=== PATIENT | male | born 1970 | race Caucasian/White ===

== ENCOUNTER 2016-11-03 13:10 | Inpatient (IN) | payer OTHER ==
[2016-11-03] VITALS (13 sets, daily range): BP systolic 124–176; BP diastolic 64–104; PULSE 75–144; RESP 15–20; TEMP 98.1–98.6; O2SAT 95–100
[~2016-11-03] VITALS: Ht 167.6 cm; Wt 96.9 kg
[~2016-11-03 13:10] MED LIST: APIX5TAB PO; ASPI325T PO; DEXT1TAB18 PO; DIGO0.25 PO; DILT90TA PO; FURO1TAB62 PO; FURO20TA PO; LISI2.5T3 PO; METO100T PO; POTA10TA8 PO; VENTAER INH
[2016-11-03] MEDS ORDERED: DILTIAZEM HCL 25 MG/5 ML VIAL ONE (13:31)
--- NOTE | 2016-11-03 13:38 | PD ---
HPI Chief Complaint: Bleeding Time Seen by Provider: 13:32 Travel History International Travel<30 days: No Contact w/Intl Traveler<30days: No Traveled to known affect area: No History of Present Illness HPI This patient complains of dizziness and lightheadedness. He has history of atrial fibrillation and presents with rapid A. fib. Heart rate of 180's. He takes eliquis and reports that lately he has been coughing but now there is some blood mixed in with this phlegm.. Denies fever. He has had some on and off chest discomfort in the center sternum but no pain currently. Denies history of ND. Has seen a automotive salesperson a few times through [facility] he says but can't remember name. Duration one day. Severity is moderate. No alleviating factors. 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) Respiratory: Yes (CHRONIC BRONCHITIS) Immunizations Current: Yes Tetanus Vaccination: < 5 Years Influenza Vaccination: Yes Past Surgical History Abdominal Surgery: Yes ([facility] 2000) Cholecystectomy: Yes (2000) Coronary Artery Bypass Graft: No Other Surgery: Yes Social History Alcohol Use: No Tobacco Use: Yes (< 1/2 PPD) Substance Use: No Allergies-Medications (Allergen,Severity, Reaction): Coded Allergies: Sulfa (Verified Allergy, Severe, HIVES, 11/03/16) Reported Meds & Prescriptions Reported Meds & Active Scripts Active Ventolin Hfa 18 GM Inh (Albuterol Sulfate) 90 Mcg/Act Aer 2 Puff INH Q4-6H PRN Reported Potassium Chloride CR (Potassium Chloride) 10 Meq Tab 10 Meq PO DAILY Metoprolol Tartrate 100 Mg Tab 100 Mg PO BID Lisinopril 2.5 Mg Tab 2.5 Mg PO DAILY Furosemide 20 Mg Tab 20 Mg PO DAILY Diltiazem (Diltiazem HCl) 90 Mg Tab 1.5 Tab PO TID Digoxin 0.25 Mg Tab 0.25 Mg PO DAILY Aspirin 325 Mg Tab 325 Mg PO DAILY Eliquis (Apixaban) 5 Mg Tab 5 Mg PO BID Review of Systems General / Constitutional: No: Fever Eyes: No: Visual changes HENT: Positive: Lightheadedness, No: Headaches Cardiovascular: Positive: Chest Pain or Discomfort, Palpitations, Irregular Rhythm, Tachycardia Respiratory: Positive: Cough, Hemoptysis, No: Shortness of Breath Gastrointestinal: No: Abdominal Pain Genitourinary: No: Dysuria Musculoskeletal: No: Pain Skin: No Rash Neurologic: No: Weakness Psychiatric: No: Depression Endocrine: No: Polydipsia Hematologic/Lymphatic: No: Easy Bruising Physical Exam Narrative GENERAL: Well-nourished, well-developed patient in no apparent distress. SKIN: Warm and dry. HEAD: Atraumatic. Normocephalic. EYES: Pupils equal and round. No scleral icterus. No injection or drainage. ENT: No nasal bleeding or discharge. Mucous membranes pink and moist. NECK: Trachea midline. No JVD. CARDIOVASCULAR: Irregularly irregular rhythm. No murmur appreciated. Rate of 180's RESPIRATORY: No accessory muscle use. Clear to auscultation. Breath sounds equal bilaterally. GASTROINTESTINAL: Abdomen soft, non-tender, nondistended. Hepatic and splenic margins not palpable. MUSCULOSKELETAL: No obvious deformities. No clubbing. No cyanosis. No edema. NEUROLOGICAL: Awake and alert. No obvious cranial nerve deficits. Motor grossly within normal limits. Normal speech. PSYCHIATRIC: Appropriate mood and affect; insight and judgment normal. Data Data Last Documented VS Vital Signs Date Time Temp Pulse Resp B/P Pulse Ox O2 Delivery O2 Flow Rate FiO2 11/03/16 15:15 109 18 153/86 100 Room Air 11/03/16 13:22 98.5 Orders Diltiazem Inj (Cardizem Inj) (11/03/16 13:31) Diltiazem Inj (Cardizem Inj) (11/03/16 13:45) Iv Access Insert/Monitor (11/03/16 13:32) Complete Blood Count With Diff (11/03/16 13:32) Basic Metabolic Panel (Bmp) (11/03/16 13:32) Chest, Single Ap (11/03/16 ) ^ Yoga Teacher / Telemetry (11/03/16 13:32) Ckmb (Isoenzyme) Profile (11/03/16 13:35) Troponin I (11/03/16 13:35) Diltiazem Inj (Cardizem Inj) (11/03/16 14:15) Apixaban (Eliquis) (11/03/16 21:00) Digoxin (Lanoxin) (11/04/16 09:00) Diltiazem (Cardizem) (11/03/16 18:00) Furosemide (Lasix) (11/04/16 09:00) Lisinopril (Prinivil) (11/04/16 09:00) Metoprolol Tartrate (Lopressor) (11/03/16 21:00) Potassium Chloride (Kcl) (11/04/16 09:00) Admit Order (Ed Use Only) (11/03/16 15:24) Labs Laboratory Tests Test 11/03/16 13:35 White Blood Count 15.3 TH/MM3 Red Blood Count 5.48 MIL/MM3 Hemoglobin 15.8 GM/DL Hematocrit 46.7 % Mean Corpuscular Volume 85.2 FL Mean Corpuscular Hemoglobin 28.9 PG Mean Corpuscular Hemoglobin 33.9 % Concent Red Cell Distribution Width 15.1 % Platelet Count 304 TH/MM3 Mean Platelet Volume 9.4 FL Neutrophils (%) (Auto) 80.1 % Lymphocytes (%) (Auto) 8.8 % Monocytes (%) (Auto) 10.0 % Eosinophils (%) (Auto) 0.2 % Basophils (%) (Auto) 0.9 % Neutrophils # (Auto) 12.3 TH/MM3 Lymphocytes # (Auto) 1.4 TH/MM3 Monocytes # (Auto) 1.5 TH/MM3 Eosinophils # (Auto) 0.0 TH/MM3 Basophils # (Auto) 0.1 TH/MM3 CBC Comment DIFF FINAL Differential Comment Sodium Level 140 MEQ/L Potassium Level 4.1 MEQ/L Chloride Level 104 MEQ/L Carbon Dioxide Level 25.5 MEQ/L Anion Gap 11 MEQ/L Blood Urea Nitrogen 16 MG/DL Creatinine 1.20 MG/DL Estimat Glomerular Filtration 65 ML/MIN Rate Random Glucose 110 MG/DL Calcium Level 8.6 MG/DL Total Creatine Kinase 84 U/L Troponin I LESS THAN 0.02 NG/ML MDM Medical Decision Making Medical Screen Exam Complete: Yes Emergency Medical Condition: Yes Medical Record Reviewed: Yes Differential Diagnosis A. fib with RVR, SVT, ventricular fibrillation Narrative Course I have reviewed the patient's electronic medical record. Patient's last stress test was 2013. He has cardiomyopathy of 25-30% EF from an echo done in 2014 IV placed and 25 mg IV Cardizem given CBC is normal Metabolic profile is normal CK is normal Troponin is normal I reviewed his EKG which shows A. fib with a very rapid rate Extended cardiac monitoring reveals A. fib with RVR I reviewed his chest x-ray which is normal Patient is critically ill with A. fib with RVR with an excessive rate requiring multiple doses of IV Cardizem to control His rate was improved after the first dose but still elevated I gave him a second dose of 20 mg IV Cardizem Rate has now come down into the 90s and he has improved Medical workup so far negative and will maintain blood thinner due to decreased stroke risk given the normal hemoglobin and minor bleeding and normal chest x- ray but that will require an ongoing monitoring and discussion I reviewed with the hospitalist will admit Critical Care Narrative Aggregate critical care time was 36 minutes. Time to perform other separately billable procedures was not included in the critical care time. My time did not include minutes spent treating any other patients simultaneously or on activities that did not directly contribute to the patient's treatment. The services I provided to this patient were to treat and/or prevent clinically significant deterioration that could result in: Cardiogenic shock, cardiopulmonary arrest, ventricular fibrillation I provided critical care services requiring my management, as noted below: Chart data review, documentation time, medication orders and management, vital sign assessments/reviewing monitor data, ordering and reviewing lab tests, ordering and interpreting/reviewing x-rays and diagnostic studies, care of the patient and discussion of the patient with the admitting physicians. Diagnosis Primary Impression: Chest pain Qualified Code: R07.2 - Precordial pain Additional Impressions: Atrial fibrillation with rapid ventricular response Hemoptysis, unspecified Admitting Information Admitting Physician Requests: it Chance Baldwin MD Nov 03, 2016 13:38
[2016-11-03] MEDS ORDERED: DILTIAZEM HCL 25 MG/5 ML VIAL IV ONE ×3 (13:45→20:45)
--- NOTE | 2016-11-03 13:48 | RADRPT ---
EXAM DATE/TIME: 11/03/2016 13:42 [facility] COMPARISON: CHEST SINGLE AP, October 07, 2016, 4:33. INDICATIONS : Short of breath MEDICAL HISTORY : Congestive heart failure. A-fib SURGICAL HISTORY : None. ENCOUNTER: Initial ACUITY: 1 day PAIN SCORE: 0/10 LOCATION: Bilateral chest FINDINGS: A single view of the chest demonstrates the lungs to be symmetrically aerated without evidence of mas s, infiltrate or effusion. The cardiomediastinal contours are unremarkable. Osseous structures are intact. CONCLUSION: Normal examination. Justin Quach MD on November 03, 2016 at 13:46 Board Certified Radiologist. This report was verified electronically.
[2016-11-03 14:01] LABS: AUTOMATED NEUTROPHIL # 12.3 TH/MM3 (1.8-7.7); BASOPHIL # 0.1 TH/MM3 (0-0.2); BASOPHIL % 0.9 % (0.0-2.0); EOSINOPHIL % 0.2 % (0.0-4.0); HEMATOCRIT 46.7 % (39.0-51.0); HEMO FLAGS DIFF FINAL; LYMPH % 8.8 % (9.0-44.0); LYMPHOCYTE # 1.4 TH/MM3 (1.0-4.8); MEAN CELL VOLUME 85.2 FL (80.0-100.0); MEAN CORPUSCULAR HEMOGLOBIN 28.9 PG (27.0-34.0); MEAN CORPUSCULAR HGB CONC 33.9 % (32.0-36.0); NEUT % 80.1 % (16.0-70.0); PLATELET COUNT 304 TH/MM3 (150-450); RED BLOOD COUNT 5.48 MIL/MM3 (4.50-5.90); RED CELL DISTRIBUTION WIDTH 15.1 % (11.6-17.2); WHITE BLOOD COUNT 15.3 TH/MM3 (4.0-11.0)
[2016-11-03 14:47] LABS: ANION GAP 11 MEQ/L (5-15); BICARBONATE 25.5 MEQ/L (21.0-32.0); BLOOD UREA NITROGEN 16 MG/DL (7-18); CHLORIDE 104 MEQ/L (98-107); GLOMERULAR FILTRATION RATE 65 ML/MIN (>89); POTASSIUM 4.1 MEQ/L (3.5-5.1); SODIUM (NA) 140 MEQ/L (136-145)
[2016-11-03 14:48] LABS: CREATINE KINASE 84 U/L (39-308)
[2016-11-03] MEDS ORDERED: SODIUM CHLORIDE 0.9% FLUSH 5 ML FLUSH FLUSH PRN (15:30)
[2016-11-03] MEDS ORDERED: DILTIAZEM INJ 125 MG in SODIUM CHLORIDE 0.9% INJ 100 ML IV SCH (16:30)
--- NOTE | 2016-11-03 16:57 | HHI.HP ---
cc: Susanne Romero MD [facility] Primary [facility] Physician Susanne Romero MD Admission Diagnosis chest pain, Afib with RVR,reported hemoptysis Diagnoses: Chief Complaint: hemoptysis, palpitations, chest pain Travel History International Travel<30 Days: No Contact w/Intl Traveler <30 Da: No Traveled to Known Affected Are: No History of Present Illness 46-year-old male with history of atrial fibrillation on Eliquis, cardiomyopathy , HTN, bipolar manic depressive, tobacco use, presents with a one-day history of hemoptysis, palpitations, chest pains. Patient reports he has been in his normal state of health until last night he started coughing up mucus mixed with streaks of bright red blood, then this morning started coughing up dark red clots. He denies any recent fever/chills, rhinitis, congestion, or sore throat. Denies abdominal pain, nausea, or vomiting. He takes Eliquis and aspirin 325 mg daily. He also reports intermittent chest discomfort described as "tightness", lasts for 10 minutes at a time and would subside on its own; associated with shortness of breath. He also became acutely lightheaded today, denies syncope. He reports 6 pillow orthopnea, no lower extremity edema. He reports compliance with his medications. Upon arrival to the ER, he was noted to be in atrial fibrillation with RVR, heart rate 180s. He was given IV Cardizem 25 mg, heart rate was still elevated, then given a second dose of IV Cardizem 20 mg. Heart rate improving however still in the 120s. He denies any current chest pain but does continue to feel short of breath. His certified credit counselor is Dr. Watson. Review of Systems Constitutional: DENIES: Fever, Chills, Dizziness Endocrine: DENIES: Polydipsia, Polyuria, Polyphagia Eyes: DENIES: Blurred vision, Vision loss, Double Vision Ears, nose, mouth, throat: DENIES: Throat pain, Running Nose, Odynophagia Respiratory: COMPLAINS OF: Cough, Hemoptysis, Sputum production, Shortness of breath Cardiovascular: COMPLAINS OF: Chest pain, Palpitations, Dyspnea on Exertion, Orthopnea, DENIES: Lower Extremity Edema Gastrointestinal: DENIES: Abdominal pain, Constipation, Diarrhea, Nausea, Vomiting Genitourinary: DENIES: Urinary incontinence, Urgency, Dysuria Musculoskeletal: DENIES: Back pain, Neck pain Integumentary: DENIES: Pruritus, Rash Hematologic/lymphatic: DENIES: Bruising, Lymphadenopathy Immunologic/allergic: DENIES: Eczema, Urticaria Neurologic: DENIES: Abnormal gait, Headache, Localized weakness, Paresthesias Psychiatric: DENIES: Anxiety, Depression Past Family Social History Past Medical History atrial fibrillation cardiomyopathy HTN bipolar manic depressive Past Surgical History Cholecystectomy in 2000 Reported Medications Ventolin Hfa 18 GM Inh (Albuterol Sulfate) 90 Mcg/Act Aer 2 Puff INH Q4-6H PRN Potassium Chloride CR (Potassium Chloride) 10 Meq Tab 10 Meq PO DAILY Metoprolol Tartrate 100 Mg Tab 100 Mg PO BID Lisinopril 2.5 Mg Tab 2.5 Mg PO DAILY Furosemide 20 Mg Tab 20 Mg PO DAILY Diltiazem (Diltiazem HCl) 90 Mg Tab 1.5 Tab PO TID Digoxin 0.25 Mg Tab 0.25 Mg PO DAILY Aspirin 325 Mg Tab 325 Mg PO DAILY Eliquis (Apixaban) 5 Mg Tab 5 Mg PO BID Allergies: Coded Allergies: Sulfa (Verified Allergy, Severe, HIVES, 11/03/16) Active Ordered Medications Current Medications Medications (Trade) Dose Ordered Sig/Jackson Route Start Time Stop Time Status Last Admin (Eliquis) 5 mg BID PO 11/03/16 21:00 (Lanoxin) 0.25 mg DAILY PO 11/04/16 09:00 (Cardizem) 135 mg TID PO 11/03/16 18:00 (Lasix) 20 mg DAILY PO 11/04/16 09:00 (Prinivil) 2.5 mg DAILY PO 11/04/16 09:00 (Lopressor) 100 mg BID PO 11/03/16 21:00 (KCl) 10 meq DAILY PO 11/04/16 09:00 (NS Flush) 2 ml UNSCH PRN FLUSH 11/03/16 15:30 (NS Flush) 2 ml BID FLUSH 11/03/16 21:00 (Aspirin Chew) 81 mg DAILY PO 11/04/16 09:00 Family History Mother with diabetes, Father in cholecystectomy surgery, hx of hemophilia Social History Smokes tobacco 1/3 PPD, previously smoked 1 PPD now cutting back; smoked since age 13 Very occasional alcohol use, last use 2 weeks ago, previously no alcohol for 2 years 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 SKIN: Warm and dry. No rash. HEAD: Normocephalic. Atraumatic. EYES: Pupils equal and round. No scleral icterus. No injection or drainage. ENT: No nasal bleeding or discharge. Mucous membranes pink and moist. NECK: Supple. Trachea midline. CARDIOVASCULAR: Irregularly irregular rate and rhythm. S1, S2 noted. No murmur appreciated. RESPIRATORY: No accessory muscle use. Breath sounds diminished at bilateral bases, otherwise clear to auscultation. Breath sounds equal bilaterally. GASTROINTESTINAL: Abdomen soft, non-tender, nondistended. Normoactive bowel sounds x4. MUSCULOSKELETAL: No obvious deformities. Extremities without clubbing, cyanosis , or edema. NEUROLOGICAL: Awake and alert. No obvious cranial nerve deficits. Motor grossly within normal limits. 5/5 muscle strength in bilateral upper and lower extremities. Normal speech. PSYCHIATRIC: Appropriate mood and affect; insight and judgment normal. Laboratory Laboratory Tests Test 11/03/16 13:35 White Blood Count 15.3 Red Blood Count 5.48 Hemoglobin 15.8 Hematocrit 46.7 Mean Corpuscular Volume 85.2 Mean Corpuscular Hemoglobin 28.9 Mean Corpuscular Hemoglobin 33.9 Concent Red Cell Distribution Width 15.1 Platelet Count 304 Mean Platelet Volume 9.4 Neutrophils (%) (Auto) 80.1 Lymphocytes (%) (Auto) 8.8 Monocytes (%) (Auto) 10.0 Eosinophils (%) (Auto) 0.2 Basophils (%) (Auto) 0.9 Neutrophils # (Auto) 12.3 Lymphocytes # (Auto) 1.4 Monocytes # (Auto) 1.5 Eosinophils # (Auto) 0.0 Basophils # (Auto) 0.1 CBC Comment DIFF FINAL Differential Comment Sodium Level 140 Potassium Level 4.1 Chloride Level 104 Carbon Dioxide Level 25.5 Anion Gap 11 Blood Urea Nitrogen 16 Creatinine 1.20 Estimat Glomerular Filtration 65 Rate Random Glucose 110 Calcium Level 8.6 Total Creatine Kinase 84 Troponin I LESS THAN 0.02 Result Diagram: 11/03/16 1335 11/03/16 1335 Assessment and Plan Problem List: (1) Atrial fibrillation with rapid ventricular response ICD Code: I48.91 Status: Acute (2) Chest pain ICD Code: R07.9 Status: Acute (3) CHF (congestive heart failure) ICD Code: I50.9 Status: Acute (4) Hypertension ICD Code: I10 Status: Acute (5) Tobacco abuse ICD Code: Z72.0 Status: Acute (6) Hemoptysis, unspecified ICD Code: R04.2 Status: Acute Assessment and Plan 46-year-old male with history of atrial fibrillation on Eliquis, cardiomyopathy , HTN, bipolar manic depressive, tobacco use, presents with a one-day history of hemoptysis, palpitations, chest pains. Atrial Fibrillation with RVR: pt with known hx of afib, presents with HR in 180s , s/p IV Cardizem 25mg and 20mg push in the ED. HR still in 120s-140s. Start on IV Cardizem drip. Continue patient's Digoxin, Metoprolol, Eliquis, decreased aspirin from 325mg to 81mg given reported hemoptysis. Check digoxin level. Consult patient's certified credit counselor Dr. Watson. Chest Pain: He is tender to palpation. However will check serial cardiac enzymes and EKG x3. Continue aspirin, BB. IV Morphine prn pain. Hemoptysis: mild. Hgb stable at 15.8. Continue anticoagulation with Eliquis given afib RVR as above; however decreased aspirin to 81mg daily. Monitor. Repeat CBC tomorrow. Cardiomyopathy with Systolic CHF: Echo 03/18/14 showed EF 50-55% however Echo showed EF 25-30%. Continue patient's lasix 20mg daily, lisinopril, metoprolol, aspirin, Eliquis. Cardiology consulted as above. Hypertension: chronic, continue patient's lisinopril, metoprolol. Monitor BP, adjust antihypertensives as needed. Tobacco Use: counseled on cessation. Avoid nicotine patch. DVT Prophylaxis: On Eliquis. Written by Meagan Jose, acting as scribe for Dr. Sandoval on 11/03/16 at 16: 56. The documentation accurately reflects the work performed [id number] by me on 11/03/16 at 1656. Discussed Condition With Patient, ER Physician Certification 2 Midnight Certification Type: Admission for Inpatient Services Order for Inpatient Services The services are ordered in accordance with Medicare regulations or non- Medicare payer requirements, as applicable. In the case of services not specified as inpatient-only, they are appropriately provided as inpatient services in accordance with the 2-midnight benchmark. Estimated LOS (days): 3 days is the estimated time the patient will need to remain in the hospital, assuming treatment plan goals are met and no additional complications. Post-Hospital Plan: Home Problem Qualifiers (1) Chest pain: Qualified Code: R07.2 - Precordial pain Meagan Jose PA-C Nov 03, 2016 16:57 Darlyn Sandoval MD Nov 03, 2016 18:22
[2016-11-03] MEDS ORDERED: DILTIAZEM HCL 90 MG TAB PO SCH (18:00)
[2016-11-03] MEDS ORDERED: MORPHINE SULFATE 4 MG/ML INJ IV PUSH ONE (18:00)
[2016-11-03] MEDS ORDERED: cloNIDine HCL 0.1 MG TAB PO PRN (18:15)
[2016-11-03 19:08] LABS: AMPHETAMINE, URINE NEG (NEG); BARBITURATES, URINE NEG (NEG); COCAINE, URINE NEG (NEG)
[2016-11-03] MEDS: ACETAMINOPHEN/HYDROcodone 325 MG/5 MG TAB PO PRN (20:42)
[2016-11-03] MEDS ORDERED: DIGOXIN 0.5 MG/2 ML VIAL IV PUSH ONE (20:45)
[2016-11-03 21:02] LABS: MAGNESIUM 1.8 MG/DL (1.5-2.5)
[2016-11-03] MEDS: METOPROLOL TARTRATE 100 MG TAB PO SCH (21:42)
[2016-11-03] MEDS: APIXABAN 5 MG TABLET PO SCH (21:43)
[2016-11-03] MEDS: SODIUM CHLORIDE 0.9% FLUSH 5 ML FLUSH FLUSH SCH (21:43)
[2016-11-04] VITALS (23 sets, daily range): BP systolic 110–146; BP diastolic 81–105; PULSE 69–108; RESP 16–20; TEMP 97.8–98.6; O2SAT 93–100
[2016-11-04] MEDS: ACETAMINOPHEN/HYDROcodone 325 MG/5 MG TAB PO PRN ×5 (00:55→21:36)
[2016-11-04] MEDS: DIGOXIN 0.5 MG/2 ML VIAL IV PUSH SCH ×2 (04:06→08:27)
[2016-11-04 04:13] LABS: MEAN CELL VOLUME 85.5 FL (80.0-100.0); MEAN CORPUSCULAR HEMOGLOBIN 29.3 PG (27.0-34.0); MEAN CORPUSCULAR HGB CONC 34.2 % (32.0-36.0); PLATELET COUNT 285 TH/MM3 (150-450); RED BLOOD COUNT 5.03 MIL/MM3 (4.50-5.90); RED CELL DISTRIBUTION WIDTH 14.8 % (11.6-17.2); REVIEW FLAG FINAL
[2016-11-04 04:39] LABS: CREATINE KINASE 42 U/L (39-308)
[2016-11-04 04:44] LABS: BICARBONATE 25.7 MEQ/L (21.0-32.0); POTASSIUM 4.3 MEQ/L (3.5-5.1)
[2016-11-04] MEDS: ASPIRIN 81 MG CHEW TAB PO SCH (08:26)
[2016-11-04] MEDS: POTASSIUM CHLORIDE 10 MEQ CONTROLLED RELEASE TAB PO SCH (08:26)
[2016-11-04] MEDS: FUROSEMIDE 20 MG TAB PO SCH (08:26)
[2016-11-04] MEDS: DIGOXIN 0.25 MG TAB PO SCH (08:26)
[2016-11-04] MEDS: METOPROLOL TARTRATE 100 MG TAB PO SCH ×2 (08:26→21:36)
[2016-11-04] MEDS: APIXABAN 5 MG TABLET PO SCH ×2 (08:26→21:36)
[2016-11-04] MEDS: LISINOPRIL 5 MG TAB PO SCH (08:27)
[2016-11-04] MEDS: SODIUM CHLORIDE 0.9% FLUSH 5 ML FLUSH FLUSH SCH ×2 (08:27→21:37)
--- NOTE | 2016-11-04 11:49 | HHI.PR ---
Subjective Remarks Patient seen in follow-up for A. fib with RVR, musculoskeletal chest pain, hemoptysis and multiple comorbid conditions listed on the assessment and plan. He reports that he is breathing better. He was weaned off the Cardizem drip. Loaded with digoxin. Heart rate is currently controlled. Objective Vitals Vital Signs Date Time Temp Pulse Resp B/P Pulse Ox O2 Delivery O2 Flow Rate FiO2 11/04/16 11:23 16 11/04/16 11:00 74 11/04/16 10:00 69 11/04/16 09:00 74 11/04/16 08:00 97.8 83 16 136/98 98 11/04/16 08:00 74 11/04/16 07:19 Room Air 11/04/16 07:00 73 11/04/16 06:00 71 11/04/16 05:00 69 11/04/16 04:00 75 11/04/16 04:00 98.4 79 18 110/81 96 11/04/16 03:00 74 11/04/16 02:00 74 11/04/16 01:00 77 11/04/16 00:00 75 11/03/16 23:47 Room Air 11/03/16 23:46 98.3 75 20 139/76 97 11/03/16 23:00 86 11/03/16 22:00 99 11/03/16 21:00 98.6 100 20 124/90 97 11/03/16 21:00 100 11/03/16 20:40 139 20 139/64 99 Room Air 11/03/16 19:15 144 18 154/104 97 Room Air 11/03/16 18:42 123 20 137/98 97 Room Air 11/03/16 17:46 115 18 168/95 100 Room Air 11/03/16 16:00 108 18 132/95 96 Room Air 11/03/16 15:15 109 18 153/86 100 Room Air 11/03/16 14:15 133 18 148/92 96 Room Air 11/03/16 13:27 168 22 95 Room Air 11/03/16 13:22 98.5 87 20 96 11/03/16 13:18 98.1 118 15 176/88 95 I/O 11/03/16 11/03/16 11/03/16 11/04/16 11/04/16 11/04/16 07:00 15:00 23:00 07:00 15:00 23:00 Intake Total 472 ml 580 ml Output Total 210 ml Balance 262 ml 580 ml Intake Oral 472 ml 480 ml IV Total 100 ml Output Urine Total 210 ml # Voids 2 2 # Bowel Movements 0 Result Diagram: 11/04/16 0342 11/04/16 0520 Imaging Last Impressions Chest X-Ray 11/03/16 0000 Signed Impressions: Service Date/Time: Thursday, November 03, 2016 13:42 - CONCLUSION: Normal examination. Justin Quach MD Objective Remarks GENERAL: This is a well-nourished, well-developed patient, in no apparent distress. CARDIOVASCULAR: Irregularly irregular rate and rhythm. S1, S2 noted. No murmur appreciated. RESPIRATORY: Good respiratory efforts. Breath sounds equal and clear to auscultation bilaterally. GASTROINTESTINAL: Abdomen soft, non-tender, non-distended. Normal active bowel sounds MUSCULOSKELETAL: Extremities without cyanosis, or edema. NEURO: Alert & Oriented x4 to person, place, time, situation. Moves all ext x4 PSYCH: Appropriate mood and affect. A/P Problem List: (1) Atrial fibrillation with rapid ventricular response ICD Code: I48.91 Status: Acute (2) Chest pain ICD Code: R07.9 Status: Acute (3) CHF (congestive heart failure) ICD Code: I50.9 Status: Acute (4) Hypertension ICD Code: I10 Status: Acute (5) Tobacco abuse ICD Code: Z72.0 Status: Acute (6) Hemoptysis, unspecified ICD Code: R04.2 Status: Acute Assessment and Plan 46-year-old male with history of atrial fibrillation on Eliquis, cardiomyopathy , HTN, bipolar manic depressive, tobacco use, presents with a one-day history of hemoptysis, palpitations, chest pains. Atrial Fibrillation with RVR: pt with known hx of afib, presents with HR in 180s , s/p IV Cardizem 25mg and 20mg push in the ED. -Appreciate cardiology following. Patient loaded with digoxin. Heart rate now controlled. Digoxin level was low. - Continue Digoxin, Metoprolol, Eliquis, decreased aspirin from 325mg to 81mg given reported hemoptysis. Chest Pain: He is tender to palpation. Serial cardiac enzymes unremarkable. Pain control. Hemoptysis: mild. Hgb stable at 15.8. Continue anticoagulation with Eliquis given afib RVR as above; however decreased aspirin to 81mg daily. Monitor. Cardiomyopathy with Systolic CHF: Echo 03/18/14 showed EF 50-55% however Echo showed EF 25-30%. Continue patient's lasix 20mg daily, lisinopril, metoprolol, aspirin, Eliquis. Cardiology consulted as above. Hypertension: chronic, continue patient's lisinopril, metoprolol. Monitor BP, adjust antihypertensives as needed. Tobacco Use: counseled on cessation. Avoid nicotine patch. DVT Prophylaxis: On Eliquis. Problem Qualifiers (1) Chest pain: Qualified Code: R07.2 - Precordial pain Darlyn Sandoval MD Nov 04, 2016 11:49
--- NOTE | 2016-11-04 19:39 | EKG ---
Date Performed: 11/03/2016 Time Performed: 13:28:10 PTAGE: 46 years EKG: ATRIAL FIBRILLATION WITH RAPID VENTRICULAR RESPONSE NONSPECIFIC T-WAVE ABNORMALITY ABNORMAL RHYTHM ECG PREVIOUS TRACING : 10/07/2016 04.16 DOCTOR: Bj Parry Interpretating Date/Time 11/04/2016 19:34:58
--- NOTE | 2016-11-04 20:05 | MB ---
cc: GOPAL VASQUEZ DATE OF CONSULTATION 11/04/2016 DATE OF 1970 REASON FOR CONSULTATION Atrial fibrillation with RVR. HISTORY OF PRESENT ILLNESS 46-year-old male with a past medical history significant for atrial fibrillation on chronic oral anticoagulation, cardiomyopathy, hypertension, bipolar disorder, tobacco abuse that presented to the emergency department complaining of cough, hemoptysis and palpitations. He reports that he was in his usual state of health until yesterday when he started coughing. The coughing was described as mucus with a streak of blood. He denied recent fevers , chills, nasal congestion or sore throat, nausea, vomiting, abdominal pain. He presented to the emergency department and was found to be in atrial fibrillation with RVR. He reports compliance with medications. In the emergency department he was started on Cardizem drip and was admitted to the hospital for further management and evaluation. Currently he remains stable in no acute distress. His rate is controlled, however, he is still in atrial fibrillation. He denies palpitations, chest pain, abdominal pain, nausea, vomiting, diarrhea, fever. REVIEW OF SYSTEMS Negative except for what is mentioned in the history of present illness. PAST MEDICAL HISTORY 1. Atrial fibrillation on chronic anticoagulation. 2. Cardiomyopathy. 3. Hypertension. 4. Bipolar disorder. 5. Tobacco abuse. PAST SURGICAL HISTORY Cholecystectomy. Cardiac home medications: 1. Metoprolol 100 mg p.o. b.i.d. 2. Lisinopril 2.5 mg p.o. daily. 3. Lasix 20 mg p.o. daily. 4. Diltiazem 90 mg p.o. t.i.d. 5. Digoxin 0.25 milligrams p.o. daily. 6. Aspirin 325 milligrams p.o. daily. 7. Eliquis 5 milligrams p.o. twice a day. ALLERGIES SULFA. FAMILY HISTORY Mother with diabetes. Father had a history of hemophilia. SOCIAL HISTORY He is a chronic smoker. Denies illicit drug use. Social alcohol. PHYSICAL EXAMINATION VITAL SIGNS: Temperature 97, pulse 74, respiratory 16, blood pressure 136/98, O2 sat 98% on room air. GENERAL: He is awake, alert, oriented x3, in no acute distress. NECK: No JVD, no carotid bruit. HEART: Irregular rate and rhythm. No murmurs, rubs or gallops. LUNGS: Clear to auscultation bilaterally. No rales, rhonchi, no rubs. ABDOMEN: Soft and nontender. Nondistended. Positive bowel sounds. EXTREMITIES: No cyanosis or edema. Pulses throughout. LABORATORY DATA CBC shows a white count trending down from 15-13. Hemoglobin of 14, hematocrit of 43, platelet count 285. Chemistries sodium 138 trending down today to 122. Potassium of 4.3, BUN 24 and creatinine of 1.29. Troponins less than 0.02 x3. Toxicology screen negative. IMAGING Chest x-ray normal and non cardiopulmonary process. EKG atrial fibrillation with rapid ventricular response. Telemetry on the floor shows atrial fibrillation with adequate ventricular rate. ASSESSMENT/PLAN A 46-year-old male with a history of atrial fibrillation and cardiomyopathy that presents to the hospital with coughing, tinge blood sputum found to be in atrial fibrillation with rapid ventricular response. He remains afebrile, no signs of infection, hemodynamically stable. Chest pain free, denies shortness of breath. Rate now controlled off the Diltiazem drip. At this point I will start him on his home dose of digoxin, Diltiazem and metoprolol, as well as on his home dose oral anticoagulation Eliquis. There are no signs of active bleeding and hemoglobin remains stable. According to the patient there was not a lot of blood in the mucus, it was just tinged with blood. As far as the cardiomyopathy there is no hospital records available. Troponin's are negative. For now I would continue rate control for afib as well as OAC and get 2Decho t assess LV systolic function. When he is ready for discharged he should follow up with Dr. Watson. Thank you for the opportunity to take part in the care of this patient. Further therapy to be determine MD DIANA Juárez/DAVIDE /1:07 PM /7:02 PM SETH
[2016-11-05] VITALS (22 sets, daily range): BP systolic 94–128; BP diastolic 72–99; PULSE 63–108; RESP 20–24; TEMP 98.1–98.7; O2SAT 96–98
[2016-11-05] MEDS: ACETAMINOPHEN/HYDROcodone 325 MG/5 MG TAB PO PRN ×3 (05:02→20:11)
[2016-11-05] MEDS: ONDANSETRON HCL 4 MG/2 ML VIAL IV PUSH PRN ×2 (06:11→20:18)
[2016-11-05 06:30] LABS: HEMATOCRIT 43.6 % (39.0-51.0); MEAN CELL VOLUME 85.8 FL (80.0-100.0); MEAN CORPUSCULAR HEMOGLOBIN 28.9 PG (27.0-34.0); MEAN CORPUSCULAR HGB CONC 33.7 % (32.0-36.0); PLATELET COUNT 240 TH/MM3 (150-450); RED BLOOD COUNT 5.08 MIL/MM3 (4.50-5.90); RED CELL DISTRIBUTION WIDTH 15.2 % (11.6-17.2); REVIEW FLAG FINAL; WHITE BLOOD COUNT 10.3 TH/MM3 (4.0-11.0)
[2016-11-05 07:12] LABS: BICARBONATE 31.7 MEQ/L (21.0-32.0); POTASSIUM 4.2 MEQ/L (3.5-5.1)
[2016-11-05] MEDS: METOPROLOL TARTRATE 100 MG TAB PO SCH (09:19)
[2016-11-05] MEDS: FUROSEMIDE 20 MG TAB PO SCH (09:20)
[2016-11-05] MEDS: LISINOPRIL 5 MG TAB PO SCH (09:20)
[2016-11-05] MEDS: POTASSIUM CHLORIDE 10 MEQ CONTROLLED RELEASE TAB PO SCH (09:20)
[2016-11-05] MEDS: ASPIRIN 81 MG CHEW TAB PO SCH (09:20)
[2016-11-05] MEDS: APIXABAN 5 MG TABLET PO SCH ×2 (09:20→20:10)
[2016-11-05] MEDS: DIGOXIN 0.25 MG TAB PO SCH (09:20)
[2016-11-05] MEDS: SODIUM CHLORIDE 0.9% FLUSH 5 ML FLUSH FLUSH SCH ×2 (09:21→20:19)
--- NOTE | 2016-11-05 11:57 | PD.CARD.PN ---
Subjective Subjective Remarks Complaints with SOB with exertion still of Afib goes to RVR with activity no overnight events Objective Medications Current Medications Medications (Trade) Dose Ordered Sig/Jackson Route Start Time Stop Time Status Last Admin (Eliquis) 5 mg BID PO 11/03/16 21:00 11/05/16 09:20 (Lanoxin) 0.25 mg DAILY PO 11/04/16 09:00 11/05/16 09:20 (Lasix) 20 mg DAILY PO 11/04/16 09:00 11/05/16 09:20 (Prinivil) 2.5 mg DAILY PO 11/04/16 09:00 11/05/16 09:20 (Lopressor) 100 mg BID PO 11/03/16 21:00 11/05/16 09:19 (KCl) 10 meq DAILY PO 11/04/16 09:00 11/05/16 09:20 (NS Flush) 2 ml UNSCH PRN FLUSH 11/03/16 15:30 (NS Flush) 2 ml BID FLUSH 11/03/16 21:00 11/05/16 09:21 Aspirin 81 mg 81 mg DAILY PO 11/04/16 09:00 11/05/16 09:20 (Cardizem Inj/NS Inj) 125 ml @ 0 mls/hr TITRATE IV 11/03/16 16:30 11/03/16 18:10 (Catapres) 0.1 mg Q6H PRN PO 11/03/16 18:15 ([place] 5-325 Mg) 1 tab Q4H PRN PO 11/03/16 18:15 11/05/16 05:02 (Zofran Inj) 4 mg Q6HR PRN IV PUSH 11/05/16 06:00 11/05/16 06:11 Vital Signs / I&O Vital Signs Date Time Temp Pulse Resp B/P Pulse Ox O2 Delivery O2 Flow Rate FiO2 11/05/16 08:29 98.4 99 22 123/88 96 11/05/16 06:00 105 11/05/16 05:00 82 11/05/16 04:00 98.1 84 22 121/72 98 11/05/16 04:00 88 11/05/16 03:00 83 11/05/16 02:00 78 11/05/16 01:00 85 11/05/16 00:00 75 11/05/16 00:00 98.2 84 24 94/74 98 11/05/16 00:00 94 11/04/16 23:00 75 11/04/16 22:00 102 11/04/16 21:00 88 11/04/16 20:00 86 11/04/16 20:00 84 11/04/16 20:00 98.1 80 20 131/105 98 11/04/16 19:00 98 Room Air 11/04/16 18:00 87 11/04/16 17:32 20 11/04/16 17:00 86 11/04/16 16:00 98.2 95 16 130/86 100 11/04/16 16:00 90 11/04/16 15:00 80 11/04/16 14:00 84 11/04/16 13:00 80 11/04/16 12:00 98.2 76 18 136/84 97 11/04/16 12:00 78 I/O 11/04/16 11/04/16 11/04/16 11/05/16 11/05/16 11/05/16 07:00 15:00 23:00 07:00 15:00 23:00 Intake Total 580 ml 900 ml 480 ml Output Total 400 ml 425 ml Balance 580 ml 500 ml 55 ml Intake Oral 480 ml 850 ml 480 ml IV Total 100 ml 50 ml 0 ml Output Urine Total 400 ml 425 ml # Voids 2 2 2 # Bowel Movements 0 0 0 Physical Exam GENERAL: Well-nourished, well-developed patient. SKIN: Warm and dry. HEAD: Normocephalic. EYES: No scleral icterus. No injection or drainage. NECK: Supple, trachea midline. No JVD or lymphadenopathy. CARDIOVASCULAR: Irr Irr without murmurs, gallops, or rubs. RESPIRATORY: Breath sounds equal bilaterally. No accessory muscle use. GASTROINTESTINAL: Abdomen soft, non-tender, nondistended. EXTREMITIES: No cyanosis, or edema. NEUROLOGICAL: Awake, alert, and oriented x 3. Non-focal. Laboratory Laboratory Tests Test 11/05/16 05:36 White Blood Count 10.3 TH/MM3 Red Blood Count 5.08 MIL/MM3 Hemoglobin 14.7 GM/DL Hematocrit 43.6 % Mean Corpuscular Volume 85.8 FL Mean Corpuscular Hemoglobin 28.9 PG Mean Corpuscular Hemoglobin 33.7 % Concent Red Cell Distribution Width 15.2 % Platelet Count 240 TH/MM3 Mean Platelet Volume 9.3 FL Sodium Level 139 MEQ/L Potassium Level 4.2 MEQ/L Chloride Level 101 MEQ/L Carbon Dioxide Level 31.7 MEQ/L Anion Gap 6 MEQ/L Blood Urea Nitrogen 20 MG/DL Creatinine 1.02 MG/DL Estimat Glomerular Filtration 78 ML/MIN Rate Random Glucose 82 MG/DL Calcium Level 8.3 MG/DL Imaging Last Impressions Chest X-Ray 11/03/16 0000 Signed Impressions: Service Date/Time: Thursday, November 03, 2016 13:42 - CONCLUSION: Normal examination. Justin Quach MD Assessment and Plan Problem List: (1) A-fib Assessment and Plan: Still goes to R on ambulation with complaints of SOB Stop Lopressor Start Diltiazem 30mg PO QID Cont OAC 2DEcho (2) Noncompliance with medications (3) Essential hypertension (4) Hypertension (5) Tobacco abuse Problem Qualifiers (1) A-fib: Qualified Code: I48.2 - Chronic atrial fibrillation Bj Parry MD Nov 05, 2016 11:57
[2016-11-05] MEDS: DILTIAZEM HCL 30 MG TAB PO SCH ×3 (12:12→20:18)
--- NOTE | 2016-11-05 13:25 | HHI.PR ---
Subjective Remarks Patient reports that he is not feeling too well today. Still has some shortness of breath with activities and goes into A. fib with RVR. Objective Vitals Vital Signs Date Time Temp Pulse Resp B/P Pulse Ox O2 Delivery O2 Flow Rate FiO2 11/05/16 13:05 80 11/05/16 12:00 98.2 107 20 128/99 98 11/05/16 11:00 108 11/05/16 10:00 100 11/05/16 09:00 105 11/05/16 08:29 98.4 99 22 123/88 96 11/05/16 06:00 105 11/05/16 05:00 82 11/05/16 04:00 98.1 84 22 121/72 98 11/05/16 04:00 88 11/05/16 03:00 83 11/05/16 02:00 78 11/05/16 01:00 85 11/05/16 00:00 75 11/05/16 00:00 98.2 84 24 94/74 98 11/05/16 00:00 94 11/04/16 23:00 75 11/04/16 22:00 102 11/04/16 21:00 88 11/04/16 20:00 86 11/04/16 20:00 84 11/04/16 20:00 98.1 80 20 131/105 98 11/04/16 19:00 98 Room Air 11/04/16 18:00 87 11/04/16 17:32 20 11/04/16 17:00 86 11/04/16 16:00 98.2 95 16 130/86 100 11/04/16 16:00 90 11/04/16 15:00 80 11/04/16 14:00 84 I/O 11/04/16 11/04/16 11/04/16 11/05/16 11/05/16 11/05/16 07:00 15:00 23:00 07:00 15:00 23:00 Intake Total 580 ml 900 ml 480 ml Output Total 400 ml 425 ml 200 ml Balance 580 ml 500 ml 55 ml -200 ml Intake Oral 480 ml 850 ml 480 ml IV Total 100 ml 50 ml 0 ml Output Urine Total 400 ml 425 ml 200 ml # Voids 2 2 2 # Bowel Movements 0 0 0 1 Result Diagram: 11/05/1636 11/05/16535 Objective Remarks GENERAL: This is a well-nourished, well-developed patient, in no apparent distress. CARDIOVASCULAR: Irregularly irregular rate and rhythm. S1, S2 noted. No murmur appreciated. RESPIRATORY: Good respiratory efforts. Breath sounds equal and clear to auscultation bilaterally. GASTROINTESTINAL: Abdomen soft, non-tender, non-distended. Normal active bowel sounds MUSCULOSKELETAL: Extremities without cyanosis, or edema. NEURO: Alert & Oriented x4 to person, place, time, situation. Moves all ext x4 PSYCH: Appropriate mood and affect. A/P Problem List: (1) Atrial fibrillation with rapid ventricular response ICD Code: I48.91 Status: Acute (2) Chest pain ICD Code: R07.9 Status: Acute (3) CHF (congestive heart failure) ICD Code: I50.9 Status: Acute (4) Hypertension ICD Code: I10 Status: Acute (5) Tobacco abuse ICD Code: Z72.0 Status: Acute (6) Hemoptysis, unspecified ICD Code: R04.2 Status: Acute Assessment and Plan 46-year-old male with history of atrial fibrillation on Eliquis, cardiomyopathy , HTN, bipolar manic depressive, tobacco use, presents with a one-day history of hemoptysis, palpitations, chest pains. Atrial Fibrillation with RVR: pt with known hx of afib, presents with HR in 180s , s/p IV Cardizem 25mg and 20mg push in the ED. -Appreciate cardiology following. Patient initially loaded with digoxin. Digoxin level was low. - Continue Digoxin, Eliquis, decreased aspirin from 325mg to 81mg given reported hemoptysis. - Rate still uncontrolled with activities. Metoprolol Dced, patient started on Cardizem 30 mg every 6 hours. Chest Pain: He is tender to palpation. Serial cardiac enzymes unremarkable. Pain control. Hemoptysis: mild. Hgb stable at 15.8. Continue anticoagulation with Eliquis given afib RVR as above; however decreased aspirin to 81mg daily. Monitor. Cardiomyopathy with Systolic CHF: Echo 04/04/15 showed EF 25-30%. Continue patient's lasix 20mg daily, lisinopril, metoprolol, aspirin, Eliquis. - Repeat 2-D echo Hypertension: chronic, continue patient's lisinopril, metoprolol. Monitor BP, adjust antihypertensives as needed. Tobacco Use: counseled on cessation. Avoid nicotine patch. DVT Prophylaxis: On Eliquis. Problem Qualifiers (1) Chest pain: Qualified Code: R07.2 - Precordial pain Darlyn Sandoval MD Nov 05, 2016 13:25
--- NOTE | 2016-11-05 19:05 | EC ---
Study Study Date:11/05/2016 STUDY CONCLUSIONS SUMMARY - Left ventricle: The cavity size was mildly dilated. Wall thickness was normal. Systolic function was severely reduced. The estimated ejection fraction was in the range of 25% to 30%. Diffuse hypokinesis. - Mitral valve: Moderate regurgitation. - Tricuspid valve: Mild regurgitation. - Pulmonary arteries: PA peak pressure: 53mm Hg (S). If LV function is below 40, please consider prescribing an ACEI or ARB or document rationale for non-use. PROCEDURE DATA STUDY STATUS: Elective. Procedure: Transthoracic echocardiography. Image quality was good. Scanning was performed from the parasternal, apical, and subcostal acoustic windows. Study completion: The patient tolerated the procedure well. Transthoracic echocardiography. M-mode, complete 2D, complete spectral Doppler, and color Doppler. Patient status: Inpatient. CARDIAC ANATOMY LEFT VENTRICLE: The cavity size was mildly dilated. Wall thickness was normal. Systolic function was severely reduced. The estimated ejection fraction was in the range of 25% to 30%. Diffuse hypokinesis. AORTIC VALVE: Trileaflet; normal thickness leaflets. Doppler: Transvalvular velocity was within the normal range. There was no stenosis. No regurgitation. AORTA: Aortic root: The aortic root was normal in size. MITRAL VALVE: Structurally normal valve. Doppler: Transvalvular velocity was within the normal range. There was no evidence for stenosis. Moderate regurgitation. Peak gradient: 4mm Hg (D). LEFT ATRIUM: The atrium was normal in size. RIGHT VENTRICLE: The cavity size was normal. Wall thickness was normal. PULMONIC VALVE: Doppler: Transvalvular velocity was within the normal range. There was no evidence for stenosis. No regurgitation. TRICUSPID VALVE: Structurally normal valve. Doppler: Transvalvular velocity was within the normal range. Mild regurgitation. PULMONARY ARTERY: The main pulmonary artery was normal-sized. Systolic pressure was within the normal range. RIGHT ATRIUM: The atrium was normal in size. PERICARDIUM: There was no pericardial effusion. SYSTEMIC VEINS: Inferior vena cava: The vessel was normal in size. BASIC MEASUREMENTS ADULT Normal Left ventricle LV internal dimension, ED, chordal level, *60.4 mm 43-52 PLAX LV internal dimension, ES, chordal level, *54.8 mm 23-38 PLAX Fractional shortening, chordal level, PLAX *9 % >29 LV posterior wall thickness, ED 10.7 mm IVS/LVPW ratio, ED 1.06 <1.3 Ventricular septum Septal thickness, ED 11.3 mm Aortic valve Leaflet separation 22 mm 15-26 Left atrium Anterior-posterior dimension 48 mm Right ventricle RV internal dimension, ED, PLAX 26 mm 19-38 BASIC MEASUREMENTS ADULT Normal Aortic valve Leaflet separation 22 mm 15-26 Aorta Root diameter, ED 34 mm 20-37 DOPPLER MEASUREMENTS ADULT Normal Main pulmonary artery Pressure, S *53 mm Hg =30 Mitral valve Peak E-wave velocity 101 cm/s Peak gradient, D 4 mm Hg Tricuspid valve Regurgitant peak velocity 327 cm/s Peak RV-RA gradient, S 43 mm Hg Maximal regurgitant velocity 327 cm/s Systemic veins Estimated CVP 10 mm Hg Right ventricle RV pressure, S *53 mm Hg <30 LEGEND: Mean values are shown as u=mean value. Asterisk (*) phelan values outside specified normal range. Prepared and signed by Bj Parry [id number]
[2016-11-06] VITALS (23 sets, daily range): BP systolic 100–121; BP diastolic 71–98; PULSE 79–115; RESP 20; TEMP 98.2–98.7; O2SAT 95–98
[2016-11-06] MEDS: ACETAMINOPHEN/HYDROcodone 325 MG/5 MG TAB PO PRN ×4 (00:02→21:31)
[2016-11-06] MEDS: POTASSIUM CHLORIDE 10 MEQ CONTROLLED RELEASE TAB PO SCH (08:40)
[2016-11-06] MEDS: FUROSEMIDE 20 MG TAB PO SCH (08:40)
[2016-11-06] MEDS: APIXABAN 5 MG TABLET PO SCH (08:41)
[2016-11-06] MEDS: LISINOPRIL 5 MG TAB PO SCH (08:41)
[2016-11-06] MEDS: DIGOXIN 0.25 MG TAB PO SCH (08:41)
[2016-11-06] MEDS: SODIUM CHLORIDE 0.9% FLUSH 5 ML FLUSH FLUSH SCH ×2 (08:41→21:32)
[2016-11-06] MEDS: DILTIAZEM HCL 30 MG TAB PO SCH ×4 (08:41→21:31)
[2016-11-06] MEDS ORDERED: AMIODARONE HCL 150 MG/3 ML VIAL ONE (08:51)
[2016-11-06] MEDS ORDERED: AMIODARONE 150 MG/D5W 97 ML BOLUS 10 MINUTES IV ONE ×2 (09:30)
[2016-11-06] MEDS ORDERED: HEPARIN-NS/PF INJ 500 ML ONE ×2 (10:22→10:28)
[2016-11-06] MEDS ORDERED: MIDAZOLAM HCL 2 MG/2 ML VIAL ONE (10:23)
[2016-11-06] MEDS ORDERED: VERAPAMIL HCL 5 MG/2 ML VIAL ONE (10:23)
[2016-11-06] MEDS ORDERED: HEPARIN SODIUM - IV 10,000 UNITS/10 ML VIAL ONE (10:23)
[2016-11-06] MEDS ORDERED: NITROGLYCERIN INJ 5 ML ONE (10:23)
--- NOTE | 2016-11-06 10:30 | HHI.PR ---
Subjective Remarks Rate still uncontrolled. He was given an Amiodorone bolus this morning. Plan for heart cath today per Cardiology. He reports that he still gets SOB with minimal exertion. Objective Vitals Vital Signs Date Time Temp Pulse Resp B/P Pulse Ox O2 Delivery O2 Flow Rate FiO2 11/06/16 06:00 87 11/06/16 05:00 83 11/06/16 04:00 83 11/06/16 04:00 98.6 95 20 111/86 98 11/06/16 03:00 87 11/06/16 02:00 85 11/06/16 01:00 87 11/06/16 00:00 98.7 92 20 121/98 98 11/06/16 00:00 85 11/05/16 23:00 87 11/05/16 22:00 87 11/05/16 21:00 63 11/05/16 20:00 98.6 85 20 114/73 98 11/05/16 20:00 83 11/05/16 19:00 80 11/05/16 19:00 98 Room Air 11/05/16 17:56 99 Room Air 11/05/16 17:00 85 11/05/16 16:00 98.7 72 24 121/74 98 11/05/16 15:00 81 11/05/16 14:00 83 11/05/16 13:30 20 11/05/16 13:05 80 11/05/16 12:00 98.2 107 20 128/99 98 11/05/16 11:00 108 I/O 11/05/16 11/05/16 11/05/16 11/06/16 11/06/16 11/06/16 07:00 15:00 23:00 07:00 15:00 23:00 Intake Total 480 ml 480 ml Output Total 425 ml 200 ml 850 ml Balance 55 ml -200 ml -370 ml Intake Oral 480 ml 480 ml IV Total 0 ml Output Urine Total 425 ml 200 ml 850 ml # Voids 2 3 # Bowel Movements 0 1 Result Diagram: 11/05/1636 11/05/16535 Objective Remarks GENERAL: This is a well-nourished, well-developed patient, in no apparent distress. CARDIOVASCULAR:Rate of 105. Irregular rhythm. S1, S2 noted. No murmur appreciated. RESPIRATORY: Good respiratory efforts. Breath sounds equal and clear to auscultation bilaterally. GASTROINTESTINAL: Abdomen soft, non-tender, non-distended. Normal active bowel sounds MUSCULOSKELETAL: Extremities without cyanosis, or edema. NEURO: Alert & Oriented x4 to person, place, time, situation. Moves all ext x4 PSYCH: Appropriate mood and affect. A/P Problem List: (1) Atrial fibrillation with rapid ventricular response ICD Code: I48.91 Status: Acute (2) Chest pain ICD Code: R07.9 Status: Acute (3) CHF (congestive heart failure) ICD Code: I50.9 Status: Acute (4) Hypertension ICD Code: I10 Status: Acute (5) Tobacco abuse ICD Code: Z72.0 Status: Acute (6) Hemoptysis, unspecified ICD Code: R04.2 Status: Acute Assessment and Plan 46-year-old male with history of atrial fibrillation on Eliquis, cardiomyopathy , HTN, bipolar manic depressive, tobacco use, presents with a one-day history of hemoptysis, palpitations, chest pains. Atrial Fibrillation with RVR: pt with known hx of afib, presents with HR in 180s , s/p IV Cardizem 25mg and 20mg push in the ED. - Appreciate cardiology following. Patient initially loaded with digoxin. Digoxin level was low. - Rate is still uncontrolled. Status post amiodarone bolus. Plan for heart catheterization per cardiology today. - Continue Digoxin, Cardizem, Eliquis, decreased aspirin from 325mg to 81mg given reported hemoptysis. Chest Pain: He is tender to palpation. Serial cardiac enzymes unremarkable. Pain control. Hemoptysis: Blood-tinged sputum. Hgb stable at 15. Continue anticoagulation with Eliquis given afib RVR as above; however decreased aspirin to 81mg daily. Monitor. Cardiomyopathy with Systolic CHF: Echo 04/04/15 showed EF 25-30%. Continue patient's lasix 20mg daily, lisinopril, metoprolol, aspirin, Eliquis. - Repeat 2-D echo shows LVEF of 25-30%. Hypertension: chronic, continue patient's lisinopril, metoprolol. Monitor BP, adjust antihypertensives as needed. Tobacco Use: counseled on cessation. Avoid nicotine patch. DVT Prophylaxis: On Eliquis. Problem Qualifiers (1) Chest pain: Qualified Code: R07.2 - Precordial pain Rimpel,Ricardy MD Nov 06, 2016 10:29
[2016-11-06] MEDS ORDERED: MISC INFORMATION XX ONE (11:15)
[2016-11-06] MEDS ORDERED: SODIUM CHLORIDE 0.9% FLUSH 5 ML FLUSH IVF PRN (11:15)
--- NOTE | 2016-11-06 12:17 | PD.CARD.PN ---
Subjective Subjective Remarks no complaint afib in the low 100's with activity echo reviewed low EF Objective Medications Current Medications Medications (Trade) Dose Ordered Sig/Jackson Route Start Time Stop Time Status Last Admin (Lanoxin) 0.25 mg DAILY PO 11/04/16 09:00 11/06/16 08:41 (Lasix) 20 mg DAILY PO 11/04/16 09:00 11/06/16 08:40 (Prinivil) 2.5 mg DAILY PO 11/04/16 09:00 11/06/16 08:41 (KCl) 10 meq DAILY PO 11/04/16 09:00 11/06/16 08:40 (NS Flush) 2 ml UNSCH PRN FLUSH 11/03/16 15:30 IV Flush 2 ml 2 ml BID FLUSH 11/03/16 21:00 11/06/16 08:41 (Cardizem Inj/NS Inj) 125 ml @ 0 mls/hr TITRATE IV 11/03/16 16:30 11/03/16 18:10 (Catapres) 0.1 mg Q6H PRN PO 11/03/16 18:15 ([place] 5-325 Mg) 1 tab Q4H PRN PO 11/03/16 18:15 11/06/16 04:15 (Zofran Inj) 4 mg Q6HR PRN IV PUSH 11/05/16 06:00 11/05/16 20:18 (Cardizem) 60 mg QID PO 11/06/16 13:00 (NS Flush) 2 ml BID IVF 11/06/16 21:00 (NS Flush) 2 ml UNSCH PRN IVF 11/06/16 11:15 Vital Signs / I&O Vital Signs Date Time Temp Pulse Resp B/P Pulse Ox O2 Delivery O2 Flow Rate FiO2 11/06/16 08:00 98.6 85 20 114/89 96 11/06/16 07:00 96 Room Air 11/06/16 06:00 87 11/06/16 05:00 83 11/06/16 04:00 83 11/06/16 04:00 98.6 95 20 111/86 98 11/06/16 03:00 87 11/06/16 02:00 85 11/06/16 01:00 87 11/06/16 00:00 98.7 92 20 121/98 98 11/06/16 00:00 85 11/05/16 23:00 87 11/05/16 22:00 87 11/05/16 21:00 63 11/05/16 20:00 98.6 85 20 114/73 98 11/05/16 20:00 83 11/05/16 19:00 80 11/05/16 19:00 98 Room Air 11/05/16 17:56 99 Room Air 11/05/16 17:00 85 11/05/16 16:00 98.7 72 24 121/74 98 11/05/16 15:00 81 11/05/16 14:00 83 11/05/16 13:30 20 11/05/16 13:05 80 I/O 11/05/16 11/05/16 11/05/16 11/06/16 11/06/16 11/06/16 07:00 15:00 23:00 07:00 15:00 23:00 Intake Total 480 ml 480 ml Output Total 425 ml 200 ml 850 ml Balance 55 ml -200 ml -370 ml Intake Oral 480 ml 480 ml IV Total 0 ml Output Urine Total 425 ml 200 ml 850 ml # Voids 2 3 # Bowel Movements 0 1 Physical Exam GENERAL: Well-nourished, well-developed patient. SKIN: Warm and dry. HEAD: Normocephalic. EYES: No scleral icterus. No injection or drainage. NECK: Supple, trachea midline. No JVD or lymphadenopathy. CARDIOVASCULAR: Irr Irr without murmurs, gallops, or rubs. RESPIRATORY: Breath sounds equal bilaterally. No accessory muscle use. GASTROINTESTINAL: Abdomen soft, non-tender, nondistended. EXTREMITIES: No cyanosis, or edema. NEUROLOGICAL: Awake, alert, and oriented x 3. Non-focal. Assessment and Plan Problem List: (1) CHF (congestive heart failure) Assessment and Plan: Give Amio Bolus Increase Cardizem 60mg PO QID Cont OAC Schedule [facility] today (2) A-fib (3) Noncompliance with medications (4) Essential hypertension (5) Hypertension (6) Tobacco abuse Problem Qualifiers (1) CHF (congestive heart failure): (2) A-fib: Qualified Code: I48.2 - Chronic atrial fibrillation Bj Parry MD Nov 06, 2016 12:17
--- NOTE | 2016-11-06 12:45 | MA ---
cc: GOPAL VASQUEZ DATE 11/06/2016 DATE OF 1970 PROCEDURE PERFORMED Transradial left heart catheterization, selective right and left coronary angiography. INDICATION Systolic heart failure, NYHA III. DESCRIPTION OF PROCEDURE Consent signed. The patient was brought into the cardiac seed analysis laboratory assistant in a fasting state. The right wrist was prepped and draped in a sterile fashion. Using 1% lidocaine for local anesthesia and a micropuncture kit, a 6-Thai sheath was inserted into the right radial artery. Antispasmodic cocktail given, then selective right and left coronary angiography was performed with a JR-4 and JL- 3.5 diagnostic catheters. Angiography was taken in multiple views. The left ventricle was crossed with a JR-4. Pressures were recorded and then pullback. The patient tolerated the procedure well without complications. Estimated blood loss less than 30 cc. Total contrast used 30 cc. The right wrist access site was closed with a TR band. RESULTS LEFT VENTRICLE The left ventricular pressure was 95/12 with an LVEDP of 13. The aortic pressure was 87/63 with a mean of 75. ANGIOGRAPHIC RESULTS 1. The right coronary artery is a dominant vessel. It has minimal luminal irregularities, otherwise patent with RUSTY-III flow. The PDA is also patent with nonobstructive coronary artery disease. There are two RV branches that are also patent. 2. The left main is long and patent with nonobstructive coronary artery disease. 3. The LAD is a transapical vessel, has minimal luminal irregularities, otherwise patent with nonobstructive CAD. He has a first diagonal vessel that comes off before the first septal. The distal diagonal is patent with nonobstructive CAD. 4. The left circumflex artery has nonobstructive coronary artery disease and has RUSTY-III flow. OM1 also is patent with RUSTY-III flow and nonobstructive coronary artery disease. CONCLUSION 1. Non-ischemic cardiomyopathy 2. LV systolic dysfunction 3. Atrial fibrillation. RECOMMENDATIONS Continue aggressive medical management for prior impression of coronary artery disease and LV systolic dysfunction which should include BRAEDEN inhibitors, as well as beta-blockers. Continue rate control as well as put anticoagulation. The patient should be followed by primary route contractor when discharged from the hospital. MD DIANA Juárez/DANNA /11:10 AM /12:27 PM SETH
[2016-11-06] MEDS ORDERED: IOHEXOL 350 MG/ML 50 ML BTL (for Cath Lab) OTHER ONE (16:13)
[2016-11-06] MEDS: SODIUM CHLORIDE 0.9% FLUSH 5 ML FLUSH IVF SCH (21:00)
[2016-11-07] VITALS (21 sets, daily range): BP systolic 123–149; BP diastolic 69–94; PULSE 66–130; RESP 14–20; TEMP 97.8–98.5; O2SAT 95–98
[2016-11-07] MEDS: ACETAMINOPHEN/HYDROcodone 325 MG/5 MG TAB PO PRN ×4 (02:45→20:23)
[2016-11-07] MEDS: SODIUM CHLORIDE 0.9% FLUSH 5 ML FLUSH IVF SCH ×2 (09:00→21:00)
[2016-11-07] MEDS: SODIUM CHLORIDE 0.9% FLUSH 5 ML FLUSH FLUSH SCH ×2 (09:00→20:24)
[2016-11-07] MEDS: LISINOPRIL 5 MG TAB PO SCH (09:13)
[2016-11-07] MEDS: DIGOXIN 0.25 MG TAB PO SCH (09:14)
[2016-11-07] MEDS: POTASSIUM CHLORIDE 10 MEQ CONTROLLED RELEASE TAB PO SCH (09:14)
[2016-11-07] MEDS: FUROSEMIDE 20 MG TAB PO SCH (09:14)
[2016-11-07] MEDS: DILTIAZEM HCL 30 MG TAB PO SCH ×4 (09:14→20:23)
--- NOTE | 2016-11-07 09:39 | PD.CARD.PN ---
Subjective Subjective Remarks no complaints Objective Vital Signs / I&O Vital Signs Date Time Temp Pulse Resp B/P Pulse Ox O2 Delivery O2 Flow Rate FiO2 11/07/16 08:00 98.1 100 18 135/86 96 11/07/16 06:00 90 11/07/16 05:00 83 11/07/16 04:00 81 11/07/16 03:05 98.4 82 20 125/87 97 11/07/16 03:05 96 Room Air 11/07/16 03:00 85 11/07/16 02:00 81 11/07/16 01:00 80 11/07/16 00:00 98.2 84 20 123/69 95 11/07/16 00:00 96 Room Air 11/07/16 00:00 82 11/06/16 23:00 84 11/06/16 22:00 80 11/06/16 21:00 87 11/06/16 20:00 92 11/06/16 19:45 98.2 80 20 111/90 95 11/06/16 19:45 96 Room Air 11/06/16 19:00 87 11/06/16 16:00 98.4 93 20 112/71 98 11/06/16 15:00 87 11/06/16 14:46 18 11/06/16 14:00 79 11/06/16 13:00 90 11/06/16 12:00 79 11/06/16 12:00 98.6 79 20 100/71 98 11/06/16 11:25 87 11/06/16 10:00 105 I/O 11/06/16 11/06/16 11/06/16 11/07/16 11/07/16 11/07/16 07:00 15:00 23:00 07:00 15:00 23:00 Intake Total 480 ml Output Total 850 ml 1350 ml Balance -370 ml -1350 ml Intake Oral 480 ml Output Urine Total 850 ml 1350 ml Physical Exam GENERAL: Well-nourished, well-developed patient. SKIN: Warm and dry. HEAD: Normocephalic. EYES: No scleral icterus. No injection or drainage. NECK: Supple, trachea midline. No JVD or lymphadenopathy. CARDIOVASCULAR: Irr Irr without murmurs, gallops, or rubs. RESPIRATORY: Breath sounds equal bilaterally. No accessory muscle use. GASTROINTESTINAL: Abdomen soft, non-tender, nondistended. EXTREMITIES: No cyanosis, or edema. NEUROLOGICAL: Awake, alert, and oriented x 3. Non-focal. Assessment and Plan Problem List: (1) A-fib Assessment and Plan: cont rate control IV diuresis OAC (2) CHF (congestive heart failure) (3) Noncompliance with medications (4) Essential hypertension (5) Hypertension (6) Tobacco abuse Problem Qualifiers (1) A-fib: Qualified Code: I48.2 - Chronic atrial fibrillation (2) CHF (congestive heart failure): Bj Parry MD Nov 07, 2016 09:39
--- NOTE | 2016-11-07 16:59 | HHI.PR ---
Subjective Remarks telemetry in a fib- rate controlled feeling better up and ambulating - slow pace Objective Vitals Vital Signs Date Time Temp Pulse Resp B/P Pulse Ox O2 Delivery O2 Flow Rate FiO2 11/07/16 16:00 97.8 80 18 125/75 95 11/07/16 15:00 68 11/07/16 14:00 66 11/07/16 13:00 80 11/07/16 12:00 86 11/07/16 12:00 97.9 83 14 149/94 96 11/07/16 11:00 105 11/07/16 11:00 87 11/07/16 11:00 87 11/07/16 10:00 91 11/07/16 10:00 80 11/07/16 09:00 110 11/07/16 09:00 110 11/07/16 08:00 130 11/07/16 08:00 98.1 100 18 135/86 96 11/07/16 08:00 Room Air 11/07/16 07:00 90 11/07/16 06:00 90 11/07/16 05:00 83 11/07/16 04:00 81 11/07/16 03:05 98.4 82 20 125/87 97 11/07/16 03:05 96 Room Air 11/07/16 03:00 85 11/07/16 02:00 81 11/07/16 01:00 80 11/07/16 00:00 98.2 84 20 123/69 95 11/07/16 00:00 96 Room Air 11/07/16 00:00 82 11/06/16 23:00 84 11/06/16 22:00 80 11/06/16 21:00 87 11/06/16 20:00 92 11/06/16 19:45 98.2 80 20 111/90 95 11/06/16 19:45 96 Room Air 11/06/16 19:00 87 I/O 11/06/16 11/06/16 11/06/16 11/07/16 11/07/16 11/07/16 07:00 15:00 23:00 07:00 15:00 23:00 Intake Total 480 ml Output Total 850 ml 2250 ml Balance -370 ml -2250 ml Intake Oral 480 ml Output Urine Total 850 ml 2250 ml # Bowel Movements 1 Result Diagram: 11/05/16 0536 11/05/16 0536 Imaging Last Impressions Chest X-Ray 11/03/16 0000 Signed Impressions: Service Date/Time: Thursday, November 03, 2016 13:42 - CONCLUSION: Normal examination. Justin Quach MD Objective Remarks awake and alert, oriented x 3 anicteric lungs no rales or wheezes irregularly irregular rhythm abdomen soft, nontender extremities no edema neuro exam- unremarkable Procedures 11/06- cardiac catheterization A/P Problem List: (1) Atrial fibrillation with rapid ventricular response ICD Code: I48.91 Status: Acute (2) Chest pain ICD Code: R07.9 Status: Acute (3) CHF (congestive heart failure) ICD Code: I50.9 Status: Acute (4) Hypertension ICD Code: I10 Status: Acute (5) Tobacco abuse ICD Code: Z72.0 Status: Acute (6) Hemoptysis, unspecified ICD Code: R04.2 Status: Acute Assessment and Plan 46-year-old male with history of atrial fibrillation on Eliquis, cardiomyopathy , HTN, bipolar manic depressive, tobacco use, presents with a one-day history of hemoptysis, palpitations, chest pains. Atrial Fibrillation with RVR- now rate controlled Non ischemic cardiomyopathy S/P cardiac catheterization 11/06 Hypertension - controlled - Repeat 2-D echo shows LVEF of 25-30%. - Continue Digoxin, Cardizem, Eliquis,Lopressor, , Lasix. switched to po amiodarone today Chest Pain: He is tender to palpation. Serial cardiac enzymes unremarkable. Pain control. Hemoptysis: Blood-tinged sputum. Hgb stable at 15. Continue anticoagulation with Eliquis given afib RVR Tobacco Use: counseled on cessation. Avoid nicotine patch. DVT Prophylaxis: On Eliquis. Problem Qualifiers (1) Chest pain: Qualified Code: R07.2 - Precordial pain (2) CHF (congestive heart failure): Joel Burrell MD Nov 07, 2016 16:59
[2016-11-07] MEDS: APIXABAN 5 MG TABLET PO SCH (20:23)
[2016-11-07] MEDS: AMIODARONE 200 MG TAB PO SCH (20:23)
[2016-11-08] VITALS (8 sets, daily range): BP systolic 125–169; BP diastolic 76–91; PULSE 67–95; RESP 18–20; TEMP 98–98.6; O2SAT 96–99
[2016-11-08] MEDS: DILTIAZEM HCL 30 MG TAB PO SCH ×2 (08:08→13:18)
[2016-11-08] MEDS: AMIODARONE 200 MG TAB PO SCH (08:08)
[2016-11-08] MEDS: APIXABAN 5 MG TABLET PO SCH (08:08)
[2016-11-08] MEDS: FUROSEMIDE 20 MG TAB PO SCH (08:09)
[2016-11-08] MEDS: LISINOPRIL 5 MG TAB PO SCH (08:09)
[2016-11-08] MEDS: DIGOXIN 0.25 MG TAB PO SCH (08:09)
[2016-11-08] MEDS: SODIUM CHLORIDE 0.9% FLUSH 5 ML FLUSH FLUSH SCH (09:00)
[2016-11-08] MEDS: ACETAMINOPHEN/HYDROcodone 325 MG/5 MG TAB PO PRN ×2 (09:25→13:53)
[2016-11-08] MEDS: POTASSIUM CHLORIDE 10 MEQ CONTROLLED RELEASE TAB PO SCH (13:19)
[2016-11-08] MEDS: SODIUM CHLORIDE 0.9% FLUSH 5 ML FLUSH IVF SCH (13:54)
--- NOTE | 2016-11-08 15:14 | HHI.PR ---
Subjective Remarks no complains up and ambulating around no shortness of breath telemetry- a fib- rate controlled Objective Vitals Vital Signs Date Time Temp Pulse Resp B/P Pulse Ox O2 Delivery O2 Flow Rate FiO2 11/08/16 14:00 67 11/08/16 13:00 85 11/08/16 12:00 98.5 95 20 125/76 11/08/16 12:00 67 11/08/16 08:00 98.6 95 20 158/88 11/08/16 04:00 98.0 78 18 169/91 99 11/08/16 00:05 98.0 80 18 141/91 96 11/08/16 00:00 80 11/07/16 20:00 98.5 67 18 126/75 98 11/07/16 20:00 67 11/07/16 18:00 90 11/07/16 17:30 91 11/07/16 16:00 70 11/07/16 16:00 97.8 80 18 125/75 95 I/O 11/07/16 11/07/16 11/07/16 11/08/16 11/08/16 11/08/16 07:00 15:00 23:00 07:00 15:00 23:00 Intake Total 720 ml 0 ml Output Total 2750 ml Balance -2030 ml 0 ml Intake Oral 720 ml IV Total 0 ml Output Urine Total 2750 ml # Bowel Movements 1 Result Diagram: 11/05/16 0536 11/05/16 0536 Imaging Last Impressions Chest X-Ray 11/03/16 0000 Signed Impressions: Service Date/Time: Thursday, November 03, 2016 13:42 - CONCLUSION: Normal examination. Justin Quach MD Objective Remarks awake and alert, oriented x 3 anicteric lungs no rales or wheezes irregularly irregular rhythm abdomen soft, nontender extremities no edema neuro exam- unremarkable Procedures 11/06- cardiac catheterization A/P Problem List: (1) Atrial fibrillation with rapid ventricular response ICD Code: I48.91 Status: Acute (2) Chest pain ICD Code: R07.9 Status: Acute (3) CHF (congestive heart failure) ICD Code: I50.9 Status: Acute (4) Hypertension ICD Code: I10 Status: Acute (5) Tobacco abuse ICD Code: Z72.0 Status: Acute (6) Hemoptysis, unspecified ICD Code: R04.2 Status: Acute Assessment and Plan 46-year-old male with history of atrial fibrillation on Eliquis, cardiomyopathy , HTN, bipolar manic depressive, tobacco use, presents with a one-day history of hemoptysis, palpitations, chest pains. Atrial Fibrillation with RVR- now rate controlled Non ischemic cardiomyopathy S/P cardiac catheterization 11/06 Hypertension - controlled - Repeat 2-D echo shows LVEF of 25-30%. - Continue Digoxin, Cardizem, Eliquis,Lopressor, , Lasix. po amiodarone Chest Pain: He is tender to palpation. Serial cardiac enzymes unremarkable. Pain control. Hemoptysis: Blood-tinged sputum. no further episodes Hgb stable at 15. Continue anticoagulation with Eliquis given afib RVR Tobacco Use: counseled on cessation. Avoid nicotine patch. DVT Prophylaxis: On Eliquis. Problem Qualifiers (1) Chest pain: Qualified Code: R07.2 - Precordial pain (2) CHF (congestive heart failure): Joel Burrell MD Nov 08, 2016 15:14
--- NOTE | 2016-11-08 15:15 | HHI.DS ---
Discharge Summary Admission Date Nov 03, 2016 at 15:26 Discharge Date: Nov 08, 2016 Admitting Diagnosis chest pain, Afib with RVR,reported hemoptysis (1) Atrial fibrillation with rapid ventricular response ICD Code: I48.91 Diagnosis: Principal (2) Chest pain ICD Code: R07.9 Diagnosis: Principal (3) CHF (congestive heart failure) ICD Code: I50.9 Diagnosis: Principal (4) Hypertension ICD Code: I10 Diagnosis: Secondary (5) Tobacco abuse ICD Code: Z72.0 Diagnosis: Secondary (6) Hemoptysis, unspecified ICD Code: R04.2 Diagnosis: Secondary Procedures 11/06- cardiac catheterization Brief History - From Admission 46-year-old male with history of atrial fibrillation on Eliquis, cardiomyopathy , HTN, bipolar manic depressive, tobacco use, presents with a one-day history of hemoptysis, palpitations, chest pains. Patient reports he has been in his normal state of health until last night he started coughing up mucus mixed with streaks of bright red blood, then this morning started coughing up dark red clots. He denies any recent fever/chills, rhinitis, congestion, or sore throat. Denies abdominal pain, nausea, or vomiting. He takes Eliquis and aspirin 325 mg daily. He also reports intermittent chest discomfort described as "tightness", lasts for 10 minutes at a time and would subside on its own; associated with shortness of breath. He also became acutely lightheaded today, denies syncope. He reports 6 pillow orthopnea, no lower extremity edema. He reports compliance with his medications. Upon arrival to the ER, he was noted to be in atrial fibrillation with RVR, heart rate 180s. He was given IV Cardizem 25 mg, heart rate was still elevated, then given a second dose of IV Cardizem 20 mg. Heart rate improving however still in the 120s. He denies any current chest pain but does continue to feel short of breath. His data recovery planner is Dr. Watson. CBC/BMP: 11/05/16 0536 11/05/16 0536 Imaging Last Impressions Chest X-Ray 11/03/16 0000 Signed Impressions: Service Date/Time: Thursday, November 03, 2016 13:42 - CONCLUSION: Normal examination. Justin Quach MD PE at Discharge awake and alert, oriented x 3 anicteric lungs no rales or wheezes irregularly irregular rhythm abdomen soft, nontender extremities no edema neuro exam- unremarkable Pt update on day of discharge BP controlled, rate controlled no edema Hospital Course 46-year-old male with history of atrial fibrillation on Eliquis, cardiomyopathy , HTN, bipolar manic depressive, tobacco use, presents with a one-day history of hemoptysis, palpitations, chest pains. Atrial Fibrillation with RVR- now rate controlled Non ischemic cardiomyopathy S/P cardiac catheterization 11/06 Hypertension - controlled - Repeat 2-D echo shows LVEF of 25-30%. - Continue Digoxin, Cardizem, Eliquis,Lopressor, , Lasix. po amiodarone Chest Pain: He is tender to palpation. Serial cardiac enzymes unremarkable. Pain control. Hemoptysis: Blood-tinged sputum. no further episodes Hgb stable at 15. Continue anticoagulation with Eliquis given afib RVR Tobacco Use: counseled on cessation. Avoid nicotine patch. DVT Prophylaxis: On Eliquis. Pt Condition on Discharge: Stable Discharge Disposition: Discharge Home Discharge Time: <= 30 minutes Discharge Instructions DIET: Follow Instructions for: Heart Healthy Diet Speech Therapy-Diet Recommends: Regular Activities you can perform: Weight Bearing as Shemar Activities to Avoid: Contact Sports, Strenuous Activity Follow up Referrals: Cardiology - 2 Weeks with [facility] PCP Follow-up - 11/12/16 with [facility] New Medications: Amiodarone (Amiodarone) 200 Mg Tab 200 MG PO Q12HR afib #60 TAB Apixaban (Eliquis) 5 Mg Tab 5 MG PO BID OAC #60 TAB Diltiazem (Cardizem) 30 Mg Tab 60 MG PO QID afib #120 TAB Lisinopril (Lisinopril) 5 Mg Tab 5 MG PO DAILY CMP Days 30 TAB Continued Medications: Albuterol 18 GM Inh (Ventolin Hfa 18 GM Inh) 90 Mcg/Act Aer 2 PUFF INH Q4-6H PRN SHORTNESS OF BREATH #1 INHALER Apixaban (Eliquis) 5 Mg Tab 5 MG PO BID Blood Clot Prevention #60 Ref 0 TAB Digoxin (Digoxin) 0.25 Mg Tab 0.25 MG PO DAILY Regulate Heart Beat #30 Ref 0 TAB Furosemide (Furosemide) 20 Mg Tab 20 MG PO DAILY #30 Ref 0 TAB Potassium Chloride ER (Potassium Chloride CR) 10 Meq Tab 10 MEQ PO DAILY TAB Discontinued Medications: Aspirin (Aspirin) 325 Mg Tab 325 MG PO DAILY #30 Ref 0 TAB Diltiazem (Diltiazem) 90 Mg Tab 1.5 TAB PO TID Angina #120 Ref 0 TAB Lisinopril (Lisinopril) 2.5 Mg Tab 2.5 MG PO DAILY #30 Ref 0 TAB Metoprolol Tartrate (Metoprolol Tartrate) 100 Mg Tab 100 MG PO BID #60 Ref 0 TAB Joel Burrell MD Nov 08, 2016 15:15
[2016-11-08] MEDS ORDERED: APIX5TAB PO (15:20)
[2016-11-08] MEDS ORDERED: AMIO200T PO (15:20)
[2016-11-08] MEDS ORDERED: DILT31TA PO (15:20)
[2016-11-08] MEDS ORDERED: LISI-519 PO (15:20)
[2016-11-09] MEDS ORDERED: LISINOPRIL 5 MG TAB PO SCH (09:00)
[2016-12-23] MEDS ORDERED: AMIO200T PO (11:21)
[2016-12-24] MEDS ORDERED: ASPI325T PO (10:55)
[2016-12-24] MEDS ORDERED: LISI-519 PO (11:10)
[2016-12-24] MEDS ORDERED: APIX5TAB PO (11:11)
[2016-12-24] MEDS ORDERED: POTA10TA8 PO (11:11)
[2017-01-08] MEDS ORDERED: DILT90TA PO (10:43)
[2017-01-08] MEDS ORDERED: DIGO0.25 PO (10:43)
[2017-01-08] MEDS ORDERED: FURO20TA PO (10:43)
[2017-03-04] MEDS ORDERED: DILT90TA PO (08:26)
== END 2016-11-08 18:00 | disposition home or self-care (01) | DRG 287 ==
LOC: NEPC 13:10 → NEDA 15:26 → HCIS 21:34
PROVIDERS: ADMIT Internal Medicine; ATTEND Internal Medicine
PROC: B2111ZZ Fluoroscopy of Multiple Coronary Arteries using Low Osmolar Contrast (ICD-10-PCS; 2016-11-06)
PROC: B2151ZZ Fluoroscopy of Left Heart using Low Osmolar Contrast (ICD-10-PCS; 2016-11-06)
PROC: 4A023N7 Measurement of Cardiac Sampling and Pressure, Left Heart, Percutaneous Approach (ICD-10-PCS; principal; 2016-11-06 10:00)
DX: I48.2 Chronic atrial fibrillation (principal); I42.9 Cardiomyopathy, unspecified; I50.20 Unspecified systolic (congestive) heart failure; R04.2 Hemoptysis; R07.9 Chest pain, unspecified; I10 Essential (primary) hypertension; F31.9 Bipolar disorder, unspecified; F41.9 Anxiety disorder, unspecified; J42 Unspecified chronic bronchitis; F17.210 Nicotine dependence, cigarettes, uncomplicated; Z79.82 Long term (current) use of aspirin; Z79.01 Long term (current) use of anticoagulants; Z91.14 Patient's other noncompliance with medication regimen; I25.10 Atherosclerotic heart disease of native coronary artery without angina pectoris
CPT/HCPCS: 71010; 76937; 80048; 80162; 80307; 82550; 83735; 84295; 84443; 84484; 85025; 85027; 93005; 93306; 93454; 96374; 96376; C1769; C1893; J0282; J1160; J1644; J2250; J2270; J2405; J3010; Q9967

== ENCOUNTER → 2017-01-07 | Outpatient (CLI) | payer OTHER ==
[~2017-01-07] MED LIST changes: +AMIO200T PO; +ASPI81TA11 PO; -DEXT1TAB18 PO; +DILT31TA PO; -FURO1TAB62 PO; +LISI-519 PO; -LISI2.5T3 PO; -METO100T PO; +POTA-163 PO; -VENTAER INH
[2017-01-07 08:57] LABS: ALKALINE PHOSPHATASE 80 U/L (45-117); ALT (GPT) 37 U/L (12-78); ANION GAP 7 MEQ/L (5-15); AST (GOT) 41 U/L (15-37); BLOOD UREA NITROGEN 19 MG/DL (7-18); CHLORIDE 102 MEQ/L (98-107); GLOMERULAR FILTRATION RATE 67 ML/MIN (>89); GLUCOSE,FASTING 86 MG/DL (74-99); HDL CHOLESTEROL 41.9 MG/DL (40.0-60.0); LDL CHOLESTEROL 110 MG/DL (0-99); SODIUM (NA) 137 MEQ/L (136-145); TOTAL BILIRUBIN ADULT 0.7 MG/DL (0.2-1.0)
[2017-01-07 08:58] LABS: POTASSIUM 4.9 MEQ/L (3.5-5.1)
== END ==
LOC: CLAB 07:56
PROVIDERS: ATTEND Nurse Practitioner Family
DX: I11.0 Hypertensive heart disease with heart failure (principal); I50.9 Heart failure, unspecified
CPT/HCPCS: 36415; 80053; 80061

== ENCOUNTER 2017-04-08 18:57 | Observation (INO) | payer OTHER ==
[~2017-04-08] VITALS: Ht 167.6 cm; Wt 95.0 kg
[2017-04-08] VITALS (7 sets, daily range): BP systolic 107–152; BP diastolic 63–90; PULSE 87–93; RESP 18–20; TEMP 97.4–98.4; O2SAT 97–100
[~2017-04-08 18:57] MED LIST changes: -ASPI81TA11 PO; -DILT31TA PO; -POTA-163 PO
[2017-04-08] MEDS ORDERED: POTA-163 PO (19:18)
[2017-04-08] MEDS ORDERED: NITROGLYCERIN 2% OINT 1 GM PACKET TOP ONE (19:30)
[2017-04-08] MEDS ORDERED: NITROGLYCERIN 0.4 MG SL 25 TABS/BTL SL ONE (19:30)
[2017-04-08] MEDS ORDERED: DILTIAZEM DRIP INJ PREMIX 125 ML IV SCH (19:30)
[2017-04-08] MEDS ORDERED: SODIUM CHLORIDE 0.9% FLUSH 10 ML FLUSH IVF PRN ×2 (19:30)
--- NOTE | 2017-04-08 19:36 | PD ---
HPI Chief Complaint: Chest Pain Time Seen by Provider: 19:16 Travel History International Travel<30 days: No Contact w/Intl Traveler<30days: No Traveled to known affect area: No History of Present Illness HPI The patient is a 46 year old male who presents to the [facility] emergency department with a history of chest pain that he reports began at 4 PM while he was at work earlier today. The patient reports that he has had chest pain in the past. He did have a cardiac catheterization done in October and at that time had no stents placed. He denies ever having any sense place, however he does have a history of cardiomyopathy with congestive heart failure and atrial fibrillation anticoagulated on Eliquis. He has taken all of his usual medications today with the exception of digoxin. He reports that he ran out of his digoxin 3 days ago. The patient reports that he took an approximately two- hour nap at work and awoke with the same pain, therefore he called ambulance services. The patient reports that the pain is in the left side of his chest and radiates through to his back. He reports having associated shortness of breath. He reports having diaphoresis, nausea, vomiting 2, diarrhea times one today. Having any blood in his emesis or blood in his stool. He denies having any increased lower extremity edema or weight gain. He reports that he has been taking his Lasix 20 mg twice a day as prescribed. His blood sugar prior to arrival was 89. The patient reports that he did take 2 adult aspirin earlier today. The patient was given nitroglycerin sublingual every 5 minutes 3 by ambulance services in his chest pain went down to 5 out of 10 in severity. The patient was noted to be in A. fib with RVR and was given 20 mg of Cardizem as a bolus 1 prior to arrival. On arrival, the patient's heart rate is noted to be in the 90s. On review of systems, the patient denies any recent fevers, cough, congestion, neck pain, abdominal pain, urinary symptoms, or neurologic symptoms. [facility] Past Medical History Narrative Medical The patient's past medical history is significant for atrial fibrillation, cardiomyopathy, hypertension, bipolar disorder, history of alcohol abuse with abstinence for the last year, history of cocaine use with abstinence for the last 4-1/2 years. 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 Abdominal Surgery: Yes (MARYBETH 2000) Cholecystectomy: Yes (2000) Coronary Artery Bypass Graft: No Other Surgery: Yes Social History Alcohol Use: No Tobacco Use: Yes (1 PPD) Substance Use: No (HX OF COCAINE) Allergies-Medications (Allergen,Severity, Reaction): Coded Allergies: Sulfa (Verified Allergy, Severe, HIVES, 04/08/17) Reported Meds & Prescriptions Reported Meds & Active Scripts Active Diltiazem (Diltiazem HCl) 90 Mg Tab 135 Mg PO TID Take 1 & 1/2 tablet by mouth 3 times a day Furosemide 20 Mg Tab 20 Mg PO BID Digoxin 0.25 Mg Tab 0.25 Mg PO DAILY Lisinopril 5 Mg Tab 5 Mg PO DAILY Amiodarone (Amiodarone HCl) 200 Mg Tab 200 Mg PO Q12HR Reported Potassium Chloride ER (Potassium Chloride) 20 Meq Tab 20 Meq PO BID Aspirin 325 Mg Tab 325 Mg PO DAILY Eliquis (Apixaban) 5 Mg Tab 5 Mg PO BID Review of Systems Except as stated in HPI: all other systems reviewed are Neg General / Constitutional: No: Fever Eyes: No: Visual changes HENT: No: Headaches Cardiovascular: Positive: Chest Pain or Discomfort, Tachycardia, Diaphoresis, Dyspnea on exertion Respiratory: Positive: Shortness of Breath Gastrointestinal: Positive: Nausea, Vomiting, Diarrhea, Changes in Bowel Habits , No: Abdominal Pain, Hematemesis, Hematochezia, Indigestion, Loss of Appetite Genitourinary: No: Dysuria Musculoskeletal: No: Pain Skin: No Rash Neurologic: No: Weakness Psychiatric: No: Depression Endocrine: No: Polydipsia Hematologic/Lymphatic: No: Easy Bruising Physical Exam Narrative General: The patient is a well-developed well-nourished male in no acute distress. Head and Neck exam: Head is normocephalic atraumatic. Eyes: EOMI, pupils are equal round and reactive to light. Nose: Midline septum with pink mucous membranes Mouth: Dentition unremarkable. Moist mucus membranes. Posterior oropharynx is not erythematous. No tonsillar hypertrophy. Uvula midline. Airway patent. Neck: No palpable lymphadenopathy. No nuchal rigidity. No thyromegaly. Cardiovascular: Irregularly irregular with rate control in the 90s without murmurs, gallops, or rubs. Lungs: Clear to auscultation bilaterally. No wheezes, rhonchi, or rales. Abdomen: Soft, without tenderness to palpation in all 4 quadrants of the abdomen. No guarding, rebound, or rigidity. Normal bowel sounds are audible. No tenderness on palpation of McBurney's point. Negative Pepe's sign. Extremities: No clubbing or cyanosis. The patient does have trace pedal edema. 2+ pulses in all 4 extremities. No calf tenderness on palpation. Back: No costovertebral angle tenderness to palpation. Neurologic Exam: Grossly nonfocal. Skin Exam: No rash noted. Intact skin that is warm and dry. Data Data Last Documented VS Vital Signs Date Time Temp Pulse Resp B/P Pulse Ox O2 Delivery O2 Flow Rate FiO2 04/08/17 21:04 90 20 125/78 98 Nasal Cannula 2 04/08/17 19:14 98.4 Orders Electrocardiogram (04/08/17:27) B-Type Natriuretic Peptide (04/08/17 19:27) Ckmb (Isoenzyme) Profile (04/08/17 19:27) Complete Blood Count With Diff (04/08/17:) Comprehensive Metabolic Panel (04/08/17:) Magnesium (Mg) (04/08/17 19:) Prothrombin Time / Inr (Pt) (04/08/17:) Act Partial Throm Time (Ptt) (04/08/17:) Troponin I (04/08/17:) Chest, Single Ap (04/08/17:27) Ecg Monitoring (04/08/17:27) Bilateral Bp Monitoring (04/08/17:) Iv Access Insert/Monitor (04/08/17:) Oximetry (04/08/17:) Oxygen Administration (6/20/17 19:27) Nitroglycerin 2% Oint (Nitroglycerin 2% (04/08/17 19:30) Sodium Chloride 0.9% Flush (Ns Flush) (04/08/17 19:30) Nitroglycerin Sl (Nitrostat Sl) (04/08/17 19:30) Blood Pressure (04/08/17 19:27) Sodium Chloride 0.9% Flush (Ns Flush) (04/08/17 19:30) Digoxin (04/08/17 19:36) Diltiazem Drip Inj Premix (Cardizem Drip (04/08/17 21:15) Ondansetron Inj (Zofran Inj) (04/08/17 21:30) Digoxin (Lanoxin) (04/08/17 21:30) Admit Order (Ed Use Only) (04/08/17 21:29) Labs Laboratory Tests Test 04/08/17 19:36 White Blood Count 11.9 TH/MM3 Red Blood Count 5.28 MIL/MM3 Hemoglobin 16.3 GM/DL Hematocrit 46.3 % Mean Corpuscular Volume 87.8 FL Mean Corpuscular Hemoglobin 30.8 PG Mean Corpuscular Hemoglobin 35.1 % Concent Red Cell Distribution Width 15.1 % Platelet Count 197 TH/MM3 Mean Platelet Volume 8.5 FL Neutrophils (%) (Auto) 74.3 % Lymphocytes (%) (Auto) 12.6 % Monocytes (%) (Auto) 11.2 % Eosinophils (%) (Auto) 1.1 % Basophils (%) (Auto) 0.8 % Neutrophils # (Auto) 8.9 TH/MM3 Lymphocytes # (Auto) 1.5 TH/MM3 Monocytes # (Auto) 1.3 TH/MM3 Eosinophils # (Auto) 0.1 TH/MM3 Basophils # (Auto) 0.1 TH/MM3 CBC Comment DIFF FINAL Differential Comment Prothrombin Time 11.5 SEC Prothromb Time International 1.0 RATIO Ratio Activated Partial 27.5 SEC Thromboplast Time Sodium Level 142 MEQ/L Potassium Level 3.6 MEQ/L Chloride Level 108 MEQ/L Carbon Dioxide Level 23.3 MEQ/L Anion Gap 11 MEQ/L Blood Urea Nitrogen 14 MG/DL Creatinine 1.30 MG/DL Estimat Glomerular Filtration 59 ML/MIN Rate Random Glucose 123 MG/DL Calcium Level 7.8 MG/DL Magnesium Level 1.8 MG/DL Total Bilirubin 0.6 MG/DL Aspartate Amino Transf 13 U/L (AST/SGOT) Alanine Aminotransferase 22 U/L (ALT/SGPT) Alkaline Phosphatase 63 U/L Total Creatine Kinase 68 U/L Troponin I LESS THAN 0.02 NG/ML B-Type Natriuretic Peptide 43 PG/ML Total Protein 6.6 GM/DL Albumin 3.5 GM/DL Digoxin Level 0.2 NG/ML MDM Medical Decision Making Medical Screen Exam Complete: Yes Emergency Medical Condition: Yes Medical Record Reviewed: Yes Interpretation(s) Last Impressions Chest X-Ray 04/08/171926 Signed Impressions: Service Date/Time: Saturday, April 08, 2017 19:44 - CONCLUSION: No acute disease. Sajan Todd MD Differential Diagnosis Acute coronary syndrome, versus chest pain related to A. fib with RVR, versus anxiety disorder, versus congestive heart failure exacerbation, versus pneumonia Narrative Course During the course of the patients emergency department visit, the patients history, examination, and differential diagnosis were reviewed with the patient. The patient had IV access obtained and blood work sent for analysis. The patient was placed on a campus monitor with oximetry and blood pressure monitoring. An EKG was done on arrival. The patient's EKG shows atrial fibrillation with a heart rate of 93, borderline left axis deviation, nonspecific T-wave abnormalities, no acute ST segment elevation or depression, QRS duration is 91 ms, QTC 417 ms. From reviewing the electronic medical record , the patient had a cardiac catheterization done in October 2016 which revealed an ejection fraction to 30%. The patient was noted to have mild coronary artery disease. The patient was diagnosed with a nonischemic cardiomyopathy at that time. The patient was initially provided nitroglycerin 1, nitroglycerin 1 inch the chest wall, Cardizem will be started by drip if the patient's heart rate goes above 100 again. The patients laboratory studies were reviewed and remarkable for a white count 11.9, hemoglobin 16.3, platelets 197 with 74.3 neutrophils, monocytes 11.2. CMP is remarkable for a chloride of 108, glucose 123, calcium 7.8, AST 13, CPK 68, troponin I less than 0.02, BNP is 43, PT 11.5, PTT 27.5. Digoxin level 0.2. The patient was given digoxin 0.25 mg by mouth 1. Radiology studies were reviewed and remarkable for a chest x-ray that showed no acute abnormality. The patients results were discussed with the patient, including the plan of care. I explained that further testing and/ or monitoring is indicated based on the patients history, examination, and/ or laboratory findings. Therefore, I recommended admission for additional evaluation. The patient expressed understanding and was agreeable with this plan. The patient was admitted to the hospital in stable condition and sent to a bed under the care of the [facility] service. Given the patient's atrial fibrillation with RVR chest pain, the patient will be admitted to the hospital for continued evaluation and treatment, rule out serial cardiac enzyme protocol, close monitoring on telemetry for recurrence of RVR. The patient will also be loaded back on his digoxin. The patients results were discussed with the patient, including the plan of care. I explained that further testing and/ or monitoring is indicated based on the patients history, examination, and/ or laboratory findings. Therefore, I recommended admission for additional evaluation. The patient expressed understanding and was agreeable with this plan. The patient was admitted to the hospital in [-] condition and sent to a bed under the care of [-]. Physician Communication Physician Communication Shows case was discussed with Dr. Oconnor who did agree to admit the patient for further evaluation and treatment at this time. Diagnosis Primary Impression: Chest pain, rule out acute myocardial infarction Additional Impression: Atrial fibrillation with RVR Admitting Information Admitting Physician Requests: Admit Lynsey Augustin MD Apr 08, 2017 19:36
[2017-04-08 19:53] LABS: AUTOMATED NEUTROPHIL # 8.9 TH/MM3 (1.8-7.7); BASOPHIL # 0.1 TH/MM3 (0-0.2); BASOPHIL % 0.8 % (0.0-2.0); EOSINOPHIL # 0.1 TH/MM3 (0-0.4); EOSINOPHIL % 1.1 % (0.0-4.0); HEMATOCRIT 46.3 % (39.0-51.0); HEMO FLAGS DIFF FINAL; LYMPH % 12.6 % (9.0-44.0); LYMPHOCYTE # 1.5 TH/MM3 (1.0-4.8); MEAN CELL VOLUME 87.8 FL (80.0-100.0); MEAN CORPUSCULAR HEMOGLOBIN 30.8 PG (27.0-34.0); MEAN CORPUSCULAR HGB CONC 35.1 % (32.0-36.0); MONO % 11.2 % (0.0-8.0); NEUT % 74.3 % (16.0-70.0); PLATELET COUNT 197 TH/MM3 (150-450); RED BLOOD COUNT 5.28 MIL/MM3 (4.50-5.90); RED CELL DISTRIBUTION WIDTH 15.1 % (11.6-17.2); WHITE BLOOD COUNT 11.9 TH/MM3 (4.0-11.0)
[2017-04-08 20:03] LABS: APTT (PATIENT) 27.5 SEC (24.3-30.1); PROTHROMBIN TIME - PATIENT 11.5 SEC (9.8-11.6)
[2017-04-08 20:08] LABS: ANION GAP 11 MEQ/L (5-15); AST (GOT) 13 U/L (15-37); BICARBONATE 23.3 MEQ/L (21.0-32.0); BLOOD UREA NITROGEN 14 MG/DL (7-18); CHLORIDE 108 MEQ/L (98-107); GLOMERULAR FILTRATION RATE 59 ML/MIN (>89); MAGNESIUM 1.8 MG/DL (1.5-2.5); POTASSIUM 3.6 MEQ/L (3.5-5.1); SODIUM (NA) 142 MEQ/L (136-145)
[2017-04-08 20:09] LABS: ALT (GPT) 22 U/L (12-78)
--- NOTE | 2017-04-08 20:09 | RADRPT ---
EXAM DATE/TIME: 04/08/2017 19:44 [facility] COMPARISON: CHEST SINGLE AP, November 03, 2016, 13:42. INDICATIONS : Left sided chest pains with shortness of breath. MEDICAL HISTORY : Congestive heart failure. Atrial Fibrillation SURGICAL HISTORY : Heart Cath ENCOUNTER: Initial ACUITY: 1 day PAIN SCORE: 8/10 LOCATION: Bilateral chest FINDINGS: A single view of the chest demonstrates the lungs to be symmetrically aerated without evidence of mas s, infiltrate or effusion. The cardiomediastinal contours are unremarkable. Osseous structures are intact. CONCLUSION: No acute disease. Sajan Todd MD on April 08, 2017 at 20:07 Board Certified Radiologist. This report was verified electronically.
[2017-04-08 20:23] LABS: ALKALINE PHOSPHATASE 63 U/L (45-117); DIGOXIN 0.2 NG/ML (0.8-2.0); TOTAL BILIRUBIN ADULT 0.6 MG/DL (0.2-1.0)
[2017-04-08 20:29] LABS: CREATINE KINASE 68 U/L (39-308)
[2017-04-08] MEDS ORDERED: DILTIAZEM DRIP 125 MG in NS 125 ML PREMIX DELTONA ONLY IV SCH (21:15)
[2017-04-08] MEDS ORDERED: DIGOXIN 0.25 MG TAB PO ONE (21:30)
[2017-04-08] MEDS ORDERED: ONDANSETRON HCL 4 MG/2 ML VIAL IV ONE (21:30)
[2017-04-08] MEDS ORDERED: SODIUM CHLORIDE 0.9% FLUSH 10 ML FLUSH IV FLUSH PRN (22:00)
[2017-04-08] MEDS ORDERED: NALOXONE HCL 0.4 MG/ML AMP IV PRN (22:00)
[2017-04-09] VITALS (8 sets, daily range): BP systolic 125–144; BP diastolic 77–95; PULSE 66–86; RESP 18; TEMP 98.4–98.5; O2SAT 96
[2017-04-09] MEDS ORDERED: ONDANSETRON HCL 4 MG/2 ML VIAL IV PUSH PRN (01:15)
[2017-04-09] MEDS ORDERED: MORPHINE SULFATE 4 MG/ML INJ IV PUSH PRN (01:15)
--- NOTE | 2017-04-09 02:46 | HHI.HP ---
HPI Service [facility] Primary Care Physician Susanne Romero MD Admission Diagnosis cp r/o mi, afib with RVR, medication non-compliance Diagnoses: Travel History International Travel<30 Days: No Contact w/Intl Traveler <30 Da: No Traveled to Known Affected Are: No History of Present Illness History from patient, ER physician communication and review of medical records. Patient reported that he was working at [employer] and he felt his A. fib was coming on. He states that he usuallywhen this was coming on and he was feeling the palpitations. This was then followed by chest pain which he described as stabbing pain with associated nausea, vomiting, and sweating. He stated this chest pain also radiates to the back. He reports that this chest pain was only there when he was having the palpitations. He states he was also taken a nap and was not relieved by rest. Patient has history of atrial fibrillation and is on anticoagulation. 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 He follows up with Dr. T[facility] here. His digoxin level was subtherapeutic. On the ambulance ride, patient was found to be with A. fib with RVR. He was given Cardizem 20 mg IV push which converted and the rate was controlled after this. He so far never required IV Cardizem drip. He was also given digoxin loading dose in ER. Apart from the above, patient denies any recent fevers/nausea/vomiting/diarrhea/ urinary burning or pain on urination. Denies any hematemesis/hematochezia/melena/hematuria. Review of Systems Except as stated in HPI: all other systems reviewed are Neg Past Family Social History Past Medical History htn chf afib on eliquis Bipolar disorder Past Surgical History gallbladder 2000 Allergies: Coded Allergies: Sulfa (Verified Allergy, Severe, HIVES, 04/08/17) Family History dad- htn mom - dm Social History a pack a day for about 30yrs or so occasional drinker clean for 5 yrs of cocaine Physical Exam Vital Signs Vital Signs Date Time Temp Pulse Resp B/P Pulse Ox O2 Delivery O2 Flow Rate FiO2 04/09/17 02:00 82 04/09/17 01:00 86 04/09/17 00:00 82 04/08/17 23:00 93 04/08/17 22:41 97.4 91 18 127/81 98 04/08/17 21:04 90 20 125/78 98 Nasal Cannula 2 04/08/17 20:58 88 18 107/78 100 Nasal Cannula 2 04/08/17 19:49 90 18 136/63 99 Nasal Cannula 2 116/72 04/08/17 19:30 20 98 Nasal Cannula 2 04/08/17 19:30 98 Nasal Cannula 2 04/08/17 19:19 20 97 Room Air 04/08/17 19:14 98.4 87 20 152/90 97 Physical Exam GENERAL: This is a well-nourished, well-developed patient, in no apparent distress. SKIN: Diaphoretic. States that the room was too hot for him. No documented fever. HEAD: Atraumatic. Normocephalic. No temporal or scalp tenderness. EYES: No scleral icterus. No injection or drainage. ENT: Nose without bleeding, purulent drainage or septal hematoma. Airway patent. NECK: Trachea midline. No JVD CARDIOVASCULAR: Regular rate and rhythm without murmurs, gallops, or rubs. RESPIRATORY: Clear to auscultation. Breath sounds equal bilaterally. No wheezes , rales, or rhonchi. GASTROINTESTINAL: Abdomen soft, non-tender, nondistended. No guarding. MUSCULOSKELETAL: Extremities without clubbing, cyanosis, or edema.. No calf tenderness NEUROLOGICAL: Awake and alert. Motor and sensory grossly within normal limits. Normal speech. Laboratory Laboratory Tests Test 04/08/17 19:36 White Blood Count 11.9 Red Blood Count 5.28 Hemoglobin 16.3 Hematocrit 46.3 Mean Corpuscular Volume 87.8 Mean Corpuscular Hemoglobin 30.8 Mean Corpuscular Hemoglobin 35.1 Concent Red Cell Distribution Width 15.1 Platelet Count 197 Mean Platelet Volume 8.5 Neutrophils (%) (Auto) 74.3 Lymphocytes (%) (Auto) 12.6 Monocytes (%) (Auto) 11.2 Eosinophils (%) (Auto) 1.1 Basophils (%) (Auto) 0.8 Neutrophils # (Auto) 8.9 Lymphocytes # (Auto) 1.5 Monocytes # (Auto) 1.3 Eosinophils # (Auto) 0.1 Basophils # (Auto) 0.1 CBC Comment DIFF FINAL Differential Comment Prothrombin Time 11.5 Prothromb Time International 1.0 Ratio Activated Partial 27.5 Thromboplast Time Sodium Level 142 Potassium Level 3.6 Chloride Level 108 Carbon Dioxide Level 23.3 Anion Gap 11 Blood Urea Nitrogen 14 Creatinine 1.30 Estimat Glomerular Filtration 59 Rate Random Glucose 123 Calcium Level 7.8 Magnesium Level 1.8 Total Bilirubin 0.6 Aspartate Amino Transf 13 (AST/SGOT) Alanine Aminotransferase 22 (ALT/SGPT) Alkaline Phosphatase 63 Total Creatine Kinase 68 Troponin I LESS THAN 0.02 B-Type Natriuretic Peptide 43 Total Protein 6.6 Albumin 3.5 Digoxin Level 0.2 Result Diagram: 04/08/17193504/08/171935 Imaging Last 48 hours Impressions Chest X-Ray 04/08/171926 Signed Impressions: Service Date/Time: Saturday, April 08, 2017 19:44 - CONCLUSION: No acute disease. Sajan Todd MD Assessment and Plan Assessment and Plan Impression: afib with rvr- resolved by the time ems subtherapeutic digoxin - ran out of meds mild leukocytosis with left shift chest pain- r/o ACS- likely rate related Plan : serial cardiac enzymes and ekg cardizem drip if needed so far not needed digoxin to resume and check levels in am resume home meds likely can be discharged once 3rd set of enzymes and ekgs are wnl Discussed Condition With patient, ER MD, nursing staff Charlotte Oconnor MD Apr 09, 2017 02:46
[2017-04-09 03:01] LABS: CREATINE KINASE 60 U/L (39-308)
[2017-04-09 05:59] LABS: AUTOMATED NEUTROPHIL # 8.9 TH/MM3 (1.8-7.7); BASOPHIL # 0.1 TH/MM3 (0-0.2); BASOPHIL % 0.6 % (0.0-2.0); EOSINOPHIL # 0.1 TH/MM3 (0-0.4); EOSINOPHIL % 1.1 % (0.0-4.0); HEMATOCRIT 44.7 % (39.0-51.0); HEMO FLAGS DIFF FINAL; LYMPH % 14.1 % (9.0-44.0); LYMPHOCYTE # 1.7 TH/MM3 (1.0-4.8); MEAN CELL VOLUME 87.3 FL (80.0-100.0); MEAN CORPUSCULAR HEMOGLOBIN 30.5 PG (27.0-34.0); MEAN CORPUSCULAR HGB CONC 34.9 % (32.0-36.0); MONO % 8.6 % (0.0-8.0); NEUT % 75.6 % (16.0-70.0); PLATELET COUNT 201 TH/MM3 (150-450); RED BLOOD COUNT 5.12 MIL/MM3 (4.50-5.90); RED CELL DISTRIBUTION WIDTH 15.3 % (11.6-17.2); WHITE BLOOD COUNT 11.8 TH/MM3 (4.0-11.0)
[2017-04-09 06:28] LABS: BICARBONATE 25.3 MEQ/L (21.0-32.0); POTASSIUM 3.7 MEQ/L (3.5-5.1)
[2017-04-09 06:30] LABS: CREATINE KINASE 56 U/L (39-308)
--- NOTE | 2017-04-09 06:45 | EKG ---
Date Performed: 04/08/2017 Time Performed: 19:21:52 PTAGE: 46 years EKG: ATRIAL FIBRILLATION BORDERLINE LEFT AXIS DEVIATION NONSPECIFIC T-WAVE ABNORMALITY ABNORMAL RHYTHM ECG PREVIOUS TRACING : 11/03/2016 13.28 Compared to previous tracing, heart rate has decreased. DOCTOR: Sadiq Haley Interpretating Date/Time 04/09/2017 06:45:44
[2017-04-09] MEDS ORDERED: PILL SPLITTER OTHER PRN (08:00)
--- NOTE | 2017-04-09 08:04 | HHI.PR ---
Subjective Remarks Follow-up A. fib. Telemetry shows controlled ventricular response. Patient has no complaints denies chest pain and palpitations. Has been out of bed ambulating. Counseled regarding compliance Objective Vitals Vital Signs Date Time Temp Pulse Resp B/P Pulse Ox O2 Delivery O2 Flow Rate FiO2 04/09/17 06:00 76 04/09/17 05:00 76 04/09/17 04:00 79 04/09/17 03:00 98.4 66 18 125/77 96 04/09/17 03:00 77 04/09/17 02:00 82 04/09/17 01:00 86 04/09/17 00:00 82 04/08/17 23:00 93 04/08/17 22:41 97.4 91 18 127/81 98 04/08/17 21:04 90 20 125/78 98 Nasal Cannula 2 04/08/17 20:58 88 18 107/78 100 Nasal Cannula 2 04/08/17 19:49 90 18 136/63 99 Nasal Cannula 2 116/72 04/08/17 19:30 20 98 Nasal Cannula 2 04/08/17 19:30 98 Nasal Cannula 2 04/08/17 19:19 20 97 Room Air 04/08/17 19:14 98.4 87 20 152/90 97 I/O 04/08/17 04/08/17 04/08/17 04/09/17 04/09/17 04/09/17 07:00 15:00 23:00 07:00 15:00 23:00 Intake Total 240 ml Output Total 0 ml Balance 240 ml Intake Oral 240 ml Output Urine Total 0 ml # Bowel Movements 0 Result Diagram: 04/09/17 0509 04/09/17 0509 Imaging Last Impressions Chest X-Ray 04/08/171926 Signed Impressions: Service Date/Time: Saturday, April 08, 2017 19:44 - CONCLUSION: No acute disease. Sajan Todd MD Objective Remarks GENERAL: This is a well-nourished, well-developed patient, in no apparent distress. SKIN: Warm and dry HEAD: Atraumatic. Normocephalic. No temporal or scalp tenderness. EYES: No scleral icterus. No injection or drainage. ENT: Nose without bleeding, purulent drainage or septal hematoma. Airway patent. NECK: Trachea midline. No JVD CARDIOVASCULAR: Irregularly irregular without murmurs, gallops, or rubs. RESPIRATORY: Clear to auscultation. Breath sounds equal bilaterally. No wheezes , rales, or rhonchi. GASTROINTESTINAL: Abdomen soft, non-tender, nondistended. No guarding. MUSCULOSKELETAL: Extremities without clubbing, cyanosis, or edema.. No calf tenderness NEUROLOGICAL: Awake and alert. Motor and sensory grossly within normal limits. Normal speech. Procedures Non- A/P Problem List: (1) A-fib ICD Code: I48.91 Status: Acute Assessment and Plan afib with rvr secondary to noncompliance-now with CVR continue CCB and digoxin with Eliquis subtherapeutic digoxin - ran out of meds. Counseled mild leukocytosis likely reactive. chest pain-due to RVR. He ruled out for SD. Cardiac catheterization in October 2016 showed nonobstructive CAD. Continue aspirin but decreased to 81 Cardio myopathy with depressed ejection fraction. Not in failure. Continue BRAEDEN inhibitor and Lasix. Consider beta abby can be started outpatient. CHF education, I/O and monitor weight Stable for discharge Discharge Planning Discharge patient to home Condition on discharge: Improved Regular Diet as tolerated Ad [place] activity no driving Rx written: He requested refill of all his medications. Aspirin decreased to 81 mg daily Follow-up with primary care physician in 3 days Munir Rangel MD Apr 09, 2017 08:04
[2017-04-09] MEDS ORDERED: POTASSIUM CHLORIDE 20 MEQ CONTROLLED RELEASE TAB PO ONE (08:15)
[2017-04-09] MEDS: DILTIAZEM HCL 90 MG TAB PO SCH ×2 (08:38→12:41)
[2017-04-09] MEDS ORDERED: ASPIRIN 325 MG TAB PO SCH (09:00)
[2017-04-09] MEDS ORDERED: DIGOXIN 0.25 MG TAB PO SCH (09:00)
[2017-04-09] MEDS ORDERED: LISINOPRIL 5 MG TAB PO SCH (09:00)
[2017-04-09] MEDS ORDERED: POTASSIUM CHLORIDE 20 MEQ CONTROLLED RELEASE TAB PO SCH (09:00)
[2017-04-09] MEDS ORDERED: SODIUM CHLORIDE 0.9% FLUSH 10 ML FLUSH IV FLUSH SCH (09:00)
[2017-04-09] MEDS ORDERED: FUROSEMIDE 20 MG TAB PO SCH (09:00)
[2017-04-09] MEDS ORDERED: AMIODARONE 200 MG TAB PO SCH (09:00)
[2017-04-09] MEDS ORDERED: APIXABAN 5 MG TABLET PO SCH (09:00)
--- NOTE | 2017-04-09 10:01 | EKG ---
Date Performed: 04/09/2017 Time Performed: 01:40:30 PTAGE: 46 years EKG: Atrial fibrillation Leftward axis Diffuse T wave changes are nonspecific Abnormal ECG PREVIOUS TRACING : 04/08/2017 19.21 No significant change from previous tracing noted. DOCTOR: Sadiq Haley Interpretating Date/Time 04/09/2017 10:00:26
[2017-04-09] MEDS ORDERED: FURO20TA PO (12:37)
[2017-04-09] MEDS ORDERED: POTA-163 PO (12:37)
[2017-04-09] MEDS ORDERED: APIX5TAB PO (12:37)
[2017-04-09] MEDS ORDERED: AMIO200T PO (12:37)
[2017-04-09] MEDS ORDERED: DILT90TA PO (12:37)
[2017-04-09] MEDS ORDERED: DIGO0.25 PO (12:37)
[2017-04-09] MEDS ORDERED: LISI-519 PO (12:37)
--- NOTE | 2017-04-09 12:38 | HHI.DCPOC ---
Discharge Care Plan Diagnosis: (1) Atrial fibrillation with rapid ventricular response (2) Non-compliance Your Health Problems Are: Difficulty with ADL Exercise Tolerance Goals to Promote Your Health * To prevent worsening of your condition and complications * To maintain your health at the optimal level Directions to Meet Your Goals Take your medications as prescribed Follow your dietary instruction Follow activity as directed Keep your appointments as scheduled Take your immunizations and boosters as scheduled If your symptoms worsen call your PCP, if no PCP go to Urgent Care Center or Emergency Room Smoking is Dangerous to Your Health. Avoid second hand smoke Call the 24-hour hour crisis hotline for domestic abuse at Munir Rangel MD Apr 09, 2017 12:38
[2017-04-09] MEDS ORDERED: ASPI81TA11 PO (12:40)
== END 2017-04-09 13:36 | disposition home or self-care (01) ==
LOC: NEPE 18:57 → INTOOBSV 21:30 → NEDA 21:30 → HCIS 22:33
PROVIDERS: ADMIT Internal Medicine; ATTEND Internal Medicine
DX: I48.91 Unspecified atrial fibrillation (principal); R07.9 Chest pain, unspecified; D72.829 Elevated white blood cell count, unspecified; I11.0 Hypertensive heart disease with heart failure; I50.9 Heart failure, unspecified; F31.9 Bipolar disorder, unspecified; I42.9 Cardiomyopathy, unspecified; F41.9 Anxiety disorder, unspecified; F17.200 Nicotine dependence, unspecified, uncomplicated; Z91.19 Patient's noncompliance with other medical treatment and regimen; Z79.82 Long term (current) use of aspirin; Z79.01 Long term (current) use of anticoagulants; Z88.2 Allergy status to sulfonamides
CPT/HCPCS: 71010; 80048; 80053; 80162; 82550; 83735; 83880; 84484; 85025; 85610; 85730; 93005; 96374; 99285; G0378; J2270; J2405

== ENCOUNTER 2017-05-14 12:16 | Observation (INO) | payer OTHER ==
[~2017-05-14] VITALS: Ht 167.6 cm; Wt 92.2 kg
[2017-05-14] VITALS (11 sets, daily range): BP systolic 114–147; BP diastolic 77–107; PULSE 101–126; RESP 18–24; TEMP 97.8–98.1; O2SAT 97–99
[~2017-05-14 12:16] MED LIST changes: +ASPI81TA11 PO; +POTA-163 PO; -POTA10TA8 PO
--- NOTE | 2017-05-14 13:12 | PD ---
HPI Chief Complaint: SOB Time Seen by Provider: 13:00 Travel History International Travel<30 days: No Contact w/Intl Traveler<30days: No Traveled to known affect area: No History of Present Illness HPI EMS FOUND PT IN AFIB WITH RVR AND GAVE CARDIZEM, HOWEVER PT STILL PERSISTED WITH HIS CHEST DISCOMFORT WHICH WAS PRESSURE/NONRADIATING/5 OUT OF 10/RESOLVED WITH NITRO...HOWEVER NITRO DROPPED BLOOD PRESSURE DOWN TO HIGH 80'S, EMS GAVE IVF NS AND SHOWED NORMALIZATION OF BP.....PT STATES HE IS NOT TAKING ANY MEDICATIONS OTHER THAN ASA BECAUSE HE "CAN'T AFFORD" THEM YET PT IS ABLE TO AFFORD "COCAINE" WHICH HE ADMITS TO USING. 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) Respiratory: Yes (CHRONIC BRONCHITIS) Immunizations Current: Yes Past Surgical History Abdominal Surgery: Yes ([facility] 2000) Cholecystectomy: Yes (2000) Coronary Artery Bypass Graft: No Other Surgery: Yes Social History Alcohol Use: No Tobacco Use: Yes (1 PPD) Substance Use: Yes (HX OF COCAINE last time 5 years ago) Allergies-Medications (Allergen,Severity, Reaction): Coded Allergies: Sulfa (Verified Allergy, Severe, HIVES, 05/14/17) Reported Meds & Prescriptions Reported Meds & Active Scripts Active Aspirin EC (Aspirin) 81 Mg Tabdr 81 Mg PO DAILY Potassium Chloride ER (Potassium Chloride) 20 Meq Tab 20 Meq PO BID Diltiazem (Diltiazem HCl) 90 Mg Tab 135 Mg PO TID Take 1 & 1/2 tablet by mouth 3 times a day Furosemide 20 Mg Tab 20 Mg PO BID Digoxin 0.25 Mg Tab 0.25 Mg PO DAILY Lisinopril 5 Mg Tab 5 Mg PO DAILY Amiodarone (Amiodarone HCl) 200 Mg Tab 200 Mg PO Q12HR Eliquis (Apixaban) 5 Mg Tab 5 Mg PO BID Reported Aspirin 325 Mg Tab 325 Mg PO DAILY Review of Systems Except as stated in HPI: all other systems reviewed are Neg Cardiovascular: Positive: Chest Pain or Discomfort, Palpitations, Irregular Rhythm Physical Exam Narrative GENERAL: SKIN: Warm and dry. HEAD: Atraumatic. Normocephalic. EYES: Pupils equal and round. No scleral icterus. No injection or drainage. ENT: No nasal bleeding or discharge. Mucous membranes pink and moist. NECK: Trachea midline. No JVD. CARDIOVASCULAR: IRREGULARLY IRREGULAR rhythm WITH FAST HEART RATE RESPIRATORY: No accessory muscle use. Clear to auscultation. Breath sounds equal bilaterally. GASTROINTESTINAL: Abdomen soft, non-tender, nondistended. Hepatic and splenic margins not palpable. MUSCULOSKELETAL: Extremities without clubbing, cyanosis, or edema. No obvious deformities. NEUROLOGICAL: Awake and alert. No obvious cranial nerve deficits. Motor grossly within normal limits. Five out of 5 muscle strength in the arms and legs. Normal speech. PSYCHIATRIC: Appropriate mood and affect; insight and judgment normal. Data Data Last Documented VS Vital Signs Date Time Temp Pulse Resp B/P Pulse Ox O2 Delivery O2 Flow Rate FiO2 05/14/17 14:46 97.8 102 22 114/81 99 Nasal Cannula 3 Orders Complete Blood Count With Diff (05/14/17 13:01) Comprehensive Metabolic Panel (05/14/17 13:01) B-Type Natriuretic Peptide (05/14/17 13:01) Act Partial Throm Time (Ptt) (05/14/17 13:01) Prothrombin Time / Inr (Pt) (05/14/17 13:01) Ckmb (Isoenzyme) Profile (05/14/17 13:01) Troponin I (05/14/17 13:01) Iv Access Insert/Monitor (05/14/17 13:01) Electrocardiogram (05/14/17 13:01) Ecg Monitoring (05/14/17 13:01) Oximetry (05/14/17 13:01) Chest, Single Ap (05/14/17 13:01) Aspirin Chew (Aspirin Chew) (05/14/17 13:15) Nitroglycerin 2% Oint (Nitroglycerin 2% (05/14/17 13:15) Diltiazem Inj (Cardizem Inj) (05/14/17 13:30) Furosemide Inj (Lasix Inj) (05/14/17 14:45) Admit Order (Ed Use Only) (05/14/17 15:20) Labs Laboratory Tests Test 05/14/17 13:15 White Blood Count 12.6 TH/MM3 Red Blood Count 4.82 MIL/MM3 Hemoglobin 14.8 GM/DL Hematocrit 44.1 % Mean Corpuscular Volume 91.5 FL Mean Corpuscular Hemoglobin 30.7 PG Mean Corpuscular Hemoglobin 33.5 % Concent Red Cell Distribution Width 14.3 % Platelet Count 263 TH/MM3 Mean Platelet Volume 8.7 FL Neutrophils (%) (Auto) 80.8 % Lymphocytes (%) (Auto) 10.4 % Monocytes (%) (Auto) 7.1 % Eosinophils (%) (Auto) 0.7 % Basophils (%) (Auto) 1.0 % Neutrophils # (Auto) 10.1 TH/MM3 Lymphocytes # (Auto) 1.3 TH/MM3 Monocytes # (Auto) 0.9 TH/MM3 Eosinophils # (Auto) 0.1 TH/MM3 Basophils # (Auto) 0.1 TH/MM3 CBC Comment DIFF FINAL Differential Comment Prothrombin Time 12.4 SEC Prothromb Time International 1.1 RATIO Ratio Activated Partial 29.8 SEC Thromboplast Time Sodium Level 139 MEQ/L Potassium Level 4.0 MEQ/L Chloride Level 108 MEQ/L Carbon Dioxide Level 20.7 MEQ/L Anion Gap 10 MEQ/L Blood Urea Nitrogen 13 MG/DL Creatinine 1.14 MG/DL Estimat Glomerular Filtration 69 ML/MIN Rate Random Glucose 92 MG/DL Calcium Level 7.9 MG/DL Total Bilirubin 0.9 MG/DL Aspartate Amino Transf 18 U/L (AST/SGOT) Alanine Aminotransferase 22 U/L (ALT/SGPT) Alkaline Phosphatase 66 U/L Total Creatine Kinase 61 U/L Troponin I LESS THAN 0.02 NG/ML B-Type Natriuretic Peptide 297 PG/ML Total Protein 6.9 GM/DL Albumin 3.2 GM/DL [facility] Medical Decision Making Medical Screen Exam Complete: Yes Emergency Medical Condition: Yes Medical Record Reviewed: Yes Interpretation(s) AFIB WITH LOW RVR 110, NO STEMI PATTERN, NONSPEC STT Differential Diagnosis SYMPTOMATIC AFIB WITH RVR V OK V PNA V CHF Narrative Course PATIENT IS ON ELIQUIS FOR AFIB, ONCE VENTRICULAR RATE CONTROLLED, IF NO ADDITIONAL CP, NORMAL BP, WILL ADMIT FOR OBSERVATION (CXR C/W PULM EDEMA) Diagnosis Primary Impression: Atrial fibrillation with RVR Additional Impression: PULMONARY EDEMA Admitting Information Admitting Physician Requests: Observation Bo Brown MD May 14, 2017 13:12 Bo Brown MD May 14, 2017 13:12
[2017-05-14] MEDS ORDERED: NITROGLYCERIN 2% OINT 1 GM PACKET TOP ONE (13:15)
[2017-05-14] MEDS ORDERED: ASPIRIN 81 MG CHEW TAB PO ONE (13:15)
[2017-05-14] MEDS ORDERED: DILTIAZEM HCL 25 MG/5 ML VIAL IV ONE (13:30)
[2017-05-14 13:36] LABS: AUTOMATED NEUTROPHIL # 10.1 TH/MM3 (1.8-7.7); BASOPHIL # 0.1 TH/MM3 (0-0.2); EOSINOPHIL # 0.1 TH/MM3 (0-0.4); EOSINOPHIL % 0.7 % (0.0-4.0); HEMATOCRIT 44.1 % (39.0-51.0); HEMO FLAGS DIFF FINAL; LYMPH % 10.4 % (9.0-44.0); LYMPHOCYTE # 1.3 TH/MM3 (1.0-4.8); MEAN CELL VOLUME 91.5 FL (80.0-100.0); MEAN CORPUSCULAR HEMOGLOBIN 30.7 PG (27.0-34.0); MEAN CORPUSCULAR HGB CONC 33.5 % (32.0-36.0); MONO % 7.1 % (0.0-8.0); NEUT % 80.8 % (16.0-70.0); PLATELET COUNT 263 TH/MM3 (150-450); RED BLOOD COUNT 4.82 MIL/MM3 (4.50-5.90); RED CELL DISTRIBUTION WIDTH 14.3 % (11.6-17.2); WHITE BLOOD COUNT 12.6 TH/MM3 (4.0-11.0)
--- NOTE | 2017-05-14 13:48 | RADRPT ---
EXAM DATE/TIME: 05/14/2017 13:13 [place] COMPARISON: CHEST SINGLE AP, April 08, 2017, 19:44. INDICATIONS : Short of breath. MEDICAL HISTORY : Hypertension. Congestive heart failure. Atrial fibrillation. SURGICAL HISTORY : None. ENCOUNTER: Initial ACUITY: 1 day PAIN SCORE: 0/10 LOCATION: Bilateral chest FINDINGS: Cardiac silhouette is borderline enlarged. Mild interstitial prominence without significant focal ple ural lobe parenchymal opacities. Remainder of exam is unchanged. CONCLUSION: 1. Mild cardiomegaly with mild positive fluid balance. Sandor Singleton MD on May 14, 2017 at 13:45 Board Certified Radiologist. This report was verified electronically.
[2017-05-14 13:50] LABS: APTT (PATIENT) 29.8 SEC (24.3-30.1); INTERNATIONAL NORMALIZED RATIO 1.1 RATIO; PROTHROMBIN TIME - PATIENT 12.4 SEC (9.8-11.6)
[2017-05-14 14:07] LABS: ALT (GPT) 22 U/L (12-78); ANION GAP 10 MEQ/L (5-15); AST (GOT) 18 U/L (15-37); BICARBONATE 20.7 MEQ/L (21.0-32.0); BLOOD UREA NITROGEN 13 MG/DL (7-18); CHLORIDE 108 MEQ/L (98-107); GLOMERULAR FILTRATION RATE 69 ML/MIN (>89); SODIUM (NA) 139 MEQ/L (136-145)
[2017-05-14 14:09] LABS: ALKALINE PHOSPHATASE 66 U/L (45-117); CREATINE KINASE 61 U/L (39-308); TOTAL BILIRUBIN ADULT 0.9 MG/DL (0.2-1.0)
[2017-05-14] MEDS ORDERED: FUROSEMIDE 20 MG/2 ML VIAL IV PUSH ONE (14:45)
[2017-05-14] MEDS ORDERED: SODIUM CHLORIDE 0.9% FLUSH 10 ML FLUSH IV FLUSH PRN (17:45)
[2017-05-14] MEDS ORDERED: DILTIAZEM HCL 90 MG TAB PO SCH ×3 (18:00→21:00)
[2017-05-14] MEDS: DIGOXIN 0.25 MG TAB PO SCH (18:21)
[2017-05-14] MEDS ORDERED: DILTIAZEM HCL 25 MG/5 ML VIAL IVP ONE (19:15)
[2017-05-14] MEDS ORDERED: DILTIAZEM INJ 125 MG in SODIUM CHLORIDE 0.9% INJ 100 ML IV SCH (19:15)
[2017-05-14] MEDS ORDERED: DILTIAZEM HCL 25 MG/5 ML VIAL IVP PRN (19:30)
--- NOTE | 2017-05-14 19:36 | HHI.HP ---
HPI Service [facility] Hospitalists Primary Care Physician Susanne Romero MD Admission Diagnosis CHF EXACERBATION, AFIB WITH RVR Diagnoses: Chief Complaint: Chest pain, shortness of breath Travel History International Travel<30 Days: No Contact w/Intl Traveler <30 Da: No Traveled to Known Affected Are: No History of Present Illness This is a 46-year-old male with past medical history significant for digestive heart failure, age fibrillation, hypertension who presents to [facility] complaining of shortness of breath and cough which started today at 11 AM associated with some nausea. The patient states his chest pain is stabbing rated at 5-5 and half over 10, chest pain radiated to the back, was intermittent. As per ED physician documentation EMS found the patient to be in A. fib with RVR and gave Cardizem to the patient, however the patient still persisted with chest discomfort. The patient was given nitroglycerin however his blood pressure dropped into the 80s systolic after which the patient was given normal saline with rastafari of the patient's blood pressure to normal values. The patient states that he ran from his medications 5 days ago but as per ED documentation he stated that he can't afford them. He also states that 5 days ago he relapsed into using cocaine. Review of Systems As per history of present illness, other systems reviewed by me and negative Past Family Social History Past Medical History Congestive heart failure Atrial fibrillation Hypertension Bipolar disorder Past Surgical History Cholecystectomy in 2000 Cardiac catheterization on October 2016 with clean coronaries Reported Medications Reported Meds & Active Scripts Active Aspirin EC (Aspirin) 81 Mg Tabdr 81 Mg PO DAILY Potassium Chloride ER (Potassium Chloride) 20 Meq Tab 20 Meq PO BID Diltiazem (Diltiazem HCl) 90 Mg Tab 135 Mg PO TID Take 1 & 1/2 tablet by mouth 3 times a day Furosemide 20 Mg Tab 20 Mg PO BID Digoxin 0.25 Mg Tab 0.25 Mg PO DAILY Lisinopril 5 Mg Tab 5 Mg PO DAILY Amiodarone (Amiodarone HCl) 200 Mg Tab 200 Mg PO Q12HR Eliquis (Apixaban) 5 Mg Tab 5 Mg PO BID Reported Aspirin 325 Mg Tab 325 Mg PO DAILY Allergies: Coded Allergies: Sulfa (Verified Allergy, Severe, HIVES, 05/14/17) Active Ordered Medications Current Medications Medications (Trade) Dose Ordered Sig/Jackson Route Start Time Stop Time Status Last Admin (NS Flush) 2 ml UNSCH PRN IV FLUSH 05/14/17 17:45 (NS Flush) 2 ml BID IV FLUSH 05/14/17 21:00 (Cordarone) 200 mg Q12HR PO 05/14/17 21:00 05/14/17 19:41 (Eliquis) 5 mg BID PO 05/14/17 21:00 05/14/17 19:41 (Ecotrin Ec) 81 mg DAILY PO 05/15/17 09:00 (Lanoxin) 0.25 mg DAILY PO 05/14/17 17:45 05/14/17 18:21 (Prinivil) 5 mg DAILY PO 05/15/17 09:00 Potassium Chloride 20 meq 20 meq BID PO 05/14/17 21:00 05/14/17 19:41 (Cardizem Inj/NS Inj) 125 ml @ 0 mls/hr TITRATE IV 05/14/17 19:15 05/14/17 20:06 (Morphine Inj) 2 mg Q4H PRN IV PUSH 05/14/17 19:30 05/14/17 20:05 Family History Grandfather had done angioplasty. Patient's mother has diabetes mellitus. Patient's father had hemophilia and hypertension Social History The patient smokes however per day. Denies alcohol use. Relapsed 1 week ago into cocaine. Physical Exam Vital Signs Vital Signs Date Time Temp Pulse Resp B/P Pulse Ox O2 Delivery O2 Flow Rate FiO2 05/14/17 19:19 126 24 147/86 Nasal Cannula 2 05/14/17 18:24 97.9 106 18 121/83 99 Nasal Cannula 3 05/14/17 16:04 102 20 121/77 99 Nasal Cannula 3 05/14/17 14:46 97.8 102 22 114/81 99 Nasal Cannula 3 05/14/17 13:03 22 97 Nasal Cannula 3 05/14/17 13:03 103 22 98 Nasal Cannula 4 05/14/17 13:03 98.1 103 22 143/89 97 Physical Exam GENERAL: This is a well-nourished, well-developed patient, in no apparent distress. SKIN: No rashes, ecchymoses or lesions. Cool and dry. HEAD: Atraumatic. Normocephalic. No temporal or scalp tenderness. EYES: Pupils equal round and reactive. Extraocular motions intact. No scleral icterus. No injection or drainage. ENT: Nose without bleeding, purulent drainage or septal hematoma. Throat without erythema, tonsillar hypertrophy or exudate. Uvula midline. Airway patent. NECK: Trachea midline. No JVD or lymphadenopathy. Supple, nontender, no meningeal signs. CARDIOVASCULAR: Tachycardic, irregularly irregular rate and rhythm without murmurs rubs or gallops. RESPIRATORY: Clear to auscultation. Breath sounds equal bilaterally. No wheezes , rales, or rhonchi. GASTROINTESTINAL: Abdomen soft, non-tender, nondistended. No hepato-splenomegaly , or palpable masses. No guarding. MUSCULOSKELETAL: Extremities without clubbing, cyanosis, or edema. No joint tenderness, effusion, or edema noted. No calf tenderness. Negative Homans sign bilaterally. NEUROLOGICAL: Awake and alert. Cranial nerves II through XII intact. Motor and sensory grossly within normal limits. Five out of 5 muscle strength in all muscle groups. Normal speech. Laboratory Laboratory Tests Test 05/14/17 13:15 White Blood Count 12.6 Red Blood Count 4.82 Hemoglobin 14.8 Hematocrit 44.1 Mean Corpuscular Volume 91.5 Mean Corpuscular Hemoglobin 30.7 Mean Corpuscular Hemoglobin 33.5 Concent Red Cell Distribution Width 14.3 Platelet Count 263 Mean Platelet Volume 8.7 Neutrophils (%) (Auto) 80.8 Lymphocytes (%) (Auto) 10.4 Monocytes (%) (Auto) 7.1 Eosinophils (%) (Auto) 0.7 Basophils (%) (Auto) 1.0 Neutrophils # (Auto) 10.1 Lymphocytes # (Auto) 1.3 Monocytes # (Auto) 0.9 Eosinophils # (Auto) 0.1 Basophils # (Auto) 0.1 CBC Comment DIFF FINAL Differential Comment Prothrombin Time 12.4 Prothromb Time International 1.1 Ratio Activated Partial 29.8 Thromboplast Time Sodium Level 139 Potassium Level 4.0 Chloride Level 108 Carbon Dioxide Level 20.7 Anion Gap 10 Blood Urea Nitrogen 13 Creatinine 1.14 Estimat Glomerular Filtration 69 Rate Random Glucose 92 Calcium Level 7.9 Total Bilirubin 0.9 Aspartate Amino Transf 18 (AST/SGOT) Alanine Aminotransferase 22 (ALT/SGPT) Alkaline Phosphatase 66 Total Creatine Kinase 61 Troponin I LESS THAN 0.02 B-Type Natriuretic Peptide 297 Total Protein 6.9 Albumin 3.2 Result Diagram: 05/14/17 1315 05/14/17 1315 Imaging Last Impressions Chest X-Ray 05/14/17 1301 Signed Impressions: Service Date/Time: Sunday, May 14, 2017 13:13 - CONCLUSION: 1. Mild cardiomegaly with mild positive fluid balance. Sandor Singleton MD Assessment and Plan Problem List: (1) Atrial fibrillation with RVR ICD Code: I48.91 Status: Acute Plan: Due to medication noncompliance The patient was given IV Cardizem in the emergency department, however since her rate still going into the 140s. Symptoms likely secondary to A. fib with RVR I will admit the patient to the medical floor with telemetry and start the patient on an IV Cardizem drip Monitor cardiac enzymes I will resume oral Cardizem, digoxin and amiodarone Consult cardiology. (2) Acute on chronic systolic (congestive) heart failure ICD Code: I50.23 Status: Acute Plan: Echocardiogram on 11/05/16 showed an ejection fraction of 25-30%. The patient was given 2 mg IV once of IV Lasix. (3) Essential hypertension ICD Code: I10 Status: Acute Plan: Continue antihypertensive medications which include lisinopril and Cardizem. (4) Tobacco abuse ICD Code: Z72.0 Status: Acute Plan: Advised smoking cessation. Will Rx a nicotine patch. (5) Cardiomyopathy ICD Code: I42.9 Status: Acute Plan: Tinea by mouth Lasix. EF as above. Follow-up cardiology recommendations. Assessment and Plan DVT prophylaxis: On apixaban. Code Status Full code Discussed Condition With ED physician, patient, RN. Physician Certification 2 Midnight Certification Type: Admission for Inpatient Services Order for Inpatient Services The services are ordered in accordance with Medicare regulations or non- Medicare payer requirements, as applicable. In the case of services not specified as inpatient-only, they are appropriately provided as inpatient services in accordance with the 2-midnight benchmark. Estimated LOS (days): 2 days is the estimated time the patient will need to remain in the hospital, assuming treatment plan goals are met and no additional complications. Post-Hospital Plan: Home Problem Qualifiers (1) Cardiomyopathy: Qualified Code: I42.0 - Dilated cardiomyopathy Cody Pérez MD May 14, 2017 19:36
[2017-05-14] MEDS: AMIODARONE 200 MG TAB PO SCH (19:41)
[2017-05-14] MEDS: POTASSIUM CHLORIDE 20 MEQ CONTROLLED RELEASE TAB PO SCH (19:41)
[2017-05-14] MEDS: APIXABAN 5 MG TABLET PO SCH (19:41)
[2017-05-14 20:03] LABS: CREATINE KINASE 72 U/L (39-308)
[2017-05-14] MEDS: MORPHINE SULFATE 4 MG/ML INJ IV PUSH PRN (20:05)
[2017-05-14] MEDS: SODIUM CHLORIDE 0.9% FLUSH 10 ML FLUSH IV FLUSH SCH (21:00)
[2017-05-15] VITALS (16 sets, daily range): BP systolic 101–139; BP diastolic 54–82; PULSE 62–106; RESP 16–22; TEMP 97.3–98; O2SAT 93–100
[2017-05-15] MEDS: MORPHINE SULFATE 4 MG/ML INJ IV PUSH PRN ×5 (01:00→22:17)
[2017-05-15 02:51] LABS: CREATINE KINASE 59 U/L (39-308)
[2017-05-15] MEDS: LISINOPRIL 5 MG TAB PO SCH (08:40)
[2017-05-15] MEDS: POTASSIUM CHLORIDE 20 MEQ CONTROLLED RELEASE TAB PO SCH ×2 (08:40→20:30)
[2017-05-15] MEDS: SODIUM CHLORIDE 0.9% FLUSH 10 ML FLUSH IV FLUSH SCH ×2 (08:40→20:31)
[2017-05-15] MEDS: DIGOXIN 0.25 MG TAB PO SCH (08:40)
[2017-05-15] MEDS: FUROSEMIDE 20 MG TAB PO SCH ×2 (08:40→20:30)
[2017-05-15] MEDS: APIXABAN 5 MG TABLET PO SCH ×2 (08:40→20:31)
[2017-05-15] MEDS: AMIODARONE 200 MG TAB PO SCH ×2 (08:40→20:30)
[2017-05-15] MEDS ORDERED: ASPIRIN 325 MG TAB PO SCH (09:00)
[2017-05-15] MEDS ORDERED: ASPIRIN EC 81 MG TABEC PO SCH (09:00)
--- NOTE | 2017-05-15 12:53 | EKG ---
Date Performed: 05/14/2017 Time Performed: 19:17:10 PTAGE: 46 years EKG: ATRIAL FIBRILLATION WITH RAPID VENTRICULAR RESPONSE MARKED LEFT AXIS DEVIATION NONSPECIFIC T-WAVE ABNORMALITY ABNORMAL ECG NO PREVIOUS TRACING DOCTOR: Bj Parry Interpretating Date/Time 05/15/2017 12:48:43
--- NOTE | 2017-05-15 13:01 | EKG ---
Date Performed: 05/14/2017 Time Performed: 13:05:18 PTAGE: 46 years EKG: ATRIAL FIBRILLATION WITH RAPID VENTRICULAR RESPONSE MARKED LEFT AXIS DEVIATION NONSPECIFIC T-WAVE ABNORMALITY ABNORMAL ECG INTERPRETATION BASED ON A DEFAULT AGE OF 40 YEARS PREVIOUS TRACING : 04/09/2017 01.40 DOCTOR: Bj Parry Interpretating Date/Time 05/15/2017 12:54:39
--- NOTE | 2017-05-15 17:03 | MB ---
cc: REBEKAH TAY MD DATE OF CONSULTATION 05/15/17 HISTORY OF PRESENT ILLNESS Mr. Pendleton is a 46-year-old white male with a history of congestive heart failure, atrial fibrillation, cocaine use and noncompliance with medical care. He presented with shortness of breath, cough, nausea and starting chest discomfort radiating to the back. He used cocaine about five days ago. He was found to be in atrial fibrillation with rapid ventricular response. The rate was controlled with IV diltiazem. He recently ran out of his medications and he states he was waiting for his paycheck to refill them. PAST MEDICAL HISTORY 1. Congestive heart failure 2. Atrial fibrillation, 3. Hypertension, 4. Bipolar disorder, 5. History of cholecystectomy 6. History of cardiac catheterization in October 2016 with clean coronary arteries. MEDICATIONS 1. Aspirin. 2. Potassium 3. Diltiazem 4. Furosemide. 5. Digoxin. 6. Lisinopril. 7. Amiodarone 8. Eliquis. The patient discontinued his medications recently. ALLERGIES SULFA. SOCIAL HISTORY The patient is a smoker. He uses cocaine. He does not drink alcohol. FAMILY HISTORY Positive for heart disease. REVIEW OF SYSTEMS Otherwise negative. PHYSICAL EXAMINATION VITAL SIGNS: Blood pressure 114/55, pulse 100 and irregular. HEENT: Negative. 2+ carotid upstrokes, no bruits. LUNGS: Clear. HEART: Irregular irregular with no murmurs, rubs or gallops. ABDOMEN: Soft. No bruits. EXTREMITIES: Without edema. 2+ distal pulses NEUROLOGIC: Grossly nonfocal. CARDIOLOGY STUDIES EKG was reviewed and showed atrial fibrillation with increased ventricular response, left axis, delayed R-wave progression in pericardial leads and nonspecific T-wave changes. LABORATORY DATA Hemoglobin 14.8, potassium 4.0, creatinine 1.14, CK and troponin negative x3. AST and ALT normal. BNP 297. DIAGNOSES 1. Atrial fibrillation with rapid ventricular response. 2. Acute exacerbation of chronic systolic congestive heart failure 3. Nonischemic cardiomyopathy with severe left ventricular systolic dysfunction. 4. Hypertension 5. Smoking. 6. Habitual cocaine use. 7. Noncompliance with medical care DISPOSITION Mr. Pendleton can be switched from IV to p.o. Diltiazem for rate control. Also recommend to restart his Lisinopril. He has had side effects with beta-blockers in the past. He is a poor candidate for full anticoagulation due to his significant medication noncompliance and cocaine use. I would continue full dose aspirin 325 mg a day. If he chooses to stay on Eliquis I will use Eliquis only without aspirin. He can follow up with his PCP after discharge. MD LIZ Vaughn/ /2:07 PM /4:47 PM
[2017-05-15] MEDS: DILTIAZEM HCL 90 MG TAB PO SCH (17:53)
--- NOTE | 2017-05-15 18:22 | HHI.PR ---
Subjective Remarks still feels like his chest is tight denies cough denies fevers or chills denies cp/sob Objective Vitals Vital Signs Date Time Temp Pulse Resp B/P Pulse Ox O2 Delivery O2 Flow Rate FiO2 05/15/17 12:00 97.7 100 18 114/55 93 05/15/17 11:01 94 22 124/81 97 Nasal Cannula 2 05/15/17 07:41 97.3 92 22 121/82 99 05/15/17 06:39 103 20 111/76 100 Nasal Cannula 2 05/15/17 06:00 98 18 114/82 100 Nasal Cannula 2 05/15/17 05:00 98 18 120/75 100 Nasal Cannula 2 05/15/17 04:00 104 20 101/77 99 Nasal Cannula 2 05/15/17 03:00 88 20 107/67 99 Nasal Cannula 2 05/15/17 02:00 98 20 126/81 99 Nasal Cannula 2 05/15/17 01:30 106 20 115/81 99 Nasal Cannula 2 05/15/17 01:00 104 20 139/82 99 Nasal Cannula 2 05/15/17 00:30 104 20 128/77 99 Nasal Cannula 2 05/15/17 00:00 102 20 115/69 99 Nasal Cannula 2 05/14/17 23:30 104 20 139/95 99 Nasal Cannula 2 05/14/17 23:00 108 20 147/89 99 Nasal Cannula 2 05/14/17 22:30 114 20 137/91 99 Nasal Cannula 2 05/14/17 22:03 111 20 135/92 99 Nasal Cannula 2 05/14/17 21:57 20 05/14/17 21:10 110 20 135/92 98 05/14/17 20:16 101 20 141/107 98 05/14/17 19:19 126 24 147/86 Nasal Cannula 2 05/14/17 18:24 97.9 106 18 121/83 99 Nasal Cannula 3 I/O 05/14/17 05/14/17 05/14/17 05/15/17 05/15/17 05/15/17 06:59 14:59 22:59 06:59 14:59 22:59 Intake Total 236 ml 480 ml Output Total 1700 ml 500 ml 450 ml Balance -1464 ml -500 ml 30 ml Intake Oral 236 ml 480 ml Output Urine Total 1700 ml 500 ml 450 ml # Voids 2 1 # Bowel Movements 0 Result Diagram: 05/14/17 1315 05/14/17 1315 Imaging Last Impressions Chest X-Ray 05/14/17 1301 Signed Impressions: Service Date/Time: Sunday, May 14, 2017 13:13 - CONCLUSION: 1. Mild cardiomegaly with mild positive fluid balance. Sandor Singleton MD Objective Remarks GENERAL: This is a well-nourished, well-developed patient, in no apparent distress. SKIN: No rashes, ecchymoses or lesions. Cool and dry. HEAD: Atraumatic. Normocephalic. No temporal or scalp tenderness. EYES: Pupils equal round and reactive. Extraocular motions intact. No scleral icterus. No injection or drainage. ENT: Nose without bleeding, purulent drainage or septal hematoma. Throat without erythema, tonsillar hypertrophy or exudate. Uvula midline. Airway patent. NECK: Trachea midline. No JVD or lymphadenopathy. Supple, nontender, no meningeal signs. CARDIOVASCULAR: Tachycardic, irregularly irregular rate and rhythm without murmurs rubs or gallops. RESPIRATORY: Clear to auscultation. Breath sounds equal bilaterally. No wheezes , rales, or rhonchi. GASTROINTESTINAL: Abdomen soft, non-tender, nondistended. No hepato-splenomegaly , or palpable masses. No guarding. MUSCULOSKELETAL: Extremities without clubbing, cyanosis, or edema. No joint tenderness, effusion, or edema noted. No calf tenderness. Negative Homans sign bilaterally. NEUROLOGICAL: Awake and alert. Cranial nerves II through XII intact. Motor and sensory grossly within normal limits. Five out of 5 muscle strength in all muscle groups. Normal speech. Medications and IVs Current Medications Medications (Trade) Dose Ordered Sig/Jackson Route Start Time Stop Time Status Last Admin (NS Flush) 2 ml UNSCH PRN IV FLUSH 05/14/17 17:45 (NS Flush) 2 ml BID IV FLUSH 05/14/17 21:00 05/15/17 20:31 (Cordarone) 200 mg Q12HR PO 05/14/17 21:00 05/15/17 20:30 (Eliquis) 5 mg BID PO 05/14/17 21:00 05/15/17 20:31 (Ecotrin Ec) 81 mg DAILY PO 05/15/17 09:00 05/15/17 08:40 (Lanoxin) 0.25 mg DAILY PO 05/14/17 17:45 05/15/17 08:40 (Prinivil) 5 mg DAILY PO 05/15/17 09:00 05/15/17 08:40 (KCl) 20 meq BID PO 05/14/17 21:00 05/15/17 20:30 (Morphine Inj) 2 mg Q4H PRN IV PUSH 05/14/17 19:30 05/15/17 17:54 (Lasix) 20 mg BID PO 05/15/17 09:00 05/15/17 20:30 (Cardizem) 90 mg Q6HR PO 05/15/17 18:00 05/15/17 17:53 Urinary Catheter: No Vascular Central Line Catheter: No A/P Problem List: (1) Atrial fibrillation with RVR ICD Code: I48.91 Status: Acute Plan: Due to medication noncompliance The patient was given IV Cardizem in the emergency department, however since her rate still going into the 140s. Symptoms likely secondary to A. fib with RVR The patient was admitted to the medical floor with telemetry and started on IV Cardizem drip. Cardiac enzymes negative 3 Oral Cardizem, digoxin and amiodarone resumed Cardiology consulted, appreciate recommendations. Once heart rate controlled the patient is cleared from the cardiology standpoint to be discharged. (2) Acute on chronic systolic (congestive) heart failure ICD Code: I50.23 Status: Acute Plan: Echocardiogram on 11/05/16 showed an ejection fraction of 25-30%. The patient was given 2 mg IV once of IV Lasix. Continue Lasix 20 mg by mouth twice a day (3) Essential hypertension ICD Code: I10 Status: Acute Plan: Continue antihypertensive medications which include lisinopril and Cardizem. BP stable (4) Tobacco abuse ICD Code: Z72.0 Status: Acute Plan: Advised smoking cessation. Will Rx nicotine patch (5) Cardiomyopathy ICD Code: I42.9 Status: Acute Plan: Continue by mouth Lasix. EF as above. Appreciate cardiology recommendations. Assessment and Plan DVT prophylaxis: On apixaban. Discharge Planning Discharge in a.m. if heart rate stable on oral Cardizem. May discharge on full dose aspirin or apixaban but not both as per cardiology recommendations. Problem Qualifiers (1) Cardiomyopathy: Qualified Code: I42.0 - Dilated cardiomyopathy Cody Pérez MD May 15, 2017 18:21
[2017-05-15 19:32] LABS: MEAN CELL VOLUME 91.4 FL (80.0-100.0); MEAN CORPUSCULAR HEMOGLOBIN 31.1 PG (27.0-34.0); PLATELET COUNT 279 TH/MM3 (150-450); RED BLOOD COUNT 4.71 MIL/MM3 (4.50-5.90); RED CELL DISTRIBUTION WIDTH 14.6 % (11.6-17.2); REVIEW FLAG FINAL; WHITE BLOOD COUNT 18.4 TH/MM3 (4.0-11.0)
[2017-05-15 21:27] LABS: BICARBONATE 22.7 MEQ/L (21.0-32.0); POTASSIUM 4.9 MEQ/L (3.5-5.1)
[2017-05-16] VITALS (7 sets, daily range): BP systolic 95–132; BP diastolic 65–78; PULSE 57–91; RESP 20–22; TEMP 97.2–98.2; O2SAT 92–98
[2017-05-16] MEDS: DILTIAZEM HCL 90 MG TAB PO SCH ×3 (00:56→12:49)
[2017-05-16] MEDS: MORPHINE SULFATE 4 MG/ML INJ IV PUSH PRN ×2 (05:41→10:11)
[2017-05-16] MEDS: AMIODARONE 200 MG TAB PO SCH (09:37)
[2017-05-16] MEDS: LISINOPRIL 5 MG TAB PO SCH (09:37)
[2017-05-16] MEDS: DIGOXIN 0.25 MG TAB PO SCH (09:37)
[2017-05-16] MEDS: POTASSIUM CHLORIDE 20 MEQ CONTROLLED RELEASE TAB PO SCH (09:37)
[2017-05-16] MEDS: FUROSEMIDE 20 MG TAB PO SCH (09:38)
[2017-05-16] MEDS: APIXABAN 5 MG TABLET PO SCH (09:38)
[2017-05-16] MEDS: SODIUM CHLORIDE 0.9% FLUSH 10 ML FLUSH IV FLUSH SCH (09:38)
[2017-05-16] MEDS ORDERED: DILT90TA PO (10:45)
[2017-05-16] MEDS ORDERED: FURO20TA PO (10:45)
[2017-05-16] MEDS ORDERED: DIGO0.25 PO (10:45)
[2017-05-16] MEDS ORDERED: AMIO200T PO (10:45)
[2017-05-16] MEDS ORDERED: LISI-519 PO (10:45)
--- NOTE | 2017-05-16 10:49 | HHI.DCPOC ---
Discharge Care Plan Diagnosis: (1) Atrial fibrillation with rapid ventricular response (2) Noncompliance Goals to Promote Your Health * To prevent worsening of your condition and complications * To maintain your health at the optimal level Directions to Meet Your Goals Take your medications as prescribed Follow your dietary instruction Follow activity as directed Keep your appointments as scheduled Take your immunizations and boosters as scheduled If your symptoms worsen call your PCP, if no PCP go to Urgent Care Center or Emergency Room Smoking is Dangerous to Your Health. Avoid second hand smoke Call the 24-hour hour crisis hotline for domestic abuse at Mary Kaufman MD May 16, 2017 10:49
--- NOTE | 2017-05-16 10:51 | HHI.DS ---
Discharge Summary Admission Date May 14, 2017 at 15:23 Discharge Date: May 16, 2017 Admitting Diagnosis CHF EXACERBATION, AFIB WITH RVR (1) Atrial fibrillation with RVR ICD Code: I48.91 Diagnosis: Principal (2) Acute on chronic systolic (congestive) heart failure ICD Code: I50.23 Diagnosis: Principal (3) Essential hypertension ICD Code: I10 Diagnosis: Secondary (4) Tobacco abuse ICD Code: Z72.0 Diagnosis: Secondary (5) Cardiomyopathy ICD Code: I42.9 Diagnosis: Secondary (6) Noncompliance with medications ICD Code: Z91.14 Diagnosis: Principal Procedures See hospital course Brief History - From Admission This is a 46-year-old male with past medical history significant for digestive heart failure, age fibrillation, hypertension who presents to [facility] complaining of shortness of breath and cough which started today at 11 AM associated with some nausea. The patient states his chest pain is stabbing rated at 5-5 and half over 10, chest pain radiated to the back, was intermittent. As per ED physician documentation EMS found the patient to be in A. fib with RVR and gave Cardizem to the patient, however the patient still persisted with chest discomfort. The patient was given nitroglycerin however his blood pressure dropped into the 80s systolic after which the patient was given normal saline with yazidism of the patient's blood pressure to normal values. The patient states that he ran from his medications 5 days ago but as per ED documentation he stated that he can't afford them. He also states that 5 days ago he relapsed into using cocaine. CBC/BMP: 05/15/17184005/15/171840 Significant Findings Laboratory Tests Test 05/14/17 05/14/17 05/15/17 05/15/17 13:15 19:10 02:04 18:41 White Blood Count 12.6 TH/MM3 18.4 TH/MM3 (4.0-11.0) (4.0-11.0) Neutrophils (%) (Auto) 80.8 % (16.0-70.0) Neutrophils # (Auto) 10.1 TH/MM3 (1.8-7.7) Prothrombin Time 12.4 SEC (9.8-11.6) Chloride Level 108 MEQ/L (98-107) Carbon Dioxide Level 20.7 MEQ/L (21.0-32.0) Estimat Glomerular Filtration 69 ML/MIN (>89) 64 ML/MIN (>89) Rate Calcium Level 7.9 MG/DL (8.5-10.1) Troponin I LESS THAN 0.02 LESS THAN 0.02 LESS THAN 0.02 NG/ML NG/ML NG/ML (0.02-0.05) (0.02-0.05) (0.02-0.05) B-Type Natriuretic Peptide 297 PG/ML (0-100) Albumin 3.2 GM/DL (3.4-5.0) Digoxin Level 0.6 NG/ML (0.8-2.0) Sodium Level 135 MEQ/L (136-145) Blood Urea Nitrogen 26 MG/DL (7-18) Imaging Last Impressions Chest X-Ray 05/14/17 1301 Signed Impressions: Service Date/Time: Friday, May 14, 2017 13:13 - CONCLUSION: 1. Mild cardiomegaly with mild positive fluid balance. Sandor Singleton MD PE at Discharge GENERAL: This is a well-nourished, well-developed patient, in no apparent distress. CARDIOVASCULAR: irregularly irregular rate and rhythm without murmurs rubs or gallops. RESPIRATORY: Clear to auscultation. Breath sounds equal bilaterally. No wheezes , rales, or rhonchi. GASTROINTESTINAL: Abdomen soft, non-tender, nondistended. No hepato-splenomegaly , or palpable masses. No guarding. MUSCULOSKELETAL: Extremities without clubbing, cyanosis, or edema. No joint tenderness, effusion, or edema noted. No calf tenderness. Negative Homans sign bilaterally. NEUROLOGICAL: Awake and alert. Normal speech. Motor sensation grossly intact. Pt update on day of discharge Follow-up for CHF exacerbation and age fibrillation with RVR. Patient rate has been controlled. He denies chest pain, status of breathing, palpitation, lightheadedness dizziness. Patient asked to have medications until Friday when he gets his paycheck. He stated that he has this issue all the time and that there is a 5 day gap of not having medication. He stated us why he and up in the hospital. He ran out of his medication. I also spoke to patient in regards to Eliquis. Patient stated that he wants to take Eliquis despite knowing the risks. Hospital Course Atrial fibrillation with RVR -Patient was in mentation for placement RVR due to noncompliance with medication. He is put on IV Cardizem drip in which he was transitioned to oral Cardizem. Hand Screen Printer was consulted. -Hand Screen Printer recommended full dose of aspirin due to cocaine use. Hand Screen Printer also stated that patient takes Eliquis to not take aspirin. -His home medication was resumed. -I dealt with patient extensively on the use of Eliquis versus aspirin. I did not recommend Eliquis due to patient's cocaine use which increases his risk of bleeding. -I recommended full dose of aspirin. I told patient if he does decide to continue with Eliquis to discontinue aspirin and to not take both at the same time. I told patient if he is not taking Eliquis since there is a gap in which he does not take his medication due to cost that in the meantime he can take full dose of aspirin. he just cannot take both at the same time. Patient stated that he understood. Acute on chronic systolic (congestive) heart failure -due to atrial fibrillation. He was asymptomatic. -Echocardiogram on 11/05/16 showed an ejection fraction of 25-30%. -The patient was given 2 mg IV once of IV Lasix. -Continue Lasix 20 mg by mouth twice a day Essential hypertension -Home medication resumed. He was also restart lisinopril. Patient told that lisinopril is free of [employer]. Tobacco abuse -Advised smoking cessation. Cardiomyopathy -Continue by mouth Lasix. EF as above. Pt Condition on Discharge: Stable Discharge Disposition: Discharge Home Discharge Time: <= 30 minutes Discharge Instructions DIET: Follow Instructions for: Heart Healthy Diet Activities you can perform: Regular-No Restrictions Follow up Referrals: PCP Follow-up - 1 Week New Medications: Diltiazem (Diltiazem) 90 Mg Tab 90 MG PO Q6HR atrial fibrillation Days 30 Ref 0 TAB Continued Medications: Amiodarone (Amiodarone) 200 Mg Tab 200 MG PO Q12HR afib #60 Ref 0 TAB (This prescription has been renewed) Aspirin (Aspirin) 325 Mg Tab 325 MG PO DAILY #30 Ref 0 TAB Digoxin (Digoxin) 0.25 Mg Tab 0.25 MG PO DAILY Regulate Heart Beat #30 Ref 0 TAB (This prescription has been renewed) Furosemide (Furosemide) 20 Mg Tab 20 MG PO BID Prevent Heart Failure #30 Ref 0 TAB (This prescription has been renewed) Lisinopril (Lisinopril) 5 Mg Tab 5 MG PO DAILY CMP #30 Ref 0 TAB (This prescription has been renewed) Potassium Chloride ER (Potassium Chloride ER) 20 Meq Tab 20 MEQ PO BID Electrolyte Replacement #60 Ref 0 TAB Discontinued Medications: Apixaban (Eliquis) 5 Mg Tab 5 MG PO BID Blood Clot Prevention #[address] (Aspirin EC) 81 Mg Tabdr 81 MG PO DAILY Prevent Blood Clot #30 Ref 0 TAB Diltiazem (Diltiazem) 90 Mg Tab 135 MG PO TID Take 1 & 1/2 tablet by mouth 3 times a day Angina #135 Ref 0 TAB Mary Kaufman MD May 16, 2017 10:51
== END 2017-05-16 15:03 | disposition home or self-care (01) ==
LOC: NEPC 13:29 → NEDH 15:23 → NEDA 15:23 → UNDOADMOB 15:23 → NEDH 20:16 → N04A 05-15 10:50
PROVIDERS: ADMIT Family Medicine; ATTEND Family Medicine
DX: I48.91 Unspecified atrial fibrillation (principal); I50.23 Acute on chronic systolic (congestive) heart failure; I42.9 Cardiomyopathy, unspecified; I11.0 Hypertensive heart disease with heart failure; F31.9 Bipolar disorder, unspecified; F41.9 Anxiety disorder, unspecified; F17.200 Nicotine dependence, unspecified, uncomplicated; F14.90 Cocaine use, unspecified, uncomplicated; Z91.14 Patient's other noncompliance with medication regimen; Z79.82 Long term (current) use of aspirin
CPT/HCPCS: 71010; 80048; 80053; 80162; 82550; 83880; 84443; 84484; 85025; 85027; 85610; 85730; 93005; 96374; 96375; 99285; G0378; J1940; J2270

== ENCOUNTER 2017-07-08 09:55 | Inpatient (IN) | payer OTHER ==
[~2017-07-08] VITALS: Ht 167.6 cm; Wt 97.0 kg
[2017-07-08] VITALS (18 sets, daily range): BP systolic 112–156; BP diastolic 63–107; PULSE 88–139; RESP 17–24; TEMP 97.3–98.8; O2SAT 95–100
[~2017-07-08 09:55] MED LIST changes: -APIX5TAB PO; -ASPI81TA11 PO
--- NOTE | 2017-07-08 10:10 | PD ---
HPI Chief Complaint: Cold / Flu Symptoms Time Seen by Provider: 10:10 Travel History International Travel<30 days: No Contact w/Intl Traveler<30days: No Traveled to known affect area: No History of Present Illness HPI Patient is a 47-year-old male presents emergency department for evaluation of rapid heartbeat. He states his been having cough and congestion but the real reason he came in was for palpitations. States he has a history of atrial fibrillation had been on anticoagulation the past but is now only on aspirin. On arrival the patient's heart rate is between 130 in the 150 bpm. Patient does endorse that sharp midsternal chest pain which is not radiating. He denies any fever, abdominal pain nausea vomiting. He states his been taking all of his medications as prescribed. 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) Respiratory: Yes (CHRONIC BRONCHITIS) Immunizations Current: Yes Past Surgical History Abdominal Surgery: Yes (MARYBETH 2000) Cardiac Surgery: Yes (heart cath 10/2016) Cholecystectomy: Yes (2000) Coronary Artery Bypass Graft: No Other Surgery: Yes Social History Alcohol Use: No (PT DENIES) Tobacco Use: Yes (1 PPD) Substance Use: Yes (cocaine a day ago, occasional marijuana) Allergies-Medications (Allergen,Severity, Reaction): Coded Allergies: Sulfa (Sulfonamide Antibiotics) (Unverified Allergy, Severe, HIVES, ) Reported Meds & Prescriptions Reported Meds & Active Scripts Active Diltiazem (Diltiazem HCl) 90 Mg Tab 90 Mg PO Q6HR 30 Days Furosemide 20 Mg Tab 20 Mg PO BID Digoxin 0.25 Mg Tab 0.25 Mg PO DAILY Lisinopril 5 Mg Tab 5 Mg PO DAILY Amiodarone (Amiodarone HCl) 200 Mg Tab 200 Mg PO Q12HR Potassium Chloride ER (Potassium Chloride) 20 Meq Tab 20 Meq PO BID Reported Aspirin 325 Mg Tab 325 Mg PO DAILY Review of Systems Except as stated in HPI: all other systems reviewed are Neg Physical Exam Narrative GENERAL: Well-developed well-nourished, no obvious distress. SKIN: Focused skin assessment warm/dry. HEAD: Atraumatic. Normocephalic. EYES: Pupils equal and round. No scleral icterus. No injection or drainage. ENT: No nasal bleeding or discharge. Mucous membranes pink and moist. TMs clear bilaterally, minimal erythema in the posterior oropharynx. No cough exhibited in the emergency department. NECK: Trachea midline. No JVD. CARDIOVASCULAR: Irregularly irregular and tachycardic.. No murmur appreciated. 2+ bilateral equal pulses in all 4 extremities. RESPIRATORY: No accessory muscle use. Clear to auscultation. Breath sounds equal bilaterally. GASTROINTESTINAL: Abdomen soft, non-tender, nondistended. Hepatic and splenic margins not palpable. MUSCULOSKELETAL: No obvious deformities. No clubbing. No cyanosis. No edema. NEUROLOGICAL: Awake and alert. No obvious cranial nerve deficits. Motor grossly within normal limits. Normal speech. PSYCHIATRIC: Appropriate mood and affect; insight and judgment normal. Data Data Last Documented VS Vital Signs Date Time Temp Pulse Resp B/P (MAP) Pulse Ox O2 Delivery O2 Flow Rate FiO2 07/08/17 13:15 100 18 123/77 (92) 97 07/08/17 11:23 Nasal Cannula 2.00 07/08/17 10:00 97.6 Orders Orders Electrocardiogram (07/08/17 10:07) Ckmb (Isoenzyme) Profile (07/08/17 10:07) Complete Blood Count With Diff (07/08/17 10:07) Comprehensive Metabolic Panel (07/08/17 10:07) Magnesium (Mg) (07/08/17 10:07) Prothrombin Time / Inr (Pt) (07/08/17 10:07) Act Partial Throm Time (Ptt) (07/08/17 10:07) Troponin I (07/08/17 10:07) Chest, Single Ap (07/08/17 10:07) Ecg Monitoring (07/08/17 10:07) Iv Access Insert/Monitor (07/08/17 10:07) Oximetry (07/08/17 10:07) Oxygen Administration (07/08/17 10:07) Aspirin Chew (Aspirin Chew) (07/08/17 10:15) Sodium Chloride 0.9% Flush (Ns Flush) (07/08/17 10:15) Diltiazem Inj (Cardizem Inj) (07/08/17 10:15) CKMB (07/08/17 10:12) CKMB% (07/08/17 10:12) Vital Signs (Adult) Q15MX4,Q4H (07/08/17 11:25) Director Of Religious Activities / Telemetry WALESKA.Q8H (07/08/17 11:25) Cardiac Rhythm WALESKA.Q8H (07/08/17 11:25) Notify Dr: Other (07/08/17 11:25) Diltiazem Inj (Cardizem Inj) (07/08/17 11:30) Diltiazem Inj (Cardizem Inj) (07/08/17 11:45) Admit Order (Ed Use Only) (07/08/17 ) Labs Laboratory Tests Test 07/08/17 10:12 White Blood Count 11.2 TH/MM3 Red Blood Count 5.11 MIL/MM3 Hemoglobin 15.7 GM/DL Hematocrit 46.0 % Mean Corpuscular Volume 90.0 FL Mean Corpuscular Hemoglobin 30.6 PG Mean Corpuscular Hemoglobin Concent 34.1 % Red Cell Distribution Width 14.8 % Platelet Count 287 TH/MM3 Mean Platelet Volume 9.0 FL Neutrophils (%) (Auto) 74.7 % Lymphocytes (%) (Auto) 12.9 % Monocytes (%) (Auto) 9.9 % Eosinophils (%) (Auto) 1.9 % Basophils (%) (Auto) 0.6 % Neutrophils # (Auto) 8.4 TH/MM3 Lymphocytes # (Auto) 1.4 TH/MM3 Monocytes # (Auto) 1.1 TH/MM3 Eosinophils # (Auto) 0.2 TH/MM3 Basophils # (Auto) 0.1 TH/MM3 CBC Comment DIFF FINAL Differential Comment Prothrombin Time 12.7 SEC Prothromb Time International Ratio 1.1 RATIO Activated Partial Thromboplast Time 30.1 SEC Blood Urea Nitrogen 16 MG/DL Creatinine 1.38 MG/DL Random Glucose 86 MG/DL Total Protein 7.2 GM/DL Albumin 3.3 GM/DL Calcium Level 8.1 MG/DL Magnesium Level 2.3 MG/DL Alkaline Phosphatase 87 U/L Aspartate Amino Transf (AST/SGOT) 20 U/L Alanine Aminotransferase (ALT/SGPT) 27 U/L Total Bilirubin 1.0 MG/DL Sodium Level 140 MEQ/L Potassium Level 4.0 MEQ/L Chloride Level 107 MEQ/L Carbon Dioxide Level 25.2 MEQ/L Anion Gap 8 MEQ/L Estimat Glomerular Filtration Rate 55 ML/MIN Total Creatine Kinase 127 U/L Creatine Kinase MB 1.4 NG/ML Troponin I LESS THAN 0.02 NG/ML Triglycerides Level 99 MG/DL Cholesterol Level 138 MG/DL LDL Cholesterol 91 MG/DL HDL Cholesterol 27.2 MG/DL Cholesterol/HDL Ratio 5.07 RATIO Lipase 335 U/L Free Thyroxine 1.53 NG/DL Thyroid Stimulating Hormone 3rd Gen 2.370 uIU/ML Digoxin Level 0.1 NG/ML [facility] Medical Decision Making Medical Screen Exam Complete: Yes Emergency Medical Condition: Yes Interpretation(s) EKG shows atrial fibrillation with RVR at a rate of 138. Normal QTC normal QRS duration. Normal axis normal R-wave progression. No concerning ST segment changes. This an abnormal EKG. Heart monitoring showing patient's atrial fibrillation RVR rates of 140 250. Differential Diagnosis Atrial fibrillation RVR, URI, pneumonia unlikely, electro-light abnormality. Narrative Course Patient roomed emergency department, has a history of multiple presentations for atrial fibrillation RVR. History is that they continue to change his medications so he does not have a steady regimen. Cardizem bolus was given on arrival 0.25 mg/kg, rate control was down into the 90s but patient still having runs in the 120s. Started on a Cardizem drip. Discussed with the residents for admission to the [facility] under Dr. Watkins and they're agreeable. Patient chest pain-free, chest x-ray does show a small infiltrate but it is resolving. Diagnosis Primary Impression: Atrial fibrillation with rapid ventricular response Admitting Information Admitting Physician Requests: Observation Condition: Stable Charlie Holley MD Jul 08, 2017 10:10
[2017-07-08] MEDS ORDERED: ASPIRIN 81 MG CHEW TAB PO ONE (10:15)
[2017-07-08] MEDS ORDERED: SODIUM CHLORIDE 0.9% FLUSH 10 ML FLUSH IVF PRN (10:15)
[2017-07-08] MEDS ORDERED: DILTIAZEM HCL 25 MG/5 ML VIAL IV PUSH ONE (10:15)
[2017-07-08 10:23] LABS: AUTOMATED NEUTROPHIL # 8.4 TH/MM3 (1.8-7.7); BASOPHIL # 0.1 TH/MM3 (0-0.2); BASOPHIL % 0.6 % (0.0-2.0); EOSINOPHIL # 0.2 TH/MM3 (0-0.4); EOSINOPHIL % 1.9 % (0.0-4.0); HEMO FLAGS DIFF FINAL; LYMPH % 12.9 % (9.0-44.0); LYMPHOCYTE # 1.4 TH/MM3 (1.0-4.8); MEAN CORPUSCULAR HEMOGLOBIN 30.6 PG (27.0-34.0); MEAN CORPUSCULAR HGB CONC 34.1 % (32.0-36.0); MONO % 9.9 % (0.0-8.0); NEUT % 74.7 % (16.0-70.0); PLATELET COUNT 287 TH/MM3 (150-450); RED BLOOD COUNT 5.11 MIL/MM3 (4.50-5.90); RED CELL DISTRIBUTION WIDTH 14.8 % (11.6-17.2); WHITE BLOOD COUNT 11.2 TH/MM3 (4.0-11.0)
[2017-07-08 10:45] LABS: ANION GAP 8 MEQ/L (5-15); AST (GOT) 20 U/L (15-37); BICARBONATE 25.2 MEQ/L (21.0-32.0); BLOOD UREA NITROGEN 16 MG/DL (7-18); CHLORIDE 107 MEQ/L (98-107); GLOMERULAR FILTRATION RATE 55 ML/MIN (>89); MAGNESIUM 2.3 MG/DL (1.5-2.5); SODIUM (NA) 140 MEQ/L (136-145)
[2017-07-08 10:48] LABS: INTERNATIONAL NORMALIZED RATIO 1.1 RATIO; PROTHROMBIN TIME - PATIENT 12.7 SEC (9.8-11.6)
[2017-07-08 10:50] LABS: ALKALINE PHOSPHATASE 87 U/L (45-117); ALT (GPT) 27 U/L (12-78); CREATINE KINASE 127 U/L (39-308)
--- NOTE | 2017-07-08 10:50 | RADRPT ---
EXAM DATE/TIME: 07/08/2017 10:37 [place] COMPARISON: CHEST SINGLE AP, May 14, 2017, 13:13. INDICATIONS : Left side chest pains with pressure. MEDICAL HISTORY : None. SURGICAL HISTORY : None. ENCOUNTER: Initial ACUITY: 1 day PAIN SCORE: 7/10 LOCATION: Left chest FINDINGS: A single view of the chest demonstrates the lungs to be symmetrically aerated without evidence of mas s, infiltrate or effusion. Cardiomegaly and slight interstitial prominence. The cardiomediastinal co ntours are unremarkable. Osseous structures are intact. CONCLUSION: Slight interstitial prominence, minimally improved. Charan Coley MD on July 08, 2017 at 10:48 Board Certified Radiologist. This report was verified electronically.
[2017-07-08 10:55] LABS: APTT (PATIENT) 30.1 SEC (24.3-30.1)
[2017-07-08 11:02] LABS: CKMB 1.4 NG/ML (0.5-3.6)
[2017-07-08] MEDS ORDERED: DILTIAZEM HCL 25 MG/5 ML VIAL IV PUSH PRN (11:45)
[2017-07-08] MEDS: DILTIAZEM INJ 125 MG in SODIUM CHLORIDE 0.9% INJ 100 ML IV PRN (12:25)
[2017-07-08] MEDS ORDERED: SODIUM CHLORIDE 0.9% FLUSH 10 ML FLUSH IV FLUSH PRN (14:00)
[2017-07-08] MEDS: SODIUM CHLORIDE 0.9% FLUSH 10 ML FLUSH IV FLUSH SCH ×2 (14:00→21:16)
--- NOTE | 2017-07-08 14:02 | EKG ---
Date Performed: 07/08/2017 Time Performed: 10:14:50 PTAGE: 47 years EKG: ATRIAL FIBRILLATION WITH RAPID VENTRICULAR RESPONSE NONSPECIFIC T-WAVE ABNORMALITY ABNORMAL RHYTHM ECG Compared to prior tracing no significant change PREVIOUS TRACING : 05/14/2017 19.17 DOCTOR: Alvaro Barnhart Interpretating Date/Time 07/08/2017 14:00:14
--- NOTE | 2017-07-08 14:05 | HHI.FPPN ---
Objective Vitals Vital Signs Date Time Temp Pulse Resp B/P (MAP) Pulse Ox O2 Delivery O2 Flow Rate FiO2 07/08/17 13:55 99 Nasal Cannula 2.00 07/08/17 13:15 100 18 123/77 (92) 97 07/08/17 13:00 108 17 132/68 (89) 97 07/08/17 12:45 102 18 156/63 (94) 99 07/08/17 12:30 110 18 128/89 (102) 98 07/08/17 12:25 111 115/75 07/08/17 11:23 102 19 156/90 (112) 100 Nasal Cannula 2.00 07/08/17 10:16 139 19 141/92 (108) 99 Nasal Cannula 2.00 07/08/17 10:16 136 19 99 Nasal Cannula 2.00 07/08/17 10:16 134 19 141/92 (108) 99 Nasal Cannula 2.00 07/08/17 10:16 99 Nasal Cannula 2.00 07/08/17 10:05 147 98 Room Air 07/08/17 10:00 97.6 132 24 150/91 (110) 95 Result Diagram: 07/08/17 1012 07/08/17 1012 Chantelle Bryan MD R2 Jul 08, 2017 14:05
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
[2017-07-08] MEDS ORDERED: RESP: ALBUTEROL 2.5 MG/3 ML NEB (PRN) INH (15:30)
[2017-07-08] MEDS ORDERED: ONDANSETRON ODT 4 MG TAB PO PRN (16:30)
[2017-07-08 16:49] LABS: BLOOD, URINE NEG (NEG); COMMENT (UR) CULT NOT INDICATED; CULTURE IF INDICATED CULT NOT INDICATED; GLUCOSE,URINE NEG (NEG); KETONE, URINE NEG (NEG); NITRITE,URINE NEG (NEG); PH, URINE 5.5 (5.0-8.5); URINE COLOR YELLOW (YELLW/STRAW)
[2017-07-08] MEDS ORDERED: FUROSEMIDE 20 MG/2 ML VIAL IV PUSH ONE (17:00)
[2017-07-08 17:07] LABS: DIGOXIN 0.1 NG/ML (0.8-2.0); FREE T4 1.53 NG/DL (0.76-1.46); HDL CHOLESTEROL 27.2 MG/DL (40.0-60.0)
[2017-07-08] MEDS ORDERED: DILTIAZEM HCL 90 MG TAB PO SCH (18:00)
--- NOTE | 2017-07-08 18:49 | RADRPT ---
EXAM DATE/TIME: 07/08/2017 17:09 [facility] COMPARISON: No previous studies available for comparison. INDICATIONS : Abdominal pain. MEDICAL HISTORY : Hypertension. Atrial fibrillation. Congestive heart failure. Kidney stones. Urinary tract infecti on. Schizophrenia. Bipolar disorder. Depression. SURGICAL HISTORY : Cholecystectomy. Cardiac catheterization. ENCOUNTER: Initial ACUITY: 2 days PAIN SCORE: 4/10 LOCATION: Abdomen. MEASUREMENTS: LIVER: 18.4 cm length COMMON DUCT: 6 mm RIGHT KIDNEY: 10.4 x 6.6 x 5.5 cm LEFT KIDNEY: 12.7 x 5.9 x 6.3 cm SPLEEN: 14.0 cm length AORTA: 2.1cm maximal FINDINGS: The liver is mildly enlarged and demonstrates heterogeneous echotexture suggesting diffuse hepatic di sease. No focal hepatic mass is noted. No biliary ductal dilatation is noted. There is hepatopetal flow within the portal vein. The patient is status post cholecystectomy. The common bile duct lashae ures 6 mm and is normal in caliber. The spleen is mildly enlarged. The head and body of the pancrea s are unremarkable. The tail of the pancreas is obscured by overlying bowel gas. The kidneys are un remarkable without focal mass or hydronephrosis. CONCLUSION: 1. Hepatosplenomegaly. 2. Heterogeneous echotexture of the liver suggesting possible diffuse hepatic disease. Charlie Rousseau MD on July 08, 2017 at 18:29 Board Certified Radiologist. This report was verified electronically.
[2017-07-08] MEDS ORDERED: hydrALAZINE HCL 10 MG TAB PO PRN (19:15)
[2017-07-08] MEDS: RESP: ALBUTEROL 2.5 MG/IPRATROPIUM 0.5 MG NEB (SCH) INH (20:01)
[2017-07-08] MEDS: REMOVE OLD PATCH T-DERMAL SCH (21:00)
[2017-07-08] MEDS: NICOTINE 7 MG/24 HR PATCH T-DERMAL SCH (21:14)
[2017-07-08] MEDS: POTASSIUM CHLORIDE 20 MEQ CONTROLLED RELEASE TAB PO SCH (21:15)
[2017-07-08] MEDS: HEPARIN SODIUM - SQ 10,000 UNITS/ML VIAL SQ SCH (21:15)
[2017-07-08] MEDS: ACETAMINOPHEN 325 MG TAB PO PRN (21:15)
[2017-07-08] MEDS: AMIODARONE 200 MG TAB PO SCH (21:16)
[2017-07-08] MEDS: FUROSEMIDE 20 MG TAB PO SCH (21:16)
[2017-07-09] VITALS (24 sets, daily range): BP systolic 136–146; BP diastolic 74–103; PULSE 54–119; RESP 16–18; TEMP 97.7–98.3; O2SAT 96–98
[2017-07-09] MEDS: RESP: ALBUTEROL 2.5 MG/IPRATROPIUM 0.5 MG NEB (SCH) INH ×6 (00:35→20:09)
[2017-07-09] MEDS: ACETAMINOPHEN 325 MG TAB PO PRN ×2 (04:15→21:15)
[2017-07-09] MEDS: HEPARIN SODIUM - SQ 10,000 UNITS/ML VIAL SQ SCH ×3 (06:10→21:02)
[2017-07-09 06:40] LABS: HEMATOCRIT 42.6 % (39.0-51.0); MEAN CELL VOLUME 90.1 FL (80.0-100.0); MEAN CORPUSCULAR HEMOGLOBIN 30.6 PG (27.0-34.0); MEAN CORPUSCULAR HGB CONC 33.9 % (32.0-36.0); PLATELET COUNT 250 TH/MM3 (150-450); RED BLOOD COUNT 4.73 MIL/MM3 (4.50-5.90); RED CELL DISTRIBUTION WIDTH 14.8 % (11.6-17.2); REVIEW FLAG FINAL; WHITE BLOOD COUNT 8.7 TH/MM3 (4.0-11.0)
[2017-07-09 07:09] LABS: BICARBONATE 27.3 MEQ/L (21.0-32.0); POTASSIUM 3.6 MEQ/L (3.5-5.1)
[2017-07-09] MEDS: AMIODARONE 200 MG TAB PO SCH ×2 (08:42→21:02)
[2017-07-09] MEDS: POTASSIUM CHLORIDE 20 MEQ CONTROLLED RELEASE TAB PO SCH ×2 (08:42→21:02)
[2017-07-09] MEDS: predniSONE 20 MG TAB PO SCH (08:43)
[2017-07-09] MEDS: DIGOXIN 0.25 MG TAB PO SCH (08:43)
[2017-07-09] MEDS: ASPIRIN 325 MG TAB PO SCH (08:44)
[2017-07-09] MEDS: FUROSEMIDE 20 MG TAB PO SCH (08:44)
[2017-07-09] MEDS: SODIUM CHLORIDE 0.9% FLUSH 10 ML FLUSH IV FLUSH SCH (08:45)
[2017-07-09] MEDS: NICOTINE 7 MG/24 HR PATCH T-DERMAL SCH (08:45)
[2017-07-09] MEDS: PANTOPRAZOLE SOD 40 MG DELAYED RELEASE TAB PO SCH (08:48)
[2017-07-09] MEDS: DILTIAZEM INJ 125 MG in SODIUM CHLORIDE 0.9% INJ 100 ML IV PRN ×2 (10:18→19:17)
--- NOTE | 2017-07-09 10:56 | RADRPT ---
EXAM DATE/TIME: 07/09/2017 10:42 [facility] COMPARISON: CHEST PA & LAT, August 31, 2016, 8:00. INDICATIONS : Short of breath. MEDICAL HISTORY : Congestive heart failure. atrial fibrillation SURGICAL HISTORY : None. ENCOUNTER: Initial ACUITY: 1 day PAIN SCORE: 0/10 LOCATION: Bilateral chest FINDINGS: There is cardiomegaly with mild interstitial edema present. There is consolidation, pleural effusion or pneumothorax. The portion of the bony skeleton visualized is unremarkable. CONCLUSION: Cardiomegaly, mild congestive failure. Kulwant Ferreira MD FACR on July 09, 2017 at 10:54 Board Certified Radiologist. This report was verified electronically.
[2017-07-09] MEDS: FUROSEMIDE 40 MG/4 ML VIAL IV PUSH SCH (12:00)
[2017-07-09] MEDS: DILTIAZEM HCL 90 MG TAB PO SCH ×2 (13:00→17:41)
[2017-07-09] MEDS: MORPHINE SULFATE 4 MG/ML INJ IV PUSH PRN ×2 (13:08→21:16)
--- NOTE | 2017-07-09 13:31 | HHI.FPPN ---
Subjective Remarks Pt is doing 50% better this morning on his breathing. He still has stabbing chest pain in the left side of his chest and would like some medication for it - morphine has worked for him in the past. No more nausea and vomiting. He has not yet had a bowel movement. (Eko,Chantelle U R2) Objective Vitals Vital Signs Date Time Temp Pulse Resp B/P (MAP) Pulse Ox O2 Delivery O2 Flow Rate FiO2 07/09/17 11:10 66 07/09/17 11:10 97.7 66 16 146/79 (101) 96 07/09/17 11:01 96 Room Air 07/09/17 10:18 118 146/79 07/09/17 10:18 118 146/79 07/09/17 10:12 106 07/09/17 09:00 116 07/09/17 08:15 97 Room Air 07/09/17 08:05 118 07/09/17 07:45 97.7 68 18 137/103 (114) 97 07/09/17 07:39 98 07/09/17 07:01 119 07/09/17 06:00 99 07/09/17 05:20 18 07/09/17 05:00 97 07/09/17 04:00 93 07/09/17 03:00 92 07/09/17 03:00 98.1 100 16 140/84 (102) 97 07/09/17 03:00 97 Room Air 07/09/17 02:04 98 07/09/17 01:00 98 07/09/17 00:00 104 07/08/17 23:00 98.8 88 18 112/70 (84) 95 07/08/17 23:00 108 07/08/17 23:00 95 Nasal Cannula 2.00 07/08/17 22:00 100 07/08/17 21:00 98 07/08/17 20:01 98 Nasal Cannula 2.00 07/08/17 20:00 106 07/08/17 19:00 96 Nasal Cannula 2.00 07/08/17 19:00 98.0 105 20 147/76 (99) 96 07/08/17 19:00 106 07/08/17 16:25 108 07/08/17 16:00 107 07/08/17 16:00 97.3 107 18 130/107 (115) 97 07/08/17 15:19 100 17 129/69 (89) 97 Nasal Cannula 2.00 07/08/17 14:41 128 125/94 07/08/17 14:40 128 18 124/95 (105) 98 Nasal Cannula 07/08/17 13:55 99 Nasal Cannula 2.00 I/O 07/08/17 07/08/17 07/08/17 07/09/17 07/09/17 07/09/17 07:00 15:00 23:00 07:00 15:00 23:00 Intake Total 0 ml 886 ml Output Total 250 ml 500 ml Balance -250 ml 386 ml Intake Oral 0 ml 720 ml IV Total 166 ml Output Urine Total 250 ml 500 ml (EkoChantelle MD R2) Result Diagram: 07/09/17 0445 07/09/17 0445 Imaging Last Impressions Chest X-Ray 07/09/17 0600 Signed Impressions: Service Date/Time: Sunday, July 09, 2017 10:42 - CONCLUSION: Cardiomegaly, mild congestive failure. Kulwant Ferreira MD FACR Abdomen Ultrasound 07/08/17 0000 Signed Impressions: Service Date/Time: Saturday, July 08, 2017 17:09 - CONCLUSION: 1. Hepatosplenomegaly. 2. Heterogeneous echotexture of the liver suggesting possible diffuse hepatic disease. Charlie Rousseau MD Objective Remarks GENERAL: This is a well-nourished, well-developed patient, lying in bed, no acute distress but somewhat uncomfortable SKIN: Warm and dry. HEAD: Normocephalic. EYES: No scleral icterus. No injection or drainage. NECK: Trachea midline. No JVD or lymphadenopathy. Supple, nontender, no meningeal signs. CARDIOVASCULAR: Tachycardic rate and irregular rhythm without murmurs, gallops, or rubs. RESPIRATORY: Mild crackles in bilateral lung bases. Coarse breath sounds bilaterally GASTROINTESTINAL: Abdomen soft, nondistended but obese. Mildly tender to palpation. No palpable masses. No guarding. MUSCULOSKELETAL: Extremities without clubbing, cyanosis, trace edema. No joint tenderness, effusion, or edema noted. No calf tenderness. NEUROLOGICAL: Awake and alert. Cranial nerves II through XII intact. Motor and sensory grossly within normal limits. Normal speech. (EkoChantelle MD R2) A/P Assessment and Plan 47-year-old male with known history of CHF and atrial fibrillation presented in an acute episode of atrial fibrillation with rapid ventricular response, now having symptoms of acute CHF exacerbation. Seen and examined with Dr. Watkins and Dr. Vasquez Discharge Planning Hopefully discharge in 1-2 days after resolution of A. fib with RVR and CHF exacerbation (Eko,Chantelle Jane MD R2) Attending Attestation Patient seen, examined, and discussed with resident team. I agree with assessment and management as documented and discussed with me. Pt is on room air during my exam. He reports he is feeling better. He continues to require cardizem drip, and dose increased. Start oral cardizem. Await cardiology consultation. Await echo. Additional diagnosis: Abnormal thyroid studies: Free T4 mildly elevated. TSH WNL. Check as an outpatient after discharge. (Lexie Watkins MD) Problem List: (1) Atrial fibrillation with RVR ICD Codes: I48.91 - Unspecified atrial fibrillation Status: Acute Plan: -EKG on admission showed atrial fibrillation with RVR, heart rate 138, no ST changes suggestive of acute ACS. EKG x2 similar but slower heart rates of 11 and 100 respectively -Currently on diltiazem drip -Restart home diltiazem 90 mg PO but every 6 hours - will stop diltiazem drip once rate stabilizes -Continue digoxin 0.25 mg by mouth daily -Continue amiodarone 200 mg by mouth every 12 hours -Cardiology consult pending - patient is on both rate and rhythm control medications and not currently on anticoagulation * His [id number] score is 2 which puts him at a 2.2% risk of stroke and he should be on lifelong oral anticoagulant * However, his HASBLED score is 1 based on drug and alcohol use (patient admits to recent use of cocaine and marijuana) with 3.4% risk of bleeds per 100 patient year * Consequently, his Eliquis was stopped due to risk of bleeding and concerns about compliance. He had been on this medication for 4 years -TSH wnl but free T4 elevated slightly at 1.53. Will recommend recheck as outpatient in 6 weeks. (2) Acute exacerbation of CHF (congestive heart failure) ICD Codes: I50.9 - Heart failure, unspecified Plan: -CXR on 07/09 shows cardiomegaly with mild interstitial edema that is characteristic of mild congestive failure -BNP 346 on admission, now 205 -UDS positive for cocaine and marijuana -Troponin <0.02 x2 -Lasix 40 mg IV daily -Continue aspirin 325 mg by mouth daily -Fluid restriction to 2000ml daily -Strict I's and O's Hx -CHF diagnosed in October 2016, EF 25-30% with diffuse hypokinesis and left ventricular dilation, moderate mitral regurgitation and mild tricuspid regurgitation (3) SIRS (systemic inflammatory response syndrome) ICD Codes: R65.10 - Systemic inflammatory response syndrome (SIRS) of non- infectious origin without acute organ dysfunction Status: Resolved Plan: -Patient met SIRS criteria with elevated tachycardia, tachypnea, and WBC of 11.2, lactic acid WNL at 1.4 -Although these elevated values may all be related to A. fib with RVR with patient reports a history of cough with increased sputum production -Blood cultures negative x1 day -Sputum cultures negative -Influenza negative -Legionella and pneumococcal antigen negative -Continue Duoneb and albuterol nebulizer treatments -Continue Prednisone 40 mg daily (4) RESHMA (acute kidney injury) ICD Codes: N17.9 - Acute kidney failure, unspecified Status: Resolved Plan: -Resolved -Creatinine elevated on admission to 1.38. Baseline 1.21 in April 2017, currently 1.19 -Oral fluids only due to CHF -Repeat in the a.m. (5) Nausea vomiting and diarrhea ICD Codes: R11.2 - Nausea with vomiting, unspecified; R19.7 - Diarrhea, unspecified Status: Acute Plan: -Patient reported red-colored vomitus and black loose stools -Bedside hemoccult was negative -Not currently having diarrhea -C-difficile pending -Zofran IV PRN nausea/vomiting (6) Abdominal pain ICD Codes: R10.9 - Unspecified abdominal pain Plan: -TTP diffusely but worse in the LLQ and RUQ -Abdominal ultrasound showed hepatosplenomegaly with heterogeneous texture suggesting possible diffuse hepatic disease -Hepatitis profile pending -Morphine 2mg Q3h prn for pain >5 (7) Hypertension ICD Codes: I10 - Essential (primary) hypertension Plan: -Restart home lisinopril 5 mg by mouth daily due to RESHMA - will restart when resolved -Hydralazine PRN SBP greater than 170, or DBP 100 (8) Tobacco abuse ICD Codes: Z72.0 - Tobacco abuse Status: Acute Plan: -Nicotine patch 7mg daily (9) FEN/DVT PPX/GI PPX/Nursing Orders Plan: Fluids: Oral fluids only Electrolytes: Will monitor and replace as needed Nutrition: Heart-healthy diet DVT Prophylaxis: Bilateral SCDs, Heparin subcutaneous Q8h GI Prophylaxis: Protonix 40mg PO daily Constipation prophylaxis: None required PRN Medications Tylenol 325 mg by mouth every 4 hours when necessary pain 1-10 or temperature greater than 100.4F Zofran 4 mg IV push every 6 hours when necessary nausea vomiting Hydralazine 10 mg by mouth every 6 hours when necessary SBP greater than 170 or DBP greater than 100 -Vitals Q4h -Monitor I's and O's -monitor worker with telemetry with continuous vital signs -Activity OOB with assistance -PT to assist with ambulation -Case management consult to assist with discharge disposition and medications - patient is self pay Disposition: Hopefully discharge in 1-2 days after resolution of A. fib with RVR and CHF exacerbation (Chantelle Bryan MD R2) Problem Qualifiers (1) Acute exacerbation of CHF (congestive heart failure): Qualified Codes: I50.23 - Acute on chronic systolic (congestive) heart failure (2) Abdominal pain: Qualified Codes: R10.84 - Generalized abdominal pain (3) Hypertension: Qualified Codes: I10 - Essential (primary) hypertension Chantelle Bryan MD R2 Jul 09, 2017 13:31 Lexie Watkins MD Jul 09, 2017 20:53
--- NOTE | 2017-07-09 13:32 | HHI.FPPN ---
Objective Vitals Vital Signs Date Time Temp Pulse Resp B/P (MAP) Pulse Ox O2 Delivery O2 Flow Rate FiO2 07/09/17 11:10 66 07/09/17 11:10 97.7 66 16 146/79 (101) 96 07/09/17 11:01 96 Room Air 07/09/17 10:18 118 146/79 07/09/17 10:18 118 146/79 07/09/17 10:12 106 07/09/17 09:00 116 07/09/17 08:15 97 Room Air 07/09/17 08:05 118 07/09/17 07:45 97.7 68 18 137/103 (114) 97 07/09/17 07:39 98 07/09/17 07:01 119 07/09/17 06:00 99 07/09/17 05:20 18 07/09/17 05:00 97 07/09/17 04:00 93 07/09/17 03:00 92 07/09/17 03:00 98.1 100 16 140/84 (102) 97 07/09/17 03:00 97 Room Air 07/09/17 02:04 98 07/09/17 01:00 98 07/09/17 00:00 104 07/08/17 23:00 98.8 88 18 112/70 (84) 95 07/08/17 23:00 108 07/08/17 23:00 95 Nasal Cannula 2.00 07/08/17 22:00 100 07/08/17 21:00 98 07/08/17 20:01 98 Nasal Cannula 2.00 07/08/17 20:00 106 07/08/17 19:00 96 Nasal Cannula 2.00 07/08/17 19:00 98.0 105 20 147/76 (99) 96 07/08/17 19:00 106 07/08/17 16:25 108 07/08/17 16:00 107 07/08/17 16:00 97.3 107 18 130/107 (115) 97 07/08/17 15:19 100 17 129/69 (89) 97 Nasal Cannula 2.00 07/08/17 14:41 128 125/94 07/08/17 14:40 128 18 124/95 (105) 98 Nasal Cannula 07/08/17 13:55 99 Nasal Cannula 2.00 I/O 07/08/17 07/08/17 07/08/17 07/09/17 07/09/17 07/09/17 07:00 15:00 23:00 07:00 15:00 23:00 Intake Total 0 ml 886 ml Output Total 250 ml 500 ml Balance -250 ml 386 ml Intake Oral 0 ml 720 ml IV Total 166 ml Output Urine Total 250 ml 500 ml Result Diagram: 07/09/17 0445 07/09/17 0445 A/P Assessment and Plan 47-year-old male with known history of CHF and atrial fibrillation presents in an acute episode of atrial fibrillation with rapid ventricular response in the setting of a 4 day history of shortness of breath, cough, vomiting, diarrhea and general malaise. Patient also reports recent cocaine use. Differential diagnosis includes A. fib with RVR, CHF exacerbation, PE, ACS, pneumonia, COPD exacerbation (patient is a long-term smoker but has never been diagnosed), influenza, acute bronchitis. Notably, the chest x-ray shows cardiomegaly with slight interstitial prominence with no pleural effusions. Problem List: (1) Atrial fibrillation with RVR ICD Codes: I48.91 - Unspecified atrial fibrillation Status: Acute Plan: -EKG on admission shows atrial fibrillation with RVR, heart rate 138, no ST changes suggestive of acute ACS. Will repeat EKG 2 -Currently on diltiazem drip -Holding home diltiazem 90 mg PO 4 times a day - will consider restarting if patient's heart rate persists in the 120s to 130s on the drip -Continue digoxin 0.25 mg by mouth daily, digoxin level low at 0.1 -Continue amiodarone 200 mg by mouth every 12 hours -Cardiology consult pending - patient is on both rate and rhythm control medications and not currently on anticoagulation * His [id number] score is 2 which puts him at a 2.2% risk of stroke and he should be on lifelong oral anticoagulant * However, his HASBLED score is 1 based on drug and alcohol use (patient admits to recent use of cocaine and marijuana) with 3.4% risk of bleeds per 100 patient year * Consequently, his Eliquis was stopped due to risk of bleeding and concerns about compliance. He had been on this medication for 4 years * Had detailed conversation with patient about stopping cocaine use -Will check TSH and free T4 -Magnesium WNL at 2.3 (2) SIRS (systemic inflammatory response syndrome) ICD Codes: R65.10 - Systemic inflammatory response syndrome (SIRS) of non- infectious origin without acute organ dysfunction Status: Acute Plan: -Patient met SIRS criteria with elevated tachycardia, tachypnea, and WBC of 11.2, lactic acid WNL at 1.4 -Although these elevated values may all be related to A. fib with RVR with patient reports a history of cough with increased sputum production -Will order blood cultures, sputum Gram stain and culture, urinalysis with reflex culture -Influenza pending -Legionella and pneumococcal antigen pending -Will hold off on antibiotic treatment for now but due to cough with sputum production, will start DuoNeb and albuterol nebulizer treatments as well as prednisone 40 mg by mouth daily -Per patient's request, will check hepatitis panel (3) RESHMA (acute kidney injury) ICD Codes: N17.9 - Acute kidney failure, unspecified Status: Acute Plan: -Creatinine elevated at 1.38. Baseline 1.21 in April 2017 -Oral fluids only due to CHF -Repeat in the a.m. (4) CHF (congestive heart failure) ICD Codes: I50.9 - Heart failure, unspecified Plan: -CHF diagnosed in October 2016, EF 25-30% with diffuse hypokinesis and left ventricular dilation, moderate mitral regurgitation and mild tricuspid regurgitation -Possible component of CHF exacerbation in this admission -BNP pending -Urine drug screen pending -Troponin less than 0.02, will repeat 2 -Strict I's and O's -Continue aspirin 325 mg by mouth daily -Continue Lasix 20 mg by mouth twice a day with potassium 20 mEq PO daily (5) Nausea vomiting and diarrhea ICD Codes: R11.2 - Nausea with vomiting, unspecified; R19.7 - Diarrhea, unspecified Status: Acute Plan: -Patient reports red-colored vomitus and black loose stools -Bedside hemoccult was negative -Patient is not currently having diarrhea -Will check for C-difficile -Zofran IV PRN nausea/vomiting (6) Abdominal pain ICD Codes: R10.9 - Unspecified abdominal pain Plan: -TTP diffusely but worse in the LLQ and RUQ -Abdominal ultrasound ordered -Hepatitis profile pending (7) Hypertension ICD Codes: I10 - Essential (primary) hypertension Plan: -Holding home lisinopril 5 mg by mouth daily due to RESHMA - will restart when resolved -Hydralazine PRN SBP greater than 170, or DBP 100 (8) Tobacco abuse ICD Codes: Z72.0 - Tobacco abuse Status: Acute Plan: -Nicotine patch 7mg daily (9) FEN/DVT PPX/GI PPX/Nursing Orders Plan: Fluids: Oral fluids only Electrolytes: Will monitor and replace as needed Nutrition: Heart-healthy diet DVT Prophylaxis: Bilateral SCDs, Heparin subcutaneous Q8h GI Prophylaxis: Protonix 40mg PO daily Constipation prophylaxis: None required PRN Medications Tylenol 325 mg by mouth every 4 hours when necessary pain 1-10 or temperature greater than 100.4F Zofran 4 mg IV push every 6 hours when necessary nausea vomiting Hydralazine 10 mg by mouth every 6 hours when necessary SBP greater than 170 or DBP greater than 100 -Vitals Q4h -Monitor I's and O's -property assessment monitor with telemetry with continuous vital signs -Activity bed rest -PT to assist with ambulation -Case management consult to assist with discharge disposition and medications Disposition: Hopefully discharge in 1-2 days after resolution of A. fib with RVR Problem Qualifiers (1) Abdominal pain: Qualified Codes: R10.84 - Generalized abdominal pain Eko,Chantelle Jane MD R2 Jul 09, 2017 13:32
[2017-07-09 17:35] LABS: C. DIFF EPI 027 PRESUMPTIVE NEGATIVE (NEGATIVE)
--- NOTE | 2017-07-09 20:48 | EKG ---
Date Performed: 07/08/2017 Time Performed: 22:28:20 PTAGE: 47 years EKG: Atrial fibrillation with rapid ventricular response Leftward axis Poor R wave progression - probable normal variant Abnormal ECG PREVIOUS TRACING : 07/08/2017 16.50 Compared to prior tracing no significant change DOCTOR: Christoph Shultz Interpretating Date/Time 07/09/2017 20:44:49
--- NOTE | 2017-07-09 20:57 | EKG ---
Date Performed: 07/08/2017 Time Performed: 16:50:24 PTAGE: 47 years EKG: Atrial fibrillation with rapid ventricular response Possible left anterior fascicular block Abnormal ECG PREVIOUS TRACING : 07/08/2017 10.14 Compared to prior tracing no significant change DOCTOR: Christoph Shultz Interpretating Date/Time 07/09/2017 20:49:53
[2017-07-09] MEDS: REMOVE OLD PATCH T-DERMAL SCH (21:00)
[2017-07-10] VITALS (23 sets, daily range): BP systolic 110–150; BP diastolic 68–90; PULSE 61–92; RESP 16–20; TEMP 97.5–98.3; O2SAT 93–98
[2017-07-10] MEDS: RESP: ALBUTEROL 2.5 MG/IPRATROPIUM 0.5 MG NEB (SCH) INH ×6 (01:42→20:17)
[2017-07-10] MEDS: DILTIAZEM HCL 90 MG TAB PO SCH ×4 (01:48→17:18)
[2017-07-10] MEDS: MORPHINE SULFATE 4 MG/ML INJ IV PUSH PRN ×3 (04:27→22:48)
[2017-07-10] MEDS: DILTIAZEM INJ 125 MG in SODIUM CHLORIDE 0.9% INJ 100 ML IV PRN ×3 (06:00→22:47)
[2017-07-10 06:03] LABS: HEMATOCRIT 42.7 % (39.0-51.0); MEAN CELL VOLUME 90.1 FL (80.0-100.0); MEAN CORPUSCULAR HEMOGLOBIN 30.2 PG (27.0-34.0); MEAN CORPUSCULAR HGB CONC 33.5 % (32.0-36.0); PLATELET COUNT 251 TH/MM3 (150-450); RED BLOOD COUNT 4.74 MIL/MM3 (4.50-5.90); RED CELL DISTRIBUTION WIDTH 15.3 % (11.6-17.2); REVIEW FLAG FINAL; WHITE BLOOD COUNT 11.5 TH/MM3 (4.0-11.0)
[2017-07-10] MEDS: HEPARIN SODIUM - SQ 10,000 UNITS/ML VIAL SQ SCH ×3 (06:04→22:48)
[2017-07-10 06:34] LABS: BICARBONATE 26.3 MEQ/L (21.0-32.0); POTASSIUM 3.7 MEQ/L (3.5-5.1)
[2017-07-10] MEDS: AMIODARONE 200 MG TAB PO SCH (08:57)
[2017-07-10] MEDS: PANTOPRAZOLE SOD 40 MG DELAYED RELEASE TAB PO SCH (08:58)
[2017-07-10] MEDS: LISINOPRIL 5 MG TAB PO SCH (08:58)
[2017-07-10] MEDS: POTASSIUM CHLORIDE 20 MEQ CONTROLLED RELEASE TAB PO SCH ×2 (08:58→22:48)
[2017-07-10] MEDS: predniSONE 20 MG TAB PO SCH (08:58)
[2017-07-10] MEDS: ASPIRIN 325 MG TAB PO SCH (08:58)
[2017-07-10] MEDS: DIGOXIN 0.25 MG TAB PO SCH (08:58)
[2017-07-10] MEDS: SODIUM CHLORIDE 0.9% FLUSH 10 ML FLUSH IV FLUSH SCH ×2 (08:59→22:49)
[2017-07-10] MEDS: NICOTINE 7 MG/24 HR PATCH T-DERMAL SCH (08:59)
[2017-07-10] MEDS: FUROSEMIDE 40 MG/4 ML VIAL IV PUSH SCH (09:00)
--- NOTE | 2017-07-10 09:11 | MB ---
cc: MATTHEW GREEN M.D. DATE OF CONSULTATION: 07/10/2017 REASON FOR CONSULTATION Atrial fibrillation. HISTORY OF PRESENT ILLNESS The patient is a 47-year-old white male with a history of bipolar disorder, chronic atrial fibrillation, severe nonischemic cardiomyopathy with ejection fraction of 25-30%, cocaine abuse, minimal coronary disease demonstrated by cardiac catheterization earlier this year, who presented to the hospital with increasing shortness of breath, nonproductive cough, congestion. He was found to be in mild congestive heart failure. He has also had periodically elevated heart rates. The patient denies palpitations, syncope, near-syncope, chest pain. His dyspnea has mildly improved since admission. At times he does feel mildly lightheaded for a few minutes, particularly upon standing. In the last several weeks he also notes intermittent dependent pedal edema. The patient continues to abuse cocaine, the last time 3 days ago. PAST MEDICAL HISTORY 1. Bipolar disorder. 2. Chronic atrial fibrillation dating back to 03/17/2014. 3. Severe nonischemic cardiomyopathy with ejection fraction of 25-30% by echo 11/05/2016. He has had one or two congestive heart failure exacerbations this year. 4. Minimal coronary artery disease demonstrated by cardiac catheterization 11/06/2016. 5. Moderate mitral regurgitation demonstrated by echo 11/05/2016. PAST SURGICAL HISTORY Cholecystectomy. MEDICATIONS Current cardiac medications: 1. Lisinopril 5 mg p.o. daily. 2. Diltiazem 90 mg p.o. q.6 hours. 3. Cardizem drip. 4. Furosemide 40 mg IV daily. 5. Aspirin 325 mg p.o. daily. 6. Digoxin 0.25 mg p.o. daily. 7. Amiodarone 200 mg p.o. q.12 hours. 8. Potassium chloride 20 meq p.o. b.i.d. ALLERGIES SULFA. FAMILY HISTORY There is no significant family history of early myocardial infarction. SOCIAL HISTORY The patient is a current smoker. He continues to abuse crack cocaine. He drinks occasional alcohol. REVIEW OF SYSTEMS Review of systems as in the history of present illness, otherwise negative or noncontributory. He also denies headache, visual changes, abdominal pain, diarrhea, melena, bright red blood per rectum, fevers. PHYSICAL EXAMINATION VITAL SIGNS: Blood pressure is 130/81 with a pulse of 78, respirations 20. GENERAL: He is a well-developed, well-nourished white male, in no acute distress. HEENT: Jugular venous pressure is normal. Carotid pulses are 2+ bilaterally and without bruits. CHEST: Examination of the chest reveals diffuse rhonchi. CARDIAC: He has an irregularly, irregular rhythm without definite S3 or murmur. ABDOMEN: On abdominal examination he has a soft, nontender abdomen. Bowel sounds are present. There is no definite hepatosplenomegaly. EXTREMITIES: Examination of the extremities reveals no clubbing or cyanosis. There is trivial pretibial edema bilaterally. LABORATORY DATA Laboratory data includes WBC 11.5, hemoglobin 14.3, platelets 251, potassium 3.7, BUN 13, creatinine 1.12, troponin less than 0.02, INR 1.1. IMAGING STUDIES Chest x-ray from yesterday shows cardiomegaly, mild congestive heart failure. EKG From 07/08/2017 at 10:28 p.m. shows atrial fibrillation with rapid ventricular response, poor R-wave progression, nonspecific T-wave abnormalities. IMPRESSION Mild congestive heart failure, intermittent elevated heart rates in this 47-year-old white male with a history of chronic atrial fibrillation, severe nonischemic cardiomyopathy with ejection fraction of 25-30%, history of cocaine abuse. This morning his heart rates are normal. He does have periodic elevations in his heart rates. He is on fairly maximal AV allan suppressing medication regimen with digoxin and Cardizem. He is not a good candidate for beta abby therapy with his continued cocaine abuse. Apparently, he was also started not too long ago on amiodarone for better heart rate control. With respect to his thromboembolic risk, it is quite high with his severe cardiomyopathy and history of hypertension. He has been felt to be a poor candidate for anticoagulation therapy, again because of his cocaine abuse, risk for falls, history of noncompliance. He is also not a good candidate for A-V allan ablation and permanent pacemaker implantation, although this could be considered in the future. RECOMMENDATIONS 1. Unfortunately, there is not much else to offer from a cardiac standpoint. Would try to wean the intravenous Cardizem. 2. If he can demonstrate abstinence from cocaine abuse, resuming his metoprolol could be considered. 3. In the future, should he demonstrate better compliance, he could be considered for A-V node ablation and permanent pacemaker implantation for better heart rate control. 4. Continue diuresis for mild congestive heart failure; continue his BRAEDEN inhibitor. 5. Recommend reducing the Amiodarone to 200 mg daily. 6. Will follow up as needed. MD KYLE Cobb/TLTyra /8:20 AM /8:43 AM SETH
--- NOTE | 2017-07-10 09:28 | HHI.FPPN ---
Subjective Remarks Mr. Pendleton was seen on rounds this AM by medicine team. Patient had no acute events overnight and vitals were stable. Patient states his breathing improved yesterday but is a little more SOB today. He has been using the incentive spirometer and Acapella - has been able to produce sputum on it. When asked about the likelihood of not using cocaine after discharge he states it was 06/29 that he could avoid using it, but he states his dealer lives next door so this could be a problem. His abdominal pain is improved today. (Abel Vasquez MD R1) Objective Vitals Vital Signs Date Time Temp Pulse Resp B/P (MAP) Pulse Ox O2 Delivery O2 Flow Rate FiO2 07/10/17 07:29 97 07/10/17 07:01 78 07/10/17 06:00 109 130/81 07/10/17 00:00 97.5 71 20 150/68 (95) 98 07/09/17 20:09 96 07/09/17 20:00 98.3 83 18 141/74 (96) 96 07/09/17 20:00 96 Room Air 07/09/17 19:17 85 142/83 07/09/17 18:01 108 07/09/17 17:00 110 07/09/17 16:00 108 07/09/17 15:15 97.8 54 18 136/95 (109) 97 07/09/17 15:15 97 Room Air 07/09/17 15:01 97 07/09/17 14:00 110 07/09/17 13:00 114 07/09/17 12:00 116 07/09/17 11:10 66 07/09/17 11:10 97.7 66 16 146/79 (101) 96 07/09/17 11:01 96 Room Air 07/09/17 10:18 118 146/79 07/09/17 10:18 118 146/79 07/09/17 10:12 106 I/O 07/09/17 07/09/17 07/09/17 07/10/17 07/10/17 07/10/17 07:00 15:00 23:00 07:00 15:00 23:00 Intake Total 886 ml 1246 ml Output Total 500 ml 1250 ml Balance 386 ml -4 ml Intake Oral 720 ml 1146 ml IV Total 166 ml 100 ml Output Urine Total 500 ml 1250 ml # Voids 8 # Bowel Movements 1 (Abel Vasquez MD R1) Result Diagram: 07/10/1752407/10/17524 Objective Remarks GENERAL: This is a well-nourished, well-developed patient, lying in bed, no acute distress. Seen walking around the halls earlier comfortably SKIN: Warm and dry. HEAD: Normocephalic. EYES: No scleral icterus. No injection or drainage. NECK: Trachea midline. No JVD or lymphadenopathy. Supple, nontender, no meningeal signs. CARDIOVASCULAR: Tachycardic rate and irregular rhythm without murmurs, gallops, or rubs. RESPIRATORY: Mild crackles in RLL base. Coarse breath sounds bilaterally but improved from yesterday GASTROINTESTINAL: Abdomen soft, nondistended but obese. Not TTP MUSCULOSKELETAL: Extremities without clubbing, cyanosis, trace edema. No joint tenderness, effusion, or edema noted. No calf tenderness. NEUROLOGICAL: Awake and alert. Cranial nerves II through XII intact. Motor and sensory grossly within normal limits. Normal speech. (Abel Vasquez MD R1) A/P Assessment and Plan 47-year-old male with known history of CHF and atrial fibrillation presented in an acute episode of atrial fibrillation with rapid ventricular response, CHF symptoms improving. Continues to require Diltiazem drip. Will be safe for dc once off the drip. Seen and examined with Dr. Watkins Discharge Planning Hopefully discharge in 1-2 days after resolution of A. fib with RVR and CHF exacerbation. Needs to be off Diltiazem drip before dc (Abel Vasquez MD R1) Attending Attestation Patient seen, examined, and discussed with Dr. Vasquez. I agree with assessment and management as documented and discussed with me. Pt remains on cardizem drip for rate control. He is a poor candidate for metoprolol due to cocaine abuse. Poor candidate for anticoagulation due to cocaine abuse. Discharge home once rate controlled OFF cardizem drip. Appreciate cardiology. (Lexie Watkins MD) Problem List: (1) Atrial fibrillation with RVR ICD Codes: I48.91 - Unspecified atrial fibrillation Status: Acute Plan: -EKG on admission showed atrial fibrillation with RVR, heart rate 138, no ST changes suggestive of acute ACS. EKG x2 similar but slower heart rates of 11 and 100 respectively -Currently on diltiazem drip -On home diltiazem 90 mg PO every 6 hours - will stop diltiazem drip once rate stabilizes -Continue digoxin 0.25 mg by mouth daily -Continue amiodarone 200 mg by mouth daily -Cardiology consult pending - patient is on both rate and rhythm control medications and not currently on anticoagulation * His [id number] score is 2 which puts him at a 2.2% risk of stroke and he should be on lifelong oral anticoagulant * However, his HASBLED score is 1 based on drug and alcohol use (patient admits to recent use of cocaine and marijuana) with 3.4% risk of bleeds per 100 patient year * Consequently, his Eliquis was stopped due to risk of bleeding and concerns about compliance. He had been on this medication for 4 years -TSH wnl but free T4 elevated slightly at 1.53. Will recommend recheck as outpatient in 6 weeks. -Max dose of po diltiazem, concerned about rate control with metoprolol due to cocaine use -Cardiology recommended changing his amiodarone to 200mg po daily - appreciate consult - if he demonstrates compliance/cocaine abstinence, may be candidate for A-V node ablation, permanent pacemaker. Could resume metoprolol as well. (2) Acute exacerbation of CHF (congestive heart failure) ICD Codes: I50.9 - Heart failure, unspecified Plan: -CXR on 07/09 shows cardiomegaly with mild interstitial edema that is characteristic of mild congestive failure -BNP 346 on admission, now 205 -UDS positive for cocaine and marijuana -Troponin <0.02 x2 -Lasix 40 mg IV daily -Gave one time dose of Lasix 20 mg IV, PO Potassium chloride 20mEQ on 07/10 -Continue aspirin 325 mg by mouth daily -Fluid restriction to 2000ml daily -Strict I's and O's Hx -CHF diagnosed in October 2016, EF 25-30% with diffuse hypokinesis and left ventricular dilation, moderate mitral regurgitation and mild tricuspid regurgitation (3) SIRS (systemic inflammatory response syndrome) ICD Codes: R65.10 - Systemic inflammatory response syndrome (SIRS) of non- infectious origin without acute organ dysfunction Status: Resolved Plan: -Patient met SIRS criteria with elevated tachycardia, tachypnea, and WBC of 11.2, lactic acid WNL at 1.4 on admission -Although these elevated values may all be related to A. fib with RVR with patient reports a history of cough with increased sputum production -Blood cultures negative x2 day -Sputum cultures negative -Influenza negative -Legionella and pneumococcal antigen negative -Continue Duoneb and albuterol nebulizer treatments -Continue Prednisone 40 mg daily (4) RESHMA (acute kidney injury) ICD Codes: N17.9 - Acute kidney failure, unspecified Status: Resolved Plan: -Resolved -Creatinine elevated on admission to 1.38. Baseline 1.21 in April 2017, currently 1.12 -Oral fluids only due to CHF -Repeat in the a.m. (5) Nausea vomiting and diarrhea ICD Codes: R11.2 - Nausea with vomiting, unspecified; R19.7 - Diarrhea, unspecified Status: Acute Plan: -Patient reported red-colored vomitus and black loose stools -Bedside hemoccult was negative -Not currently having diarrhea, n/v -C-difficile negative -Zofran IV PRN nausea/vomiting -resolved (6) Abdominal pain ICD Codes: R10.9 - Unspecified abdominal pain Plan: -TTP diffusely but worse in the LLQ and RUQ -Abdominal pain decreased today -Abdominal ultrasound showed hepatosplenomegaly with heterogeneous texture suggesting possible diffuse hepatic disease -Hepatitis profile negative -Morphine 2mg Q3h prn for pain >5 (7) Hypertension ICD Codes: I10 - Essential (primary) hypertension Plan: -Restarted home lisinopril 5 mg by mouth daily -Hydralazine PRN SBP greater than 170, or DBP 100 (8) Tobacco abuse ICD Codes: Z72.0 - Tobacco abuse Status: Acute Plan: -Nicotine patch 7mg daily (9) FEN/DVT PPX/GI PPX/Nursing Orders Plan: Fluids: Oral fluids only Electrolytes: Will monitor and replace as needed Nutrition: Heart-healthy diet DVT Prophylaxis: Bilateral SCDs, Heparin subcutaneous Q8h GI Prophylaxis: Protonix 40mg PO daily Constipation prophylaxis: None required PRN Medications Tylenol 325 mg by mouth every 4 hours when necessary pain 1-10 or temperature greater than 100.4F Zofran 4 mg IV push every 6 hours when necessary nausea vomiting Hydralazine 10 mg by mouth every 6 hours when necessary SBP greater than 170 or DBP greater than 100 -Vitals Q4h -Monitor I's and O's -monitoring analyst with telemetry with continuous vital signs -Activity OOB with assistance -PT to assist with ambulation -Case management consult to assist with discharge disposition and medications - patient is self pay Disposition: Hopefully discharge in 1-2 days after resolution of A. fib with RVR and CHF exacerbation, will be safe to dc once off diltiazem drip (Abel Vasquez MD R1) Problem Qualifiers (1) Acute exacerbation of CHF (congestive heart failure): Qualified Codes: I50.23 - Acute on chronic systolic (congestive) heart failure (2) Abdominal pain: Qualified Codes: R10.84 - Generalized abdominal pain (3) Hypertension: Qualified Codes: I10 - Essential (primary) hypertension Abel Vasquez MD R1 Jul 10, 2017 09:28 Lexie Watkins MD Jul 10, 2017 20:42
[2017-07-10] MEDS ORDERED: POTASSIUM CHLORIDE 20 MEQ CONTROLLED RELEASE TAB PO ONE (10:00)
[2017-07-10] MEDS ORDERED: FUROSEMIDE 20 MG/2 ML VIAL IV PUSH ONE (10:00)
[2017-07-10] MEDS: REMOVE OLD PATCH T-DERMAL SCH (21:00)
[2017-07-11] VITALS (20 sets, daily range): BP systolic 102–142; BP diastolic 62–85; PULSE 50–96; RESP 16–19; TEMP 97.5–97.8; O2SAT 93–98
[2017-07-11] MEDS: RESP: ALBUTEROL 2.5 MG/IPRATROPIUM 0.5 MG NEB (SCH) INH ×6 (00:02→19:16)
[2017-07-11] MEDS: DILTIAZEM HCL 90 MG TAB PO SCH ×3 (00:18→12:04)
[2017-07-11] MEDS: MORPHINE SULFATE 4 MG/ML INJ IV PUSH PRN ×3 (04:36→15:06)
[2017-07-11] MEDS: HEPARIN SODIUM - SQ 10,000 UNITS/ML VIAL SQ SCH ×2 (06:18→15:06)
[2017-07-11 06:26] LABS: HEMATOCRIT 41.3 % (39.0-51.0); MEAN CELL VOLUME 90.1 FL (80.0-100.0); MEAN CORPUSCULAR HEMOGLOBIN 30.2 PG (27.0-34.0); MEAN CORPUSCULAR HGB CONC 33.5 % (32.0-36.0); PLATELET COUNT 253 TH/MM3 (150-450); RED BLOOD COUNT 4.58 MIL/MM3 (4.50-5.90); RED CELL DISTRIBUTION WIDTH 15.4 % (11.6-17.2); REVIEW FLAG FINAL; WHITE BLOOD COUNT 10.8 TH/MM3 (4.0-11.0)
[2017-07-11 06:48] LABS: BICARBONATE 26.4 MEQ/L (21.0-32.0)
[2017-07-11] MEDS: FUROSEMIDE 40 MG/4 ML VIAL IV PUSH SCH (08:51)
[2017-07-11] MEDS: NICOTINE 7 MG/24 HR PATCH T-DERMAL SCH (08:51)
[2017-07-11] MEDS: PANTOPRAZOLE SOD 40 MG DELAYED RELEASE TAB PO SCH (08:51)
[2017-07-11] MEDS: SODIUM CHLORIDE 0.9% FLUSH 10 ML FLUSH IV FLUSH SCH (08:51)
[2017-07-11] MEDS: LISINOPRIL 5 MG TAB PO SCH (08:52)
[2017-07-11] MEDS: POTASSIUM CHLORIDE 20 MEQ CONTROLLED RELEASE TAB PO SCH (08:52)
[2017-07-11] MEDS: ASPIRIN 325 MG TAB PO SCH (08:52)
[2017-07-11] MEDS: predniSONE 20 MG TAB PO SCH (08:53)
[2017-07-11] MEDS: DIGOXIN 0.25 MG TAB PO SCH (08:53)
[2017-07-11] MEDS ORDERED: AMIODARONE 200 MG TAB PO SCH (09:00)
--- NOTE | 2017-07-11 09:55 | HHI.FPPN ---
Subjective Remarks Mr. Pendleton was seen this AM on rounds. No acute events overnight, vitals were stable. Patient states he is feeling better today. He still complains of a cough , but his SOB, abdominal pain have improved. Denies CP, [place]. (Abel Vasquez MD R1) Objective Vitals Vital Signs Date Time Temp Pulse Resp B/P (MAP) Pulse Ox O2 Delivery O2 Flow Rate FiO2 07/11/17 07:40 98 07/11/17 06:00 80 07/11/17 05:00 76 07/11/17 04:48 16 07/11/17 04:00 80 07/11/17 03:00 80 07/11/17 03:00 97.6 80 16 137/85 (102) 97 07/11/17 02:00 88 07/11/17 01:00 82 07/11/17 00:00 80 07/10/17 23:00 84 07/10/17 23:00 97.8 69 16 138/73 (94) 97 07/10/17 22:47 76 122/70 07/10/17 22:00 78 07/10/17 21:00 76 07/10/17 20:16 98 21 07/10/17 20:00 70 07/10/17 19:00 98.0 88 18 110/82 (91) 98 07/10/17 19:00 98 Room Air 07/10/17 19:00 78 07/10/17 18:00 80 07/10/17 17:00 84 07/10/17 16:01 86 07/10/17 15:45 98.0 61 18 117/77 (90) 96 07/10/17 15:45 96 Room Air 07/10/17 15:00 78 07/10/17 14:45 88 126/90 07/10/17 14:00 82 07/10/17 13:01 92 07/10/17 12:00 88 07/10/17 11:45 97.9 70 20 126/90 (102) 95 07/10/17 11:45 95 Room Air 07/10/17 11:00 88 07/10/17 10:00 82 I/O 07/10/17 07/10/17 07/10/17 07/11/17 07/11/17 07/11/17 07:00 15:00 23:00 07:00 15:00 23:00 Intake Total 100 ml 840 ml 720 ml Output Total 1025 ml 1225 ml Balance 100 ml -185 ml -505 ml Intake Oral 840 ml 720 ml IV Total 100 ml Output Urine Total 1025 ml 1225 ml # Voids 5 # Bowel Movements 0 (Abel Vasquez MD R1) Result Diagram: 07/11/1753707/11/17537 Objective Remarks GENERAL: This is a well-nourished, well-developed patient, lying in bed, no acute distress. Speaking in full sentences SKIN: Warm and dry. HEAD: Normocephalic. EYES: No scleral icterus. No injection or drainage. NECK: Trachea midline. No JVD or lymphadenopathy. Supple, nontender, no meningeal signs. CARDIOVASCULAR: Tachycardic rate and irregular rhythm without murmurs, gallops, or rubs. RESPIRATORY: CTAB with occasional wheezing. No crackles appreciated today GASTROINTESTINAL: Abdomen soft, nondistended but obese. Not TTP MUSCULOSKELETAL: Extremities without clubbing, cyanosis, trace edema. No joint tenderness, effusion, or edema noted. No calf tenderness. NEUROLOGICAL: Awake and alert. Cranial nerves II through XII intact. Motor and sensory grossly within normal limits. Normal speech. (Abel Vasquez MD R1) A/P Assessment and Plan 47-year-old male with known history of CHF and atrial fibrillation presented in an acute episode of atrial fibrillation with rapid ventricular response, CHF symptoms improving. Diltiazem drip being weaned. Will be safe for dc once off the drip. Seen and examined with Dr. Watkins Discharge Planning Likely discharge later today after weaned off diltiazem drip. (Abel Vasuqez MD R1) Attending Attestation Patient seen and examined, discussed with resident team. I agree with assessment and management as documented and discussed with me. Pt weaned off Cardizem drip today. Discharge home. Encouraged cessation/avoidance of cocaine. (Lexie Watkins MD) Problem List: (1) Atrial fibrillation with RVR ICD Codes: I48.91 - Unspecified atrial fibrillation Status: Acute Plan: -EKG on admission showed atrial fibrillation with RVR, heart rate 138, no ST changes suggestive of acute ACS. EKG x2 similar but slower heart rates of 11 and 100 respectively -Currently on diltiazem drip (now on 5ml/hr - 07/11 AM) -On home diltiazem 90 mg PO every 6 hours - weaning off diltiazem drip -Continue digoxin 0.25 mg by mouth daily -Continue amiodarone 200 mg by mouth daily -Cardiology consult pending - patient is on both rate and rhythm control medications and not currently on anticoagulation * His [id number] score is 2 which puts him at a 2.2% risk of stroke and he should be on lifelong oral anticoagulant * However, his HASBLED score is 1 based on drug and alcohol use (patient admits to recent use of cocaine and marijuana) with 3.4% risk of bleeds per 100 patient year * Consequently, his Eliquis was stopped due to risk of bleeding and concerns about compliance. He had been on this medication for 4 years -TSH wnl but free T4 elevated slightly at 1.53. Will recommend recheck as outpatient in 6 weeks. -Max dose of po diltiazem, concerned about rate control with metoprolol due to cocaine use -Cardiology recommended changing his amiodarone to 200mg po daily - appreciate consult - if he demonstrates compliance/cocaine abstinence, may be candidate for A-V node ablation, permanent pacemaker. Could resume metoprolol as well. (2) Acute exacerbation of CHF (congestive heart failure) ICD Codes: I50.9 - Heart failure, unspecified Plan: -CXR on 07/09 shows cardiomegaly with mild interstitial edema that is characteristic of mild congestive failure -BNP 346 on admission, now 137 - improving -UDS positive for cocaine and marijuana -Troponin <0.02 x2 -Lasix 40 mg IV daily -Continue aspirin 325 mg by mouth daily -Fluid restriction to 2000ml daily -Strict I's and O's Hx -CHF diagnosed in October 2016, EF 25-30% with diffuse hypokinesis and left ventricular dilation, moderate mitral regurgitation and mild tricuspid regurgitation (3) SIRS (systemic inflammatory response syndrome) ICD Codes: R65.10 - Systemic inflammatory response syndrome (SIRS) of non- infectious origin without acute organ dysfunction Status: Resolved Plan: -Patient met SIRS criteria with elevated tachycardia, tachypnea, and WBC of 11.2, lactic acid WNL at 1.4 on admission -Although these elevated values may all be related to A. fib with RVR with patient reports a history of cough with increased sputum production -Blood cultures negative x2 day -Sputum cultures negative -Influenza negative -Legionella and pneumococcal antigen negative -Continue Duoneb and albuterol nebulizer treatments -Continue Prednisone 40 mg daily -Leukocytosis resolved (WBC 10.8) on 07/11 -No longer meets SIRS criteria (4) RESHMA (acute kidney injury) ICD Codes: N17.9 - Acute kidney failure, unspecified Status: Resolved Plan: -Resolved -Creatinine elevated on admission to 1.38. Baseline 1.21 in April 2017, currently 1.10 -Oral fluids only due to CHF (5) Nausea vomiting and diarrhea ICD Codes: R11.2 - Nausea with vomiting, unspecified; R19.7 - Diarrhea, unspecified Status: Acute Plan: -Patient reported red-colored vomitus and black loose stools -Bedside hemoccult was negative -Not currently having diarrhea, n/v -C-difficile negative -Zofran IV PRN nausea/vomiting -resolved (6) Abdominal pain ICD Codes: R10.9 - Unspecified abdominal pain Plan: -TTP diffusely but worse in the LLQ and RUQ on admission -Resolved 07/11 -Abdominal ultrasound showed hepatosplenomegaly with heterogeneous texture suggesting possible diffuse hepatic disease -Hepatitis profile negative -Morphine 2mg Q3h prn for pain >5 (7) Hypertension ICD Codes: I10 - Essential (primary) hypertension Plan: -Restarted home lisinopril 5 mg by mouth daily -BP well controlled currently -Hydralazine PRN SBP greater than 170, or DBP 100 (8) Tobacco abuse ICD Codes: Z72.0 - Tobacco abuse Status: Acute Plan: -Nicotine patch 7mg daily (9) FEN/DVT PPX/GI PPX/Nursing Orders Plan: Fluids: Oral fluids only Electrolytes: Will monitor and replace as needed Nutrition: Heart-healthy diet DVT Prophylaxis: Bilateral SCDs, Heparin subcutaneous Q8h GI Prophylaxis: Protonix 40mg PO daily Constipation prophylaxis: None required PRN Medications Tylenol 325 mg by mouth every 4 hours when necessary pain 1-10 or temperature greater than 100.4F Zofran 4 mg IV push every 6 hours when necessary nausea vomiting Hydralazine 10 mg by mouth every 6 hours when necessary SBP greater than 170 or DBP greater than 100 -Vitals Q4h -Monitor I's and O's -patient monitor with telemetry with continuous vital signs -Activity OOB with assistance -PT to assist with ambulation -Case management consult to assist with discharge disposition and medications - patient is self pay Disposition: Hopefully discharge in 1-2 days after resolution of A. fib with RVR and CHF exacerbation, will be safe to dc once off diltiazem drip (Abel Vasquez MD R1) Problem Qualifiers (1) Acute exacerbation of CHF (congestive heart failure): Qualified Codes: I50.23 - Acute on chronic systolic (congestive) heart failure (2) Abdominal pain: Qualified Codes: R10.84 - Generalized abdominal pain (3) Hypertension: Qualified Codes: I10 - Essential (primary) hypertension Abel Vasquez MD R1 Jul 11, 2017 09:55 Lexie Watkins MD Jul 11, 2017 20:02
[2017-07-11] MEDS ORDERED: BENZONATATE 100 MG CAP PO PRN (10:00)
[2017-07-11] MEDS ORDERED: ALBUTEROL SULFATE 90 MCG/ACT HFA 8 GM INHALER INH PRN (14:00)
[2017-07-11] MEDS ORDERED: AMIO200T PO (15:07)
[2017-07-11] MEDS ORDERED: PRED20 PO (15:07)
--- NOTE | 2017-07-11 15:08 | HHI.DCPOC ---
Discharge Care Plan Diagnosis: (1) CHF exacerbation (2) Atrial fibrillation with RVR Goals to Promote Your Health * To prevent worsening of your condition and complications * To maintain your health at the optimal level Directions to Meet Your Goals Take your medications as prescribed Follow your dietary instruction Follow activity as directed Keep your appointments as scheduled Take your immunizations and boosters as scheduled If your symptoms worsen call your PCP, if no PCP go to Urgent Care Center or Emergency Room Smoking is Dangerous to Your Health. Avoid second hand smoke Call the 24-hour hour crisis hotline for domestic abuse at Abel Vasquez MD R1 Jul 11, 2017 15:08
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
[2017-07-12 09:50] LABS: BATH SALTS (MDPV) UR NEG (NEG); ECSTASY (MDMA) UR NEG (NEG); GABAPENTIN UR NEG (NEG); HEROIN (6-ACETYLMORPHINE) UR NEG (NEG); K2 SPICE UR NEG (NEG); OBMETHADONE UR NEG (NEG); PHENCYCLIDINE URINE NEG (NEG)
[2017-07-12 09:51] LABS: HYDROMORPHONE U NEG (NEG)
== END 2017-07-11 19:15 | disposition home or self-care (01) | DRG 308 ==
LOC: NEPD 09:55 → NEDA 13:25 → OBSVTOIN 13:50 → HCIS 15:43
PROVIDERS: ADMIT Family Medicine; ATTEND Family Medicine
DX: I48.2 Chronic atrial fibrillation (principal); I50.23 Acute on chronic systolic (congestive) heart failure; N17.9 Acute kidney failure, unspecified; R65.10 Systemic inflammatory response syndrome (SIRS) of non-infectious origin without acute organ dysfunction; I42.8 Other cardiomyopathies; I11.0 Hypertensive heart disease with heart failure; I08.1 Rheumatic disorders of both mitral and tricuspid valves; F17.210 Nicotine dependence, cigarettes, uncomplicated; F41.9 Anxiety disorder, unspecified; F31.9 Bipolar disorder, unspecified; Z66 Do not resuscitate; F14.10 Cocaine abuse, uncomplicated; R11.2 Nausea with vomiting, unspecified; R19.7 Diarrhea, unspecified; Z79.82 Long term (current) use of aspirin
CPT/HCPCS: 71010; 71020; 76700; 80048; 80053; 80061; 80074; 80162; 80307; 81001; 82272; 82550; 82552; 83605; 83690; 83735; 83880; 84439; 84443; 84484; 85025; 85027; 85610; 85730; 87040; 87070; 87205; 87449; 87493; 87804; 93005; 94150; 94640; 94664; 94667; 94668; 96365; 96375; G0481; J1644; J1940; J2270; J7512

== ENCOUNTER 2017-07-28 18:03 | Inpatient (IN) | payer OTHER ==
[2017-07-28] VITALS (10 sets, daily range): BP systolic 121–135; BP diastolic 78–97; PULSE 106–147; RESP 14–37; TEMP 97.7–99; O2SAT 96–98
[~2017-07-28] VITALS: Ht 167.6 cm; Wt 95.8 kg
[~2017-07-28 18:03] MED LIST changes: +PRED20 PO
[2017-07-28] MEDS ORDERED: DILTIAZEM HCL 25 MG/5 ML VIAL IV PUSH ONE (18:30)
[2017-07-28] MEDS ORDERED: SODIUM CHLORIDE 0.9% FLUSH 5 ML FLUSH IV FLUSH PRN (18:30)
--- NOTE | 2017-07-28 18:30 | PD ---
HPI Chief Complaint: Cardiac Complaint Time Seen by Provider: 18:18 Travel History International Travel<30 days: No Contact w/Intl Traveler<30days: No Traveled to known affect area: No History of Present Illness HPI 47-year-old male with history of atrial fibrillation, rate controlled with diltiazem, on aspirin, CHF (EF 25-30% 11/05/2016), hypertension, previous history of cocaine abuse, presents for evaluation of rapid heart rate, chest pressure, dyspnea. He reports that the dyspnea and rapid heart rate started in the morning at 2 AM. He went to work today at [employer] and was experiencing these symptoms are at the day. He also developed left-sided chest pressure which is worse with exertion around noon today. No alleviating factors. He tried to finish out his shift prior to coming here. He denies any dietary indiscretions, medication noncompliance, fevers or chills. He does endorse a slight cough with yellow sputum production started today. Denies abdominal pain. He has no other complaints at this time. 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) Reproductive: No Respiratory: Yes Immunizations Current: Yes Past Surgical History Abdominal Surgery: Yes (GALL BLADDER) Cardiac Surgery: Yes Cholecystectomy: Yes (2000) Coronary Artery Bypass Graft: No Ear Surgery: No Endocrine Surgery: No Eye Surgery: No Genitourinary Surgery: Yes Gynecologic Surgery: No Oral Surgery: No Thoracic Surgery: No Other Surgery: Yes Social History Alcohol Use: No (PT DENIES) Tobacco Use: Yes (1 PPD) Substance Use: Yes Allergies-Medications (Allergen,Severity, Reaction): Coded Allergies: Sulfa (Sulfonamide Antibiotics) (Unverified Allergy, Severe, HIVES, ) Reported Meds & Prescriptions Reported Meds & Active Scripts Active Amiodarone (Amiodarone HCl) 200 Mg Tab 200 Mg PO DAILY Diltiazem (Diltiazem HCl) 90 Mg Tab 90 Mg PO Q6HR 30 Days Furosemide 20 Mg Tab 20 Mg PO BID Digoxin 0.25 Mg Tab 0.25 Mg PO DAILY Lisinopril 5 Mg Tab 5 Mg PO DAILY Potassium Chloride ER (Potassium Chloride) 20 Meq Tab 20 Meq PO BID Reported Aspirin 325 Mg Tab 325 Mg PO DAILY Review of Systems Except as stated in HPI: all other systems reviewed are Neg Physical Exam Narrative GENERAL: Well-developed well-nourished male who appears mildly dyspneic on initial examination SKIN: Warm and dry. HEAD: Atraumatic. Normocephalic. EYES: Pupils equal and round. No scleral icterus. No injection or drainage. ENT: No nasal bleeding or discharge. Mucous membranes pink and moist. NECK: Trachea midline. No JVD. CARDIOVASCULAR: Regular rate and rhythm. No murmur appreciated. RESPIRATORY: No accessory muscle use. Clear to auscultation. Breath sounds equal bilaterally. GASTROINTESTINAL: Abdomen soft, non-tender, nondistended. Hepatic and splenic margins not palpable. MUSCULOSKELETAL: No obvious deformities. No clubbing. No cyanosis. No edema. NEUROLOGICAL: Awake and alert. No obvious cranial nerve deficits. Motor grossly within normal limits. Normal speech. PSYCHIATRIC: Appropriate mood and affect; insight and judgment normal. Data Data Last Documented VS Vital Signs Date Time Temp Pulse Resp B/P (MAP) Pulse Ox O2 Delivery O2 Flow Rate FiO2 07/28/17 19:10 113 14 96 Nasal Cannula 2.00 07/28/17 19:09 135/83 (100) 07/28/17 18:07 97.7 Orders Orders Ecg Monitoring (07/28/17 18:20) Blood Pressure (07/28/17 18:20) Iv Access Insert/Monitor (07/28/17 18:20) Oximetry (07/28/17 18:20) Vital Signs (07/28/17 18:20) Diltiazem Inj (Cardizem Inj) (07/28/17 18:30) Sodium Chloride 0.9% Flush (Ns Flush) (07/28/17 18:30) Complete Blood Count With Diff (07/28/17 18:20) Comprehensive Metabolic Panel (07/28/17 18:20) B-Type Natriuretic Peptide (07/28/17 18:20) Act Partial Throm Time (Ptt) (07/28/17 18:20) Prothrombin Time / Inr (Pt) (07/28/17 18:20) Magnesium (Mg) (07/28/17 18:20) Ckmb (Isoenzyme) Profile (07/28/17 18:20) Troponin I (07/28/17 18:20) Electrocardiogram (07/28/17 18:20) Chest, Single Ap (07/28/17 18:20) Digoxin (07/28/17 18:26) Drug Screen, Random Urine (07/28/17 18:30) Diltiazem Inj (Cardizem Inj) (07/28/17 18:45) Ondansetron Inj (Zofran Inj) (07/28/17 19:45) Admit To Inpatient (07/28/17 ) Vital Signs (Adult) Q4H (07/28/17 20:02) Activity Oob With Assistance (07/28/17 20:02) 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 .CONTINUOUS (07/28/17 20:02) Intake + Output WALESKA.QSHIFT (07/28/17 20:02) Diet Heart Healthy (07/29/17 Breakfast) Sodium Chloride 0.9% Flush (Ns Flush) (07/28/17 20:15) Sodium Chloride 0.9% Flush (Ns Flush) (07/28/17 21:00) Basic Metabolic Panel (Bmp) (07/29/17 06:00) Complete Blood Count With Diff (07/29/17 06:00) Creatine Kinase (Cpk) (07/29/17 00:30) Creatine Kinase (Cpk) (07/29/17 06:30) Troponin I (07/29/17 00:30) Troponin I (07/29/17 06:30) Electrocardiogram (07/29/17 00:30) Electrocardiogram (07/29/17 06:30) Case Management Consult (07/28/17 20:02) Naloxone Inj (Narcan Inj) (07/28/17 20:15) Inpatient Certification (07/28/17 ) Admit Order (Ed Use Only) (07/28/17 20:03) Furosemide Inj (Lasix Inj) (07/29/17 09:00) Furosemide Inj (Lasix Inj) (07/28/17 20:15) Potassium Chloride (Kcl) (07/28/17 20:15) Labs Laboratory Tests Test 07/28/17 18:28 07/28/17 19:50 White Blood Count 12.1 TH/MM3 Red Blood Count 5.18 MIL/MM3 Hemoglobin 15.5 GM/DL Hematocrit 45.6 % Mean Corpuscular Volume 88.0 FL Mean Corpuscular Hemoglobin 29.9 PG Mean Corpuscular Hemoglobin Concent 34.0 % Red Cell Distribution Width 15.4 % Platelet Count 277 TH/MM3 Mean Platelet Volume 8.9 FL Neutrophils (%) (Auto) 74.5 % Lymphocytes (%) (Auto) 15.1 % Monocytes (%) (Auto) 8.5 % Eosinophils (%) (Auto) 0.8 % Basophils (%) (Auto) 1.1 % Neutrophils # (Auto) 9.0 TH/MM3 Lymphocytes # (Auto) 1.8 TH/MM3 Monocytes # (Auto) 1.0 TH/MM3 Eosinophils # (Auto) 0.1 TH/MM3 Basophils # (Auto) 0.1 TH/MM3 CBC Comment DIFF FINAL Differential Comment Prothrombin Time 12.2 SEC Prothromb Time International Ratio 1.1 RATIO Activated Partial Thromboplast Time 29.2 SEC Blood Urea Nitrogen 20 MG/DL Creatinine 1.22 MG/DL Random Glucose 92 MG/DL Total Protein 7.6 GM/DL Albumin 3.5 GM/DL Calcium Level 8.8 MG/DL Magnesium Level 2.0 MG/DL Alkaline Phosphatase 95 U/L Aspartate Amino Transf (AST/SGOT) 15 U/L Alanine Aminotransferase (ALT/SGPT) 20 U/L Total Bilirubin 1.0 MG/DL Sodium Level 138 MEQ/L Potassium Level 3.9 MEQ/L Chloride Level 104 MEQ/L Carbon Dioxide Level 22.0 MEQ/L Anion Gap 12 MEQ/L Estimat Glomerular Filtration Rate 63 ML/MIN Total Creatine Kinase 47 U/L Troponin I LESS THAN 0.02 NG/ML B-Type Natriuretic Peptide 497 PG/ML MDM Medical Decision Making Medical Screen Exam Complete: Yes Emergency Medical Condition: Yes Medical Record Reviewed: Yes Differential Diagnosis Atrial fibrillation, CHF exacerbation, acute coronary syndrome, pneumonia, pulmonary edema Narrative Course The patient was placed on ECG monitoring pulse oximetry. A 12-lead EKG was obtained and the patient was found to be in atrial fibrillation with RVR, rate in the 140s. The patient was given a 0.25 mg/kg bolus of diltiazem with improvement of the heart rate but only into the 120s. Therefore the patient was started on diltiazem drip. Lab work has been reviewed. Initial set of cardiac enzymes are negative, BNP mildly elevated at 497, chest x-ray reveals cardiomegaly and vascular congestion without overt failure. At this point in time the plan is to admit the patient for further evaluation and treatment of chest pain, atrial fibrillation with RVR. Diagnosis Primary Impression: Atrial fibrillation with RVR Additional Impression: Chest pain Qualified Codes: R07.9 - Chest pain, unspecified Admitting Information Admitting Physician Requests: Charles Stone Jul 28, 2017 18:29
--- NOTE | 2017-07-28 18:40 | RADRPT ---
EXAM DATE/TIME: 07/28/2017 18:28 [facility] COMPARISON: CHEST SINGLE AP, July 08, 2017, 10:37. INDICATIONS : Short of breath MEDICAL HISTORY : Congestive heart failure. atrial fibrillation SURGICAL HISTORY : None. ENCOUNTER: Initial ACUITY: 1 day PAIN SCORE: 0/10 LOCATION: chest FINDINGS: The cardiac silhouette is enlarged in transverse diameter. There is prominence of the central pulmona ry vasculature with indistinct vascular margins compatible with vascular congestion but no evidence o f overt failure. No pleural effusions are identified. CONCLUSION: 1. Cardiomegaly and findings of vascular congestion without overt failure. Melvin Faith MD on July 28, 2017 at 18:39 Board Certified Radiologist. This report was verified electronically.
[2017-07-28 18:42] LABS: BASOPHIL # 0.1 TH/MM3 (0-0.2); BASOPHIL % 1.1 % (0.0-2.0); EOSINOPHIL # 0.1 TH/MM3 (0-0.4); EOSINOPHIL % 0.8 % (0.0-4.0); HEMATOCRIT 45.6 % (39.0-51.0); HEMO FLAGS DIFF FINAL; LYMPH % 15.1 % (9.0-44.0); LYMPHOCYTE # 1.8 TH/MM3 (1.0-4.8); MEAN CORPUSCULAR HEMOGLOBIN 29.9 PG (27.0-34.0); MONO % 8.5 % (0.0-8.0); NEUT % 74.5 % (16.0-70.0); PLATELET COUNT 277 TH/MM3 (150-450); RED BLOOD COUNT 5.18 MIL/MM3 (4.50-5.90); RED CELL DISTRIBUTION WIDTH 15.4 % (11.6-17.2); WHITE BLOOD COUNT 12.1 TH/MM3 (4.0-11.0)
[2017-07-28] MEDS ORDERED: DILTIAZEM INJ 125 MG in SODIUM CHLORIDE 0.9% INJ 100 ML IV PRN (18:45)
[2017-07-28 18:54] LABS: ALT (GPT) 20 U/L (12-78); ANION GAP 12 MEQ/L (5-15); AST (GOT) 15 U/L (15-37); BLOOD UREA NITROGEN 20 MG/DL (7-18); CHLORIDE 104 MEQ/L (98-107); GLOMERULAR FILTRATION RATE 63 ML/MIN (>89); POTASSIUM 3.9 MEQ/L (3.5-5.1); SODIUM (NA) 138 MEQ/L (136-145)
[2017-07-28 18:59] LABS: ALKALINE PHOSPHATASE 95 U/L (45-117)
[2017-07-28 19:06] LABS: CREATINE KINASE 47 U/L (39-308)
[2017-07-28 19:08] LABS: APTT (PATIENT) 29.2 SEC (24.3-30.1); INTERNATIONAL NORMALIZED RATIO 1.1 RATIO; PROTHROMBIN TIME - PATIENT 12.2 SEC (9.8-11.6)
[2017-07-28] MEDS ORDERED: ONDANSETRON HCL 4 MG/2 ML VIAL IV PUSH ONE (19:45)
[2017-07-28] MEDS ORDERED: SODIUM CHLORIDE 0.9% FLUSH 10 ML FLUSH IV FLUSH PRN (20:15)
[2017-07-28] MEDS ORDERED: NALOXONE HCL 0.4 MG/ML AMP IV PUSH PRN (20:15)
[2017-07-28] MEDS ORDERED: FUROSEMIDE 40 MG/4 ML VIAL IV PUSH ONE (20:15)
[2017-07-28] MEDS ORDERED: POTASSIUM CHLORIDE 20 MEQ CONTROLLED RELEASE TAB PO ONE (20:15)
[2017-07-28] MEDS: SODIUM CHLORIDE 0.9% FLUSH 10 ML FLUSH IV FLUSH SCH (20:53)
--- NOTE | 2017-07-28 22:12 | HHI.HP ---
[facility] Susanne Romero MD Admission Diagnosis atrial fibrillation with RVR, chest pain, dyspnea Diagnoses: Travel History International Travel<30 Days: No Contact w/Intl Traveler <30 Da: No Traveled to Known Affected Are: No History of Present Illness was at work, chest pain, tightness, left arm numb, felt palpitations called a friend and brought him here states was given cardizem bolus and that went away he knows the routine and asked for bolus and drip and symptoms went was given lasix and still urinating past one or 2 days, short of breath at friend's house in garage now, and think there is black mold smell didnt particularly notice worsening peripheral edema not on oxygen at home no fever no blood in urine or stool no vomiting, no diarrhea does have a cough, woke up in middle of night past 2 nights, coughing, yellow phlegm was also short of breath past 2 nights no urinary symptoms Review of Systems Except as stated in HPI: all other systems reviewed are Neg Past Family Social History Past Medical History htn non ischemic chf- 25-30% on echo in oct 2016 copd afib - not on anticoagulation; was taken off it because his cocaine was positive Past Surgical History cholecystectomy coronary angiogram Allergies: Coded Allergies: Sulfa (Sulfonamide Antibiotics) (Unverified Allergy, Severe, HIVES, ) Family History mother- dm, htn dad- hemophiliac, htn Social History smokes half a pack a day rare etoh social use cocaine one month ago- but that was a relapse, was clean for 4.5 yrs before that Physical Exam Vital Signs Vital Signs Date Time Temp Pulse Resp B/P (MAP) Pulse Ox O2 Delivery O2 Flow Rate FiO2 07/28/17 21:45 07/28/17 20:38 115 16 125/85 (98) 97 Nasal Cannula 2.00 07/28/17 19:10 113 14 96 Nasal Cannula 2.00 07/28/17 19:09 113 14 135/83 (100) 97 Nasal Cannula 2.00 07/28/17 18:34 116 26 97 Nasal Cannula 2.00 07/28/17 18:34 18 96 Nasal Cannula 2.00 07/28/17 18:34 111 135/83 (100) 07/28/17 18:30 115 28 135/85 (102) 96 Nasal Cannula 2.00 07/28/17 18:23 141 28 131/94 (106) 98 Nasal Cannula 2.00 07/28/17 18:08 37 07/28/17 18:07 97.7 147 24 134/97 (109) 97 Physical Exam GENERAL: This is a well-nourished, well-developed patient, in no apparent distress. SKIN: No rashes, ecchymoses or lesions. Cool and dry. HEAD: Atraumatic. Normocephalic. No temporal or scalp tenderness. EYES: No scleral icterus. No injection or drainage. ENT: Nose without bleeding, purulent drainage or septal hematoma. Airway patent NECK: no jvd, no caroitd bruit, no neck rigidity CARDIOVASCULAR: Regular rate and rhythm without murmurs, gallops, or rubs. RESPIRATORY: bilaterally decreased air entry with mild expiratory wheezing, no longer having [place] GASTROINTESTINAL: Abdomen soft, non-tender, nondistended. No guarding. MUSCULOSKELETAL: Extremities without clubbing, cyanosis, bilateral LE edema about 2+. No calf tenderness. NEUROLOGICAL: Awake and alert. Motor and sensory grossly within normal limits. Normal speech. Laboratory Laboratory Tests Test 07/28/17 18:28 07/28/17 19:50 07/28/17 21:00 White Blood Count 12.1 Red Blood Count 5.18 Hemoglobin 15.5 Hematocrit 45.6 Mean Corpuscular Volume 88.0 Mean Corpuscular Hemoglobin 29.9 Mean Corpuscular Hemoglobin Concent 34.0 Red Cell Distribution Width 15.4 Platelet Count 277 Mean Platelet Volume 8.9 Neutrophils (%) (Auto) 74.5 Lymphocytes (%) (Auto) 15.1 Monocytes (%) (Auto) 8.5 Eosinophils (%) (Auto) 0.8 Basophils (%) (Auto) 1.1 Neutrophils # (Auto) 9.0 Lymphocytes # (Auto) 1.8 Monocytes # (Auto) 1.0 Eosinophils # (Auto) 0.1 Basophils # (Auto) 0.1 CBC Comment DIFF FINAL Differential Comment Prothrombin Time 12.2 Prothromb Time International Ratio 1.1 Activated Partial Thromboplast Time 29.2 Blood Urea Nitrogen 20 Creatinine 1.22 Random Glucose 92 Total Protein 7.6 Albumin 3.5 Calcium Level 8.8 Magnesium Level 2.0 Alkaline Phosphatase 95 Aspartate Amino Transf (AST/SGOT) 15 Alanine Aminotransferase (ALT/SGPT) 20 Total Bilirubin 1.0 Sodium Level 138 Potassium Level 3.9 Chloride Level 104 Carbon Dioxide Level 22.0 Anion Gap 12 Estimat Glomerular Filtration Rate 63 Total Creatine Kinase 47 Troponin I LESS THAN 0.02 B-Type Natriuretic Peptide 497 Digoxin Level LESS THAN 0.1 Urine Opiates Screen NEG Urine Barbiturates Screen NEG Urine Amphetamines Screen NEG Urine Benzodiazepines Screen NEG Urine Cocaine Screen NEG Urine Cannabinoids Screen NEG Result Diagram: 07/28/17182707/28/171827 Imaging Last 48 hours Impressions Chest X-Ray 07/28/171819 Signed Impressions: Service Date/Time: Friday, July 28, 2017 18:28 - CONCLUSION: 1. Cardiomegaly and findings of vascular congestion without overt failure. MD Flaco Armas VTE Risk Assessment Caprini VTE Risk Assessment: Mod/High Risk (score >= 2) Caprini Risk Assessment Model Point Value = 1 Point Value = 2 Point Value = 3 Point Value = 5 Age 41-60 Minor surgery BMI > 25 kg/m2 Swollen legs Varicose veins or History of unexplained or recurrent spontaneous Oral contraceptives or hormone replacement Sepsis (< 1 month) Serious lung disease, including pneumonia (< 1 month) Abnormal pulmonary function Acute myocardial infarction Congestive heart failure (< 1 month) History of inflammatory bowel disease Medical patient at bed rest Age 61-74 Arthroscopic surgery Major open surgery (> 45 min) Laparoscopic surgery (> 45 min) Malignancy Confined to bed (> 72 hours) Immobilizing plaster cast Central venous access Age >= 75 History of VTE Family history of VTE Factor V Leiden Prothrombin [id number] Lupus anticoagulant Anticardiolipin antibodies Elevated serum homocysteine Heparin-induced thrombocytopenia Other congenital or acquired thrombophilia Stroke (< 1 month) Elective arthroplasty Hip, pelvis, or leg fracture Acute spinal cord injury (< 1 month) Prophylaxis Regimen Total Risk Factor Score Risk Level Prophylaxis Regimen 0-1 Low Early ambulation 2 Moderate Order ONE of the following: *Sequential Compression Device (SCD) *Heparin 5000 units SQ BID 3-4 Higher Order ONE of the following medications: *Heparin 5000 units SQ TID *Enoxaparin/Lovenox 40 mg SQ daily (WT < 150 kg, CrCl > 30 mL/min) *Enoxaparin/Lovenox 30 mg SQ daily (WT < 150 kg, CrCl > 10-29 mL/min) *Enoxaparin/Lovenox 30 mg SQ BID (WT < 150 kg, CrCl > 30 mL/min) AND/OR *Sequential Compression Device (SCD) 5 or more Highest Order ONE of the following medications: *Heparin 5000 units SQ TID (Preferred with Epidurals) *Enoxaparin/Lovenox 40 mg SQ daily (WT < 150 kg, CrCl > 30 mL/min) *Enoxaparin/Lovenox 30 mg SQ daily (WT < 150 kg, CrCl > 10-29 mL/min) *Enoxaparin/Lovenox 30 mg SQ BID (WT < 150 kg, CrCl > 30 mL/min) AND *Sequential Compression Device (SCD) Assessment and Plan Assessment and Plan Impression: afib with rvr acute on chronic systolic heart failure cocomitant mild copd exacerbation as well chest pain- likely due to failure subtherapeutic digoxin level- reports not taking it as one pharmacist told him it is dangerous to take digoxin while on amiodarone due to drug levels being needing to be monitored closely htn chf- 25-30% on echo in oct 2016 copd afib - not on anticoagulation; was taken off it because his cocaine was positive in last admission- 06/2017- was clean for 5 yrs prior to that Plan: serial enzymes and ekg tele monitoring continue cardizem drip start po rate control meds explained pt of amiodarone with drug interactions and side effects need aicd need anticoagulation in my opinion- as he truly uses cocaine only once as a relapse in jun. (Also reviewed my notes on him from 2011) no high risk of falls or accidents follows up with Dr Romero will ask cardiology for opinion regarding aicd (ablation with ppm mentioned prior in last cardio note as well), anticoagulation otherwise, resume home meds dvt prophylaxis - will start anticoagulant after discussion with cardio GI prophylaxis on protonix. Discussed Condition With patient, ER MD, nursing staff Physician Certification 2 Midnight Certification Type: Admission for Inpatient Services Order for Inpatient Services The services are ordered in accordance with Medicare regulations or non- Medicare payer requirements, as applicable. In the case of services not specified as inpatient-only, they are appropriately provided as inpatient services in accordance with the 2-midnight benchmark. Estimated LOS (days): 2 days is the estimated time the patient will need to remain in the hospital, assuming treatment plan goals are met and no additional complications. Post-Hospital Plan: Home Charlotte Oconnor MD Jul 28, 2017 22:12
[2017-07-28] MEDS ORDERED: RESP: IPRATROPIUM 0.5 MG/2.5 ML NEB NEB PRN (22:30)
[2017-07-28] MEDS: DILTIAZEM HCL 90 MG TAB PO SCH (23:16)
[2017-07-28] MEDS: MORPHINE SULFATE 2 MG/ML INJ IV PUSH PRN (23:17)
[2017-07-29] VITALS (29 sets, daily range): BP systolic 94–127; BP diastolic 55–84; PULSE 70–104; RESP 18–20; TEMP 97–99.2; O2SAT 92–98
[2017-07-29 01:40] LABS: CREATINE KINASE 42 U/L (39-308)
[2017-07-29] MEDS: MORPHINE SULFATE 2 MG/ML INJ IV PUSH PRN ×4 (03:20→20:59)
[2017-07-29] MEDS: RESP: IPRATROPIUM 0.5 MG/2.5 ML NEB NEB SCH ×4 (04:20→21:44)
[2017-07-29] MEDS: DILTIAZEM HCL 90 MG TAB PO SCH ×3 (06:03→18:00)
[2017-07-29 07:02] LABS: AUTOMATED NEUTROPHIL # 8.8 TH/MM3 (1.8-7.7); BASOPHIL # 0.1 TH/MM3 (0-0.2); BASOPHIL % 1.1 % (0.0-2.0); EOSINOPHIL # 0.2 TH/MM3 (0-0.4); EOSINOPHIL % 1.3 % (0.0-4.0); HEMATOCRIT 43.1 % (39.0-51.0); HEMO FLAGS DIFF FINAL; LYMPH % 16.8 % (9.0-44.0); MEAN CELL VOLUME 88.8 FL (80.0-100.0); MEAN CORPUSCULAR HEMOGLOBIN 29.8 PG (27.0-34.0); MEAN CORPUSCULAR HGB CONC 33.5 % (32.0-36.0); MONO % 8.3 % (0.0-8.0); NEUT % 72.5 % (16.0-70.0); PLATELET COUNT 285 TH/MM3 (150-450); RED BLOOD COUNT 4.85 MIL/MM3 (4.50-5.90); RED CELL DISTRIBUTION WIDTH 15.6 % (11.6-17.2); WHITE BLOOD COUNT 12.1 TH/MM3 (4.0-11.0)
[2017-07-29 07:18] LABS: ANION GAP 10 MEQ/L (5-15); BICARBONATE 24.8 MEQ/L (21.0-32.0); BLOOD UREA NITROGEN 21 MG/DL (7-18); CHLORIDE 103 MEQ/L (98-107); GLOMERULAR FILTRATION RATE 53 ML/MIN (>89); POTASSIUM 3.9 MEQ/L (3.5-5.1); SODIUM (NA) 138 MEQ/L (136-145)
[2017-07-29 07:34] LABS: CREATINE KINASE 31 U/L (39-308)
[2017-07-29] MEDS: SODIUM CHLORIDE 0.9% FLUSH 10 ML FLUSH IV FLUSH SCH ×2 (07:36→20:57)
--- NOTE | 2017-07-29 08:55 | PD.CONS ---
HPI Service cardiology Consult Requested By Reason for Consult afib rvr Primary Care Physician Susanne Romero MD History of Present Illness This is a 47 yo M with history of chronic afib , tobacco abuse, history of cocaine use, chf and non-ischemic cardiomyopathy admitted for afib RVR. Patient states he felt himself go into afib yesterday at work and came into the ED after his shift ended. He had a sensation of heart racing and chest pressure, he was found to be in afib RVR with rate 140's. EF 25-30%, cardiac catheterization in Oct 2016 showed non-ischemic CM and he has been medically managed. Eliquis was stopped approximately 4 weeks ago after he had been on cocaine. Patient states he is now "clean" and amenable to resuming anticoagulant. Rate is currently controlled on Cardizem gtt. He is feeling better with mild wheeze. Review of Systems Consitutional: DENIES: Fatigue, Fever, Chills, Weight gain, Weight loss Respiratory: DENIES: Cough, Snoring, Shortness of breath Cardiovascular: DENIES: Palpitations, Syncope Gastrointestinal: DENIES: Nausea, Vomiting, Change in bowel habits, Reflux, Bloody stools Past Family Social History Allergies: Coded Allergies: Sulfa (Sulfonamide Antibiotics) (Unverified Allergy, Severe, HIVES, ) Past Medical History Past Medical History htn non ischemic chf- 25-30% on echo in oct 2016 copd afib - not on anticoagulation; was taken off it because his cocaine was positive Past Surgical History cholecystectomy coronary angiogram Reported Medications Reported Meds & Active Scripts Active Amiodarone (Amiodarone HCl) 200 Mg Tab 200 Mg PO DAILY Diltiazem (Diltiazem HCl) 90 Mg Tab 90 Mg PO Q6HR 30 Days Furosemide 20 Mg Tab 20 Mg PO BID Digoxin 0.25 Mg Tab 0.25 Mg PO DAILY Lisinopril 5 Mg Tab 5 Mg PO DAILY Potassium Chloride ER (Potassium Chloride) 20 Meq Tab 20 Meq PO BID Reported Aspirin 325 Mg Tab 325 Mg PO DAILY Active Ordered Medications Current Medications Medications (Trade) Dose Ordered Sig/Jackson Route Start Time Stop Time Status Last Admin (NS Flush) 2 ml UNSCH PRN IV FLUSH 07/28/17 20:15 (NS Flush) 2 ml BID IV FLUSH 07/28/17 21:00 07/29/17 07:36 (Narcan Inj) 0.4 mg UNSCH PRN IV PUSH 07/28/17 20:15 (Lasix Inj) 40 mg BID@09,18 IV PUSH 07/29/17 09:00 (Cordarone) 200 mg DAILY PO 07/29/17 09:00 (Aspirin) 325 mg DAILY PO 07/29/17 09:00 (Lanoxin) 0.25 mg DAILY PO 07/29/17 09:00 (Cardizem) 90 mg Q6HR PO 07/29/17 00:00 07/29/17 06:03 (Prinivil) 5 mg DAILY PO 07/29/17 09:00 (KCl) 20 meq BID PO 07/29/17 09:00 (Atrovent Neb) 0.5 mg Q6HR NEB NEB 07/29/17 04:00 07/29/17 04:20 (Atrovent Neb) 0.5 mg Q2HR NEB PRN NEB 07/28/17 22:30 (Morphine Inj) 2 mg Q3H PRN IV PUSH 07/28/17 22:30 07/29/17 07:36 (Coreg) 6.25 mg Q12HR PO 07/29/17 09:00 UNV Diltiazem HCl 125 mg/Sodium Chloride 125 ml @ 5 mls/hr TITRATE PRN IV 07/29/17 08:45 UNV Family History mother- dm, htn dad- hemophiliac, htn Social History smokes half a pack a day rare etoh social use cocaine one month ago- but that was a relapse, was clean for 4.5 yrs before that Physical Exam Vital Signs Vital Signs Date Time Temp Pulse Resp B/P (MAP) Pulse Ox O2 Delivery O2 Flow Rate FiO2 07/29/17 07:30 97.5 76 18 111/68 (82) 92 07/29/17 07:28 76 111/68 07/29/17 06:02 78 97/79 07/29/17 06:00 82 07/29/17 05:00 84 07/29/17 04:22 98 Nasal Cannula 1.00 07/29/17 04:00 97.2 83 18 127/76 (93) 94 07/29/17 04:00 93 07/29/17 03:45 87 111/60 07/29/17 03:00 88 07/29/17 02:00 88 07/29/17 01:00 102 07/29/17 00:00 102 07/29/17 00:00 99.2 104 20 115/84 (94) 94 07/28/17 23:00 106 07/28/17 22:00 114 07/28/17 21:45 07/28/17 21:30 109 07/28/17 21:30 99.0 111 20 121/78 (92) 97 07/28/17 20:38 115 16 125/85 (98) 97 Nasal Cannula 2.00 07/28/17 19:10 113 14 96 Nasal Cannula 2.00 07/28/17 19:09 113 14 135/83 (100) 97 Nasal Cannula 2.00 07/28/17 18:34 116 26 97 Nasal Cannula 2.00 07/28/17 18:34 18 96 Nasal Cannula 2.00 07/28/17 18:34 111 135/83 (100) 07/28/17 18:30 115 28 135/85 (102) 96 Nasal Cannula 2.00 07/28/17 18:23 141 28 131/94 (106) 98 Nasal Cannula 2.00 07/28/17 18:08 37 07/28/17 18:07 97.7 147 24 134/97 (109) 97 Physical Exam . HEAD: Atraumatic. Normocephalic. EYES: Pupils equal and round. No scleral icterus. No injection or drainage. ENT: No nasal bleeding or discharge. Mucous membranes pink and moist. NECK: Trachea midline. No JVD. CARDIOVASCULAR: Regular rate, irregularly irregular rhythm RESPIRATORY: No accessory muscle use. Clear to auscultation. Breath sounds equal bilaterally. GASTROINTESTINAL: Abdomen soft, non-tender, nondistended. Hepatic and splenic margins not palpable. MUSCULOSKELETAL: Extremities without clubbing, cyanosis, or edema. No obvious deformities. NEUROLOGICAL: Awake and alert. No obvious cranial nerve deficits. Normal speech. PSYCHIATRIC: Appropriate mood and affect; insight and judgment normal. Laboratory Laboratory Tests Test 07/28/17 18:28 07/28/17 19:50 07/28/17 21:00 07/29/17 00:40 White Blood Count 12.1 Red Blood Count 5.18 Hemoglobin 15.5 Hematocrit 45.6 Mean Corpuscular Volume 88.0 Mean Corpuscular Hemoglobin 29.9 Mean Corpuscular Hemoglobin Concent 34.0 Red Cell Distribution Width 15.4 Platelet Count 277 Mean Platelet Volume 8.9 Neutrophils (%) (Auto) 74.5 Lymphocytes (%) (Auto) 15.1 Monocytes (%) (Auto) 8.5 Eosinophils (%) (Auto) 0.8 Basophils (%) (Auto) 1.1 Neutrophils # (Auto) 9.0 Lymphocytes # (Auto) 1.8 Monocytes # (Auto) 1.0 Eosinophils # (Auto) 0.1 Basophils # (Auto) 0.1 CBC Comment DIFF FINAL Differential Comment Prothrombin Time 12.2 Prothromb Time International Ratio 1.1 Activated Partial Thromboplast Time 29.2 Blood Urea Nitrogen 20 Creatinine 1.22 Random Glucose 92 Total Protein 7.6 Albumin 3.5 Calcium Level 8.8 Magnesium Level 2.0 Alkaline Phosphatase 95 Aspartate Amino Transf (AST/SGOT) 15 Alanine Aminotransferase (ALT/SGPT) 20 Total Bilirubin 1.0 Sodium Level 138 Potassium Level 3.9 Chloride Level 104 Carbon Dioxide Level 22.0 Anion Gap 12 Estimat Glomerular Filtration Rate 63 Total Creatine Kinase 47 42 Troponin I LESS THAN 0.02 LESS THAN 0.02 B-Type Natriuretic Peptide 497 Digoxin Level LESS THAN 0.1 Urine Opiates Screen NEG Urine Barbiturates Screen NEG Urine Amphetamines Screen NEG Urine Benzodiazepines Screen NEG Urine Cocaine Screen NEG Urine Cannabinoids Screen NEG Test 07/29/17 05:41 White Blood Count 12.1 Red Blood Count 4.85 Hemoglobin 14.4 Hematocrit 43.1 Mean Corpuscular Volume 88.8 Mean Corpuscular Hemoglobin 29.8 Mean Corpuscular Hemoglobin Concent 33.5 Red Cell Distribution Width 15.6 Platelet Count 285 Mean Platelet Volume 9.3 Neutrophils (%) (Auto) 72.5 Lymphocytes (%) (Auto) 16.8 Monocytes (%) (Auto) 8.3 Eosinophils (%) (Auto) 1.3 Basophils (%) (Auto) 1.1 Neutrophils # (Auto) 8.8 Lymphocytes # (Auto) 2.0 Monocytes # (Auto) 1.0 Eosinophils # (Auto) 0.2 Basophils # (Auto) 0.1 CBC Comment DIFF FINAL Differential Comment Blood Urea Nitrogen 21 Creatinine 1.41 Random Glucose 95 Calcium Level 9.0 Sodium Level 138 Potassium Level 3.9 Chloride Level 103 Carbon Dioxide Level 24.8 Anion Gap 10 Estimat Glomerular Filtration Rate 53 Total Creatine Kinase 31 Troponin I LESS THAN 0.02 Result Diagram: 07/29/17 0541 07/29/17 0541 Imaging Last 24 hours Impressions Chest X-Ray 07/28/17 1820 Signed Impressions: Service Date/Time: Friday, July 28, 2017 18:28 - CONCLUSION: 1. Cardiomegaly and findings of vascular congestion without overt failure. Melvin Faith MD Assessment and Plan Problem List: (1) Atrial fibrillation with RVR ICD Codes: I48.91 - Unspecified atrial fibrillation Status: Acute (2) Cardiomyopathy ICD Codes: I42.9 - Cardiomyopathy, unspecified Status: Acute Assessment and Plan 47 yo M with chronic afib, non-ischemic cardiomyopathy EF 25-30% and COPD admitted for afib RVR. afib RVR- rate controlled on cardizem gtt. also on amio and digoxin and po diltiazem. CHADS-Vasc= 2 and recommend resuming anticoagulant; will resume Eliquis. cardiomyopathy- EF 25-30%, consider ICD. cont ACEi., consider bb. Felipa Galarza Jul 29, 2017 08:55
[2017-07-29] MEDS ORDERED: FUROSEMIDE 40 MG/4 ML VIAL IV PUSH SCH (09:00)
--- NOTE | 2017-07-29 09:01 | MB ---
cc: AMANDA GOLD MD DATE OF CONSULTATION: 07/29/2017 HISTORY OF PRESENT ILLNESS This is a 47-year-old gentleman who is admitted to the hospital for chest pain and shortness of breath. He has a long history of cardiomyopathy and atrial fibrillation. He had been maintained on a regimen of amiodarone 200 mg daily, digoxin 0.25 mg daily and diltiazem for heart rate control. He presented to the pharmacy last week for refill of his digoxin and was advised to discontinue this in view of his concomitant use of amiodarone and diltiazem. On presentation to the emergency room he was found to have atrial fibrillation with a rapid response at 140 beats per minute. He has multiple admissions over the past year for congestive heart failure and atrial fibrillation with rapid response. His chest x-ray reveals no heart failure. Echocardiogram done this year demonstrates an EF of 20-25% and minimal coronary artery disease by cath in October of this year. He was not felt to be a candidate for beta blockade or ablation because of cocaine use. The patient notes that he has had a cocaine problem and stopped for five years with a relapse this past year. He has hence forth been off cocaine for the past month and intends to try to remain off. No cough or sputum production has been present. He does smoke a half pack of cigarettes per day. He otherwise has been compliant with his medical regimen. MEDICATIONS Medical regimen has included diltiazem 90 mg three times daily, Lanoxin 0.25 mg daily, lisinopril 5 mg daily, amiodarone 200 mg daily, furosemide 20 mg twice a day, potassium 20 mEq twice daily and aspirin 325 mg daily. ALLERGIES SULFA. SOCIAL HISTORY The patient smokes a half pack to a pack of cigarettes per day. He does not use alcohol. Recreational drugs are as above, but has been clean for the past year. PAST MEDICAL HISTORY Otherwise significant for bipolar disorder and cholecystectomy in the past. PHYSICAL EXAMINATION GENERAL: He is awake and alert. He appears in no acute distress. VITAL SIGNS: Blood pressure 110/70, pulse 80 and irregular. NECK: There is no neck vein distention. LUNGS: Scattered wheezes. CARDIOVASCULAR: Irregularly irregular rhythm. There is no significant murmur or gallop noted. ABDOMEN: Soft. There is no tenderness. EXTREMITIES: No edema. IMAGING Chest x-ray Is essentially clear. ASSESSMENT The patient has recurrence of atrial fibrillation with rapid response due to medication noncompliance, in part because of pharmacy advice. We have restarted his digoxin. He intends to and has been clean from cocaine for a month. I have started him on 6.25 mg twice daily of carvedilol to help improve overall LV function. Certainly he is at high risk for thromboembolic problems but will hold off on warfarin at this point in time. Will consult Dr. Benton for possible ablation and consideration for AICD. Once that is done then consideration for thromboembolic protection needs to be done. MD CISCO Rao/MANSOOR /8:38 AM /8:47 AM
[2017-07-29] MEDS: DIGOXIN 0.25 MG TAB PO SCH (09:19)
[2017-07-29] MEDS: ASPIRIN 325 MG TAB PO SCH (09:20)
[2017-07-29] MEDS: LISINOPRIL 5 MG TAB PO SCH (09:20)
[2017-07-29] MEDS: POTASSIUM CHLORIDE 20 MEQ CONTROLLED RELEASE TAB PO SCH ×2 (09:20→20:57)
[2017-07-29] MEDS: AMIODARONE 200 MG TAB PO SCH (09:20)
[2017-07-29] MEDS: CARVEDILOL 6.25 MG TAB PO SCH ×2 (09:32→20:57)
[2017-07-29] MEDS: APIXABAN 5 MG TABLET PO SCH ×2 (09:34→20:58)
[2017-07-29] MEDS ORDERED: DILTIAZEM INJ 125 MG in SODIUM CHLORIDE 0.9% INJ 100 ML IV PRN (10:00)
--- NOTE | 2017-07-29 10:00 | EKG ---
Date Performed: 07/28/2017 Time Performed: 18:20:59 PTAGE: 47 years EKG: ATRIAL FIBRILLATION WITH RAPID VENTRICULAR RESPONSE BORDERLINE LEFT AXIS DEVIATION NONSPECI FIC T-WAVE ABNORMALITY ABNORMAL RHYTHM ECG INTERPRETATION BASED ON A DEFAULT AGE OF 40 YEARS PREVIOUS TRACING : 07/08/2017 22.28 Compared to the prior study, atrial fibrillation with rapid response is now present. DOCTOR: Melvin Calvo Interpretating Date/Time 07/29/2017 09:56:49
--- NOTE | 2017-07-29 10:00 | EKG ---
Date Performed: 07/29/2017 Time Performed: 00:18:22 PTAGE: 47 years EKG: Atrial fibrillation with rapid ventricular response Possible left anterior fascicular block Abnormal ECG PREVIOUS TRACING : 07/28/2017 18.20 Compared to the prior study, there has been an increase in ventricular response rate. DOCTOR: Melvin Calvo Interpretating Date/Time 07/29/2017 09:57:16
--- NOTE | 2017-07-29 10:04 | EKG ---
Date Performed: 07/29/2017 Time Performed: 06:08:02 PTAGE: 47 years EKG: Atrial fibrillation Possible left anterior fascicular block Lateral T wave changes are nons pecific Abnormal ECG PREVIOUS TRACING : 07/29/2017 00.18 Compared to prior tracing no significant change DOCTOR: Melvin Calvo Interpretating Date/Time 07/29/2017 10:00:45
--- NOTE | 2017-07-29 11:09 | HHI.PR ---
Subjective Remarks This is a pleasant 47 y/o Male who was admitted with Atypical Chest pain, Atrial Fibrillation, given Cardizem bolus and improved, he has Hypertension, CHF EF 25-30%, COPD, not recommended anticoagulation due to Cocaine abuse, continuous, eye specialist Seen in his bedroom and discussed with nurse miss Tam, seen by eye specialist with Diagnosis of Atrial fibrillation with RVR, Cardiomyopathy, EF 25-30%, COPD , on Cardizem drip and by mouth, Digoxin, Amiodarone, recommended due to CHADS Vasc score of 2 to resume Eliquis, he is non compliant with his medications, started on Carvedilol 6.25 mg BID and he has been clean from Cocaine for one month, consult to Doctor Chetan placed by Doctor Calvo for probable AICD. No nausea, vomit or diarrhea. Objective Vital Signs Date Time Temp Pulse Resp B/P (MAP) Pulse Ox O2 Delivery O2 Flow Rate FiO2 07/29/17 10:16 97 Nasal Cannula 1.00 07/29/17 09:18 16 07/29/17 07:30 97.5 76 18 111/68 (82) 92 07/29/17 07:28 76 111/68 07/29/17 06:02 78 97/79 07/29/17 06:00 82 07/29/17 05:00 84 07/29/17 04:22 98 Nasal Cannula 1.00 07/29/17 04:00 97.2 83 18 127/76 (93) 94 07/29/17 04:00 93 07/29/17 03:45 87 111/60 07/29/17 03:00 88 07/29/17 02:00 88 07/29/17 01:00 102 07/29/17 00:00 102 07/29/17 00:00 99.2 104 20 115/84 (94) 94 07/28/17 23:00 106 07/28/17 22:00 114 07/28/17 21:45 07/28/17 21:30 109 07/28/17 21:30 99.0 111 20 121/78 (92) 97 07/28/17 20:38 115 16 125/85 (98) 97 Nasal Cannula 2.00 07/28/17 19:10 113 14 96 Nasal Cannula 2.00 07/28/17 19:09 113 14 135/83 (100) 97 Nasal Cannula 2.00 07/28/17 18:34 116 26 97 Nasal Cannula 2.00 07/28/17 18:34 18 96 Nasal Cannula 2.00 07/28/17 18:34 111 135/83 (100) 07/28/17 18:30 115 28 135/85 (102) 96 Nasal Cannula 2.00 07/28/17 18:23 141 28 131/94 (106) 98 Nasal Cannula 2.00 07/28/17 18:08 37 07/28/17 18:07 97.7 147 24 134/97 (109) 97 I/O 07/28/17 07/28/17 07/28/17 07/29/17 07/29/17 07/29/17 06:59 14:59 22:59 06:59 14:59 22:59 Intake Total 560 ml Output Total 400 ml Balance 160 ml Intake Oral 460 ml IV Total 100 ml Output Urine Total 400 ml Result Diagram: 07/29/17 0541 07/29/17 0541 Imaging Last Impressions Chest X-Ray 07/28/171819 Signed Impressions: Service Date/Time: Friday, July 28, 2017 18:28 - CONCLUSION: 1. Cardiomegaly and findings of vascular congestion without overt failure. Melvin Faith MD Procedures None Other Results Laboratory Tests Test 07/28/17 18:28 07/28/17 19:50 07/28/17 21:00 07/29/17 05:41 Prothrombin Time 12.2 SEC Prothromb Time International Ratio 1.1 RATIO Activated Partial Thromboplast Time 29.2 SEC Blood Urea Nitrogen 20 MG/DL 21 MG/DL Creatinine 1.22 MG/DL 1.41 MG/DL Random Glucose 92 MG/DL 95 MG/DL Total Protein 7.6 GM/DL Albumin 3.5 GM/DL Calcium Level 8.8 MG/DL 9.0 MG/DL Magnesium Level 2.0 MG/DL Alkaline Phosphatase 95 U/L Aspartate Amino Transf (AST/SGOT) 15 U/L Alanine Aminotransferase (ALT/SGPT) 20 U/L Total Bilirubin 1.0 MG/DL Sodium Level 138 MEQ/L 138 MEQ/L Potassium Level 3.9 MEQ/L 3.9 MEQ/L Chloride Level 104 MEQ/L 103 MEQ/L Carbon Dioxide Level 22.0 MEQ/L 24.8 MEQ/L B-Type Natriuretic Peptide 497 PG/ML Digoxin Level LESS THAN 0.1 NG/ML Urine Opiates Screen NEG Urine Barbiturates Screen NEG Urine Amphetamines Screen NEG Urine Benzodiazepines Screen NEG Urine Cocaine Screen NEG Urine Cannabinoids Screen NEG White Blood Count 12.1 TH/MM3 Red Blood Count 4.85 MIL/MM3 Hemoglobin 14.4 GM/DL Hematocrit 43.1 % Mean Corpuscular Volume 88.8 FL Mean Corpuscular Hemoglobin 29.8 PG Mean Corpuscular Hemoglobin Concent 33.5 % Red Cell Distribution Width 15.6 % Platelet Count 285 TH/MM3 Mean Platelet Volume 9.3 FL Neutrophils (%) (Auto) 72.5 % Lymphocytes (%) (Auto) 16.8 % Monocytes (%) (Auto) 8.3 % Eosinophils (%) (Auto) 1.3 % Basophils (%) (Auto) 1.1 % Neutrophils # (Auto) 8.8 TH/MM3 Lymphocytes # (Auto) 2.0 TH/MM3 Monocytes # (Auto) 1.0 TH/MM3 Eosinophils # (Auto) 0.2 TH/MM3 Basophils # (Auto) 0.1 TH/MM3 CBC Comment DIFF FINAL Differential Comment Anion Gap 10 MEQ/L Estimat Glomerular Filtration Rate 53 ML/MIN Total Creatine Kinase 31 U/L Troponin I LESS THAN 0.02 NG/ML Objective Remarks GENERAL: Well-developed patient, in no apparent distress. SKIN: No rashes, ecchymoses or lesions. Cool and dry. HEAD: Atraumatic. Normocephalic. No temporal or scalp tenderness. EYES: Pupils equal round and reactive. Extraocular motions intact. No scleral icterus. No injection or drainage. ENT: Nose without bleeding, purulent drainage or septal hematoma. Throat without erythema, tonsillar hypertrophy or exudate. Uvula midline. Airway patent. NECK: Trachea midline. No JVD or lymphadenopathy. Supple, nontender, no meningeal signs. CARDIOVASCULAR: Irregular rate and rhythm. RESPIRATORY: Clear to auscultation. Breath sounds equal bilaterally. No wheezes , rales, or rhonchi. GASTROINTESTINAL: Abdomen soft, non-tender, nondistended. No hepato-splenomegaly , or palpable masses. No guarding. MUSCULOSKELETAL: Extremities without clubbing, cyanosis, or edema. No joint tenderness, effusion, or edema noted. No calf tenderness. Negative Homans sign bilaterally. NEUROLOGICAL: Awake and alert. No focal Deficits. Medications and IVs Current Medications Medications (Trade) Dose Ordered Sig/Jackson Route Start Time Stop Time Status Last Admin (NS Flush) 2 ml UNSCH PRN IV FLUSH 07/28/17 20:15 (NS Flush) 2 ml BID IV FLUSH 07/28/17 21:00 07/29/17 07:36 (Narcan Inj) 0.4 mg UNSCH PRN IV PUSH 07/28/17 20:15 (Lasix Inj) 40 mg BID@09,18 IV PUSH 07/29/17 09:00 07/29/17 09:19 (Cordarone) 200 mg DAILY PO 07/29/17 09:00 07/29/17 09:20 (Aspirin) 325 mg DAILY PO 07/29/17 09:00 07/29/17 09:20 (Lanoxin) 0.25 mg DAILY PO 07/29/17 09:00 07/29/17 09:19 (Cardizem) 90 mg Q6HR PO 07/29/17 00:00 07/29/17 06:03 (Prinivil) 5 mg DAILY PO 07/29/17 09:00 07/29/17 09:20 (KCl) 20 meq BID PO 07/29/17 09:00 07/29/17 09:20 (Atrovent Neb) 0.5 mg Q6HR NEB NEB 07/29/17 04:00 07/29/17 10:14 (Atrovent Neb) 0.5 mg Q2HR NEB PRN NEB 07/28/17 22:30 (Morphine Inj) 2 mg Q3H PRN IV PUSH 07/28/17 22:30 07/29/17 07:36 (Coreg) 6.25 mg Q12HR PO 07/29/17 09:00 07/29/17 09:32 Diltiazem HCl 125 mg/Sodium Chloride 125 ml @ 5 mls/hr TITRATE PRN IV 07/29/17 10:00 (Eliquis) 5 mg BID PO 07/29/17 09:00 07/29/17 09:34 A/P Assessment and Plan 1. Atrial Fibrillation with RVR, eye specialist following, with Diagnosis of Atrial fibrillation with RVR, Cardiomyopathy, EF 25-30%, COPD, on Cardizem drip and by mouth, Digoxin, Amiodarone, recommended due to CHADS Vasc score of 2 to resume Eliquis, he is non compliant with his medications, started on Carvedilol 6.25 mg BID and he has been clean from Cocaine for one month, consult to Doctor Chetan placed by Doctor Umesh for probable AICD. 2. Acute on chronic Systolic heart Failure see #1 3. Atypical Chest pain stable. 4. Subtherapeutic Digoxin level 5. Hypertension controlled. 6. Cocaine abuse by history 7. Acute kidney injury on hold Furosemide and follow renal function. DVT prophylaxis with Eliquis. Discharge Planning Once cleared by specialists,. Jake Angulo MD Jul 29, 2017 11:09 am
[2017-07-29] MEDS: ONDANSETRON HCL 4 MG/2 ML VIAL IV PUSH PRN (20:56)
[2017-07-30] VITALS (27 sets, daily range): BP systolic 90–122; BP diastolic 50–83; PULSE 60–92; RESP 16–20; TEMP 97–98.2; O2SAT 95–99
[2017-07-30] MEDS: RESP: IPRATROPIUM 0.5 MG/2.5 ML NEB NEB SCH ×4 (03:53→22:09)
[2017-07-30] MEDS: DILTIAZEM HCL 90 MG TAB PO SCH ×4 (05:49→18:49)
[2017-07-30] MEDS: MORPHINE SULFATE 2 MG/ML INJ IV PUSH PRN ×4 (05:56→20:33)
[2017-07-30 06:46] LABS: BICARBONATE 22.2 MEQ/L (21.0-32.0); MAGNESIUM 2.2 MG/DL (1.5-2.5); POTASSIUM 4.4 MEQ/L (3.5-5.1)
--- NOTE | 2017-07-30 08:29 | PD.CARD.PN ---
Subjective Subjective Remarks No CV complaints Objective Vital Signs / I&O Vital Signs Date Time Temp Pulse Resp B/P (MAP) Pulse Ox O2 Delivery O2 Flow Rate FiO2 07/30/17 08:06 97.6 81 18 114/52 (72) 99 07/30/17 07:00 78 07/30/17 06:00 88 07/30/17 05:00 92 07/30/17 04:00 98.0 88 18 120/83 (95) 98 07/30/17 04:00 75 07/30/17 03:00 76 07/30/17 02:00 74 07/30/17 01:00 76 07/30/17 00:00 97.0 70 18 90/69 (76) 95 07/30/17 00:00 70 07/29/17 23:00 72 07/29/17 22:00 70 07/29/17 21:50 98 Nasal Cannula 3.00 07/29/17 21:00 72 07/29/17 20:00 72 07/29/17 20:00 97.0 72 20 113/55 (74) 98 07/29/17 19:00 80 07/29/17 17:18 100/67 (78) 07/29/17 17:00 70 07/29/17 16:12 98 Nasal Cannula 2.00 07/29/17 16:00 76 07/29/17 15:00 98.2 88 18 97 07/29/17 15:00 76 07/29/17 14:00 86 07/29/17 13:00 78 07/29/17 12:58 109/62 (78) 07/29/17 12:00 80 07/29/17 11:00 74 07/29/17 11:00 97.6 74 18 94/74 (81) 96 07/29/17 10:16 97 Nasal Cannula 1.00 07/29/17 10:00 80 07/29/17 09:18 16 07/29/17 09:00 80 I/O 07/29/17 07/29/17 07/29/17 07/30/17 07/30/17 07/30/17 07:00 15:00 23:00 07:00 15:00 23:00 Intake Total 560 ml 480 ml Output Total 400 ml 400 ml Balance 160 ml 80 ml Intake Oral 460 ml 480 ml IV Total 100 ml Output Urine Total 400 ml 400 ml Physical Exam GENERAL: Well-nourished, well-developed patient in no apparent distress. NECK: No JVD. No carotid bruit. CARDIOVASCULAR: IR IR S1/S2 no murmur, rub, or gallop. RESPIRATORY: No accessory muscle use. Clear to auscultation. Breath sounds equal bilaterally. GASTROINTESTINAL: Abdomen soft, non-tender, nondistended. MUSCULOSKELETAL: Extremities without clubbing, cyanosis, or edema. Laboratory Laboratory Tests Test 07/30/17 05:25 Blood Urea Nitrogen 32 MG/DL Creatinine 1.46 MG/DL Random Glucose 87 MG/DL Calcium Level 8.5 MG/DL Magnesium Level 2.2 MG/DL Sodium Level 134 MEQ/L Potassium Level 4.4 MEQ/L Chloride Level 102 MEQ/L Carbon Dioxide Level 22.2 MEQ/L Anion Gap 10 MEQ/L Estimat Glomerular Filtration Rate 51 ML/MIN Assessment and Plan Problem List: (1) Atrial fibrillation with RVR ICD Codes: I48.91 - Unspecified atrial fibrillation Status: Acute (2) Cardiomyopathy ICD Codes: I42.9 - Cardiomyopathy, unspecified Status: Acute Assessment and Plan a-fib rate controlled presently, consult entered for Dr. Benton for ablation and possible AICD Jose M Castro Jul 30, 2017 08:29
[2017-07-30] MEDS: SODIUM CHLORIDE 0.9% FLUSH 10 ML FLUSH IV FLUSH SCH ×2 (08:47→20:33)
[2017-07-30] MEDS: LISINOPRIL 5 MG TAB PO SCH (08:48)
[2017-07-30] MEDS: PANTOPRAZOLE SOD 40 MG DELAYED RELEASE TAB PO SCH (08:48)
[2017-07-30] MEDS: APIXABAN 5 MG TABLET PO SCH (08:48)
[2017-07-30] MEDS: POTASSIUM CHLORIDE 20 MEQ CONTROLLED RELEASE TAB PO SCH ×2 (08:49→20:34)
[2017-07-30] MEDS: CARVEDILOL 6.25 MG TAB PO SCH ×2 (08:49→20:33)
[2017-07-30] MEDS: ASPIRIN 325 MG TAB PO SCH (08:49)
[2017-07-30] MEDS: AMIODARONE 200 MG TAB PO SCH (08:50)
[2017-07-30] MEDS: DIGOXIN 0.25 MG TAB PO SCH (08:50)
--- NOTE | 2017-07-30 11:27 | HHI.PR ---
Subjective Remarks This is a pleasant 47 y/o Male who was admitted with Atypical Chest pain, Atrial Fibrillation, given Cardizem bolus and improved, he has Hypertension, CHF EF 25-30%, COPD, not recommended anticoagulation due to Cocaine abuse, continuous, cadence specialists Seen in his bedroom and discussed with nurse miss Tam, seen by cadence specialists with Diagnosis of Atrial fibrillation with RVR, Cardiomyopathy, EF 25-30%, COPD , on Cardizem drip and by mouth, Digoxin, Amiodarone, recommended due to CHADS Vasc score of 2 to resume Eliquis, he is non compliant with his medications, started on Carvedilol 6.25 mg BID and he has been clean from Cocaine for one month, consult to Doctor Chetan placed by Doctor Calvo for probable Ablation/AICD 07/30: Stable in his bedroom, resting in bed, no complaint, no chest pain, no nausea, vomit or diarrhea. awaiting for distribution specialist. Objective Vital Signs Date Time Temp Pulse Resp B/P (MAP) Pulse Ox O2 Delivery O2 Flow Rate FiO2 07/30/17 10:12 99 1.00 07/30/17 08:06 97.6 81 18 114/52 (72) 99 07/30/17 07:00 78 07/30/17 06:00 88 07/30/17 05:00 92 07/30/17 04:00 98.0 88 18 120/83 (95) 98 07/30/17 04:00 75 07/30/17 03:00 76 07/30/17 02:00 74 07/30/17 01:00 76 07/30/17 00:00 97.0 70 18 90/69 (76) 95 07/30/17 00:00 70 07/29/17 23:00 72 07/29/17 22:00 70 07/29/17 21:50 98 Nasal Cannula 3.00 07/29/17 21:00 72 07/29/17 20:00 72 07/29/17 20:00 97.0 72 20 113/55 (74) 98 07/29/17 19:00 80 07/29/17 17:18 100/67 (78) 07/29/17 17:00 70 07/29/17 16:12 98 Nasal Cannula 2.00 07/29/17 16:00 76 07/29/17 15:00 98.2 88 18 97 07/29/17 15:00 76 07/29/17 14:00 86 07/29/17 13:00 78 07/29/17 12:58 109/62 (78) 07/29/17 12:00 80 I/O 07/29/17 07/29/17 07/29/17 07/30/17 07/30/17 07/30/17 07:00 15:00 23:00 07:00 15:00 23:00 Intake Total 560 ml 480 ml Output Total 400 ml 400 ml Balance 160 ml 80 ml Intake Oral 460 ml 480 ml IV Total 100 ml Output Urine Total 400 ml 400 ml Result Diagram: 07/29/17 0541 07/30/17 0525 Imaging Last Impressions Chest X-Ray 07/28/171819 Signed Impressions: Service Date/Time: Friday, July 28, 2017 18:28 - CONCLUSION: 1. Cardiomegaly and findings of vascular congestion without overt failure. Melvin Faith MD Procedures None Other Results Laboratory Tests Test 07/28/17 18:28 07/28/17 19:50 07/28/17 21:00 07/29/17 05:41 Prothrombin Time 12.2 SEC Prothromb Time International Ratio 1.1 RATIO Activated Partial Thromboplast Time 29.2 SEC Blood Urea Nitrogen 20 MG/DL Creatinine 1.22 MG/DL Random Glucose 92 MG/DL Total Protein 7.6 GM/DL Albumin 3.5 GM/DL Calcium Level 8.8 MG/DL Magnesium Level 2.0 MG/DL Alkaline Phosphatase 95 U/L Aspartate Amino Transf (AST/SGOT) 15 U/L Alanine Aminotransferase (ALT/SGPT) 20 U/L Total Bilirubin 1.0 MG/DL Sodium Level 138 MEQ/L Potassium Level 3.9 MEQ/L Chloride Level 104 MEQ/L Carbon Dioxide Level 22.0 MEQ/L B-Type Natriuretic Peptide 497 PG/ML Digoxin Level LESS THAN 0.1 NG/ML Urine Opiates Screen NEG Urine Barbiturates Screen NEG Urine Amphetamines Screen NEG Urine Benzodiazepines Screen NEG Urine Cocaine Screen NEG Urine Cannabinoids Screen NEG White Blood Count 12.1 TH/MM3 Red Blood Count 4.85 MIL/MM3 Hemoglobin 14.4 GM/DL Hematocrit 43.1 % Mean Corpuscular Volume 88.8 FL Mean Corpuscular Hemoglobin 29.8 PG Mean Corpuscular Hemoglobin Concent 33.5 % Red Cell Distribution Width 15.6 % Platelet Count 285 TH/MM3 Mean Platelet Volume 9.3 FL Neutrophils (%) (Auto) 72.5 % Lymphocytes (%) (Auto) 16.8 % Monocytes (%) (Auto) 8.3 % Eosinophils (%) (Auto) 1.3 % Basophils (%) (Auto) 1.1 % Neutrophils # (Auto) 8.8 TH/MM3 Lymphocytes # (Auto) 2.0 TH/MM3 Monocytes # (Auto) 1.0 TH/MM3 Eosinophils # (Auto) 0.2 TH/MM3 Basophils # (Auto) 0.1 TH/MM3 CBC Comment DIFF FINAL Differential Comment Total Creatine Kinase 31 U/L Troponin I LESS THAN 0.02 NG/ML Test 07/30/17 05:25 Blood Urea Nitrogen 32 MG/DL Creatinine 1.46 MG/DL Random Glucose 87 MG/DL Calcium Level 8.5 MG/DL Magnesium Level 2.2 MG/DL Sodium Level 134 MEQ/L Potassium Level 4.4 MEQ/L Chloride Level 102 MEQ/L Carbon Dioxide Level 22.2 MEQ/L Anion Gap 10 MEQ/L Estimat Glomerular Filtration Rate 51 ML/MIN Objective Remarks GENERAL: Well-developed patient, in no apparent distress. SKIN: No rashes, ecchymoses or lesions. Cool and dry. HEAD: Atraumatic. Normocephalic. No temporal or scalp tenderness. EYES: Pupils equal round and reactive. Extraocular motions intact. No scleral icterus. No injection or drainage. ENT: Nose without bleeding, purulent drainage or septal hematoma. NECK: Trachea midline. No JVD or lymphadenopathy. Supple, nontender, no meningeal signs. CARDIOVASCULAR: Irregular rate and rhythm. RESPIRATORY: Clear to auscultation. Breath sounds equal bilaterally. No wheezes , rales, or rhonchi. GASTROINTESTINAL: Abdomen soft, non-tender, nondistended. No hepato-splenomegaly , or palpable masses. No guarding. MUSCULOSKELETAL: Extremities without clubbing, cyanosis, or edema. No joint tenderness, effusion, or edema noted. No calf tenderness. Negative Homans sign bilaterally. NEUROLOGICAL: Awake and alert. No focal Deficits. Medications and IVs Current Medications Medications (Trade) Dose Ordered Sig/Jackson Route Start Time Stop Time Status Last Admin (NS Flush) 2 ml UNSCH PRN IV FLUSH 07/28/17 20:15 07/30/17 11:12 (NS Flush) 2 ml BID IV FLUSH 07/28/17 21:00 07/30/17 08:47 (Narcan Inj) 0.4 mg UNSCH PRN IV PUSH 07/28/17 20:15 (Cordarone) 200 mg DAILY PO 07/29/17 09:00 07/30/17 08:50 (Aspirin) 325 mg DAILY PO 07/29/17 09:00 07/30/17 08:49 (Lanoxin) 0.25 mg DAILY PO 07/29/17 09:00 07/30/17 08:50 (Cardizem) 90 mg Q6HR PO 07/29/17 00:00 07/30/17 11:12 (Prinivil) 5 mg DAILY PO 07/29/17 09:00 07/30/17 08:48 (KCl) 20 meq BID PO 07/29/17 09:00 07/30/17 08:49 (Atrovent Neb) 0.5 mg Q6HR NEB NEB 07/29/17 04:00 07/30/17 10:10 (Atrovent Neb) 0.5 mg Q2HR NEB PRN NEB 07/28/17 22:30 (Morphine Inj) 2 mg Q3H PRN IV PUSH 07/28/17 22:30 07/30/17 11:12 (Coreg) 6.25 mg Q12HR PO 07/29/17 09:00 07/30/17 08:49 Diltiazem HCl 125 mg/Sodium Chloride 125 ml @ 5 mls/hr TITRATE PRN IV 07/29/17 10:00 (Eliquis) 5 mg BID PO 07/29/17 09:00 07/30/17 08:48 (Protonix) 40 mg DAILY PO 07/30/17 09:00 07/30/17 08:48 (Zofran Inj) 4 mg Q4H PRN IV PUSH 07/29/17 20:15 07/29/17 20:56 A/P Assessment and Plan 1. Atrial Fibrillation with RVR, cadence specialists following, with Diagnosis of Atrial fibrillation with RVR, Cardiomyopathy, EF 25-30%, COPD, on Cardizem drip and by mouth, Digoxin, Amiodarone, recommended due to CHADS Vasc score of 2 to resume Eliquis, he is non compliant with his medications, started on Carvedilol 6.25 mg BID and he has been clean from Cocaine for one month, consult to Doctor Chetan placed by Doctor Calvo for probable AICD. 2. Acute on chronic Systolic heart Failure see #1 3. Atypical Chest pain stable. 4. Subtherapeutic Digoxin level 5. Hypertension controlled. 6. Cocaine abuse by history 7. Acute kidney injury on hold Furosemide and follow renal function. Discussed with patient and nurse Miss Denisha iyer, all questions answered to the best of my abilities. DVT prophylaxis with Eliquis. Discharge Planning Once cleared by specialists,. Jake Angulo MD Jul 30, 2017 11:27
[2017-07-30] MEDS: ONDANSETRON HCL 4 MG/2 ML VIAL IV PUSH PRN (20:34)
--- NOTE | 2017-07-30 23:21 | MB ---
cc: DORY MOULTON M.D. DATE OF CONSULTATION 07/30/17 ELECTROPHYSIOLOGY CONSULT REASON FOR CONSULTATION Atrial fibrillation with biventricular response and heart failure. HISTORY OF PRESENT ILLNESS Mr. Pendleton is a 47-year-old gentleman who looked older than his chronological age. History of drug abuse. He was using cocaine. He smokes a cigarette. He had multiple hospitalizations due to atrial fibrillation with biventricular response. He is on amiodarone. Ejection fraction in March 2015 was around 25%. Recent hospitalization in October 2016, left heart catheterization by Dr. Todd, nonocclusive coronary artery disease, ejection fraction was around 20%. He is on Cardizem, amiodarone. The gentleman stopped using drug over a month ago, was admitted due to heart failure as well as atrial fibrillation with biventricular response. He is on multiple medication. I was consulted for further evaluation and management. The chart was reviewed. The patient was evaluated. I discussed the case on multiple occasion with Dr. Melvin Calvo. ALLERGIES THE GENTLEMAN HAS ALLERGY TO SULFA. SOCIAL HISTORY The patient still smokes half a pack of cigarettes a day. Until recently was using cocaine. FAMILY HISTORY Noncontributory to his current medical condition. MEDICATIONS 1. He is on Cardizem. 2. He is on amiodarone 200 milligrams a day. 3. He is on Eliquis 5 milligrams twice a day. 4. He is on aspirin. 5. He is on Coreg 6.25 milligrams q. 12 hours. 6. He is on digoxin 0.25 milligrams daily. 7. He is on Cardizem 90 milligrams q. 6 hours. 8. Lisinopril 5 milligrams a day. 9. Potassium. REVIEW OF SYSTEMS He refers some ___ shortness of breath on minimal activity but no chest pain or chest discomfort. PHYSICAL EXAMINATION GENERAL: Alert, fully oriented. VITAL SIGNS: His blood pressure 103/50, pulse 61, respiratory rate 20. LUNGS: Ventilated CARDIOVASCULAR: S1-S2, irregular. No gallop. ABDOMEN: Soft, obese. No mass. No bruits. EXTREMITIES: No edema. CARDIOLOGY STUDIES Electrocardiogram on hospitalization indicate atrial fibrillation with fast ventricular response. Poor R-wave progression, diffuse ST changes. LABORATORY DATA Hemoglobin is 14.4, white blood cell 12.1. Negative for drug during this hospitalization. Urine toxicology is negative. Potassium 4.4, creatinine 1.46. Troponin 0.02. INR 1.1. ASSESSMENT AND RECOMMENDATIONS Mr. Pendleton is in atrial fibrillation. He is very symptomatic. He has heart failure. The atrial fibrillation may make the heart failure worse. Last echo in October 2016 indicated normal left atrium. He is on anticoagulation. I had a long conversation with him. Atrial fibrillation ablation and defibrillator implantation for sudden prevention discussed. The risks, the nature and the benefit of the procedure are clearly stated to him. The risks include pneumothorax, cardiac perforation, stroke and even . He understood and agreed to proceed. I will put Eliquis on hold for now. Lovenox will be initiated in the morning. Possible ablation tomorrow night or Friday. Case extensively discussed with him. I will keep him currently on current medication. The risks, the nature and the benefit of the procedure are clearly stated to him. The risks include pneumothorax, cardiac perforation, stroke and even . He understood and agreed to proceed. Dory Moulton MD HS/EO /5:59 PM /11:02 PM
[2017-07-31] VITALS (25 sets, daily range): BP systolic 91–131; BP diastolic 53–91; PULSE 61–79; RESP 15–32; TEMP 96.8–98.4; O2SAT 94–99
[2017-07-31] MEDS: MORPHINE SULFATE 2 MG/ML INJ IV PUSH PRN ×2 (00:13→20:14)
[2017-07-31] MEDS: DILTIAZEM HCL 90 MG TAB PO SCH ×5 (00:16→23:22)
[2017-07-31] MEDS: RESP: IPRATROPIUM 0.5 MG/2.5 ML NEB NEB SCH ×4 (04:50→20:52)
[2017-07-31 06:23] LABS: BICARBONATE 22.7 MEQ/L (21.0-32.0)
[2017-07-31] MEDS: AMIODARONE 200 MG TAB PO SCH (08:36)
[2017-07-31] MEDS: POTASSIUM CHLORIDE 20 MEQ CONTROLLED RELEASE TAB PO SCH ×2 (08:37→20:14)
[2017-07-31] MEDS: PANTOPRAZOLE SOD 40 MG DELAYED RELEASE TAB PO SCH (08:37)
[2017-07-31] MEDS: DIGOXIN 0.25 MG TAB PO SCH (08:38)
[2017-07-31] MEDS: CARVEDILOL 6.25 MG TAB PO SCH ×2 (08:38→20:14)
[2017-07-31] MEDS: ASPIRIN 325 MG TAB PO SCH (08:38)
[2017-07-31] MEDS: SODIUM CHLORIDE 0.9% FLUSH 10 ML FLUSH IV FLUSH SCH ×2 (08:41→20:14)
--- NOTE | 2017-07-31 10:06 | PD.CARD.PN ---
Subjective Subjective Remarks Feeling a little better. Objective Medications Current Medications Medications (Trade) Dose Ordered Sig/Jackson Route Start Time Stop Time Status Last Admin (NS Flush) 2 ml UNSCH PRN IV FLUSH 07/28/17 20:15 07/30/17 11:12 (NS Flush) 2 ml BID IV FLUSH 07/28/17 21:00 07/31/17 08:41 (Narcan Inj) 0.4 mg UNSCH PRN IV PUSH 07/28/17 20:15 (Cordarone) 200 mg DAILY PO 07/29/17 09:00 07/31/17 08:36 (Aspirin) 325 mg DAILY PO 07/29/17 09:00 07/31/17 08:38 (Lanoxin) 0.25 mg DAILY PO 07/29/17 09:00 07/31/17 08:38 (Cardizem) 90 mg Q6HR PO 07/29/17 00:00 07/31/17 06:10 (KCl) 20 meq BID PO 07/29/17 09:00 07/30/17 20:34 (Atrovent Neb) 0.5 mg Q6HR NEB NEB 07/29/17 04:00 07/31/17 04:50 (Atrovent Neb) 0.5 mg Q2HR NEB PRN NEB 07/28/17 22:30 (Morphine Inj) 2 mg Q3H PRN IV PUSH 07/28/17 22:30 07/31/17 00:13 (Coreg) 6.25 mg Q12HR PO 07/29/17 09:00 07/31/17 08:38 Diltiazem HCl 125 mg/Sodium Chloride 125 ml @ 5 mls/hr TITRATE PRN IV 07/29/17 10:00 (Eliquis) 5 mg BID PO 07/29/17 09:00 Future Hold 07/30/17 08:48 (Protonix) 40 mg DAILY PO 07/30/17 09:00 07/31/17 08:37 (Zofran Inj) 4 mg Q4H PRN IV PUSH 07/29/17 20:15 07/30/17 20:34 Vital Signs / I&O Vital Signs Date Time Temp Pulse Resp B/P (MAP) Pulse Ox O2 Delivery O2 Flow Rate FiO2 07/31/17 06:00 72 07/31/17 05:00 78 07/31/17 04:00 76 07/31/17 03:00 69 07/31/17 03:00 98.4 79 18 131/86 (101) 96 07/31/17 02:00 70 07/31/17 01:00 66 07/31/17 00:00 77 07/30/17 23:00 75 07/30/17 23:00 97.5 71 18 102/75 (84) 98 07/30/17 22:09 96 Nasal Cannula 2.00 07/30/17 22:00 72 07/30/17 21:00 70 07/30/17 20:00 97.5 60 18 122/72 (89) 96 07/30/17 20:00 60 07/30/17 19:00 71 07/30/17 18:00 68 07/30/17 17:00 64 07/30/17 16:00 64 07/30/17 15:40 20 07/30/17 15:00 97.6 61 20 103/50 (67) 96 07/30/17 15:00 62 07/30/17 14:00 70 07/30/17 13:00 82 07/30/17 12:00 82 07/30/17 11:00 97.8 75 20 112/65 (81) 96 07/30/17 11:00 83 07/30/17 10:12 99 1.00 07/30/17 10:00 78 I/O 07/30/17 07/30/17 07/30/17 07/31/17 07/31/17 07/31/17 06:59 14:59 22:59 06:59 14:59 22:59 Intake Total 480 ml 720 ml 240 ml Output Total 400 ml 450 ml 600 ml Balance 80 ml 270 ml -360 ml Intake Oral 480 ml 720 ml 240 ml Output Urine Total 400 ml 450 ml 600 ml Physical Exam GENERAL: Well-nourished, well-developed patient. SKIN: Warm and dry. HEAD: Normocephalic. EYES: No scleral icterus. No injection or drainage. NECK: Supple, trachea midline. No JVD or lymphadenopathy. CARDIOVASCULAR: Irregular rhythm, controlled rate without rub murmur or gallop. RESPIRATORY: Breath sounds equal bilaterally. No accessory muscle use. GASTROINTESTINAL: Abdomen soft, non-tender, nondistended. EXTREMITIES: No cyanosis, or edema. NEUROLOGICAL: Awake, alert, and oriented x 3. Non-focal. Laboratory Laboratory Tests Test 07/31/17 05:05 Blood Urea Nitrogen 34 MG/DL Creatinine 1.44 MG/DL Random Glucose 82 MG/DL Calcium Level 8.0 MG/DL Sodium Level 131 MEQ/L Potassium Level 5.0 MEQ/L Chloride Level 101 MEQ/L Carbon Dioxide Level 22.7 MEQ/L Anion Gap 7 MEQ/L Estimat Glomerular Filtration Rate 52 ML/MIN Imaging Last Impressions Chest X-Ray 07/28/17 1820 Signed Impressions: Service Date/Time: Friday, July 28, 2017 18:28 - CONCLUSION: 1. Cardiomegaly and findings of vascular congestion without overt failure. Melvin Faith MD Assessment and Plan Problem List: (1) Atrial fibrillation with RVR ICD Codes: I48.91 - Unspecified atrial fibrillation Status: Acute Plan: Likely contributor to heart failure symptoms. Exacerbated by tobacco and cocaine abuse. Discussed with patient, educated as to interaction between substance abuse and arrhythmias and heart failure. All questions answered. Eliquis held, Lovenox initiated. Plan for atrial fibrillation ablation this afternoon or tomorrow pending scheduling. (2) Cardiomyopathy ICD Codes: I42.9 - Cardiomyopathy, unspecified Status: Acute Plan: Possibly caused by cocaine abuse. Ejection fraction 20% by cardiac catheterization which showed nonocclusive coronary disease. Medications optimized to include carvedilol, lisinopril initiated then held, possibly due to increasing potassium. This can be reevaluated as patient's condition stabilizes. Assessment and Plan Discussed with patient, RN, Dr. Benton. Problem Qualifiers (1) Cardiomyopathy: Qualified Codes: I42.7 - Cardiomyopathy due to drug and external agent Sania Frias Jul 31, 2017 10:06
--- NOTE | 2017-07-31 14:15 | HHI.PR ---
Subjective Remarks This is a pleasant 47 y/o Male who was admitted with Atypical Chest pain, Atrial Fibrillation, given Cardizem bolus and improved, he has Hypertension, CHF EF 25-30%, COPD, not recommended anticoagulation due to Cocaine abuse, continuous, pre certification specialist Seen in his bedroom and discussed with nurse miss Tam, seen by pre certification specialist with Diagnosis of Atrial fibrillation with RVR, Cardiomyopathy, EF 25-30%, COPD , on Cardizem drip and by mouth, Digoxin, Amiodarone, recommended due to CHADS Vasc score of 2 to resume Eliquis, he is non compliant with his medications, started on Carvedilol 6.25 mg BID and he has been clean from Cocaine for one month, consult to Doctor Chetan placed by Doctor Calvo for probable Ablation/AICD 07/30: Stable in his bedroom, resting in bed, no complaint. 07/31: patient scheduled for Cardiac Ablation for tomorrow, no complaint at this time, no chest pain, nausea, vomit or diarrhea. Objective Vital Signs Date Time Temp Pulse Resp B/P (MAP) Pulse Ox O2 Delivery O2 Flow Rate FiO2 07/31/17 10:20 96 Nasal Cannula 2.00 07/31/17 08:00 74 07/31/17 07:30 98.3 63 15 124/91 (102) 98 07/31/17 07:30 68 07/31/17 06:00 72 07/31/17 05:00 78 07/31/17 04:00 76 07/31/17 03:00 69 07/31/17 03:00 98.4 79 18 131/86 (101) 96 07/31/17 02:00 70 07/31/17 01:00 66 07/31/17 00:00 77 07/30/17 23:00 75 07/30/17 23:00 97.5 71 18 102/75 (84) 98 07/30/17 22:09 96 Nasal Cannula 2.00 07/30/17 22:00 72 07/30/17 21:00 70 07/30/17 20:00 97.5 60 18 122/72 (89) 96 07/30/17 20:00 60 07/30/17 19:00 71 07/30/17 18:00 68 07/30/17 17:00 64 07/30/17 16:00 64 07/30/17 15:40 20 07/30/17 15:00 97.6 61 20 103/50 (67) 96 07/30/17 15:00 62 I/O 07/30/17 07/30/17 07/30/17 07/31/17 07/31/17 07/31/17 06:59 14:59 22:59 06:59 14:59 22:59 Intake Total 480 ml 720 ml 240 ml Output Total 400 ml 450 ml 600 ml Balance 80 ml 270 ml -360 ml Intake Oral 480 ml 720 ml 240 ml Output Urine Total 400 ml 450 ml 600 ml Result Diagram: 07/29/17 0541 07/31/17 0505 Imaging Last Impressions Chest X-Ray 07/28/17 1820 Signed Impressions: Service Date/Time: Friday, July 28, 2017 18:28 - CONCLUSION: 1. Cardiomegaly and findings of vascular congestion without overt failure. Melvin Faith MD Procedures None Other Results Laboratory Tests Test 07/28/17 18:28 07/28/17 19:50 07/28/17 21:00 07/29/17 05:41 Prothrombin Time 12.2 SEC Prothromb Time International Ratio 1.1 RATIO Activated Partial Thromboplast Time 29.2 SEC Blood Urea Nitrogen 20 MG/DL Creatinine 1.22 MG/DL Random Glucose 92 MG/DL Total Protein 7.6 GM/DL Albumin 3.5 GM/DL Calcium Level 8.8 MG/DL Magnesium Level 2.0 MG/DL Alkaline Phosphatase 95 U/L Aspartate Amino Transf (AST/SGOT) 15 U/L Alanine Aminotransferase (ALT/SGPT) 20 U/L Total Bilirubin 1.0 MG/DL Sodium Level 138 MEQ/L Potassium Level 3.9 MEQ/L Chloride Level 104 MEQ/L Carbon Dioxide Level 22.0 MEQ/L B-Type Natriuretic Peptide 497 PG/ML Digoxin Level LESS THAN 0.1 NG/ML Urine Opiates Screen NEG Urine Barbiturates Screen NEG Urine Amphetamines Screen NEG Urine Benzodiazepines Screen NEG Urine Cocaine Screen NEG Urine Cannabinoids Screen NEG White Blood Count 12.1 TH/MM3 Red Blood Count 4.85 MIL/MM3 Hemoglobin 14.4 GM/DL Hematocrit 43.1 % Mean Corpuscular Volume 88.8 FL Mean Corpuscular Hemoglobin 29.8 PG Mean Corpuscular Hemoglobin Concent 33.5 % Red Cell Distribution Width 15.6 % Platelet Count 285 TH/MM3 Mean Platelet Volume 9.3 FL Neutrophils (%) (Auto) 72.5 % Lymphocytes (%) (Auto) 16.8 % Monocytes (%) (Auto) 8.3 % Eosinophils (%) (Auto) 1.3 % Basophils (%) (Auto) 1.1 % Neutrophils # (Auto) 8.8 TH/MM3 Lymphocytes # (Auto) 2.0 TH/MM3 Monocytes # (Auto) 1.0 TH/MM3 Eosinophils # (Auto) 0.2 TH/MM3 Basophils # (Auto) 0.1 TH/MM3 CBC Comment DIFF FINAL Differential Comment Total Creatine Kinase 31 U/L Troponin I LESS THAN 0.02 NG/ML Test 07/30/17 05:25 07/31/17 05:05 Blood Urea Nitrogen 32 MG/DL 34 MG/DL Creatinine 1.46 MG/DL 1.44 MG/DL Random Glucose 87 MG/DL 82 MG/DL Calcium Level 8.5 MG/DL 8.0 MG/DL Magnesium Level 2.2 MG/DL Sodium Level 134 MEQ/L 131 MEQ/L Potassium Level 4.4 MEQ/L 5.0 MEQ/L Chloride Level 102 MEQ/L 101 MEQ/L Carbon Dioxide Level 22.2 MEQ/L 22.7 MEQ/L Anion Gap 7 MEQ/L Estimat Glomerular Filtration Rate 52 ML/MIN Objective Remarks GENERAL: Well-developed patient, in no apparent distress. SKIN: No rashes, ecchymoses or lesions. Cool and dry. HEAD: Atraumatic. Normocephalic. No temporal or scalp tenderness. EYES: Pupils equal round and reactive. Extraocular motions intact. No scleral icterus. No injection or drainage. ENT: Nose without bleeding, purulent drainage or septal hematoma. NECK: Trachea midline. No JVD or lymphadenopathy. Supple, nontender, no meningeal signs. CARDIOVASCULAR: Irregular rate and rhythm. RESPIRATORY: Clear to auscultation. Breath sounds equal bilaterally. No wheezes , rales, or rhonchi. GASTROINTESTINAL: Abdomen soft, non-tender, nondistended. No hepato-splenomegaly , or palpable masses. No guarding. MUSCULOSKELETAL: Extremities without clubbing, cyanosis, or edema. No joint tenderness, effusion, or edema noted. No calf tenderness. Negative Homans sign bilaterally. NEUROLOGICAL: Awake and alert. No focal Deficits. Medications and IVs Current Medications Medications (Trade) Dose Ordered Sig/Jackson Route Start Time Stop Time Status Last Admin (NS Flush) 2 ml UNSCH PRN IV FLUSH 07/28/17 20:15 07/30/17 11:12 (NS Flush) 2 ml BID IV FLUSH 07/28/17 21:00 07/31/17 08:41 (Narcan Inj) 0.4 mg UNSCH PRN IV PUSH 07/28/17 20:15 (Cordarone) 200 mg DAILY PO 07/29/17 09:00 07/31/17 08:36 (Aspirin) 325 mg DAILY PO 07/29/17 09:00 07/31/17 08:38 (Lanoxin) 0.25 mg DAILY PO 07/29/17 09:00 07/31/17 08:38 (Cardizem) 90 mg Q6HR PO 07/29/17 00:00 07/31/17 12:27 (KCl) 20 meq BID PO 07/29/17 09:00 07/30/17 20:34 (Atrovent Neb) 0.5 mg Q6HR NEB NEB 07/29/17 04:00 07/31/17 10:19 (Atrovent Neb) 0.5 mg Q2HR NEB PRN NEB 07/28/17 22:30 (Morphine Inj) 2 mg Q3H PRN IV PUSH 07/28/17 22:30 07/31/17 00:13 (Coreg) 6.25 mg Q12HR PO 07/29/17 09:00 07/31/17 08:38 Diltiazem HCl 125 mg/Sodium Chloride 125 ml @ 5 mls/hr TITRATE PRN IV 07/29/17 10:00 (Eliquis) 5 mg BID PO 07/29/17 09:00 Future Hold 07/30/17 08:48 (Protonix) 40 mg DAILY PO 07/30/17 09:00 07/31/17 08:37 (Zofran Inj) 4 mg Q4H PRN IV PUSH 07/29/17 20:15 07/30/17 20:34 A/P Assessment and Plan 1. Atrial Fibrillation with RVR, pre certification specialist following, with Diagnosis of Atrial fibrillation with RVR, Cardiomyopathy, EF 25-30%, COPD, on Cardizem drip and by mouth, Digoxin, Amiodarone, recommended due to CHADS Vasc score of 2 to resume Eliquis, he is non compliant with his medications, started on Carvedilol 6.25 mg BID and he has been clean from Cocaine for one month, scheduled for Cardiac Ablation for tomorrow. 2. Acute on chronic Systolic heart Failure secondary to Cocaine abuse. 3. Atypical Chest pain Improved. 4. Subtherapeutic Digoxin level 5. Hypertension controlled. 6. Cocaine abuse by history strongly recommended to stop behavior. 7. Acute kidney injury Creatinine trending down, following. Discussed with patient, all questions answered to the best of my abilities. DVT prophylaxis with Heparin. Discharge Planning Once cleared by specialists,. Jake Angulo MD Jul 31, 2017 2:15 pm
[2017-08-01] VITALS (25 sets, daily range): BP systolic 102–149; BP diastolic 66–101; PULSE 57–84; RESP 16–24; TEMP 97.3–98.3; O2SAT 95–100
[2017-08-01] MEDS ORDERED: POVIDONE IODINE 5% (ANTISEPSIS KIT) 4 APPLICATIONS EACH NARE PRN (02:45)
[2017-08-01] MEDS ORDERED: INSULIN HUMAN REGULAR 1,000 UNITS/10 ML VIAL SQ PRN (02:45)
[2017-08-01] MEDS ORDERED: LACTATED RINGER'S 1000 ML IV PRN (02:45)
[2017-08-01] MEDS ORDERED: METOPROLOL TARTRATE 25 MG TAB PO PRN (02:45)
[2017-08-01] MEDS ORDERED: CHLORHEXIDINE GLUCONATE 2 % 1 PACK (2 CLOTHS) TOPICAL PRN (02:45)
[2017-08-01] MEDS ORDERED: SODIUM CHLORID 0.9% 500 ML IV PRN (02:45)
[2017-08-01] MEDS: MORPHINE SULFATE 2 MG/ML INJ IV PUSH PRN ×3 (03:30→23:56)
[2017-08-01] MEDS: RESP: IPRATROPIUM 0.5 MG/2.5 ML NEB NEB SCH ×4 (04:49→20:44)
[2017-08-01] MEDS: DILTIAZEM HCL 90 MG TAB PO SCH ×4 (06:45→23:54)
--- NOTE | 2017-08-01 08:56 | PD.CARD.PN ---
Subjective Subjective Remarks Feels better. Awaiting ablation/AICD. Objective Medications Current Medications Medications (Trade) Dose Ordered Sig/Jackson Route Start Time Stop Time Status Last Admin (NS Flush) 2 ml UNSCH PRN IV FLUSH 07/28/17 20:15 07/30/17 11:12 (NS Flush) 2 ml BID IV FLUSH 07/28/17 21:00 07/31/17 20:14 (Narcan Inj) 0.4 mg UNSCH PRN IV PUSH 07/28/17 20:15 (Cordarone) 200 mg DAILY PO 07/29/17 09:00 07/31/17 08:36 (Aspirin) 325 mg DAILY PO 07/29/17 09:00 07/31/17 08:38 (Lanoxin) 0.25 mg DAILY PO 07/29/17 09:00 07/31/17 08:38 (Cardizem) 90 mg Q6HR PO 07/29/17 00:00 08/01/17 06:45 (KCl) 20 meq BID PO 07/29/17 09:00 07/31/17 20:14 (Atrovent Neb) 0.5 mg Q6HR NEB NEB 07/29/17 04:00 08/01/17 07:41 (Atrovent Neb) 0.5 mg Q2HR NEB PRN NEB 07/28/17 22:30 (Morphine Inj) 2 mg Q3H PRN IV PUSH 07/28/17 22:30 08/01/17 03:30 (Coreg) 6.25 mg Q12HR PO 07/29/17 09:00 07/31/17 20:14 Diltiazem HCl 125 mg/Sodium Chloride 125 ml @ 5 mls/hr TITRATE PRN IV 07/29/17 10:00 (Eliquis) 5 mg BID PO 07/29/17 09:00 Future Hold 07/30/17 08:48 (Protonix) 40 mg DAILY PO 07/30/17 09:00 07/31/17 08:37 (Zofran Inj) 4 mg Q4H PRN IV PUSH 07/29/17 20:15 07/30/17 20:34 Lactated Ringer's 1,000 ml @ 30 mls/hr Q24H PRN IV 08/01/17 02:45 08/04/17 02:44 Sodium Chloride 500 ml @ 30 mls/hr [id number] PRN IV 08/01/17 02:45 08/04/17 02:44 (Lopressor) 25 mg NUMERICAL TOOL PROGRAMMER PRN PO 08/01/17 02:45 08/04/17 02:44 (Betadine 5% Antisepsis Kit) 1 applic NUMERICAL TOOL PROGRAMMER PRN EACH NARE 08/01/17 02:45 08/04/17 02:44 (Chlorhexidine 2% Cloth) 3 pack NUMERICAL TOOL PROGRAMMER PRN TOPICAL 08/01/17 02:45 08/04/17 02:44 (NovoLIN R INJ) See Protocol Table ... NUMERICAL TOOL PROGRAMMER PRN SQ 08/01/17 02:45 08/04/17 02:44 Vital Signs / I&O Vital Signs Date Time Temp Pulse Resp B/P (MAP) Pulse Ox O2 Delivery O2 Flow Rate FiO2 08/01/17 07:43 99 Nasal Cannula 2.00 08/01/17 06:00 78 08/01/17 05:00 68 08/01/17 04:00 68 08/01/17 03:00 98.3 73 24 124/68 (86) 97 08/01/17 03:00 74 08/01/17 02:00 68 08/01/17 01:00 70 08/01/17 00:00 68 07/31/17 23:00 96.8 76 32 109/67 (81) 99 07/31/17 23:00 65 07/31/17 22:00 68 07/31/17 21:00 64 07/31/17 20:00 98.2 69 16 111/74 (86) 98 07/31/17 20:00 70 07/31/17 19:00 79 07/31/17 18:39 74 07/31/17 17:00 72 07/31/17 16:24 69 07/31/17 15:00 67 07/31/17 15:00 98.3 74 16 91/53 (66) 94 07/31/17 14:00 66 07/31/17 13:00 66 07/31/17 12:00 70 07/31/17 11:00 97.5 61 18 115/70 (85) 98 07/31/17 11:00 69 07/31/17 10:20 96 Nasal Cannula 2.00 07/31/17 10:00 62 07/31/17 09:00 68 I/O 07/31/17 07/31/17 07/31/17 08/01/17 08/01/17 08/01/17 07:00 15:00 23:00 07:00 15:00 23:00 Intake Total 240 ml 720 ml 720 ml Output Total 600 ml 1200 ml 2650 ml Balance -360 ml -480 ml -1930 ml Intake Oral 240 ml 720 ml 720 ml Output Urine Total 600 ml 1200 ml 2650 ml # Bowel Movements 1 Physical Exam Lungs clear irregular. HR 70 Laboratory Laboratory Tests Test 08/01/17 05:51 Assessment and Plan Problem List: (1) Atrial fibrillation with RVR ICD Codes: I48.91 - Unspecified atrial fibrillation Status: Acute Plan: Appreciate Dr. Benton's help. Will be OOT next week but happy to follow up in office the following week. Home when OK with Dr. Benton (2) Cardiomyopathy ICD Codes: I42.9 - Cardiomyopathy, unspecified Status: Acute Problem Qualifiers (1) Cardiomyopathy: Qualified Codes: I42.7 - Cardiomyopathy due to drug and external agent Melvin Calvo MD Aug 01, 2017 08:56
[2017-08-01] MEDS: AMIODARONE 200 MG TAB PO SCH (09:28)
[2017-08-01] MEDS: ASPIRIN 325 MG TAB PO SCH (09:29)
[2017-08-01] MEDS: POTASSIUM CHLORIDE 20 MEQ CONTROLLED RELEASE TAB PO SCH (09:29)
[2017-08-01] MEDS: CARVEDILOL 6.25 MG TAB PO SCH ×2 (09:29→20:05)
[2017-08-01] MEDS: SODIUM CHLORIDE 0.9% FLUSH 10 ML FLUSH IV FLUSH SCH ×2 (09:29→20:04)
[2017-08-01] MEDS: DIGOXIN 0.25 MG TAB PO SCH (09:29)
[2017-08-01] MEDS: PANTOPRAZOLE SOD 40 MG DELAYED RELEASE TAB PO SCH (09:29)
[2017-08-01 10:27] LABS: BICARBONATE 19.6 MEQ/L (21.0-32.0); MAGNESIUM 2.2 MG/DL (1.5-2.5); POTASSIUM 5.4 MEQ/L (3.5-5.1)
--- NOTE | 2017-08-01 14:10 | HHI.PR ---
Subjective Remarks This is a pleasant 47 y/o Male who was admitted with Atypical Chest pain, Atrial Fibrillation, given Cardizem bolus and improved, he has Hypertension, CHF EF 25-30%, COPD, not recommended anticoagulation due to Cocaine abuse, continuous, desktop specialist Seen in his bedroom and discussed with nurse Anel, seen by desktop specialist with Diagnosis of Atrial fibrillation with RVR, Cardiomyopathy, EF 25-30%, COPD , on Cardizem drip and by mouth, Digoxin, Amiodarone, recommended due to CHADS Vasc score of 2 to resume Eliquis, he is non compliant with his medications, started on Carvedilol 6.25 mg BID and he has been clean from Cocaine for one month, consult to Doctor Chetan placed by Doctor Calvo for probable Ablation/AICD 07/30: Stable in his bedroom, resting in bed, no complaint. 07/31: patient scheduled for Cardiac Ablation for tomorrow, no complaint at this time, no chest pain. 08/01: Seen in his bedroom in the presence of Nurse Miss Valderrama, no nausea, vomit or diarrhea the Cardiac Ablation for next Friday08/04/17. Objective Vital Signs Date Time Temp Pulse Resp B/P (MAP) Pulse Ox O2 Delivery O2 Flow Rate FiO2 08/01/17 14:04 70 08/01/17 13:48 76 08/01/17 12:00 72 08/01/17 11:35 97 21 08/01/17 11:00 66 08/01/17 11:00 98.0 62 16 125/66 (85) 97 08/01/17 10:39 97.3 74 16 124/68 (86) 95 08/01/17 09:00 72 08/01/17 08:00 80 08/01/17 07:43 99 Nasal Cannula 2.00 08/01/17 07:30 84 08/01/17 06:00 78 08/01/17 05:00 68 08/01/17 04:00 68 08/01/17 03:00 98.3 73 24 124/68 (86) 97 08/01/17 03:00 74 08/01/17 02:00 68 08/01/17 01:00 70 08/01/17 00:00 68 07/31/17 23:00 96.8 76 32 109/67 (81) 99 07/31/17 23:00 65 07/31/17 22:00 68 07/31/17 21:00 64 07/31/17 20:00 98.2 69 16 111/74 (86) 98 07/31/17 20:00 70 07/31/17 19:00 79 07/31/17 18:39 74 07/31/17 17:00 72 07/31/17 16:24 69 07/31/17 15:00 67 07/31/17 15:00 98.3 74 16 91/53 (66) 94 I/O 07/31/17 07/31/17 07/31/17 08/01/17 08/01/17 08/01/17 07:00 15:00 23:00 07:00 15:00 23:00 Intake Total 240 ml 720 ml 720 ml Output Total 600 ml 1200 ml 2650 ml Balance -360 ml -480 ml -1930 ml Intake Oral 240 ml 720 ml 720 ml Output Urine Total 600 ml 1200 ml 2650 ml # Bowel Movements 1 Result Diagram: 07/29/17 0541 08/01/17 0551 Imaging Last Impressions Chest X-Ray 07/28/17 1820 Signed Impressions: Service Date/Time: Friday, July 28, 2017 18:28 - CONCLUSION: 1. Cardiomegaly and findings of vascular congestion without overt failure. Melvin Faith MD Procedures None Other Results Laboratory Tests Test 07/28/17 18:28 07/28/17 19:50 07/28/17 21:00 07/29/17 05:41 Prothrombin Time 12.2 SEC Prothromb Time International Ratio 1.1 RATIO Activated Partial Thromboplast Time 29.2 SEC Blood Urea Nitrogen 20 MG/DL Creatinine 1.22 MG/DL Random Glucose 92 MG/DL Total Protein 7.6 GM/DL Albumin 3.5 GM/DL Calcium Level 8.8 MG/DL Magnesium Level 2.0 MG/DL Alkaline Phosphatase 95 U/L Aspartate Amino Transf (AST/SGOT) 15 U/L Alanine Aminotransferase (ALT/SGPT) 20 U/L Total Bilirubin 1.0 MG/DL Sodium Level 138 MEQ/L Potassium Level 3.9 MEQ/L Chloride Level 104 MEQ/L Carbon Dioxide Level 22.0 MEQ/L B-Type Natriuretic Peptide 497 PG/ML Digoxin Level LESS THAN 0.1 NG/ML Urine Opiates Screen NEG Urine Barbiturates Screen NEG Urine Amphetamines Screen NEG Urine Benzodiazepines Screen NEG Urine Cocaine Screen NEG Urine Cannabinoids Screen NEG White Blood Count 12.1 TH/MM3 Red Blood Count 4.85 MIL/MM3 Hemoglobin 14.4 GM/DL Hematocrit 43.1 % Mean Corpuscular Volume 88.8 FL Mean Corpuscular Hemoglobin 29.8 PG Mean Corpuscular Hemoglobin Concent 33.5 % Red Cell Distribution Width 15.6 % Platelet Count 285 TH/MM3 Mean Platelet Volume 9.3 FL Neutrophils (%) (Auto) 72.5 % Lymphocytes (%) (Auto) 16.8 % Monocytes (%) (Auto) 8.3 % Eosinophils (%) (Auto) 1.3 % Basophils (%) (Auto) 1.1 % Neutrophils # (Auto) 8.8 TH/MM3 Lymphocytes # (Auto) 2.0 TH/MM3 Monocytes # (Auto) 1.0 TH/MM3 Eosinophils # (Auto) 0.2 TH/MM3 Basophils # (Auto) 0.1 TH/MM3 CBC Comment DIFF FINAL Differential Comment Total Creatine Kinase 31 U/L Troponin I LESS THAN 0.02 NG/ML Test 08/01/17 05:51 Blood Urea Nitrogen 23 MG/DL Creatinine 1.20 MG/DL Random Glucose 80 MG/DL Calcium Level 8.8 MG/DL Magnesium Level 2.2 MG/DL Sodium Level 134 MEQ/L Potassium Level 5.4 MEQ/L Chloride Level 102 MEQ/L Carbon Dioxide Level 19.6 MEQ/L Anion Gap 12 MEQ/L Estimat Glomerular Filtration Rate 64 ML/MIN Objective Remarks GENERAL: Well-developed patient, in no apparent distress. SKIN: No rashes, ecchymoses or lesions. Cool and dry. HEAD: Atraumatic. Normocephalic. No temporal or scalp tenderness. EYES: Pupils equal round and reactive. Extraocular motions intact. No scleral icterus. No injection or drainage. ENT: Nose without bleeding, purulent drainage or septal hematoma. NECK: Trachea midline. No JVD or lymphadenopathy. Supple, nontender, no meningeal signs. CARDIOVASCULAR: Irregular rate and rhythm. RESPIRATORY: Clear to auscultation. Breath sounds equal bilaterally. No wheezes , rales, or rhonchi. GASTROINTESTINAL: Abdomen soft, non-tender, nondistended. No hepato-splenomegaly , or palpable masses. No guarding. MUSCULOSKELETAL: Extremities without clubbing, cyanosis, or edema. No joint tenderness, effusion, or edema noted. No calf tenderness. Negative Homans sign bilaterally. NEUROLOGICAL: Awake and alert. No focal Deficits. Medications and IVs Current Medications Medications (Trade) Dose Ordered Sig/Jackson Route Start Time Stop Time Status Last Admin (NS Flush) 2 ml UNSCH PRN IV FLUSH 07/28/17 20:15 07/30/17 11:12 (NS Flush) 2 ml BID IV FLUSH 07/28/17 21:00 08/01/17 09:29 (Narcan Inj) 0.4 mg UNSCH PRN IV PUSH 07/28/17 20:15 (Cordarone) 200 mg DAILY PO 07/29/17 09:00 08/01/17 09:28 (Aspirin) 325 mg DAILY PO 07/29/17 09:00 08/01/17 09:29 (Lanoxin) 0.25 mg DAILY PO 07/29/17 09:00 08/01/17 09:29 (Cardizem) 90 mg Q6HR PO 07/29/17 00:00 08/01/17 13:47 (KCl) 20 meq BID PO 07/29/17 09:00 08/01/17 09:29 (Atrovent Neb) 0.5 mg Q6HR NEB NEB 07/29/17 04:00 08/01/17 07:41 (Atrovent Neb) 0.5 mg Q2HR NEB PRN NEB 07/28/17 22:30 (Morphine Inj) 2 mg Q3H PRN IV PUSH 07/28/17 22:30 08/01/17 03:30 (Coreg) 6.25 mg Q12HR PO 07/29/17 09:00 08/01/17 09:29 Diltiazem HCl 125 mg/Sodium Chloride 125 ml @ 5 mls/hr TITRATE PRN IV 07/29/17 10:00 (Eliquis) 5 mg BID PO 07/29/17 09:00 Future Hold 07/30/17 08:48 (Protonix) 40 mg DAILY PO 07/30/17 09:00 08/01/17 09:29 (Zofran Inj) 4 mg Q4H PRN IV PUSH 07/29/17 20:15 07/30/17 20:34 Lactated Ringer's 1,000 ml @ 30 mls/hr Q24H PRN IV 08/01/17 02:45 08/04/17 02:44 Sodium Chloride 500 ml @ 30 mls/hr [id number] PRN IV 08/01/17 02:45 08/04/17 02:44 (Betadine 5% Antisepsis Kit) 1 applic EDUCATIONAL INSTITUTION CURATOR PRN EACH NARE 08/01/17 02:45 08/04/17 02:44 (Chlorhexidine 2% Cloth) 3 pack EDUCATIONAL INSTITUTION CURATOR PRN TOPICAL 08/01/17 02:45 08/04/17 02:44 (NovoLIN R INJ) See Protocol Table ... EDUCATIONAL INSTITUTION CURATOR PRN SQ 08/01/17 02:45 08/04/17 02:44 A/P Assessment and Plan 1. Atrial Fibrillation with RVR, desktop specialist following, with Diagnosis of Atrial fibrillation with RVR, Cardiomyopathy, EF 25-30%, COPD, on Cardizem drip and by mouth, Digoxin, Amiodarone, recommended due to CHADS Vasc score of 2 to resume Eliquis, he is non compliant with his medications, started on Carvedilol 6.25 mg BID and he has been clean from Cocaine for one month, scheduled for Cardiac Ablation for 08/04/17 2. Acute on chronic Systolic heart Failure secondary to Cocaine abuse. 3. Atypical Chest pain Improved. 4. Subtherapeutic Digoxin level 5. Hypertension controlled. 6. Cocaine abuse by history strongly recommended to stop behavior. 7. Acute kidney injury Improved 8. Hyperkalemia Iatrogenic the patient is on Potassium Chloride Potassium level 5.4 will hold his medicine and follow in am tomorrow. Discussed with patient, all questions answered to the best of my abilities. DVT prophylaxis with Heparin. Discharge Planning Once cleared by specialists,. Jake Angulo MD Aug 01, 2017 14:10
--- NOTE | 2017-08-01 14:49 | HHI.PR ---
Subjective Remarks Tired Objective Vital Signs Date Time Temp Pulse Resp B/P (MAP) Pulse Ox O2 Delivery O2 Flow Rate FiO2 08/01/17 14:04 70 08/01/17 13:48 76 08/01/17 12:00 72 08/01/17 11:35 97 21 08/01/17 11:00 66 08/01/17 11:00 98.0 62 16 125/66 (85) 97 08/01/17 10:39 97.3 74 16 124/68 (86) 95 08/01/17 09:00 72 08/01/17 08:00 80 08/01/17 07:43 99 Nasal Cannula 2.00 08/01/17 07:30 84 08/01/17 06:00 78 08/01/17 05:00 68 08/01/17 04:00 68 08/01/17 03:00 98.3 73 24 124/68 (86) 97 08/01/17 03:00 74 08/01/17 02:00 68 08/01/17 01:00 70 08/01/17 00:00 68 07/31/17 23:00 96.8 76 32 109/67 (81) 99 07/31/17 23:00 65 07/31/17 22:00 68 07/31/17 21:00 64 07/31/17 20:00 98.2 69 16 111/74 (86) 98 07/31/17 20:00 70 07/31/17 19:00 79 07/31/17 18:39 74 07/31/17 17:00 72 07/31/17 16:24 69 07/31/17 15:00 67 07/31/17 15:00 98.3 74 16 91/53 (66) 94 I/O 07/31/17 07/31/17 07/31/17 08/01/17 08/01/17 08/01/17 07:00 15:00 23:00 07:00 15:00 23:00 Intake Total 240 ml 720 ml 720 ml Output Total 600 ml 1200 ml 2650 ml Balance -360 ml -480 ml -1930 ml Intake Oral 240 ml 720 ml 720 ml Output Urine Total 600 ml 1200 ml 2650 ml # Bowel Movements 1 Result Diagram: 07/29/17 0541 08/01/17 0551 Imaging Alert, fully oriented Lungs: ventilated Heart: S1, S2 irregular abdomen: obese, no mass, no bruit Ext: no edema Last Impressions Chest X-Ray 07/28/17 1820 Signed Impressions: Service Date/Time: Friday, July 28, 2017 18:28 - CONCLUSION: 1. Cardiomegaly and findings of vascular congestion without overt failure. Melvin Faith MD Current Medications Medications (Trade) Dose Ordered Sig/Jackson Route Start Time Stop Time Status Last Admin (NS Flush) 2 ml UNSCH PRN IV FLUSH 07/28/17 20:15 07/30/17 11:12 (NS Flush) 2 ml BID IV FLUSH 07/28/17 21:00 08/01/17 09:29 (Narcan Inj) 0.4 mg UNSCH PRN IV PUSH 07/28/17 20:15 (Cordarone) 200 mg DAILY PO 07/29/17 09:00 08/01/17 09:28 (Aspirin) 325 mg DAILY PO 07/29/17 09:00 08/01/17 09:29 (Lanoxin) 0.25 mg DAILY PO 07/29/17 09:00 08/01/17 09:29 (Cardizem) 90 mg Q6HR PO 07/29/17 00:00 08/01/17 13:47 (Atrovent Neb) 0.5 mg Q6HR NEB NEB 07/29/17 04:00 08/01/17 07:41 (Atrovent Neb) 0.5 mg Q2HR NEB PRN NEB 07/28/17 22:30 (Morphine Inj) 2 mg Q3H PRN IV PUSH 07/28/17 22:30 08/01/17 03:30 (Coreg) 6.25 mg Q12HR PO 07/29/17 09:00 08/01/17 09:29 Diltiazem HCl 125 mg/Sodium Chloride 125 ml @ 5 mls/hr TITRATE PRN IV 07/29/17 10:00 (Eliquis) 5 mg BID PO 07/29/17 09:00 Future Hold 07/30/17 08:48 (Protonix) 40 mg DAILY PO 07/30/17 09:00 08/01/17 09:29 (Zofran Inj) 4 mg Q4H PRN IV PUSH 07/29/17 20:15 07/30/17 20:34 Lactated Ringer's 1,000 ml @ 30 mls/hr Q24H PRN IV 08/01/17 02:45 08/04/17 02:44 Sodium Chloride 500 ml @ 30 mls/hr [id number] PRN IV 08/01/17 02:45 08/04/17 02:44 (Betadine 5% Antisepsis Kit) 1 applic ISOTOPE HYDROLOGIST PRN EACH NARE 08/01/17 02:45 08/04/17 02:44 (Chlorhexidine 2% Cloth) 3 pack ISOTOPE HYDROLOGIST PRN TOPICAL 08/01/17 02:45 08/04/17 02:44 (NovoLIN R INJ) See Protocol Table ... ISOTOPE HYDROLOGIST PRN SQ 08/01/17 02:45 08/04/17 02:44 Procedures None Assessment and Plan Problem List: (1) CHF (congestive heart failure) ICD Codes: I50.9 - Heart failure, unspecified Plan: Creatinine improve Entresto will be initiated (2) Atrial fibrillation with RVR ICD Codes: I48.91 - Unspecified atrial fibrillation Status: Acute Plan: Afib w FVR On multiple medication. Eliquis will be reinitiated Ablation was scheduled for today. Was rescheduled because anesthesia short on staff case discussed with patient Afib ablation Friday AM Shiva Benton MD Aug 01, 2017 14:49
[2017-08-01] MEDS: SACUBITRIL/VALSARTAN 24 MG-26 MG TAB PO SCH (20:04)
[2017-08-01] MEDS: APIXABAN 5 MG TABLET PO SCH (20:05)
[2017-08-02] VITALS (28 sets, daily range): BP systolic 102–120; BP diastolic 70–85; PULSE 47–77; RESP 16–20; TEMP 97.7–98.4; O2SAT 95–100
[2017-08-02] MEDS: RESP: IPRATROPIUM 0.5 MG/2.5 ML NEB NEB SCH ×4 (05:10→21:07)
[2017-08-02] MEDS: DILTIAZEM HCL 90 MG TAB PO SCH ×3 (05:16→17:37)
[2017-08-02] MEDS: MORPHINE SULFATE 2 MG/ML INJ IV PUSH PRN ×5 (05:18→23:35)
[2017-08-02 05:40] LABS: POTASSIUM 4.1 MEQ/L (3.5-5.1)
--- NOTE | 2017-08-02 09:22 | PD.CARD.PN ---
Subjective Subjective Remarks The chart was reviewed. The patient denies chest pain, palpitations, shortness of breath, bleeding or GI symptoms. Telemetry reveals controlled atrial fibrillation. Objective Medications Review Current Medications Medications (Trade) Dose Ordered Sig/Jackson Route Start Time Stop Time Status Last Admin (NS Flush) 2 ml UNSCH PRN IV FLUSH 07/28/17 20:15 07/30/17 11:12 (NS Flush) 2 ml BID IV FLUSH 07/28/17 21:00 08/01/17 20:04 (Narcan Inj) 0.4 mg UNSCH PRN IV PUSH 07/28/17 20:15 (Cordarone) 200 mg DAILY PO 07/29/17 09:00 08/01/17 09:28 (Lanoxin) 0.25 mg DAILY PO 07/29/17 09:00 08/01/17 09:29 (Cardizem) 90 mg Q6HR PO 07/29/17 00:00 08/02/17 05:16 (Atrovent Neb) 0.5 mg Q6HR NEB NEB 07/29/17 04:00 08/02/17 05:10 (Atrovent Neb) 0.5 mg Q2HR NEB PRN NEB 07/28/17 22:30 (Morphine Inj) 2 mg Q3H PRN IV PUSH 07/28/17 22:30 08/02/17 05:18 (Coreg) 6.25 mg Q12HR PO 07/29/17 09:00 08/01/17 20:05 Diltiazem HCl 125 mg/Sodium Chloride 125 ml @ 5 mls/hr TITRATE PRN IV 07/29/17 10:00 (Eliquis) 5 mg BID PO 07/29/17 09:00 Future hold 08/01/17 20:05 (Protonix) 40 mg DAILY PO 07/30/17 09:00 08/01/17 09:29 (Zofran Inj) 4 mg Q4H PRN IV PUSH 07/29/17 20:15 07/30/17 20:34 Lactated Ringer's 1,000 ml @ 30 mls/hr Q24H PRN IV 08/01/17 02:45 08/04/17 02:44 Sodium Chloride 500 ml @ 30 mls/hr [id number] PRN IV 08/01/17 02:45 08/04/17 02:44 (Betadine 5% Antisepsis Kit) 1 applic INSPECTOR WEIGHTS AND MEASURES PRN EACH NARE 08/01/17 02:45 08/04/17 02:44 (Chlorhexidine 2% Cloth) 3 pack INSPECTOR WEIGHTS AND MEASURES PRN TOPICAL 08/01/17 02:45 08/04/17 02:44 (NovoLIN R INJ) See Protocol Table ... INSPECTOR WEIGHTS AND MEASURES PRN SQ 08/01/17 02:45 08/04/17 02:44 (Entresto 24-26 Mg) 1 tab BID PO 08/01/17 21:00 08/01/17 20:04 Vital Signs / I&O Vital Signs Date Time Temp Pulse Resp B/P (MAP) Pulse Ox O2 Delivery O2 Flow Rate FiO2 08/02/17 09:19 61 08/02/17 08:13 66 08/02/17 07:27 98.4 77 16 119/83 (95) 95 08/02/17 07:27 Room Air 08/02/17 07:00 68 08/02/17 06:00 66 08/02/17 05:00 61 08/02/17 04:00 57 08/02/17 04:00 98.4 61 18 102/74 (83) 97 08/02/17 04:00 Room Air 08/02/17 03:00 65 08/02/17 02:00 62 08/02/17 01:00 74 08/02/17 00:00 67 08/02/17 00:00 98.2 67 18 120/85 (97) 98 08/01/17 23:00 74 08/01/17 22:00 62 08/01/17 21:00 76 08/01/17 20:45 100 08/01/17 20:00 57 08/01/17 20:00 98.0 57 18 149/101 (117) 96 08/01/17 18:35 74 08/01/17 17:18 82 08/01/17 15:23 72 08/01/17 15:23 97.8 72 18 102/70 (81) 95 08/01/17 14:04 70 08/01/17 13:48 76 08/01/17 12:00 72 08/01/17 11:35 97 21 08/01/17 11:00 66 08/01/17 11:00 98.0 62 16 125/66 (85) 97 08/01/17 10:39 97.3 74 16 124/68 (86) 95 I/O 08/01/17 08/01/17 08/01/17 08/02/17 08/02/17 08/02/17 07:00 15:00 23:00 07:00 15:00 23:00 Intake Total 720 ml 960 ml 480 ml Output Total 2650 ml 1400 ml 2400 ml Balance -1930 ml -440 ml -1920 ml Intake Oral 720 ml 960 ml 480 ml Output Urine Total 2650 ml 1400 ml 2400 ml # Bowel Movements 2 0 Physical Exam GENERAL: Well-nourished, well-developed patient in no apparent distress. SKIN: Warm and dry. NECK: JVD normal - less than or equal to 5 cm H20. CARDIOVASCULAR: Irregular rate and rhythm without murmurs, gallops, or rubs. RESPIRATORY: Normal breath sounds - equal bilaterally. No accessory muscle use. No wheezes, rales or rubs. PERIPHERY: No cyanosis, or edema. Laboratory Laboratory Tests Test 08/02/17 04:22 Blood Urea Nitrogen 17 MG/DL Creatinine 1.03 MG/DL Random Glucose 81 MG/DL Calcium Level 8.6 MG/DL Sodium Level 137 MEQ/L Potassium Level 4.1 MEQ/L Chloride Level 102 MEQ/L Carbon Dioxide Level 28.0 MEQ/L Anion Gap 7 MEQ/L Estimat Glomerular Filtration Rate 77 ML/MIN Assessment and Plan Problem List: (1) Atrial fibrillation with RVR ICD Codes: I48.91 - Unspecified atrial fibrillation Status: Acute (2) Cardiomyopathy ICD Codes: I42.9 - Cardiomyopathy, unspecified Status: Acute Assessment and Plan Problems: Atrial fibrillation Dilated cardiomyopathy Acute kidney injury-improved Tobacco and cocaine usage Recommendations: Substance abstinence Continue present medical regimen Atrial fibrillation ablation on Friday with probable defibrillator Friday. I will be available tomorrow if needed. All questions were answered. Problem Qualifiers (1) Cardiomyopathy: Qualified Codes: I42.7 - Cardiomyopathy due to drug and external agent Anton Blanton MD Aug 02, 2017 09:21
[2017-08-02] MEDS: SODIUM CHLORIDE 0.9% FLUSH 10 ML FLUSH IV FLUSH SCH ×2 (09:23→20:28)
[2017-08-02] MEDS: DIGOXIN 0.25 MG TAB PO SCH (09:24)
[2017-08-02] MEDS: PANTOPRAZOLE SOD 40 MG DELAYED RELEASE TAB PO SCH (09:24)
[2017-08-02] MEDS: APIXABAN 5 MG TABLET PO SCH ×2 (09:24→20:27)
[2017-08-02] MEDS: CARVEDILOL 6.25 MG TAB PO SCH ×2 (09:24→20:27)
[2017-08-02] MEDS: AMIODARONE 200 MG TAB PO SCH (09:24)
[2017-08-02] MEDS: SACUBITRIL/VALSARTAN 24 MG-26 MG TAB PO SCH ×2 (09:24→20:27)
--- NOTE | 2017-08-02 12:43 | HHI.PR ---
Subjective Remarks This is a pleasant 47 y/o Male who was admitted with Atypical Chest pain, Atrial Fibrillation, given Cardizem bolus and improved, he has Hypertension, CHF EF 25-30%, COPD, not recommended anticoagulation due to Cocaine abuse, continuous, endocrinology specialist Seen in his bedroom and discussed with nurse miss Tam, seen by endocrinology specialist with Diagnosis of Atrial fibrillation with RVR, Cardiomyopathy, EF 25-30%, COPD , on Cardizem drip and by mouth, Digoxin, Amiodarone, recommended due to CHADS Vasc score of 2 to resume Eliquis, he is non compliant with his medications, started on Carvedilol 6.25 mg BID and he has been clean from Cocaine for one month, consult to Doctor Chetan placed by Doctor Calvo for probable Ablation/AICD 07/30: Stable in his bedroom, resting in bed, no complaint. 07/31: patient scheduled for Cardiac Ablation for tomorrow, no complaint at this time, no chest pain. 08/01: Seen in his bedroom in the presence of Nurse Jannie, no nausea, vomit or diarrhea the Cardiac Ablation for next Friday08/04/17. 08/02: Stable no complaint, no nausea, vomit or diarrhea. Objective Vital Signs Date Time Temp Pulse Resp B/P (MAP) Pulse Ox O2 Delivery O2 Flow Rate FiO2 08/02/17 12:25 68 08/02/17 11:14 97.8 67 16 118/72 (87) 100 08/02/17 11:04 96 21 08/02/17 11:00 57 08/02/17 10:49 63 08/02/17 09:19 61 08/02/17 08:13 66 08/02/17 07:27 98.4 77 16 119/83 (95) 95 08/02/17 07:27 Room Air 08/02/17 07:00 68 08/02/17 06:00 66 08/02/17 05:00 61 08/02/17 04:00 57 08/02/17 04:00 98.4 61 18 102/74 (83) 97 08/02/17 04:00 Room Air 08/02/17 03:00 65 08/02/17 02:00 62 08/02/17 01:00 74 08/02/17 00:00 67 08/02/17 00:00 98.2 67 18 120/85 (97) 98 08/01/17 23:00 74 08/01/17 22:00 62 08/01/17 21:00 76 08/01/17 20:45 100 08/01/17 20:00 57 08/01/17 20:00 98.0 57 18 149/101 (117) 96 08/01/17 18:35 74 08/01/17 17:18 82 08/01/17 15:23 72 08/01/17 15:23 97.8 72 18 102/70 (81) 95 08/01/17 14:04 70 08/01/17 13:48 76 I/O 08/01/17 08/01/17 08/01/17 08/02/17 08/02/17 08/02/17 07:00 15:00 23:00 07:00 15:00 23:00 Intake Total 720 ml 960 ml 480 ml Output Total 2650 ml 1400 ml 2400 ml Balance -1930 ml -440 ml -1920 ml Intake Oral 720 ml 960 ml 480 ml Output Urine Total 2650 ml 1400 ml 2400 ml # Bowel Movements 2 0 Result Diagram: 07/29/17 0541 08/02/17 0422 Imaging Last Impressions Chest X-Ray 07/28/17 1820 Signed Impressions: Service Date/Time: Friday, July 28, 2017 18:28 - CONCLUSION: 1. Cardiomegaly and findings of vascular congestion without overt failure. Melvin Faith MD Procedures None Other Results Laboratory Tests Test 07/28/17 18:28 07/28/17 19:50 07/28/17 21:00 07/29/17 05:41 Prothrombin Time 12.2 SEC Prothromb Time International Ratio 1.1 RATIO Activated Partial Thromboplast Time 29.2 SEC Blood Urea Nitrogen 20 MG/DL Creatinine 1.22 MG/DL Random Glucose 92 MG/DL Total Protein 7.6 GM/DL Albumin 3.5 GM/DL Calcium Level 8.8 MG/DL Magnesium Level 2.0 MG/DL Alkaline Phosphatase 95 U/L Aspartate Amino Transf (AST/SGOT) 15 U/L Alanine Aminotransferase (ALT/SGPT) 20 U/L Total Bilirubin 1.0 MG/DL Sodium Level 138 MEQ/L Potassium Level 3.9 MEQ/L Chloride Level 104 MEQ/L Carbon Dioxide Level 22.0 MEQ/L B-Type Natriuretic Peptide 497 PG/ML Digoxin Level LESS THAN 0.1 NG/ML Urine Opiates Screen NEG Urine Barbiturates Screen NEG Urine Amphetamines Screen NEG Urine Benzodiazepines Screen NEG Urine Cocaine Screen NEG Urine Cannabinoids Screen NEG White Blood Count 12.1 TH/MM3 Red Blood Count 4.85 MIL/MM3 Hemoglobin 14.4 GM/DL Hematocrit 43.1 % Mean Corpuscular Volume 88.8 FL Mean Corpuscular Hemoglobin 29.8 PG Mean Corpuscular Hemoglobin Concent 33.5 % Red Cell Distribution Width 15.6 % Platelet Count 285 TH/MM3 Mean Platelet Volume 9.3 FL Neutrophils (%) (Auto) 72.5 % Lymphocytes (%) (Auto) 16.8 % Monocytes (%) (Auto) 8.3 % Eosinophils (%) (Auto) 1.3 % Basophils (%) (Auto) 1.1 % Neutrophils # (Auto) 8.8 TH/MM3 Lymphocytes # (Auto) 2.0 TH/MM3 Monocytes # (Auto) 1.0 TH/MM3 Eosinophils # (Auto) 0.2 TH/MM3 Basophils # (Auto) 0.1 TH/MM3 CBC Comment DIFF FINAL Differential Comment Total Creatine Kinase 31 U/L Troponin I LESS THAN 0.02 NG/ML Test 08/01/17 05:51 08/02/17 04:22 Blood Urea Nitrogen 23 MG/DL 17 MG/DL Creatinine 1.20 MG/DL 1.03 MG/DL Random Glucose 80 MG/DL 81 MG/DL Calcium Level 8.8 MG/DL 8.6 MG/DL Magnesium Level 2.2 MG/DL Sodium Level 134 MEQ/L 137 MEQ/L Potassium Level 5.4 MEQ/L 4.1 MEQ/L Chloride Level 102 MEQ/L 102 MEQ/L Carbon Dioxide Level 19.6 MEQ/L 28.0 MEQ/L Anion Gap 7 MEQ/L Estimat Glomerular Filtration Rate 77 ML/MIN Objective Remarks GENERAL: Well-developed patient, in no apparent distress. SKIN: No rashes, ecchymoses or lesions. Cool and dry. HEAD: Atraumatic. Normocephalic. No temporal or scalp tenderness. EYES: Pupils equal round and reactive. Extraocular motions intact. No scleral icterus. No injection or drainage. ENT: Nose without bleeding, purulent drainage or septal hematoma. NECK: Trachea midline. No JVD or lymphadenopathy. Supple, nontender, no meningeal signs. CARDIOVASCULAR: Irregular rate and rhythm. RESPIRATORY: Clear to auscultation. Breath sounds equal bilaterally. No wheezes , rales, or rhonchi. GASTROINTESTINAL: Abdomen soft, non-tender, nondistended. No hepato-splenomegaly , or palpable masses. No guarding. MUSCULOSKELETAL: Extremities without clubbing, cyanosis, or edema. No joint tenderness, effusion, or edema noted. No calf tenderness. Negative Homans sign bilaterally. NEUROLOGICAL: Awake and alert. No focal Deficits. Medications and IVs Current Medications Medications (Trade) Dose Ordered Sig/Jackson Route Start Time Stop Time Status Last Admin (NS Flush) 2 ml UNSCH PRN IV FLUSH 07/28/17 20:15 07/30/17 11:12 (NS Flush) 2 ml BID IV FLUSH 07/28/17 21:00 08/02/17 09:23 (Narcan Inj) 0.4 mg UNSCH PRN IV PUSH 07/28/17 20:15 (Cordarone) 200 mg DAILY PO 07/29/17 09:00 08/02/17 09:24 (Lanoxin) 0.25 mg DAILY PO 07/29/17 09:00 08/02/17 09:24 (Cardizem) 90 mg Q6HR PO 07/29/17 00:00 08/02/17 11:20 (Atrovent Neb) 0.5 mg Q6HR NEB NEB 07/29/17 04:00 08/02/17 11:04 (Atrovent Neb) 0.5 mg Q2HR NEB PRN NEB 07/28/17 22:30 (Morphine Inj) 2 mg Q3H PRN IV PUSH 07/28/17 22:30 08/02/17 11:20 (Coreg) 6.25 mg Q12HR PO 07/29/17 09:00 08/02/17 09:24 Diltiazem HCl 125 mg/Sodium Chloride 125 ml @ 5 mls/hr TITRATE PRN IV 07/29/17 10:00 (Eliquis) 5 mg BID PO 07/29/17 09:00 Future hold 08/02/17 09:24 (Protonix) 40 mg DAILY PO 07/30/17 09:00 08/02/17 09:24 (Zofran Inj) 4 mg Q4H PRN IV PUSH 07/29/17 20:15 07/30/17 20:34 Lactated Ringer's 1,000 ml @ 30 mls/hr Q24H PRN IV 08/01/17 02:45 08/04/17 02:44 Sodium Chloride 500 ml @ 30 mls/hr [id number] PRN IV 08/01/17 02:45 08/04/17 02:44 (Betadine 5% Antisepsis Kit) 1 applic LIFE SKILLS TEACHER PRN EACH NARE 08/01/17 02:45 08/04/17 02:44 (Chlorhexidine 2% Cloth) 3 pack LIFE SKILLS TEACHER PRN TOPICAL 08/01/17 02:45 08/04/17 02:44 (NovoLIN R INJ) See Protocol Table ... LIFE SKILLS TEACHER PRN SQ 08/01/17 02:45 08/04/17 02:44 (Entresto 24-26 Mg) 1 tab BID PO 08/01/17 21:00 08/02/17 09:24 A/P Assessment and Plan 1. Atrial Fibrillation with RVR, endocrinology specialist following, with Diagnosis of Atrial fibrillation with RVR, Cardiomyopathy, EF 25-30%, COPD, on Cardizem drip and by mouth, Digoxin, Amiodarone, recommended due to CHADS Vasc score of 2 to resume Eliquis, he is non compliant with his medications, started on Carvedilol 6.25 mg BID and he has been clean from Cocaine for one month, scheduled for Cardiac Ablation for 08/04/17 2. Acute on chronic Systolic heart Failure secondary to Cocaine abuse. 3. Atypical Chest pain Improved. 4. Subtherapeutic Digoxin level 5. Hypertension controlled. 6. Cocaine abuse by history strongly recommended to stop behavior. 7. Acute kidney injury Improved 8. Hyperkalemia Iatrogenic the patient is on Potassium Chloride Potassium level 5.4 will hold his medicine and follow in am tomorrow. Discussed with patient, all questions answered to the best of my abilities. DVT prophylaxis with Heparin. No changes to anterior assessment waiting for his Cardiac Ablation next Friday08/04/17 Discharge Planning Once cleared by specialists,. Jake Angulo MD Aug 02, 2017 12:43
[2017-08-02] MEDS: DILTIAZEM HCL 60 MG TAB PO SCH ×2 (18:00→23:32)
[2017-08-03] VITALS (28 sets, daily range): BP systolic 113–143; BP diastolic 56–87; PULSE 62–86; RESP 16–18; TEMP 97.8–98.6; O2SAT 95–100
[2017-08-03 02:32] LABS: MAGNESIUM 1.9 MG/DL (1.5-2.5); POTASSIUM 4.4 MEQ/L (3.5-5.1)
[2017-08-03] MEDS: RESP: IPRATROPIUM 0.5 MG/2.5 ML NEB NEB SCH ×4 (03:15→21:41)
[2017-08-03] MEDS: DILTIAZEM HCL 60 MG TAB PO SCH ×4 (05:34→23:22)
[2017-08-03] MEDS: MORPHINE SULFATE 2 MG/ML INJ IV PUSH PRN ×4 (05:35→23:23)
[2017-08-03] MEDS: PANTOPRAZOLE SOD 40 MG DELAYED RELEASE TAB PO SCH (09:32)
[2017-08-03] MEDS: DIGOXIN 0.25 MG TAB PO SCH (09:32)
[2017-08-03] MEDS: APIXABAN 5 MG TABLET PO SCH ×2 (09:32→21:24)
[2017-08-03] MEDS: AMIODARONE 200 MG TAB PO SCH (09:32)
[2017-08-03] MEDS: CARVEDILOL 6.25 MG TAB PO SCH ×2 (09:33→21:23)
[2017-08-03] MEDS: SACUBITRIL/VALSARTAN 24 MG-26 MG TAB PO SCH ×2 (09:33→21:23)
[2017-08-03] MEDS: SODIUM CHLORIDE 0.9% FLUSH 10 ML FLUSH IV FLUSH SCH ×2 (09:33→21:24)
--- NOTE | 2017-08-03 10:57 | HHI.PR ---
Subjective Remarks This is a pleasant 47 y/o Male who was admitted with Atypical Chest pain, Atrial Fibrillation, given Cardizem bolus and improved, he has Hypertension, CHF EF 25-30%, COPD, not recommended anticoagulation due to Cocaine abuse, continuous, physical security specialist Seen in his bedroom and discussed with nurse Anel, seen by physical security specialist with Diagnosis of Atrial fibrillation with RVR, Cardiomyopathy, EF 25-30%, COPD , on Cardizem drip and by mouth, Digoxin, Amiodarone, recommended due to CHADS Vasc score of 2 to resume Eliquis, he is non compliant with his medications, started on Carvedilol 6.25 mg BID and he has been clean from Cocaine for one month, consult to Doctor Chetan placed by Doctor Umesh for probable Ablation/AICD 07/30: Stable in his bedroom, resting in bed, no complaint. 07/31: patient scheduled for Cardiac Ablation for tomorrow, no complaint at this time, no chest pain. 08/01: Seen in his bedroom in the presence of Nurse Miss Valderrama, no nausea, vomit or diarrhea the Cardiac Ablation for next Friday08/04/17. 08/02: Stable no complaint, no nausea, vomit or diarrhea. 08-03 to have ablation tomorrow the and AICD placement on the No current complaints Discussed with patient and RN Objective Vitals Vital Signs Date Time Temp Pulse Resp B/P (MAP) Pulse Ox O2 Delivery O2 Flow Rate FiO2 08/03/17 10:21 95 21 08/03/17 10:00 62 08/03/17 09:45 77 08/03/17 08:53 70 08/03/17 07:36 Room Air 08/03/17 07:36 97.8 74 16 120/87 (98) 96 08/03/17 07:00 77 08/03/17 06:00 65 08/03/17 05:00 64 08/03/17 04:00 73 08/03/17 04:00 Room Air 08/03/17 04:00 98.6 73 18 121/74 (90) 97 08/03/17 03:00 69 08/03/17 02:00 70 08/03/17 01:00 65 08/03/17 00:00 98.2 72 18 121/75 (90) 98 08/03/17 00:00 72 08/03/17 00:00 Room Air 08/02/17 23:00 69 08/02/17 22:00 70 08/02/17 21:09 100 21 08/02/17 21:00 69 08/02/17 20:00 Room Air 08/02/17 20:00 77 08/02/17 20:00 98.0 77 20 118/70 (86) 98 08/02/17 18:11 54 08/02/17 17:03 54 08/02/17 16:10 47 08/02/17 15:35 51 08/02/17 15:08 97.7 57 16 119/75 (90) 99 08/02/17 14:00 52 08/02/17 13:25 58 08/02/17 12:25 68 08/02/17 11:14 97.8 67 16 118/72 (87) 100 08/02/17 11:04 96 21 08/02/17 11:00 57 I/O 08/02/17 08/02/17 08/02/17 08/03/17 08/03/17 08/03/17 07:00 15:00 23:00 07:00 15:00 23:00 Intake Total 480 ml 720 ml 480 ml Output Total 2400 ml 1100 ml 2100 ml Balance -1920 ml -380 ml -1620 ml Intake Oral 480 ml 720 ml 480 ml Output Urine Total 2400 ml 1100 ml 2100 ml # Bowel Movements 0 1 0 Result Diagram: 08/03/17 0140 Other Results Laboratory Tests Test 08/01/17 05:51 08/02/17 04:22 08/03/17 01:40 Blood Urea Nitrogen 23 MG/DL 17 MG/DL Creatinine 1.20 MG/DL 1.03 MG/DL Random Glucose 80 MG/DL 81 MG/DL Calcium Level 8.8 MG/DL 8.6 MG/DL Magnesium Level 2.2 MG/DL 1.9 MG/DL Sodium Level 134 MEQ/L 137 MEQ/L Potassium Level 5.4 MEQ/L 4.1 MEQ/L 4.4 MEQ/L Chloride Level 102 MEQ/L 102 MEQ/L Carbon Dioxide Level 19.6 MEQ/L 28.0 MEQ/L Anion Gap 12 MEQ/L 7 MEQ/L Estimat Glomerular Filtration Rate 64 ML/MIN 77 ML/MIN Imaging Last Impressions Chest X-Ray 07/28/17 1820 Signed Impressions: Service Date/Time: Friday, July 28, 2017 18:28 - CONCLUSION: 1. Cardiomegaly and findings of vascular congestion without overt failure. Melvin Faith MD Objective Remarks GENERAL: Awake alert and oriented talkative and cooperative SKIN: Warm and dry. HEAD: Atraumatic. Normocephalic. EYES: Pupils equal and round. No scleral icterus. No injection or drainage. Extraocular muscles intact ENT: No nasal bleeding or discharge. Mucous membranes pink and moist. Tongue is midline NECK: Trachea midline. No JVD. Supple CARDIOVASCULAR: IRRegular rate and rhythm. S1 and S2 no S3 or S4 RESPIRATORY: No accessory muscle use. Clear to auscultation. Breath sounds equal bilaterally. GASTROINTESTINAL: Abdomen soft, non-tender, nondistended. Hepatic and splenic margins not palpable. MUSCULOSKELETAL: Extremities without clubbing, cyanosis, or edema. No obvious deformities. NEUROLOGICAL: Awake and alert. No obvious cranial nerve deficits. Motor grossly within normal limits. Five out of 5 muscle strength in the arms and legs. Normal speech. PSYCHIATRIC: Appropriate mood and affect; insight and judgment normal. Medications and IVs Current Medications Diltiazem HCl (Cardizem Inj) 25 mg BOLUS ONCE IV PUSH Last administered on 18:30; Start 07/28/17 at 18:30; Stop 07/28/17 at 18:31; Status DC IV Flush (NS Flush) 2 ml UNSCH PRN IV FLUSH FLUSH AFTER USING IV ACCESS; Start 07/28/17 at 18:30; Stop 07/28/17 at 20:11; Status DC Diltiazem HCl 125 mg/Sodium Chloride 125 ml @ 5 mls/hr TITRATE PRN IV tachycardia Last administered on 07/29/17 03:45; Start 07/28/17 at 18:45; Stop 07/29/17 at 08:37; Status DC Ondansetron HCl (Zofran Inj) 4 mg ONCE ONCE IV PUSH Last administered on 19:49; Start 07/28/17 at 19:45; Stop 07/28/17 at 19:46; Status DC Sodium Chloride (NS Flush) 2 ml UNSCH PRN IV FLUSH FLUSH AFTER USING IV ACCESS Last administered on 07/30/17 11:12; Start 07/28/17 at 20:15 Sodium Chloride (NS Flush) 2 ml BID IV FLUSH Last administered on 08/03/17 09 :33; Start 07/28/17 at 21:00 Naloxone HCl (Narcan Inj) 0.4 mg UNSCH PRN IV PUSH SEE LABEL COMMENTS; Start 07/28/17 at 20:15 Furosemide (Lasix Inj) 40 mg BID@,18 IV PUSH Last administered on 07/29/17 09:19; Start 07/29/17 at 09:00; Stop 07/29/17 at 11:13; Status DC Furosemide (Lasix Inj) 40 mg ONCE ONCE IV PUSH Last administered on 07/28/17 20:35; Start 07/28/17 at 20:15; Stop 07/28/17 at 20:16; Status DC Potassium Chloride (KCl) 40 meq ONCE ONCE PO Last administered on 07/28/17 20 :35; Start 07/28/17 at 20:15; Stop 07/28/17 at 20:16; Status DC Amiodarone HCl (Cordarone) 200 mg DAILY PO Last administered on 08/03/17 09: 32; Start 07/29/17 at 09:00 Aspirin (Aspirin) 325 mg DAILY PO Last administered on 08/01/17 09:29; Start 07/29/17 at 09:00; Stop 08/01/17 at 14:51; Status DC Digoxin (Lanoxin) 0.25 mg DAILY PO Last administered on 08/03/17 09:32; Start 07/29/17 at 09:00 Diltiazem HCl (Cardizem) 90 mg Q6HR PO Last administered on 08/02/17 11:20; Start 07/29/17 at 00:00; Stop 08/02/17 at 17:46; Status DC Lisinopril (Prinivil) 5 mg DAILY PO Last administered on 07/30/17 08:48; Start 07/29/17 at 09:00; Stop 07/30/17 at 11:29; Status DC Potassium Chloride (KCl) 20 meq BID PO Last administered on 08/01/17 09:29; Start 07/29/17 at 09:00; Stop 08/01/17 at 14:11; Status DC Ipratropium [place] (Atrovent Neb) 0.5 mg Q6HR NEB NEB Last administered on 10:21; Start 07/29/17 at 04:00 Ipratropium [place] (Atrovent Neb) 0.5 mg Q2HR NEB PRN NEB wheezing; Start 07/28/17 at 22:30 Morphine Sulfate (Morphine Inj) 2 mg Q3H PRN IV PUSH pain >5, chest pain as well Last administered on 08/03/17 05:35; Start 07/28/17 at 22:30 Carvedilol (Coreg) 6.25 mg Q12HR PO Last administered on 08/03/17 09:33; Start 07/29/17 at 09:00 Diltiazem HCl 125 mg/Sodium Chloride 125 ml @ 5 mls/hr TITRATE PRN IV tachycardia; Start 07/29/17 at 10:00 Apixaban (Eliquis) 5 mg BID PO Last administered on 08/03/17 09:32; Start at 09:00; Status Future hold Pantoprazole Sodium (Protonix) 40 mg DAILY PO Last administered on 08/03/17 09:32; Start 07/30/17 at 09:00 Ondansetron HCl (Zofran Inj) 4 mg Q4H PRN IV PUSH NAUSEA Last administered on 07/30/17 20:34; Start 07/29/17 at 20:15 Lactated Ringer's 1,000 ml @ 30 mls/hr Q24H PRN IV SEE LABEL COMMENTS; Start 08/01/17 at 02:45; Stop 08/04/17 at 02:44 Sodium Chloride 500 ml @ 30 mls/hr [id number] PRN IV SEE LABEL COMMENTS; Start at 02:45; Stop 08/04/17 at 02:44 Metoprolol Tartrate (Lopressor) 25 mg SQL ENGINEER PRN PO SEE LABEL COMMENTS; Start 08/01/17 at 02:45; Stop 08/01/17 at 08:54; Status DC Povidone Iodine (Betadine 5% Antisepsis Kit) 1 applic SQL ENGINEER PRN EACH NARE SEE LABEL COMMENTS; Start 08/01/17 at 02:45; Stop 08/04/17 at 02:44 Chlorhexidine Gluconate (Chlorhexidine 2% Cloth) 3 pack SQL ENGINEER PRN TOPICAL SEE LABEL COMMENTS; Start 08/01/17 at 02:45; Stop 08/04/17 at 02:44 Insulin Human Regular (NovoLIN R INJ) See Protocol Table ... SQL ENGINEER PRN SQ SEE PROTOCOL TABLE; Start 08/01/17 at 02:45; Stop 08/04/17 at 02:44 Sacubitril/ Valsartan (Entresto 24-26 Mg) 1 tab BID PO Last administered on 09:33; Start 08/01/17 at 21:00 Diltiazem HCl (Cardizem) 60 mg Q6HR PO Last administered on 08/03/17 05:34; Start 08/02/17 at 18:00 Urinary Catheter: No Vascular Central Line Catheter: No A/P Assessment and Plan 1. Atrial Fibrillation with RVR, physical security specialist following, with Diagnosis of Atrial fibrillation with RVR, Cardiomyopathy, EF 25-30%, COPD, on Cardizem drip and by mouth, Digoxin, Amiodarone, recommended due to CHADS Vasc score of 2 to resume Eliquis, he is non compliant with his medications, started on Carvedilol 6.25 mg BID and he has been clean from Cocaine for one month, scheduled for Cardiac Ablation for 08/04/17 and AICD placement on 08/05/17 2. Acute on chronic Systolic heart Failure secondary to Cocaine abuse. 3. Atypical Chest pain Improved. 4. Subtherapeutic Digoxin level 5. Hypertension controlled. 6. Cocaine abuse by history strongly recommended to stop behavior. 7. Acute kidney injury Improved 8. Hyperkalemia Iatrogenic the patient is on Potassium Chloride Potassium level 5.4 will hold his medicine and follow in am tomorrow. Discussed with patient, all questions answered to the best of my abilities. DVT prophylaxis with Heparin. No changes to anterior assessment waiting for his Cardiac Ablation next Friday08/04/17 A.m. labs Discharge Planning After ablation and AICD are complete Kulwant Mckenna DO Aug 03, 2017 10:57
[2017-08-04] VITALS (23 sets, daily range): BP systolic 106–141; BP diastolic 44–88; PULSE 62–84; RESP 18–22; TEMP 97.8–98.6; O2SAT 94–99
[2017-08-04] MEDS: RESP: IPRATROPIUM 0.5 MG/2.5 ML NEB NEB SCH ×4 (04:00→19:44)
[2017-08-04] MEDS: DILTIAZEM HCL 60 MG TAB PO SCH (05:23)
[2017-08-04 06:31] LABS: AUTOMATED NEUTROPHIL # 7.1 TH/MM3 (1.8-7.7); BASOPHIL # 0.1 TH/MM3 (0-0.2); BASOPHIL % 0.9 % (0.0-2.0); EOSINOPHIL # 0.1 TH/MM3 (0-0.4); EOSINOPHIL % 1.1 % (0.0-4.0); HEMO FLAGS DIFF FINAL; LYMPH % 13.2 % (9.0-44.0); LYMPHOCYTE # 1.3 TH/MM3 (1.0-4.8); MEAN CELL VOLUME 87.7 FL (80.0-100.0); MEAN CORPUSCULAR HEMOGLOBIN 29.9 PG (27.0-34.0); MEAN CORPUSCULAR HGB CONC 34.1 % (32.0-36.0); NEUT % 73.8 % (16.0-70.0); PLATELET COUNT 338 TH/MM3 (150-450); RED BLOOD COUNT 5.82 MIL/MM3 (4.50-5.90); RED CELL DISTRIBUTION WIDTH 15.6 % (11.6-17.2); WHITE BLOOD COUNT 9.7 TH/MM3 (4.0-11.0)
[2017-08-04 06:34] LABS: INTERNATIONAL NORMALIZED RATIO 1.1 RATIO; PROTHROMBIN TIME - PATIENT 12.6 SEC (9.8-11.6)
[2017-08-04 06:51] LABS: ANION GAP 7 MEQ/L (5-15); BICARBONATE 25.9 MEQ/L (21.0-32.0); BLOOD UREA NITROGEN 13 MG/DL (7-18); CHLORIDE 101 MEQ/L (98-107); MAGNESIUM 2.1 MG/DL (1.5-2.5); SODIUM (NA) 134 MEQ/L (136-145)
[2017-08-04 07:00] LABS: ALKALINE PHOSPHATASE 89 U/L (45-117); ALT (GPT) 21 U/L (12-78); AST (GOT) 13 U/L (15-37); FREE T4 1.47 NG/DL (0.76-1.46); GLOMERULAR FILTRATION RATE 73 ML/MIN (>89); TOTAL BILIRUBIN ADULT 0.6 MG/DL (0.2-1.0)
[2017-08-04] MEDS: CARVEDILOL 6.25 MG TAB PO SCH (09:00)
[2017-08-04] MEDS: APIXABAN 5 MG TABLET PO SCH ×3 (09:00→21:35)
[2017-08-04] MEDS ORDERED: ISOPROTERENOL HCL 1 MG/5 ML AMP ONE (09:00)
[2017-08-04] MEDS ORDERED: HEPARIN-D5W 25,000 U/250 ML 250 ML ONE (09:00)
[2017-08-04] MEDS: DIGOXIN 0.25 MG TAB PO SCH (09:00)
[2017-08-04] MEDS: SACUBITRIL/VALSARTAN 24 MG-26 MG TAB PO SCH (09:00)
[2017-08-04] MEDS: PANTOPRAZOLE SOD 40 MG DELAYED RELEASE TAB PO SCH (09:00)
[2017-08-04] MEDS: AMIODARONE 200 MG TAB PO SCH (09:00)
[2017-08-04] MEDS: SODIUM CHLORIDE 0.9% FLUSH 10 ML FLUSH IV FLUSH SCH ×2 (09:00→21:35)
[2017-08-04] MEDS ORDERED: HEPARIN SODIUM - IV 10,000 UNITS/10 ML VIAL ONE (09:01)
[2017-08-04] MEDS ORDERED: PROTAMINE SULFATE 50 MG/5 ML VIAL ONE (09:01)
[2017-08-04] MEDS ORDERED: HEPARIN-NS/PF INJ 2,000 ML ONE (09:08)
[2017-08-04] MEDS ORDERED: LEVOFLOXACIN 500 MG PREMIX INJ 100 ML IV ONE (09:08)
--- NOTE | 2017-08-04 11:26 | PD.CARD ---
Atrial Fibrillation Ablation PROCEDURE DATE: Aug 04, 2017 PROCEDURES PERFORMED: 1. Electrophysiology study on Isuprel infusion 2. CS cannulation 3. 3-D mapping 4. Transseptal approach 5. Right and left heart catheterization 6. Intracardiac echo 7. Radiofrequency ablation of atrial fibrillation 8. Pulmonary vein isolation 9. Posterior wall ablation 10. Mitral valve isolation 11. Mitral line creation 12. Left atrial tachycardia ablation 13. Roof line creation 14. Floor line creation 15. Anterior wall ablation 16. Cardioversion INDICATIONS FOR THE PROCEDURE Mr. Pendleton is a 47-year-old male with atrial fibrillation , congestive heart failure, multiple hospitalization, referred for electrophysiology study and ablation. The risks, the nature and the benefits of the procedure were clearly stated to him. The risks include pneumothorax, cardiac perforation, stroke, need for open heart surgery and even . The patient understood and agreed to proceed. DESCRIPTION OF THE PROCEDURE IN DETAIL After written informed consent was obtained prior to esophageal echocardiogram, the patient was kept on the table where he was prepped and draped in the usual sterile fashion. Conscious sedation was initiated and maintained throughout the procedure by the anesthesiologist. Once sedation was verified, the right and left inguinal areas were anesthetized with 2% Xylocaine. Using modified Seldinger technique, the left femoral vein was cannulated on three occasions, three guidewires were advanced. Over the wire a 6, 7 and a 10-St Helenian Hemaquet were advanced. Then the left femoral artery was cannulated on one occasion, one guidewire was advanced. Over the wire a 4-St Helenian Hemaquet was advanced. Then the right femoral vein was cannulated on one occasion, one guidewire was advanced. Over the wire a 8-[employer] Helenian Hemaquet was advanced. Then under fluoroscopic guidance through the 6 and 7-St Helenian Hemaquet, two 5-St Helenian Enma curved quadripolar electrophysiology catheters were advanced and placed around the His as well as coronary sinus. Basic interval was measured. The patient was in atrial fibrillation. Through the 10-[employer] Helenian Hemaquet, a [employer] AcuNav intracardiac echo catheter was advanced and placed at the right atrium. Multiple view was obtained. There was no pericardial effusion, pulmonary vein was seen, atrial septal was visualized. Then the 8-St Helenian Hemaquet in the right femoral vein was exchanged for Agilis transseptal sheath that was placed all the way to the superior vena cava. Through the sheath a Neela needle was advanced, then the sheath, the dilator and the needle were progressed until foci engaged. Once engaged, the needle was advanced. RF was delivered for 2 seconds. I was able to cross into the left atrium. Once the needle crossed, the dilator was advanced. Once the dilator crossed, the sheath was advanced. Once the sheath crossed, the dilator and the needle were removed. At this point I did flood the system and fluid movement was seen in the left atrium the indicates the sheath is in good position. The patient already received 10,000 units of heparin. The goal is to keep an ACT around 350 during ablation. Then through the sheath a [employer]. Edi 20 pulse circumferential catheter was advanced. Using [employer] endocardial solution mapping system, a two-dimensional configuration of the left atrium was obtained. Points were taken at the left superior and inferior veins, right superior and inferior veins, mitral valve, and appendages. Then through the sheath a St. Edi TactiCath 65cm 3.5mm irrigated tipped mapping and radiofrequency ablation catheter was advanced. Esophageal probe was placed temperature monitoring during ablation. When it increased to 0.5 degrees Celsius above baseline, I moved to a different area of the atrium. First I did isolate the left superior and inferior vein. I did make a alturas around the veins. Posterior was ablated. Then a roof line was created, a floor line was created, a mitral line was isolated, then the mitral valve was isolated. At that point the patient was in left atrial tachycardia. I did create a line from the floor to the roof area, passing by the left atrial appendage. Then the right superior and inferior veins were isolated. I did remap the atrium. There is no significant signal in the atrium. At this point I decided to proceed with cardioversion. A 200 sync biphasic joule was delivered that converted the patient into sinus rhythm. At that point I did advance the circumferential catheter again into the vein. There was no signal into the vein, pacing from the vein showed no conduction to the atrium. Isuprel infusion was initiated at 10 mcg for over 10 minutes. No tachyarrhythmia was induced, post Isuprel no tachyarrhythmia was induced. At that point the procedure was complete. All catheters were removed, atrial septal sheath was exchanged for 9-St Helenian Hemaquet, intracardiac echo showed no pericardial effusion. There is still good flow in the pulmonary vein. The patient is going to be transferred to the recovery room. No incident report. The patient tolerated the procedure. Blood loss was minimal. FINDINGS 1. Electrocardiogram: At baseline the patient was in atrial fibrillation, post procedure the patient was in sinus rhythm. 2. Basic interval: Base cycle length was around 620. Post ablation she was around 960 milliseconds. AH at 130 and HV at 60 milliseconds. 3. Tachyarrhythmia: Atrial fibrillation was mapped and ablated. Atrial tachycardia was ablated. The ablation was successful. CONCLUSION Successful electrophysiology study, mapping, radiofrequency ablation of atrial fibrillation, left atrial tachycardia, pulmonary vein isolation, posterior ablation, mitral valve isolation, mitral line creation, roof line creation, floor line creation, left atrial tachycardia, and cardioversion. COMMENTS AND RECOMMENDATIONS The patient is going to be transferred to the telemetry unit. Will be observed. Defibrillator will be implanted tomorrow morning. Shiva Benton MD Aug 04, 2017 11:25
--- NOTE | 2017-08-04 11:29 | CATHPROC ---
[facility] HIS Report Study Information Study Number Admission Scheduled Start Study Start [id number] Jul 28 2017 8:05PM 07/31/2017 Jul 31 2017 2:00PM [place] Service Electrophysiology Study Admit Source Facility Department Other [facility] - Head Waiter Physician and Clinical Staff Initial Shiva Santiago Hotel Maintenance Worker Rigoberto Bautista,RT(R) Hotel Maintenance Worker Jennifer Zamorano,ANGELITA Other Anesthesia, PRECISION INSTRUMENT MAKER AND REPAIRER Recorder Camila Motley,PRISCILA Scrub Margarita Cannon,SHOE CLEANER TECH2 Procedures Performed Procedure Location (Site) Vessel Name Ablation Procedure Cardioversion ICE CATHETER INSERT RA Atruim RF Ablation LT. ATRIUM LT. ATRIUM Equipment Time Geophysical Prospector Description Size Mfg Part Number Used/Scraped NEEDLE, TRANSSEPTAL NRG 98 09:42 [facility] [id number] Used C1 [employer]/ EP 09:42 KIT, TRANSDUCER / AFIB [id number] Used PACER [id number] CATHETER, TACTICATH ABLAT BUNDLE 09:42 BUNDLE-[facility]. DAIJA Used 65 BUNDLE *[id number] BUNDLE [id number] CATHETER, FR7 OPTIMA SPIRAL 09:42 BUNDLE-[facility]. DAIJA FR7 *[id number] Used BUNDLE BUNDLE [id number] 09:42 BUNDLE-[employer]. DAIJA CATHETER, JSN, QUAD BUNDLE FR 5 *[id number]- Used BUNDLE [id number] 09:42 BUNDLE-[employer]. DAIJA CATHETER, JSN, QUAD BUNDLE FR 5 *[id number]- Used BUNDLE [id number] SET, COOL POINT TUBING 09:42 BUNDLE-ST. DAIJA *[id number]- Used BUNDLE BUNDLE SHEATH, FR8.5 STEERABLE SM 09:42 BUNDLE-ST. DAIJA 71CM [id number] Used 71CM BUNDLE COVER, TRANSDUCER CABLE 09:42 [employer] INSTRUMENTS [id number] Used ACUNAV 09:42 CORDIS/PACER SHEATH, FR10 OLIVE 11CM FR 10 [id number] Used 09:42 CORDIS/PACER SHEATH, FR9 OLIVE 11CM FR 9 [id number] Used [id number] 09:42 [employer] PACK, CCL CUSTOM * Used *[id number] 09:42 MEDLINE PACER WEST, LIMB * 9030 *[id number] Used [id number] 09:42 [employer] [facility] MEDICAL SHEATH, FR4.5 PRELUDE 11CM FR 4.5 Used [id number] 09:19 NAMIC TUBING, HIGH PRESSURE 20" 20" Used *[id number] 09:42 NAMIC TUBING, HIGH PRESSURE 48" 48" Used *[id number] 09:42 NAMIC TUBING, HIGH PRESSURE 48" 48" Used *[id number] 09:42 [facility],WARM AIR CCL * Used *[id number] 09:42 [facility] MEDICAL ELECTRODE KIT, SHYANNE X SURFACE * [id number] Used [id number] 09:43 [facility] MEDICAL SHEATH, EPS, FR6 FAST CATH FR 6 Used *[id number] [id number] 09:42 [facility] MEDICAL SHEATH, EPS, FR6 FAST CATH FR 6 Used *[id number] 09:42 [facility] MEDICAL SHEATH, EPS, FR7 FAST CATH FR 7 [id number] Used 644228 09:42 [facility] MEDICAL SHEATH, EPS, FR8 FAST CATH FR 8 Used *[id number] CATHETER, ACUNAV FR10 ICE [id number] 09:47 [place] FR 10 Used ([place]) *[id number] [facility] PAD, ELECTROSURGICAL 09:42 * [id number] *[id number] Used SURGICAL GROUNDING (BLUE) History: Allergies Allergy Reaction Sulfa HIVES Sulfa (Sulfonamide Antibiotics) HIVES History: Risk Factors Hypertension Previous Heart Failure Yes Yes Chronic Lung Disease Labs Hgb (g/dl) Hct (%) RBC (MIL/MM3) WBC (l/cumm) Platelets (thousands) 11.60-17.00 35.00-51.00 4.00-5.90 4.00-11.00 150.00-450.00 17.0 51 5.8 9.7 338 Glucose (mg/dl) BUN (mg/dl) Creatinine (mg/dl) BUN:Creatinine (1:x) 74.00-106.00 7.00-18.00 0.50-1.30 10.00-20.00 99 13 1.0 13 Na (meq/l) K (meq/l) 136.00-145.00 3.50-5.10 134 7 INR (PTT:PT) 0.90-1.10 1.1 Medication Medication Total Dose (Bolus/Oral) Medication Total Dosage/Unit 1% XYLOCAINE 40 mL HEPARIN 47509 units PROTAMINE 40 mg Medications (Bolus/Oral) Medication Time Given Dosage/Unit Administered By Reason 1% XYLOCAINE 08/04/2017 9:39:11 AM 20 mL Shiva Benton 20 mL 1% XYLOCAINE given in lab by Shiva Benton in Left Groin via Subcutaneous. 1% XYLOCAINE 08/04/2017 9:43:45 AM 20 mL Shiva Benton 20 mL 1% XYLOCAINE given in lab by Shiva Benton in Right Groin via Subcutaneous. HEPARIN 08/04/2017 9:51:24 AM 52773 units Anesthesia, PRECISION INSTRUMENT MAKER AND REPAIRER As per physicians v erbal order 70274 units HEPARIN given in lab by Anesthesia, PRECISION INSTRUMENT MAKER AND REPAIRER via Peripheral IV. Ordered by Shiva Benton. [place] son: As per physicians verbal order. 08/04/2017 10:06:02 HEPARIN 2000 units Anesthesia, PRECISION INSTRUMENT MAKER AND REPAIRER As per physicians verbal order AM 2000 units HEPARIN given in lab by Anesthesia, PRECISION INSTRUMENT MAKER AND REPAIRER via Peripheral IV. Ordered by Shiva Benton. Reas on: As per physicians verbal order. 08/04/2017 10:19:07 HEPARIN 2000 units Anesthesia, PRECISION INSTRUMENT MAKER AND REPAIRER As per physicians verbal order AM 2000 units HEPARIN given in lab by Anesthesia, PRECISION INSTRUMENT MAKER AND REPAIRER via Peripheral IV. Ordered by Shiva Benton. Reas on: As per physicians verbal order. 08/04/2017 11:16:40 PROTAMINE 40 mg Anesthesia, PRECISION INSTRUMENT MAKER AND REPAIRER As per physicians verbal order AM 40 mg PROTAMINE given in lab by Anesthesia, PRECISION INSTRUMENT MAKER AND REPAIRER via Peripheral IV. Ordered by Shiva Benton. Reason: As per physicians verbal order. Medication (Drip) Medication Time Given Dosage/Unit Concentration/Unit Diluent (ml) Solution 08/04/2017 10:06:19 HEPARIN DRIP 1000 units/hr 69783 units 250 D5W AM 1000 units/hr HEPARIN DRIP given in lab by Anesthesia, PRECISION INSTRUMENT MAKER AND REPAIRER via Peripheral IV. Pump/Drip Flow = 10 ml /hr using D5[place] [address] units in 250 ml. Ordered by Shiva Benton. Reason: As per physicians verbal order. 08/04/2017 10:55:17 ISUPREL 10 mcg/min 1 mg 250 NaCl .9 AM 10 mcg/min ISUPREL given in lab by Anesthesia, PRECISION INSTRUMENT MAKER AND REPAIRER via Peripheral IV. Pump/Drip Flow = 150 ml/hr usi ng NaCl .9 with a concentration of 1 mg in 250 ml. Ordered by Shiva Benton. Reason: As per physicians verbal order. LEVAQUIN 08/04/2017 9:15:52 AM 100 mL/hr 500 100 NaCl .9 100 mL/hr LEVAQUIN given in lab by Anesthesia, PRECISION INSTRUMENT MAKER AND REPAIRER in Right Arm via Peripheral IV. Pump/Drip Flow = 0 ml/hr using NaCl .9 with a concentration of 500 in 100 ml. Ordered by Shiva Benton. Reason: As per physicians verbal order. Initial Case Assessment Cardiovascular HR Rhythm NIBP Chest Pain 77 af 126/68 0 Edema Present Skin color Skin None Normal Warm Dry Circulatory - Right Pulses Dorsalis Pedis 3 Scale (0,1,2,3,4,d) Circulatory - Left Pulses Dorsalis Pedis 3 Scale (0,1,2,3,4,d) Circulatory - Lower Extremities Color Lower Right Color Lower Left Normal Normal Neurological State Oriented to time-place- Alert Moves all extremities person Respiration - General Respiration Rate SpO2 (%) (B/min) 20 98 Final Case Assessment Cardiovascular HR Rhythm NIBP Chest Pain 83 sr 115/65 0 Edema Present Skin color Skin None Normal Warm Dry Circulatory - Right Pulses Dorsalis Pedis 3 Scale (0,1,2,3,4,d) Circulatory - Left Pulses Dorsalis Pedis 3 Scale (0,1,2,3,4,d) Circulatory - Lower Extremities Color Lower Right Color Lower Left Normal Normal Neurological State Unresponsive Respiration - General Respiration Rate SpO2 (%) (B/min) 12 96 Respiration - Ventilator Type Intubation Type ET(oral) Chronological Log Time Study Chronological Log 8:40:49 Patient arrived via Bed. 8:40:49 Patient Name, D.O.B, / Armband Verified By R.N. 8:40:50 Consent signed by the physician and the patient and verified by the Head Waiter staff. 8:40:50 Pre-op and post- op instructions given; patient acknowledges understanding of instructions. 8:40:51 Verbal Stimulation=2 Physical Stimulation=2 Airway=2 Respiration=2 TOTAL=8. (0=absent, 1=li mited, 2=present) 8:40:53 Patient has been NPO for More than 6Hrs. 8:40:54 Skin Breakdown - None per pt. 8:40:54 Patient Warmer Placed on the Table. 8:40:55 Disposable Defibrillator Pads Placed On Patient. 8:40:55 Diann Prominences Protected 8:40:58 A # 20 IV was noted in the Forearm (right). Grade = 0 0.9ns kvo 8:40:59 History and physical on the chart or being dictated. 9:00:47 Anesthesia at bedside. Assumes care of patient. Assessment: Initial Case, HR=77 BPM, Rhythm=af, YAWK=386/68 mmhg, Chest Pain=0, Edema=None, [place] r=Normal, Skin = Warm, Dry Right Pulses: Richard Ped=3 Left Pulses: Richard Ped=3 9:01:42 Lower Right Extremities: Color=Normal Lower Left Extremities: Color=Normal Neurological: State=Alert, Ox3, [place] Respiration: Resp=20 B/min, SpO2=98 % 9:10:00 Bilateral groins prepped with 2% chlorhexidine, and draped after a 3 minute waiting time. 9:11:43 Table restraints applied according to hospital policy 100 mL/hr LEVAQUIN given in lab by Anesthesia, PRECISION INSTRUMENT MAKER AND REPAIRER in Right Arm via Peripheral IV. Pump/Drip Fl ow = 0 ml/hr using 9:15:52 NaCl .9 with a concentration of 500 in 100 ml. Ordered by Shiva Benton. Reason: As per physicia ns verbal order. 9:16:00 Anesthesiologist present for intubation. 9:16:47 Dr Benton made aware of pt receiving Eliquis 11 hrs ago. Stated will proceed w case. Anesthes iologist and PRECISION INSTRUMENT MAKER AND REPAIRER aware. 9:25:11 Pacu Lucia made aware of this case. 9:25:23 14 fr hanna inserted w/o difficulty. Clear yellow urine obtained. 9:33:43 MD arrived. Time Out. Correct patient, procedure, procedure equipment, site and side verified with physician present. Time 9:36:00 concurred by MD, individual staff and PRECISION INSTRUMENT MAKER AND REPAIRER. Time Out #2 - Consents verified, patient in correct position, all results are labled and display ed, safety precautions 9:36:21 taken, antibiotics administered. Time out concurred by MD, individual staff and PRECISION INSTRUMENT MAKER AND REPAIRER in procedur e 9:36:47 Case Start 9:36:57 HERNESTO in progress. 9:39:01 HERNESTO complete. 9:39:11 20 mL 1% XYLOCAINE given in lab by Shiva Benton in Left Groin via Subcutaneous. 9:40:10 Vascular access was obtained in the Fem Vein (left). 9:40:24 Vascular access was obtained in the Fem Vein (left). 9:40:50 Vascular access was obtained in the Fem Vein (left). 9:40:57 Vascular access was obtained in the Fem Vein (left). 9:41:12 Vascular access was obtained in the Fem Art (left). A SHEATH, FR4.5 PRELUDE 11CM FR 4.5 was advanced into the Fem Art (right) using the Modified Marion taz technique. 9:41:24 0.9ns pressure bag connected. 9:41:52 A SHEATH, EPS, FR6 FAST CATH FR 6 was advanced into the Fem Vein (left) using the Modified S eldinger technique. 9:42:47 A SHEATH, EPS, FR6 FAST CATH FR 6 was advanced into the Fem Vein (left) using the Modified S eldinger technique. 9:42:53 A SHEATH, EPS, FR7 FAST CATH FR 7 was advanced into the Fem Vein (left) using the Modified S eldinger technique. A SHEATH, FR10 OLIVE 11CM FR 10 was advanced into the Fem Vein (left) using the Modified [place] jos technique. 9:43:00 0.9ns kvo connected for ivf infusion. 9:43:45 20 mL 1% XYLOCAINE given in lab by Shiva Benton in Right Groin via Subcutaneous. 9:44:19 Vascular access was obtained in the Fem Vein (right). 9:44:23 A SHEATH, EPS, FR8 FAST CATH FR 8 was advanced into the Fem Vein (right) using the Modified [place] technique. 9:46:24 CATHETER, ACUNAV FR10 ICE ([place]) FR 10 Was Postioned. A CATHETER, JSN, QUAD BUNDLE FR 5 was advanced vis Fem Vein (left) and placed in the CS. Placeme nt was visually 9:47:00 confirmed under fluoroscopy. A CATHETER, JSN, QUAD BUNDLE FR 5 was advanced vis Fem Vein (left) and placed in the HIS. Placem ent was 9:48:00 visually confirmed under fluoroscopy. A SHEATH, FR8.5 STEERABLE SM 71CM BUNDLE 71CM was exchanged in the Fem Vein (right). This was n ecessary in 9:50:08 order for catheter support. 9:51:19 [place] in FVR 33266 units HEPARIN given in lab by Anesthesia, PRECISION INSTRUMENT MAKER AND REPAIRER via Peripheral IV. Ordered by Facundo Benton Reason: As per 9:51:24 physicians verbal order. 9:54:50 A eps was advanced to the right atrium and passed through the septal wall to the left atrium . 9:54:56 [place] out A CATHETER, FR7 OPTIMA SPIRAL BUNDLE FR7 was advanced vis Fem Vein (right) and placed in the LA . Placement 9:55:00 was visually confirmed under fluoroscopy. Mapping in progress. ::43 Activated Clotting Time Drawn 9:59:06 Reference ECG taken 9:59:12 Mapping complete. Spiral Catheter was removed A CATHETER, TACTICATH ABLAT 65 BUNDLE was advanced vis Fem Vein (right) and placed in the LA. P lacement was 9:59:27 visually confirmed under fluoroscopy. 10:03:51 ACT (Normal Range 90-180) = 316 2000 units HEPARIN given in lab by Anesthesia, PRECISION INSTRUMENT MAKER AND REPAIRER via Peripheral IV. Ordered by Shiva Benton Reason: As per 10:06:02 physicians verbal order. 1000 units/hr HEPARIN DRIP given in lab by Anesthesia, PRECISION INSTRUMENT MAKER AND REPAIRER via Peripheral IV. Pump/Drip Flow = 10 ml/hr using :06:19 D5[place] [address] units in 250 ml. Ordered by Shiva Benton. Reason: As per jaimee cornejo verbal order. 10:06:28 RF Ablation of the LT. ATRIUM with a CATHETER, TACTICATH ABLAT 65 BUNDLE. 10:13:17 Activated Clotting Time Drawn 10:18:28 ACT (Normal Range 90-180) = 332 2000 units HEPARIN given in lab by Anesthesia, PRECISION INSTRUMENT MAKER AND REPAIRER via Peripheral IV. Ordered by Shiva Benton . Reason: As per :19:07 physicians verbal order. 10:27:21 Activated Clotting Time Drawn 10:33:00 ACT (Normal Range 90-180) = 358 10:51:18 Ablation Catheter was removed A CATHETER, FR7 OPTIMA SPIRAL BUNDLE FR7 was advanced vis Fem Vein (right) and placed in the LA . Placement 10:51:31 was visually confirmed under fluoroscopy. Mapping in progress. :53:43 ECG rhythm of AF noted. Patient cardioverted at 200 joules. Success synch :55:03 Ablation procedure performed: AFIB. :55:07 EP Procedure was performed. 10 mcg/min ISUPREL given in lab by Anesthesia, PRECISION INSTRUMENT MAKER AND REPAIRER via Peripheral IV. Pump/Drip Flow = 150 ml/ hr using NaCl .9 10:55:17 with a concentration of 1 mg in 250 ml. Ordered by Shiva Benton. Reason: As per physicians janine bal order. 11:06:17 Isuprel off 11:07:15 Activated Clotting Time Drawn 11:07:35 Sheath(s) left in place, sutured, 0.9ns kvo connected and will be removed in Holding Area 11:07:49 PACU called. Spoke to Stephanie 11:08:24 Bedside Report will be given. 11:08:34 Catheters removed without difficulty 11:11:22 No case complications noted. 11:11:23 Cine recording checked. 11:11:26 Defibrillator and ground pads removed. Skin intact. Assessment: Final Case, HR=83 BPM, Rhythm=sr, NSSX=312/65 mmhg, Chest Pain=0, Edema=None, [place] r=Normal, Skin = Warm, Dry Right Pulses: Richard Ped=3 Left Pulses: Richard Ped=3 11:11:31 Lower Right Extremities: Color=Normal Lower Left Extremities: Color=Normal Neurological: State=Unresponsive Respiration: Resp=12 B/min, SpO2=96 %, Type=ET(Oral) 11:14:21 Case End 11:15:08 ACT (Normal Range 90-180) = 372 40 mg PROTAMINE given in lab by Anesthesia, PRECISION INSTRUMENT MAKER AND REPAIRER via Peripheral IV. Ordered by Shiva Benton. Reason: As per 11:16:40 physicians verbal order. 11:23:00 Activated Clotting Time Drawn 11:26:57 ACT (Normal Range 90-180) = 167 11:29:16 Patient moved to [facility] End Study - Contrast Media Used In Study Contrast Total Opened (mL) Total Used (mL) Total Wasted (mL) Unspecified 0 0 0 End Study - Maximum Contrast Load Max Contrast Load (mL) 490.5 End Study - Radiation Exposure Fluoro Time (minutes) 1.6 End Study - Patient Disposition Complications Transferred To Interventional Outcome No Telemetry Bed successful
[2017-08-04] MEDS ORDERED: CHLORHEXIDINE GLUCONATE 2 % 1 PACK (2 CLOTHS) TOP SCH (11:30)
[2017-08-04] MEDS ORDERED: oxyCODONE/ACETAMINOPHEN 5 MG/325 MG TAB PO PRN (11:30)
[2017-08-04] MEDS ORDERED: ATROPINE SULFATE 1 MG/ML VIAL IV PUSH PRN (11:30)
[2017-08-04] MEDS ORDERED: ONDANSETRON HCL 4 MG/2 ML VIAL IV PUSH PRN (11:30)
[2017-08-04] MEDS ORDERED: POVIDONE IODINE 5% (ANTISEPSIS KIT) 4 APPLICATIONS EACH NARE SCH (11:30)
[2017-08-04] MEDS ORDERED: MUPIROCIN 2% OINT 1 APPLIC/GM SYR NASAL SCH (11:30)
[2017-08-04] MEDS ORDERED: METOCLOPRAMIDE HCL 10 MG/2 ML VIAL IV PUSH PRN (11:30)
[2017-08-04] MEDS ORDERED: LORazepam 2 MG/ML VIAL IV PUSH PRN (11:30)
[2017-08-04] MEDS ORDERED: BACITRACIN OINT 0.9 GM PKT TOP ONE (11:30)
[2017-08-04] MEDS ORDERED: LIDOCAINE HCL 1% 50 ML VIAL INFIL PRN (11:30)
[2017-08-04] MEDS ORDERED: SODIUM CHLOR 0.9% 250 ML INJ 250 ML IV PRN (11:30)
[2017-08-04] MEDS ORDERED: DO NOT ADM ANY ANTICOAGULANT DRUGS PRN (11:35)
--- NOTE | 2017-08-04 11:38 | OTSOAPIP ---
TIME SESSION COMPLETED: 11:00 TREATMENT TIME: 0 MINS. CHART REVIEWED. PATIENT WAS NOT AVAILABLE DUE TO BEING IN SURGERY FOR A CARDIAC ABLATION PLAN: WILL SEE PATIENT NEXT TREATMENT DAY Therapist: ABRAHAM REEVES/Tyra Signature on file
--- NOTE | 2017-08-04 13:45 | HHI.PR ---
Subjective Remarks This is a pleasant 47 y/o Male who was admitted with Atypical Chest pain, Atrial Fibrillation, given Cardizem bolus and improved, he has Hypertension, CHF EF 25-30%, COPD, not recommended anticoagulation due to Cocaine abuse, continuous, soil fertility specialist Seen in his bedroom and discussed with nurse Anel, seen by soil fertility specialist with Diagnosis of Atrial fibrillation with RVR, Cardiomyopathy, EF 25-30%, COPD , on Cardizem drip and by mouth, Digoxin, Amiodarone, recommended due to CHADS Vasc score of 2 to resume Eliquis, he is non compliant with his medications, started on Carvedilol 6.25 mg BID and he has been clean from Cocaine for one month, consult to Doctor Moulton placed by Doctor Calvo for probable Ablation/AICD 07/30: Stable in his bedroom, resting in bed, no complaint. 07/31: patient scheduled for Cardiac Ablation for tomorrow, no complaint at this time, no chest pain. 08/01: Seen in his bedroom in the presence of Nurse Miss Valderrama, no nausea, vomit or diarrhea the Cardiac Ablation for next Friday08/04/17. 08/02: Stable no complaint, no nausea, vomit or diarrhea. 10-15 to have ablation tomorrow the and AICD placement on the No current complaints Discussed with patient and RN 10-16 HAD EPS WITH ABLATION TODAY WITH DR MOULTON SEEN POST PROCEDURE TO HAVE AICD/PACER TOMORROW STILL HAS SHEATHS IN PLACE Objective Vitals Vital Signs Date Time Temp Pulse Resp B/P (MAP) Pulse Ox O2 Delivery O2 Flow Rate FiO2 08/04/17 13:00 62 08/04/17 12:52 63 08/04/17 12:50 97.9 63 22 135/79 (97) 99 08/04/17 12:30 98.1 64 14 109/62 (78) 99 Nasal Cannula 3 08/04/17 12:15 64 14 109/66 (80) 99 Nasal Cannula 3 08/04/17 12:00 65 14 110/62 (78) 98 Nasal Cannula 3 08/04/17 11:45 67 14 120/76 (91) 98 Nasal Cannula 3 08/04/17 11:37 97.9 72 14 123/78 (93) 96 Nasal Cannula 3 08/04/17 08:00 80 08/04/17 08:00 97.8 79 22 135/84 (101) 98 08/04/17 07:30 98 Room Air 08/04/17 07:00 74 08/04/17 06:00 64 08/04/17 05:00 69 08/04/17 04:00 74 08/04/17 04:00 98.1 74 18 106/66 (79) 94 08/04/17 04:00 Room Air 08/04/17 03:00 72 08/04/17 02:00 70 08/04/17 01:00 71 08/04/17 00:00 73 08/04/17 00:00 Room Air 08/04/17 00:00 98.4 73 18 141/86 (104) 97 08/03/17 23:00 71 08/03/17 22:00 70 08/03/17 21:41 95 08/03/17 21:00 73 08/03/17 20:00 Room Air 08/03/17 20:00 67 08/03/17 20:00 98.2 67 18 143/85 (104) 97 08/03/17 18:08 79 08/03/17 17:42 73 08/03/17 16:08 79 08/03/17 15:35 97.9 80 16 113/70 (84) 100 08/03/17 15:00 75 08/03/17 14:36 70 I/O 08/03/17 08/03/17 08/03/17 08/04/17 08/04/17 08/04/17 07:00 15:00 23:00 07:00 15:00 23:00 Intake Total 480 ml 1200 ml 480 ml Output Total 2100 ml 2190 ml 2400 ml Balance -1620 ml -990 ml -1920 ml Intake Oral 480 ml 1200 ml 480 ml Output Urine Total 2100 ml 2190 ml 2400 ml # Bowel Movements 0 2 1 Result Diagram: 08/04/1750908/04/17509 Other Results Laboratory Tests Test 08/02/17 04:22 08/03/17 01:40 08/04/17 05:10 Blood Urea Nitrogen 17 MG/DL 13 MG/DL Creatinine 1.03 MG/DL 1.07 MG/DL Random Glucose 81 MG/DL 99 MG/DL Calcium Level 8.6 MG/DL 8.6 MG/DL Sodium Level 137 MEQ/L 134 MEQ/L Potassium Level 4.1 MEQ/L 4.4 MEQ/L 4.0 MEQ/L Chloride Level 102 MEQ/L 101 MEQ/L Carbon Dioxide Level 28.0 MEQ/L 25.9 MEQ/L Anion Gap 7 MEQ/L 7 MEQ/L Estimat Glomerular Filtration Rate 77 ML/MIN 73 ML/MIN Magnesium Level 1.9 MG/DL 2.1 MG/DL White Blood Count 9.7 TH/MM3 Red Blood Count 5.82 MIL/MM3 Hemoglobin 17.4 GM/DL Hematocrit 51.0 % Mean Corpuscular Volume 87.7 FL Mean Corpuscular Hemoglobin 29.9 PG Mean Corpuscular Hemoglobin Concent 34.1 % Red Cell Distribution Width 15.6 % Platelet Count 338 TH/MM3 Mean Platelet Volume 8.3 FL Neutrophils (%) (Auto) 73.8 % Lymphocytes (%) (Auto) 13.2 % Monocytes (%) (Auto) 11.0 % Eosinophils (%) (Auto) 1.1 % Basophils (%) (Auto) 0.9 % Neutrophils # (Auto) 7.1 TH/MM3 Lymphocytes # (Auto) 1.3 TH/MM3 Monocytes # (Auto) 1.1 TH/MM3 Eosinophils # (Auto) 0.1 TH/MM3 Basophils # (Auto) 0.1 TH/MM3 CBC Comment DIFF FINAL Differential Comment Prothrombin Time 12.6 SEC Prothromb Time International Ratio 1.1 RATIO Total Protein 7.4 GM/DL Albumin 3.2 GM/DL Phosphorus Level 3.7 MG/DL Alkaline Phosphatase 89 U/L Aspartate Amino Transf (AST/SGOT) 13 U/L Alanine Aminotransferase (ALT/SGPT) 21 U/L Total Bilirubin 0.6 MG/DL Free Thyroxine 1.47 NG/DL Thyroid Stimulating Hormone 3rd Gen 3.940 uIU/ML Imaging Last Impressions Chest X-Ray 07/28/17 1820 Signed Impressions: Service Date/Time: Friday, July 28, 2017 18:28 - CONCLUSION: 1. Cardiomegaly and findings of vascular congestion without overt failure. Melvin Faith MD Objective Remarks GENERAL: Awake alert and oriented talkative and cooperative SKIN: Warm and dry. HEAD: Atraumatic. Normocephalic. EYES: Pupils equal and round. No scleral icterus. No injection or drainage. Extraocular muscles intact ENT: No nasal bleeding or discharge. Mucous membranes pink and moist. Tongue is midline NECK: Trachea midline. No JVD. Supple CARDIOVASCULAR: IRRegular rate and rhythm. S1 and S2 no S3 or S4 RESPIRATORY: No accessory muscle use. Clear to auscultation. Breath sounds equal bilaterally. GASTROINTESTINAL: Abdomen soft, non-tender, nondistended. Hepatic and splenic margins not palpable. MUSCULOSKELETAL: Extremities without clubbing, cyanosis, or edema. No obvious deformities. NEUROLOGICAL: Awake and alert. No obvious cranial nerve deficits. Motor grossly within normal limits. Five out of 5 muscle strength in the arms and legs. Normal speech. PSYCHIATRIC: Appropriate mood and affect; insight and judgment normal. Procedures Atrial Fibrillation Ablation PROCEDURE DATE: Aug 04, 2017 PROCEDURES PERFORMED: 1. Electrophysiology study on Isuprel infusion 2. CS cannulation 3. 3-D mapping 4. Transseptal approach 5. Right and left heart catheterization 6. Intracardiac echo 7. Radiofrequency ablation of atrial fibrillation 8. Pulmonary vein isolation 9. Posterior wall ablation 10. Mitral valve isolation 11. Mitral line creation 12. Left atrial tachycardia ablation 13. Roof line creation 14. Floor line creation 15. Anterior wall ablation 16. Cardioversion INDICATIONS FOR THE PROCEDURE Mr. Pendleton is a 47-year-old male with atrial fibrillation , congestive heart failure, multiple hospitalization, referred for electrophysiology study and ablation. The risks, the nature and the benefits of the procedure were clearly stated to him. The risks include pneumothorax, cardiac perforation, stroke, need for open heart surgery and even . The patient understood and agreed to proceed. DESCRIPTION OF THE PROCEDURE IN DETAIL After written informed consent was obtained prior to esophageal echocardiogram, the patient was kept on the table where he was prepped and draped in the usual sterile fashion. Conscious sedation was initiated and maintained throughout the procedure by the anesthesiologist. Once sedation was verified, the right and left inguinal areas were anesthetized with 2% Xylocaine. Using modified Seldinger technique, the left femoral vein was cannulated on three occasions, three guidewires were advanced. Over the wire a 6, 7 and a 10-Latvian Hemaquet were advanced. Then the left femoral artery was cannulated on one occasion, one guidewire was advanced. Over the wire a 4-Latvian Hemaquet was advanced. Then the right femoral vein was cannulated on one occasion, one guidewire was advanced. Over the wire a 8-Latvian Hemaquet was advanced. Then under fluoroscopic guidance through the 6 and 7-Latvian Hemaquet, two 5-Latvian Enma curved quadripolar electrophysiology catheters were advanced and placed around the His as well as coronary sinus. Basic interval was measured. The patient was in atrial fibrillation. Through the 10-Latvian Hemaquet, a VULCUNter AcuNav intracardiac echo catheter was advanced and placed at the right atrium. Multiple view was obtained. There was no pericardial effusion, pulmonary vein was seen, atrial septal was visualized. Then the 8-Latvian Hemaquet in the right femoral vein was exchanged for Agilis transseptal sheath that was placed all the way to the superior vena cava. Through the sheath a Neela needle was advanced, then the sheath, the dilator and the needle were progressed until foci engaged. Once engaged, the needle was advanced. RF was delivered for 2 seconds. I was able to cross into the left atrium. Once the needle crossed, the dilator was advanced. Once the dilator crossed, the sheath was advanced. Once the sheath crossed, the dilator and the needle were removed. At this point I did flood the system and fluid movement was seen in the left atrium the indicates the sheath is in good position. The patient already received 10,000 units of heparin. The goal is to keep an ACT around 350 during ablation. Then through the sheath a St. Edi 20 pulse circumferential catheter was advanced. Using [id number] endocardial solution mapping system, a two-dimensional configuration of the left atrium was obtained. Points were taken at the left superior and inferior veins, right superior and inferior veins, mitral valve, and appendages. Then through the sheath a St. Edi TactiCath 65cm 3.5mm irrigated tipped mapping and radiofrequency ablation catheter was advanced. Esophageal probe was placed temperature monitoring during ablation. When it increased to 0.5 degrees Celsius above baseline, I moved to a different area of the atrium. First I did isolate the left superior and inferior vein. I did make a [place] around the veins. Posterior was ablated. Then a roof line was created, a floor line was created, a mitral line was isolated, then the mitral valve was isolated. At that point the patient was in left atrial tachycardia. I did create a line from the floor to the roof area, passing by the left atrial appendage. Then the right superior and inferior veins were isolated. I did remap the atrium. There is no significant signal in the atrium. At this point I decided to proceed with cardioversion. A 200 sync biphasic joule was delivered that converted the patient into sinus rhythm. At that point I did advance the circumferential catheter again into the vein. There was no signal into the vein, pacing from the vein showed no conduction to the atrium. Isuprel infusion was initiated at 10 mcg for over 10 minutes. No tachyarrhythmia was induced, post Isuprel no tachyarrhythmia was induced. At that point the procedure was complete. All catheters were removed, atrial septal sheath was exchanged for 9-Latvian Hemaquet, intracardiac echo showed no pericardial effusion. There is still good flow in the pulmonary vein. The patient is going to be transferred to the recovery room. No incident report. The patient tolerated the procedure. Blood loss was minimal. FINDINGS 1. Electrocardiogram: At baseline the patient was in atrial fibrillation, post procedure the patient was in sinus rhythm. 2. Basic interval: Base cycle length was around 620. Post ablation she was around 960 milliseconds. AH at 130 and HV at 60 milliseconds. 3. Tachyarrhythmia: Atrial fibrillation was mapped and ablated. Atrial tachycardia was ablated. The ablation was successful. CONCLUSION Successful electrophysiology study, mapping, radiofrequency ablation of atrial fibrillation, left atrial tachycardia, pulmonary vein isolation, posterior ablation, mitral valve isolation, mitral line creation, roof line creation, floor line creation, left atrial tachycardia, and cardioversion. COMMENTS AND RECOMMENDATIONS The patient is going to be transferred to the telemetry unit. Will be observed. Defibrillator will be implanted tomorrow morning. Shiva Moulton MD Aug 04, 2017 11:25 Medications and IVs Current Medications Diltiazem HCl (Cardizem Inj) 25 mg BOLUS ONCE IV PUSH Last administered on 18:30; Start 07/28/17 at 18:30; Stop 07/28/17 at 18:31; Status DC IV Flush (NS Flush) 2 ml UNSCH PRN IV FLUSH FLUSH AFTER USING IV ACCESS; Start 07/28/17 at 18:30; Stop 07/28/17 at 20:11; Status DC Diltiazem HCl 125 mg/Sodium Chloride 125 ml @ 5 mls/hr TITRATE PRN IV tachycardia Last administered on 07/29/17 03:45; Start 07/28/17 at 18:45; Stop 07/29/17 at 08:37; Status DC Ondansetron HCl (Zofran Inj) 4 mg ONCE ONCE IV PUSH Last administered on 19:49; Start 07/28/17 at 19:45; Stop 07/28/17 at 19:46; Status DC Sodium Chloride (NS Flush) 2 ml UNSCH PRN IV FLUSH FLUSH AFTER USING IV ACCESS Last administered on 07/30/17 11:12; Start 07/28/17 at 20:15 Sodium Chloride (NS Flush) 2 ml BID IV FLUSH Last administered on 08/03/17 21 :24; Start 07/28/17 at 21:00 Naloxone HCl (Narcan Inj) 0.4 mg UNSCH PRN IV PUSH SEE LABEL COMMENTS; Start 07/28/17 at 20:15 Furosemide (Lasix Inj) 40 mg BID@,18 IV PUSH Last administered on 07/29/17 09:19; Start 07/29/17 at 09:00; Stop 07/29/17 at 11:13; Status DC Furosemide (Lasix Inj) 40 mg ONCE ONCE IV PUSH Last administered on 07/28/17 20:35; Start 07/28/17 at 20:15; Stop 07/28/17 at 20:16; Status DC Potassium Chloride (KCl) 40 meq ONCE ONCE PO Last administered on 07/28/17 20 :35; Start 07/28/17 at 20:15; Stop 07/28/17 at 20:16; Status DC Amiodarone HCl (Cordarone) 200 mg DAILY PO Last administered on 08/03/17 09: 32; Start 07/29/17 at 09:00 Aspirin (Aspirin) 325 mg DAILY PO Last administered on 08/01/17 09:29; Start 07/29/17 at 09:00; Stop 08/01/17 at 14:51; Status DC Digoxin (Lanoxin) 0.25 mg DAILY PO Last administered on 08/03/17 09:32; Start 07/29/17 at 09:00 Diltiazem HCl (Cardizem) 90 mg Q6HR PO Last administered on 08/02/17 11:20; Start 07/29/17 at 00:00; Stop 08/02/17 at 17:46; Status DC Lisinopril (Prinivil) 5 mg DAILY PO Last administered on 07/30/17 08:48; Start 07/29/17 at 09:00; Stop 07/30/17 at 11:29; Status DC Potassium Chloride (KCl) 20 meq BID PO Last administered on 08/01/17 09:29; Start 07/29/17 at 09:00; Stop 08/01/17 at 14:11; Status DC Ipratropium [place] (Atrovent Neb) 0.5 mg Q6HR NEB NEB Last administered on 21:41; Start 07/29/17 at 04:00 Ipratropium [place] (Atrovent Neb) 0.5 mg Q2HR NEB PRN NEB wheezing; Start 07/28/17 at 22:30 Morphine Sulfate (Morphine Inj) 2 mg Q3H PRN IV PUSH pain >5, chest pain as well Last administered on 08/03/17 23:23; Start 07/28/17 at 22:30 Carvedilol (Coreg) 6.25 mg Q12HR PO Last administered on 08/03/17 21:23; Start 07/29/17 at 09:00; Stop 08/04/17 at 11:30; Status DC Diltiazem HCl 125 mg/Sodium Chloride 125 ml @ 5 mls/hr TITRATE PRN IV tachycardia; Start 07/29/17 at 10:00; Stop 08/04/17 at 11:30; Status DC Apixaban (Eliquis) 5 mg BID PO Last administered on 08/03/17 21:24; Start at 09:00; Status Future hold Pantoprazole Sodium (Protonix) 40 mg DAILY PO Last administered on 08/03/17 09:32; Start 07/30/17 at 09:00 Ondansetron HCl (Zofran Inj) 4 mg Q4H PRN IV PUSH NAUSEA Last administered on 07/30/17 20:34; Start 07/29/17 at 20:15 Lactated Ringer's 1,000 ml @ 30 mls/hr Q24H PRN IV SEE LABEL COMMENTS; Start 08/01/17 at 02:45; Stop 08/04/17 at 02:44; Status DC Sodium Chloride 500 ml @ 30 mls/hr [id number] PRN IV SEE LABEL COMMENTS; Start at 02:45; Stop 08/04/17 at 02:44; Status DC Metoprolol Tartrate (Lopressor) 25 mg WAXER TENDER PRN PO SEE LABEL COMMENTS; Start 08/01/17 at 02:45; Stop 08/01/17 at 08:54; Status DC Povidone Iodine (Betadine 5% Antisepsis Kit) 1 applic WAXER TENDER PRN EACH NARE SEE LABEL COMMENTS; Start 08/01/17 at 02:45; Stop 08/04/17 at 02:44; Status DC Chlorhexidine Gluconate (Chlorhexidine 2% Cloth) 3 pack WAXER TENDER PRN TOPICAL SEE LABEL COMMENTS; Start 08/01/17 at 02:45; Stop 08/04/17 at 02:44; Status DC Insulin Human Regular (NovoLIN R INJ) See Protocol Table ... WAXER TENDER PRN SQ SEE PROTOCOL TABLE; Start 08/01/17 at 02:45; Stop 08/04/17 at 02:44; Status DC Sacubitril/ Valsartan (Entresto 24-26 Mg) 1 tab BID PO Last administered on t 21:23; Start 08/01/17 at 21:00; Stop 08/04/17 at 11:30; Status DC Diltiazem HCl (Cardizem) 60 mg Q6HR PO Last administered on 08/04/17t 05:23; Start 08/02/17 at 18:00; Stop 08/04/17 at 11:30; Status DC Heparin Sodium/ Dextrose 250 ml @ As Directed STK-MED ONCE .ROUTE ; Start at 09:00; Stop 08/04/17 at 09:01; Status DC Isoproterenol HCl (Isuprel Inj) 1 mg STK-MED ONCE .ROUTE ; Start 08/04/17 at 09 :00; Stop 08/04/17 at 09:01; Status DC Protamine Sulfate (Protamine Sulfate Inj) 50 mg STK-MED ONCE .ROUTE ; Start at 09:01; Stop 08/04/17 at 09:02; Status DC Heparin Sodium (Porcine) (Heparin Inj) 20,000 units STK-MED ONCE .ROUTE ; Start 08/04/17 at 09:01; Stop 08/04/17 at 09:02; Status DC Heparin Sodium/ Sodium Chloride 2,000 ml @ As Directed STK-MED ONCE .ROUTE Last administered on 08/04/17 09:08; Start 08/04/17 at 09:08; Stop 08/04/17 at 09:09; Status DC Levofloxacin/ Dextrose 100 ml @ As Directed STK-MED ONCE IV Last administered on 08/04/17 09:15; Start 08/04/17 at 09:08; Stop 08/04/17 at 09:09; Status DC Oxycodone/ Acetaminophen (Percocet 5-325 Mg) 1 tab Q4H PRN PO PAIN SCALE 1 TO 4; Start 08/04/17 at 11:30 Oxycodone/ Acetaminophen (Percocet 5-325 Mg) 2 tab Q4H PRN PO PAIN SCALE 5 TO 10; Start 08/04/17 at 11:30 Lorazepam (Ativan Inj) 0.5 mg UNSCH PRN IV PUSH ANXIETY; Start 08/04/17 at 11: 30; Stop 08/05/17 at 11:29 Atropine Sulfate (Atropine Inj) 0.5 mg UNSCH PRN IV PUSH VAGAL REPONSE; Start 08/04/17 at 11:30 Sodium Chloride 250 ml @ 500 mls/hr ONCE PRN IV VAGAL REPONSE; Start at 11:30; Stop 08/05/17 at 11:29 Metoclopramide HCl (Reglan Inj) 10 mg Q4H PRN IV PUSH NAUSEA; Start 08/04/17 at 11:30 Ondansetron HCl (Zofran Inj) 4 mg Q4H PRN IV PUSH NAUSEA; Start 08/04/17 at 11 :30 Lidocaine HCl (Xylocaine 1% Inj (50 ml)) 10 ml UNSCH PRN INFIL SHEATH REMOVAL; Start 08/04/17 at 11:30; Stop 08/05/17 at 11:29 Bacitracin (Bacitracin Oint Packet) 0.9 gm ONCE ONCE TOP ; Start 08/04/17 at 11:30; Stop 08/04/17 at 11:39; Status DC Carvedilol (Coreg) 12.5 mg Q12HR PO ; Start 08/04/17 at 21:00 Sacubitril/ Valsartan (Entresto 49-51 Mg) 1 tab BID PO ; Start 08/04/17 at 21: 00 Povidone Iodine (Betadine 5% Antisepsis Kit) 1 applic WAXER TENDER EACH NARE ; Start 08/04/17 at 11:30; Stop 08/08/17 at 11:29 Mupirocin (Bactroban Nasal 2% Oint) 1 applic WAXER TENDER NASAL ; Start 08/04/17 at 11:30; Stop 08/08/17 at 11:29 Chlorhexidine Gluconate (Chlorhexidine 2% Cloth) 3 pack WAXER TENDER TOP ; Start at 11:30; Stop 08/08/17 at 11:29 Miscellaneous Information ALL NURSING DEPARTME... UNSCH PRN .XX SEE LABEL COMMENTS; Start 08/04/17 at 11:35; Stop 08/05/17 at 11:34 A/P Assessment and Plan 1. Atrial Fibrillation with RVR, soil fertility specialist following, with Diagnosis of Atrial fibrillation with RVR, Cardiomyopathy, EF 25-30%, COPD, on Cardizem drip and by mouth, Digoxin, Amiodarone, recommended due to CHADS Vasc score of 2 to resume Eliquis, he is non compliant with his medications, started on Carvedilol 6.25 mg BID and he has been clean from Cocaine for one month, scheduled for Cardiac Ablation for 08/04/17 and AICD placement on 08/05/17 SP ABLATION 08-04 2. Acute on chronic Systolic heart Failure secondary to Cocaine abuse. STOP COCAINE 3. Atypical Chest pain Improved. 4. Subtherapeutic Digoxin level 5. Hypertension controlled. 6. Cocaine abuse by history strongly recommended to stop behavior. NO MORE COCAINE 7. Acute kidney injury Improved 8. Hyperkalemia Iatrogenic the patient is on Potassium Chloride Potassium level 5.4 will hold his medicine and follow in am tomorrow. -RESOLVED STABLE Discussed with patient, all questions answered to the best of my abilities. DVT prophylaxis with Heparin. SP CARDIAC CATH AND ABLATION 08-04 PACER/AICD ON -17 A.m. labs Discharge Planning After PACER/AICD are complete Kulwant Mckenna DO Aug 04, 2017 13:45
[2017-08-04] MEDS: oxyCODONE/ACETAMINOPHEN 5 MG/325 MG TAB PO PRN ×2 (15:38→21:40)
[2017-08-04 16:18] LABS: HEMOGLOBIN A1b 0.9 %; HEMOGLOBIN Ao 85.8 %; HEMOGLOBIN F 0.8 %; HEMOGLOBIN LA1C 1.9 %; HEMOGLOBIN P3 3.8 %
[2017-08-04] MEDS ORDERED: METOPROLOL TARTRATE 25 MG TAB PO PRN (20:45)
[2017-08-04] MEDS ORDERED: POVIDONE IODINE 5% (ANTISEPSIS KIT) 4 APPLICATIONS EACH NARE PRN (20:45)
[2017-08-04] MEDS ORDERED: LACTATED RINGER'S 1000 ML IV PRN (20:45)
[2017-08-04] MEDS ORDERED: INSULIN HUMAN REGULAR 1,000 UNITS/10 ML VIAL SQ PRN (20:45)
[2017-08-04] MEDS ORDERED: CHLORHEXIDINE GLUCONATE 2 % 1 PACK (2 CLOTHS) TOPICAL PRN (20:45)
[2017-08-04] MEDS ORDERED: SODIUM CHLORID 0.9% 500 ML IV PRN (20:45)
[2017-08-04] MEDS: SACUBITRIL/VALSARTAN 49 MG-51 MG TAB PO SCH (21:35)
[2017-08-04] MEDS: CARVEDILOL 12.5 MG TAB PO SCH (21:35)
--- NOTE | 2017-08-04 23:12 | EKG ---
Date Performed: 08/04/2017 Time Performed: 11:53:43 PTAGE: 47 years EKG: Sinus rhythm WITH FIRST DEGREE AV BLOCK MARKED LEFT AXIS DEVIATION MODERATE T-WAVE ABNORMALITY PREVIOUS TRACING : 07/29/2017 06.08 Compared to the previous tracing atrial fibrillation no longer present DOCTOR: Michell Watson Interpretating Date/Time 08/04/2017 23:11:22
[2017-08-05] VITALS (23 sets, daily range): BP systolic 109–124; BP diastolic 62–78; PULSE 59–84; RESP 16–18; TEMP 97.4–98.5; O2SAT 95–100
[2017-08-05] MEDS: RESP: IPRATROPIUM 0.5 MG/2.5 ML NEB NEB SCH ×4 (04:21→20:43)
[2017-08-05 07:01] LABS: AUTOMATED NEUTROPHIL # 9.3 TH/MM3 (1.8-7.7); BASOPHIL % 0.2 % (0.0-2.0); HEMATOCRIT 46.5 % (39.0-51.0); HEMO FLAGS DIFF FINAL; LYMPH % 7.7 % (9.0-44.0); LYMPHOCYTE # 0.8 TH/MM3 (1.0-4.8); MEAN CELL VOLUME 87.7 FL (80.0-100.0); MEAN CORPUSCULAR HEMOGLOBIN 30.2 PG (27.0-34.0); MEAN CORPUSCULAR HGB CONC 34.4 % (32.0-36.0); MONO % 4.7 % (0.0-8.0); NEUT % 87.4 % (16.0-70.0); PLATELET COUNT 308 TH/MM3 (150-450); RED CELL DISTRIBUTION WIDTH 15.6 % (11.6-17.2); WHITE BLOOD COUNT 10.6 TH/MM3 (4.0-11.0)
[2017-08-05 07:09] LABS: APTT (PATIENT) 29.9 SEC (24.3-30.1); INTERNATIONAL NORMALIZED RATIO 1.1 RATIO; PROTHROMBIN TIME - PATIENT 12.3 SEC (9.8-11.6)
[2017-08-05] MEDS ORDERED: LIDOCAINE HCL 2% 50 ML VIAL ONE (07:17)
[2017-08-05] MEDS ORDERED: ceFAZolin INJ 1,000 MG VIAL ONE (07:17)
[2017-08-05] MEDS ORDERED: VANCOMYCIN HCL 1000 MG VIAL ONE (07:17)
[2017-08-05] MEDS ORDERED: VANCOMYCIN 500 MG VIAL ONE (07:17)
[2017-08-05 07:34] LABS: ALT (GPT) 63 U/L (12-78); ANION GAP 9 MEQ/L (5-15); AST (GOT) 79 U/L (15-37); BICARBONATE 24.9 MEQ/L (21.0-32.0); BLOOD UREA NITROGEN 17 MG/DL (7-18); CHLORIDE 97 MEQ/L (98-107); GLOMERULAR FILTRATION RATE 78 ML/MIN (>89); MAGNESIUM 1.9 MG/DL (1.5-2.5); POTASSIUM 4.5 MEQ/L (3.5-5.1); SODIUM (NA) 131 MEQ/L (136-145)
[2017-08-05 07:39] LABS: ALKALINE PHOSPHATASE 95 U/L (45-117); TOTAL BILIRUBIN ADULT 0.6 MG/DL (0.2-1.0)
--- NOTE | 2017-08-05 08:27 | CATHPROC ---
[facility] HIS Report Study Information Study Number Admission Scheduled Start Study Start [id number] Jul 28 2017 8:05PM 08/04/2017 Aug 05 2017 7:14AM [place] [facility] Cardiac Pacer/ICD Admit Source Facility Department Emergency department [facility] - Category Analyst Physician and Clinical Staff Initial Shiva Santiago Police Matron Camila Motley RN Other Camueirarebekah, Jennifer,DRUM STOCK CLERK Other Anesthesia, ASSEMBLY LINE UPHOLSTERER Recorder Bailey Mosley,DRUM STOCK CLERK TECH2 Scrub Rigoberto Bautista,RT(R) Procedures Performed Procedure Lead Insertion Equipment Time Fly Setter Description Size Mfg Part Number Used/Scraped DEFIBRILLATOR, IMPERIA 7 VR-T 08:08 BIOTRONIK [id number] Used DX MRI 07:58 BIOTRONIK LEAD, PLEXA PRO-MRI DF 65/15 [id number] Used DERMABOND, ADHESIVE SKIN [id number] 08:15 CORDIS/PACER * Used GLUE MINI *[id number] TP-1103 08:15 [employer]ES SUTURE, STRIP PLUS 1/2" * Used *[id number] 08:15 [employer] PACER WEST, LIMB * 2530 *[id number] Used [id number] 08:15 [employer] PACER PACK, PACER CUSTOM * Used *[id number] 07:58 [employer] PACER SAFE SHEATH, FR8, 13CM FR 8 CLS-1008 Used SUTURE, 0 ETHIBOND [CT1] (CX21D), 8pk SUTURE, 2-0 VICRYL [CT1] (IHO884A) SUTURE, 2-0 VICRYL [CT1] (CWX437E) [id number] 08:15 [facility] [employer],WARM AIR CCL * Used *[id number] [facility] PAD, ELECTROSURGICAL 08:15 * [id number] *[id number] Used SURGICAL GROUNDING ORANGE 1814-7659 08:15 [employer]. / * Used *87572 Equipment Model, Serial, Lot Number and Expiration Data Description Model Number Serial Number Lot Number Expiration Date DEFIBRILLATOR, JENNA 7 VR-T [id number] 04-18-2018 DX MRI LEAD, PLEXA PRO-MRI DF 65/15 [id number] 06-19-2019 History: Current Medications Medication Dosage/Unit Route Frequency Last Date/Time Taken ELIQUIS History: Allergies Allergy Reaction Sulfa HIVES Sulfa (Sulfonamide Antibiotics) HIVES History: Risk Factors Hypertension Previous Heart Failure Yes Yes Chronic Lung Disease History: Other Current Smoker Method Packs a Day Yes Cigarettes 1 Labs Hgb (g/dl) Hct (%) RBC (MIL/MM3) WBC (l/cumm) Platelets (thousands) 11.60-17.00 35.00-51.00 4.00-5.90 4.00-11.00 150.00-450.00 16.0 46.5 5.3 10.6 308 Glucose (mg/dl) BUN (mg/dl) Creatinine (mg/dl) BUN:Creatinine (1:x) 74.00-106.00 7.00-18.00 0.50-1.30 10.00-20.00 113 17 1.0 17 Na (meq/l) K (meq/l) Cl (meq/l) CO2 (mmol/L) Ca (mg/dl) 136.00-145.00 3.50-5.10 98.00-107.00 21.00-32.00 8.50-10.10 131 4.5 97 24.9 8.9 PT (sec) PTT (sec) INR (PTT:PT) 9.80-11.60 24.30-30.10 0.90-1.10 12.3 29.9 1.1 CPK-MB (ng/ML) 0.50-3.60 Not Drawn Medication Medication Total Dose (Bolus/Oral) Medication Total Dosage/Unit 2% XYLOCAINE 50 mL Medications (Bolus/Oral) Medication Time Given Dosage/Unit Administered By Reason 2% XYLOCAINE 08/05/2017 7:51:53 AM 50 mL Shiva Benton 50 mL 2% XYLOCAINE given in lab by Shiva Benton via Subcutaneous to the left upper chest. Ordered by Shiva Benton. Medication (Drip) Medication Time Given Dosage/Unit Concentration/Unit Diluent (ml) Solution ANCEF 08/05/2017 7:35:39 AM 2 g 2 g ANCEF given in lab by SALVADOR Allen in Right Hand via Peripheral IV. Ordered by Shiva Benton. SALVADOR Pitts IV Solutions 08/05/2017 7:21:23 AM 0 mL (IV) 500 NaCl .9 Patient arrived on IV Solutions in Right Forearm via Peripheral IV. Pump/Drip Flow = 20 ml/hr using N aCl .9. VANCOMYCIN DRIP 08/05/2017 7:35:12 AM 1 g 1 g VANCOMYCIN DRIP given in lab by SALVADOR Allen in Right Hand via Peripheral IV. Ordered by Shiva Schrader. SALVADOR Pitts Initial Case Assessment Cardiovascular HR Rhythm NIBP Chest Pain 70 sr 120/78 0 Neurological State Oriented to time-place- Alert Moves all extremities person Respiration - General Respiration Rate SpO2 (%) (B/min) 20 97 Final Case Assessment Cardiovascular HR Rhythm NIBP Chest Pain 67 sr 102/54 0 Neurological State Oriented to time-place- Drowsy Moves all extremities person Respiration - General Respiration Rate SpO2 (%) O2 (lpm) (B/min) 17 95 2 Chronological Log Time Study Chronological Log 7:05:31 Patient arrived via Bed. 7:05:32 Patient Name, D.O.B, / Armband Verified By R.N. 7:05:50 Anesthesia at bedside. Assumes care of patient. 7:06:03 2% CHLORHEXIDINE GLUCONATE WASH AND NASAL SWIPE DONE PRIOR TO PROCEDURE. 7:06:29 Verbal Stimulation=2 Physical Stimulation=2 Airway=2 Respiration=2 TOTAL=8. (0=absent, 1=ely ited, 2=present) 7:06:39 Presedation assessment performed by Category Analyst RN. 7:06:40 Pre-op and post- op instructions given; patient acknowledges understanding of instructions. 7:21:08 Patient has been NPO for More than 6Hrs. 7:21:11 Skin Breakdown-none 7:21:13 Disposable Defibrillator Pads Placed On Patient. 7:21:14 Diann Prominences Protected 7:21:18 Patient Warmer Placed on the Table. 7:21:22 A # 20 IV was noted in the Forearm (right). Grade = 0 7:21:23 Bovie ground pad applied to: right upper leg 7:21:23 Patient arrived on IV Solutions in Right Forearm via Peripheral IV. Pump/Drip Flow = 20 ml/h r using NaCl .9. 7:21:25 History and physical on the chart or being dictated. 7:21:31 HR=70 bpm, MCIR=629/78 mmhg, SpO2=97 %, Pain=0, Stephani=10, Stoner=2 Assessment: Initial Case, HR=70 BPM, Rhythm=sr, KXJN=350/78 mmhg, Chest Pain=0 7:22:45 Neurological: State=Alert, Ox3, [place] Respiration: Resp=20 B/min, SpO2=97 % 7:22:51 Table restraints applied according to hospital policy 7:30:05 Left Upper Chest Prepped Times Two and draped. 7:33:27 A # 20 IV was started in the Hand (right). Grade = 0 1 g VANCOMYCIN DRIP given in lab by Anesthesia, ASSEMBLY LINE UPHOLSTERER in Right Hand via Peripheral IV. Ordered by Shiva Benton. 7:35:12 SALVADOR Pitts 7:35:39 2 g ANCEF given in lab by Anesthesia, ASSEMBLY LINE UPHOLSTERER in Right Hand via Peripheral IV. Ordered by Shiva Benton. SALVADOR Pitts First Sponge And Instrument Count Done by Rigoberto Bautista, RT(R). 7:37:10 Hypo's: 3, Sponges: Laps: 10, Raytecs: 10, Bovie/scratch: 1 bovie/1 scratch, Blades: 1, Sutu res: 10 Sutures: 10, Blades: 1, Instruments: 26, Syveck Patches: 0 7:48:22 MD arrived. 7:48:30 Consent signed by the physician and the patient and verified by the Category Analyst staff. Time Out. Correct patient, procedure, procedure equipment, site and side verified with physician present. Time 7:51:49 concurred by MD, individual staff and ASSEMBLY LINE UPHOLSTERER. Time Out #2 - Consents verified, patient in correct position, all results are labled and display ed, safety precautions 7:51:50 taken, antibiotics administered. Time out concurred by MD, individual staff and ASSEMBLY LINE UPHOLSTERER in procedur e 7:51:51 Case Start 50 mL 2% XYLOCAINE given in lab by Shiva Benton via Subcutaneous to the left upper chest. Order ed by Chetan, 7:51:53 Shiva. 7:52:43 Vascular access was obtained in the Subclav. Vein (Lft. 7:53:00 Wire inserted 7:54:37 Reference ECG taken 7:55:38 Surgical Incision Made. 7:56:10 A pocket was created at the L Upper Chest. 7:57:07 A SAFE SHEATH, FR8, 13CM FR 8 was advanced into the Subclav. Vein (Lft using the Percutaneou s technique. 7:57:54 A LEAD, PLEXA PRO-MRI DF 65/15 was inserted and positioned in the RV. 7:58:30 Lead placement verified under fluoroscopy 7:59:21 The RV lead impedance and threshold being tested. 8:01:05 The RV lead was sutured to the fascia. 8:02:07 Pocket flushed with antibiotic solution 8:02:22 HR=68 bpm, NIBP=88/54 mmhg, SpO2=95 %, Resp=17 B/min 8:03:09 A DEFIBRILLATOR, IMPERIA 7 VR-T DX MRI was connected and placed in the pocket. 8:05:39 Closing the pocket. Second Sponge And Instrument Count Done by Shiva Benton. 8:06:03 Hypo's: 3 hypo's, Sponges: 20 sponges, Bovie/scratch: 1 bovie/1 scratch Sutures: ~SUTURE~, Blades: 1, Instruments: 26, Syveck Patches: 0 8:10:35 The pocket was closed. 8:10:57 Case End The Final Sponge And Instrument Count Done by Rigoberto Bautista RT(R). 8:12:00 Hypo's: 3 hypo's, Sponges: 20 sponges, Bovie/scratch: 1 bovie/1 scratch Sutures: 10, Blades: 1, Instruments: 26, Syveck Patches: 0 8:12:59 Steri-strips and a sterile dressing applied to site. 8:13:04 Implant Procedure was performed. 8:13:16 A ICD Implant . (Single) Assessment: Final Case, HR=67 BPM, Rhythm=sr, SCTC=865/54 mmhg, Chest Pain=0 8:17:23 Neurological: State=Drowsy, Ox3, [place] Respiration: Resp=17 B/min, SpO2=95 %, O2=2 lpm 8:22:11 No case complications noted. 8:22:12 Cine recording checked. 8:22:14 Bedside Report will be given. 8:22:16 Implantable Device card placed in patient's chart. 8:24:33 Patient moved to bed 8:26:23 Defibrillator and ground pads removed. Skin intact. 8:26:39 A sling was placed on the affected arm. 8:28:52 Patient tranported CIC End Study - Contrast Media Used In Study Contrast Total Opened (mL) Total Used (mL) Total Wasted (mL) Unspecified 0 0 0 End Study - Maximum Contrast Load Max Contrast Load (mL) 469.1 End Study - Radiation Exposure Fluoro Time (minutes) 0.9 End Study - Sheaths Sheaths Pulled By Sheath Hold Time (min) Shiva Benton End Study - Patient Disposition Complications Transferred To Interventional Outcome No Telemetry Bed successful
--- NOTE | 2017-08-05 08:28 | PD.CARD ---
SINGLE CHAMBER DEFIB IMPLANT PROCEDURE DATE: Aug 05, 2017 NYHA Classification: Class III (Moderate) Prevention: Primary Single Chamber Defib Implant PROCEDURE: Single chamber defibrillator implantation and device testing. INDICATIONS: Mr. Pendleton is a 47 -year-old male with hx of congestive heart failure , ejection fraction 20%, non ischemic cardiomyopathy who undergo defibrillator implantation for sudden prevention. The risks, the nature and the benefit of the procedure are clearly stated to him . Risks include pneumothorax , cardiac perforation, stroke and even . He understood and agreed to proceed. PROCEDURE: After written, informed consent was obtained, the patient was brought to the EP Lab where he was prepped and draped in the sterile fashion. Conscious sedation was initiated and maintained throughout the procedure by anesthesiologist. Once sedation was verified, the left infraclavicular area was anesthetized with 2% Xylocaine. Using modified Seldinger technique, the left subclavian vein was cannulated on one occasion and one guide wire was advanced. Then, using #11 blade scalpel, a 3-cm incision was made two fingerbreadths below left clavicle. This incision was then taken down to the deep fascial layer using Bovie cautery and blunt dissection. Into the inferomedial direction, a device pocket was dissected, then the wire was dissected into the pocket. A 2-0 Vicryl suture was placed around the wires to prevent bleeding. At this point, over the wire, the 8- [place] dilator and introducer was advanced. As dilator and wire were removed, an active fixation right ventricular pacing, sensing and defibrillatory lead was advanced. After adequate pacing and sensing thresholds were obtained, the lead was secured in the pocket with #2 Ethibond suture. At that point, the pocket was copiously irrigated with antibiotic solution. The leads were connected to the generator and placed into the pocket. I did proceed with wound closure. The deep fascial layer was approximated with 2-0 Vicryl suture in a continuous fashion. The subcutaneous layer was approximated with 2-0 Vicryl suture in a continuous fashion. The subcuticular layer was approximated with 2-0 Vicryl suture in a continuous fashion. Dermabond adhesive was applied to the wound, followed by a sterile pressure dressing. There was no complication. The patient tolerated procedure. Blood loss minimal. 1. Implanted Hardware: The implanted defibrillator generator is a [employer]vu, model number 863508, serial number [id number]. The right ventricular pacing, sensing and defibrillatory lead is a [employer] model number 413200, serial number [id number]. 2. Thresholds: The right ventricular pacing threshold in the bipolar mode was 1.0volts at 0.4 milliseconds, lead impedance 580 ohms and R-wave at 15.4 mV. Sensing P wave @ 8.2mv. The right ventricular defibrillatory threshold was not measured due to patient general condition. 3. Settings: The device set in VVI 40 defibrillatory portion for two zones, one zone for ventricular tachycardia between 180 and 250 beats per minute. Initial therapy consists of one burst of ATP, one ramp, 81%, 10 pulse, 10 millisecond decremental, followed by 20, then 30 and all subsequent shocks at 40 joules defibrillatory shock, the second zone for ventricular fibrillation above 250 beats per minute, first therapy at 30 and all subsequent shocks at 40 joules defibrillatory shock. CONCLUSIONS: Successful defibrillator implantation. COMMENT AND RECOMMENDATIONS: The patient will be transferred to the telemetry unit, will be observed. Further decision by the managing team. Shiva Benton MD Aug 05, 2017 08:28
[2017-08-05] MEDS ORDERED: SODIUM CHLORIDE 0.9% FLUSH 10 ML FLUSH IV FLUSH PRN (08:30)
[2017-08-05] MEDS: SODIUM CHLORIDE 0.9% FLUSH 10 ML FLUSH IV FLUSH SCH ×4 (08:53→21:47)
[2017-08-05] MEDS: DIGOXIN 0.25 MG TAB PO SCH (08:53)
[2017-08-05] MEDS: AMIODARONE 200 MG TAB PO SCH (08:53)
[2017-08-05] MEDS: PANTOPRAZOLE SOD 40 MG DELAYED RELEASE TAB PO SCH (08:53)
[2017-08-05] MEDS: APIXABAN 5 MG TABLET PO SCH ×2 (08:53→21:35)
[2017-08-05] MEDS: SACUBITRIL/VALSARTAN 49 MG-51 MG TAB PO SCH ×2 (08:53→21:35)
[2017-08-05] MEDS: CARVEDILOL 12.5 MG TAB PO SCH ×2 (08:53→21:35)
[2017-08-05] MEDS: oxyCODONE/ACETAMINOPHEN 5 MG/325 MG TAB PO PRN ×4 (08:53→21:37)
--- NOTE | 2017-08-05 09:20 | RADRPT ---
EXAM DATE/TIME: 08/05/2017 09:03 [facility] COMPARISON: CHEST SINGLE AP, July 28, 2017, 18:28. INDICATIONS : Post pacemaker insertion. MEDICAL HISTORY : Hypertension. Atrial fibrillation. Congestive heart failure. Kidney stones. Urinary tract infection. Schizophrenia. Bipolar disorder. Depression. SURGICAL HISTORY : Pacemaker. Cholecystectomy. Cardiac catheterization. ENCOUNTER: Subsequent ACUITY: 2 weeks PAIN SCORE: 4/10 LOCATION: Left chest FINDINGS: A single view of the chest demonstrates the lungs to be symmetrically aerated without evidence of mas s, infiltrate or effusion. A pacemaker has been placed along the left side of the chest. There is no evidence of pneumothorax. The heart size is mildly enlarged but stable compared to the prior study.. Osseous structures are intact. CONCLUSION: 1. Left-sided pacemaker in place. 2. No pneumothorax. Miah Morales MD on August 05, 2017 at 9:18 Board Certified Radiologist. This report was verified electronically.
--- NOTE | 2017-08-05 11:26 | HHI.PR ---
Subjective Remarks This is a pleasant 47 y/o Male who was admitted with Atypical Chest pain, Atrial Fibrillation, given Cardizem bolus and improved, he has Hypertension, CHF EF 25-30%, COPD, not recommended anticoagulation due to Cocaine abuse, continuous, pharmacy specialist Seen in his bedroom and discussed with nurse Anle, seen by pharmacy specialist with Diagnosis of Atrial fibrillation with RVR, Cardiomyopathy, EF 25-30%, COPD , on Cardizem drip and by mouth, Digoxin, Amiodarone, recommended due to CHADS Vasc score of 2 to resume Eliquis, he is non compliant with his medications, started on Carvedilol 6.25 mg BID and he has been clean from Cocaine for one month, consult to Doctor Moulton placed by Doctor Calvo for probable Ablation/AICD 07/30: Stable in his bedroom, resting in bed, no complaint. 07/31: patient scheduled for Cardiac Ablation for tomorrow, no complaint at this time, no chest pain. 08/01: Seen in his bedroom in the presence of Nurse Miss Valderrama, no nausea, vomit or diarrhea the Cardiac Ablation for next Friday08/04/17. 08/02: Stable no complaint, no nausea, vomit or diarrhea. 10-15 to have ablation tomorrow the and AICD placement on the No current complaints Discussed with patient and RN 10-16 HAD EPS WITH ABLATION TODAY WITH DR MOULTON SEEN POST PROCEDURE TO HAVE AICD/PACER TOMORROW STILL HAS SHEATHS IN PLACE 08-05 HAD AICD PLACED TODAY BY DR MOULTON MONITOR TODAY AM LABS Objective Vitals Vital Signs Date Time Temp Pulse Resp B/P (MAP) Pulse Ox O2 Delivery O2 Flow Rate FiO2 08/05/17 09:42 16 08/05/17 08:00 98.2 69 16 110/78 (89) 100 08/05/17 08:00 69 08/05/17 07:27 Room Air 08/05/17 05:00 69 08/05/17 04:00 69 08/05/17 03:00 67 08/05/17 03:00 98.5 67 18 115/69 (84) 95 08/05/17 02:00 71 08/05/17 01:00 75 08/05/17 00:00 84 08/04/17 23:00 74 08/04/17 23:00 98.3 74 18 114/75 (88) 96 08/04/17 22:00 84 08/04/17 20:00 80 08/04/17 19:44 99 Nasal Cannula 2.00 08/04/17 19:00 98 Nasal Cannula 3.00 08/04/17 19:00 81 08/04/17 19:00 98.6 81 18 130/88 (102) 98 08/04/17 18:00 78 08/04/17 17:00 76 08/04/17 16:00 78 08/04/17 15:39 98.4 77 20 113/44 (67) 99 08/04/17 15:00 76 08/04/17 15:00 76 08/04/17 14:00 64 08/04/17 13:00 62 08/04/17 12:52 63 08/04/17 12:50 97.9 63 22 135/79 (97) 99 08/04/17 12:30 98.1 64 14 109/62 (78) 99 Nasal Cannula 3 08/04/17 12:15 64 14 109/66 (80) 99 Nasal Cannula 3 08/04/17 12:00 65 14 110/62 (78) 98 Nasal Cannula 3 08/04/17 11:45 67 14 120/76 (91) 98 Nasal Cannula 3 08/04/17 11:37 97.9 72 14 123/78 (93) 96 Nasal Cannula 3 I/O 08/04/17 08/04/17 08/04/17 08/05/17 08/05/17 08/05/17 06:59 14:59 22:59 06:59 14:59 22:59 Intake Total 480 ml 240 ml 480 ml Output Total 2400 ml 500 ml 725 ml Balance -1920 ml -260 ml -245 ml Intake Oral 480 ml 240 ml 480 ml Output Urine Total 2400 ml 500 ml 725 ml Stool Total 0 ml # Bowel Movements 1 Result Diagram: 08/05/1752608/05/17526 Other Results Laboratory Tests Test 08/03/17 01:40 08/04/17 05:10 08/05/17 05:27 Potassium Level 4.4 MEQ/L 4.0 MEQ/L 4.5 MEQ/L Magnesium Level 1.9 MG/DL 2.1 MG/DL 1.9 MG/DL White Blood Count 9.7 TH/MM3 10.6 TH/MM3 Red Blood Count 5.82 MIL/MM3 5.30 MIL/MM3 Hemoglobin 17.4 GM/DL 16.0 GM/DL Hematocrit 51.0 % 46.5 % Mean Corpuscular Volume 87.7 FL 87.7 FL Mean Corpuscular Hemoglobin 29.9 PG 30.2 PG Mean Corpuscular Hemoglobin Concent 34.1 % 34.4 % Red Cell Distribution Width 15.6 % 15.6 % Platelet Count 338 TH/MM3 308 TH/MM3 Mean Platelet Volume 8.3 FL 8.4 FL Neutrophils (%) (Auto) 73.8 % 87.4 % Lymphocytes (%) (Auto) 13.2 % 7.7 % Monocytes (%) (Auto) 11.0 % 4.7 % Eosinophils (%) (Auto) 1.1 % 0.0 % Basophils (%) (Auto) 0.9 % 0.2 % Neutrophils # (Auto) 7.1 TH/MM3 9.3 TH/MM3 Lymphocytes # (Auto) 1.3 TH/MM3 0.8 TH/MM3 Monocytes # (Auto) 1.1 TH/MM3 0.5 TH/MM3 Eosinophils # (Auto) 0.1 TH/MM3 0.0 TH/MM3 Basophils # (Auto) 0.1 TH/MM3 0.0 TH/MM3 CBC Comment DIFF FINAL DIFF FINAL Differential Comment Prothrombin Time 12.6 SEC 12.3 SEC Prothromb Time International Ratio 1.1 RATIO 1.1 RATIO Blood Urea Nitrogen 13 MG/DL 17 MG/DL Creatinine 1.07 MG/DL 1.02 MG/DL Random Glucose 99 MG/DL 113 MG/DL Total Protein 7.4 GM/DL 7.0 GM/DL Albumin 3.2 GM/DL 3.2 GM/DL Calcium Level 8.6 MG/DL 8.9 MG/DL Phosphorus Level 3.7 MG/DL 3.2 MG/DL Alkaline Phosphatase 89 U/L 95 U/L Aspartate Amino Transf (AST/SGOT) 13 U/L 79 U/L Alanine Aminotransferase (ALT/SGPT) 21 U/L 63 U/L Total Bilirubin 0.6 MG/DL 0.6 MG/DL Sodium Level 134 MEQ/L 131 MEQ/L Chloride Level 101 MEQ/L 97 MEQ/L Carbon Dioxide Level 25.9 MEQ/L 24.9 MEQ/L Anion Gap 7 MEQ/L 9 MEQ/L Estimat Glomerular Filtration Rate 73 ML/MIN 78 ML/MIN Hemoglobin A1c 5.4 % Free Thyroxine 1.47 NG/DL Thyroid Stimulating Hormone 3rd Gen 3.940 uIU/ML Activated Partial Thromboplast Time 29.9 SEC Imaging Last Impressions Chest X-Ray 08/05/17 0000 Signed Impressions: Service Date/Time: Saturday, August 05, 2017 09:03 - CONCLUSION: 1. Left- sided pacemaker in place. 2. No pneumothorax. Miah Morales MD Objective Remarks GENERAL: Awake alert and oriented talkative and cooperative SKIN: Warm and dry. HEAD: Atraumatic. Normocephalic. EYES: Pupils equal and round. No scleral icterus. No injection or drainage. Extraocular muscles intact ENT: No nasal bleeding or discharge. Mucous membranes pink and moist. Tongue is midline NECK: Trachea midline. No JVD. Supple CARDIOVASCULAR: IRRegular rate and rhythm. S1 and S2 no S3 or S4 RESPIRATORY: No accessory muscle use. Clear to auscultation. Breath sounds equal bilaterally. GASTROINTESTINAL: Abdomen soft, non-tender, nondistended. Hepatic and splenic margins not palpable. MUSCULOSKELETAL: Extremities without clubbing, cyanosis, or edema. No obvious deformities. NEUROLOGICAL: Awake and alert. No obvious cranial nerve deficits. Motor grossly within normal limits. Five out of 5 muscle strength in the arms and legs. Normal speech. PSYCHIATRIC: Appropriate mood and affect; insight and judgment normal. Procedures Atrial Fibrillation Ablation PROCEDURE DATE: Aug 04, 2017 PROCEDURES PERFORMED: 1. Electrophysiology study on Isuprel infusion 2. CS cannulation 3. 3-D mapping 4. Transseptal approach 5. Right and left heart catheterization 6. Intracardiac echo 7. Radiofrequency ablation of atrial fibrillation 8. Pulmonary vein isolation 9. Posterior wall ablation 10. Mitral valve isolation 11. Mitral line creation 12. Left atrial tachycardia ablation 13. Roof line creation 14. Floor line creation 15. Anterior wall ablation 16. Cardioversion INDICATIONS FOR THE PROCEDURE Mr. Pendleton is a 47-year-old male with atrial fibrillation , congestive heart failure, multiple hospitalization, referred for electrophysiology study and ablation. The risks, the nature and the benefits of the procedure were clearly stated to him. The risks include pneumothorax, cardiac perforation, stroke, need for open heart surgery and even . The patient understood and agreed to proceed. DESCRIPTION OF THE PROCEDURE IN DETAIL After written informed consent was obtained prior to esophageal echocardiogram, the patient was kept on the table where he was prepped and draped in the usual sterile fashion. Conscious sedation was initiated and maintained throughout the procedure by the anesthesiologist. Once sedation was verified, the right and left inguinal areas were anesthetized with 2% Xylocaine. Using modified Seldinger technique, the left femoral vein was cannulated on three occasions, three guidewires were advanced. Over the wire a 6, 7 and a 10-Palestinian Hemaquet were advanced. Then the left femoral artery was cannulated on one occasion, one guidewire was advanced. Over the wire a 4-Palestinian Hemaquet was advanced. Then the right femoral vein was cannulated on one occasion, one guidewire was advanced. Over the wire a 8-Palestinian Hemaquet was advanced. Then under fluoroscopic guidance through the 6 and 7-Palestinian Hemaquet, two 5-Palestinian Enma curved quadripolar electrophysiology catheters were advanced and placed around the His as well as coronary sinus. Basic interval was measured. The patient was in atrial fibrillation. Through the 10-Palestinian Hemaquet, a Futura Acorpter AcuNav intracardiac echo catheter was advanced and placed at the right atrium. Multiple view was obtained. There was no pericardial effusion, pulmonary vein was seen, atrial septal was visualized. Then the 8-Palestinian Hemaquet in the right femoral vein was exchanged for Agilis transseptal sheath that was placed all the way to the superior vena cava. Through the sheath a Neela needle was advanced, then the sheath, the dilator and the needle were progressed until foci engaged. Once engaged, the needle was advanced. RF was delivered for 2 seconds. I was able to cross into the left atrium. Once the needle crossed, the dilator was advanced. Once the dilator crossed, the sheath was advanced. Once the sheath crossed, the dilator and the needle were removed. At this point I did flood the system and fluid movement was seen in the left atrium the indicates the sheath is in good position. The patient already received 10,000 units of heparin. The goal is to keep an ACT around 350 during ablation. Then through the sheath a St. Edi 20 pulse circumferential catheter was advanced. Using [employer] endocardial solution mapping system, a two-dimensional configuration of the left atrium was obtained. Points were taken at the left superior and inferior veins, right superior and inferior veins, mitral valve, and appendages. Then through the sheath a St. Edi TactiCath 65cm 3.5mm irrigated tipped mapping and radiofrequency ablation catheter was advanced. Esophageal probe was placed temperature monitoring during ablation. When it increased to 0.5 degrees Celsius above baseline, I moved to a different area of the atrium. First I did isolate the left superior and inferior vein. I did make a [place] around the veins. Posterior was ablated. Then a roof line was created, a floor line was created, a mitral line was isolated, then the mitral valve was isolated. At that point the patient was in left atrial tachycardia. I did create a line from the floor to the roof area, passing by the left atrial appendage. Then the right superior and inferior veins were isolated. I did remap the atrium. There is no significant signal in the atrium. At this point I decided to proceed with cardioversion. A 200 sync biphasic joule was delivered that converted the patient into sinus rhythm. At that point I did advance the circumferential catheter again into the vein. There was no signal into the vein, pacing from the vein showed no conduction to the atrium. Isuprel infusion was initiated at 10 mcg for over 10 minutes. No tachyarrhythmia was induced, post Isuprel no tachyarrhythmia was induced. At that point the procedure was complete. All catheters were removed, atrial septal sheath was exchanged for 9-Palestinian Hemaquet, intracardiac echo showed no pericardial effusion. There is still good flow in the pulmonary vein. The patient is going to be transferred to the recovery room. No incident report. The patient tolerated the procedure. Blood loss was minimal. FINDINGS 1. Electrocardiogram: At baseline the patient was in atrial fibrillation, post procedure the patient was in sinus rhythm. 2. Basic interval: Base cycle length was around 620. Post ablation she was around 960 milliseconds. AH at 130 and HV at 60 milliseconds. 3. Tachyarrhythmia: Atrial fibrillation was mapped and ablated. Atrial tachycardia was ablated. The ablation was successful. CONCLUSION Successful electrophysiology study, mapping, radiofrequency ablation of atrial fibrillation, left atrial tachycardia, pulmonary vein isolation, posterior ablation, mitral valve isolation, mitral line creation, roof line creation, floor line creation, left atrial tachycardia, and cardioversion. COMMENTS AND RECOMMENDATIONS The patient is going to be transferred to the telemetry unit. Will be observed. Defibrillator will be implanted tomorrow morning. Shiva Moulton MD Aug 04, 2017 11:25 SINGLE CHAMBER DEFIB IMPLANT PROCEDURE DATE: Aug 05, 2017 NYHA Classification: Class III (Moderate) Prevention: Primary Single Chamber Defib Implant PROCEDURE: Single chamber defibrillator implantation and device testing. INDICATIONS: Mr. Pendleton is a 47 -year-old male with hx of congestive heart failure , ejection fraction 20%, non ischemic cardiomyopathy who undergo defibrillator implantation for sudden prevention. The risks, the nature and the benefit of the procedure are clearly stated to him . Risks include pneumothorax , cardiac perforation, stroke and even . He understood and agreed to proceed. PROCEDURE: After written, informed consent was obtained, the patient was brought to the EP Lab where he was prepped and draped in the sterile fashion. Conscious sedation was initiated and maintained throughout the procedure by anesthesiologist. Once sedation was verified, the left infraclavicular area was anesthetized with 2% Xylocaine. Using modified Seldinger technique, the left subclavian vein was cannulated on one occasion and one guide wire was advanced. Then, using #11 blade scalpel, a 3-cm incision was made two fingerbreadths below left clavicle. This incision was then taken down to the deep fascial layer using Bovie cautery and blunt dissection. Into the inferomedial direction, a device pocket was dissected, then the wire was dissected into the pocket. A 2-0 Vicryl suture was placed around the wires to prevent bleeding. At this point, over the wire, the 8- Palestinian dilator and introducer was advanced. As dilator and wire were removed, an active fixation right ventricular pacing, sensing and defibrillatory lead was advanced. After adequate pacing and sensing thresholds were obtained, the lead was secured in the pocket with #2 Ethibond suture. At that point, the pocket was copiously irrigated with antibiotic solution. The leads were connected to the generator and placed into the pocket. I did proceed with wound closure. The deep fascial layer was approximated with 2-0 Vicryl suture in a continuous fashion. The subcutaneous layer was approximated with 2-0 Vicryl suture in a continuous fashion. The subcuticular layer was approximated with 2-0 Vicryl suture in a continuous fashion. Dermabond adhesive was applied to the wound, followed by a sterile pressure dressing. There was no complication. The patient tolerated procedure. Blood loss minimal. 1. Implanted Hardware: The implanted defibrillator generator is a [employer]ut, model number 310480, serial number [id number]. The right ventricular pacing, sensing and defibrillatory lead is a [employer] model number 170950, serial number [id number]. 2. Thresholds: The right ventricular pacing threshold in the bipolar mode was 1.0volts at 0.4 milliseconds, lead impedance 580 ohms and R-wave at 15.4 mV. Sensing P wave @ 8.2mv. The right ventricular defibrillatory threshold was not measured due to patient general condition. 3. Settings: The device set in VVI 40 defibrillatory portion for two zones, one zone for ventricular tachycardia between 180 and 250 beats per minute. Initial therapy consists of one burst of ATP, one ramp, 81%, 10 pulse, 10 millisecond decremental, followed by 20, then 30 and all subsequent shocks at 40 joules defibrillatory shock, the second zone for ventricular fibrillation above 250 beats per minute, first therapy at 30 and all subsequent shocks at 40 joules defibrillatory shock. CONCLUSIONS: Successful defibrillator implantation. COMMENT AND RECOMMENDATIONS: The patient will be transferred to the telemetry unit, will be observed. Further decision by the managing team. Medications and IVs Current Medications Diltiazem HCl (Cardizem Inj) 25 mg BOLUS ONCE IV PUSH Last administered on 18:30; Start 07/28/17 at 18:30; Stop 07/28/17 at 18:31; Status DC IV Flush (NS Flush) 2 ml UNSCH PRN IV FLUSH FLUSH AFTER USING IV ACCESS; Start 07/28/17 at 18:30; Stop 07/28/17 at 20:11; Status DC Diltiazem HCl 125 mg/Sodium Chloride 125 ml @ 5 mls/hr TITRATE PRN IV tachycardia Last administered on 07/29/17 03:45; Start 07/28/17 at 18:45; Stop 07/29/17 at 08:37; Status DC Ondansetron HCl (Zofran Inj) 4 mg ONCE ONCE IV PUSH Last administered on 19:49; Start 07/28/17 at 19:45; Stop 07/28/17 at 19:46; Status DC Sodium Chloride (NS Flush) 2 ml UNSCH PRN IV FLUSH FLUSH AFTER USING IV ACCESS Last administered on 07/30/17 11:12; Start 07/28/17 at 20:15 Sodium Chloride (NS Flush) 2 ml BID IV FLUSH Last administered on 08/05/17 08 :53; Start 07/28/17 at 21:00 Naloxone HCl (Narcan Inj) 0.4 mg UNSCH PRN IV PUSH SEE LABEL COMMENTS; Start 07/28/17 at 20:15 Furosemide (Lasix Inj) 40 mg BID@ IV PUSH Last administered on 07/29/17 09:19; Start 07/29/17 at 09:00; Stop 07/29/17 at 11:13; Status DC Furosemide (Lasix Inj) 40 mg ONCE ONCE IV PUSH Last administered on 07/28/17 20:35; Start 07/28/17 at 20:15; Stop 07/28/17 at 20:16; Status DC Potassium Chloride (KCl) 40 meq ONCE ONCE PO Last administered on 07/28/17 20 :35; Start 07/28/17 at 20:15; Stop 07/28/17 at 20:16; Status DC Amiodarone HCl (Cordarone) 200 mg DAILY PO Last administered on 08/05/17 08: 53; Start 07/29/17 at 09:00 Aspirin (Aspirin) 325 mg DAILY PO Last administered on 08/01/17 09:29; Start 07/29/17 at 09:00; Stop 08/01/17 at 14:51; Status DC Digoxin (Lanoxin) 0.25 mg DAILY PO Last administered on 08/05/17 08:53; Start 07/29/17 at 09:00 Diltiazem HCl (Cardizem) 90 mg Q6HR PO Last administered on 08/02/17 11:20; Start 07/29/17 at 00:00; Stop 08/02/17 at 17:46; Status DC Lisinopril (Prinivil) 5 mg DAILY PO Last administered on 07/30/17 08:48; Start 07/29/17 at 09:00; Stop 07/30/17 at 11:29; Status DC Potassium Chloride (KCl) 20 meq BID PO Last administered on 08/01/17 09:29; Start 07/29/17 at 09:00; Stop 08/01/17 at 14:11; Status DC Ipratropium Joes (Atrovent Neb) 0.5 mg Q6HR NEB NEB Last administered on 10:09; Start 07/29/17 at 04:00 Ipratropium Joes (Atrovent Neb) 0.5 mg Q2HR NEB PRN NEB wheezing; Start 07/28/17 at 22:30 Morphine Sulfate (Morphine Inj) 2 mg Q3H PRN IV PUSH pain >5, chest pain as well Last administered on 08/03/17 23:23; Start 07/28/17 at 22:30 Carvedilol (Coreg) 6.25 mg Q12HR PO Last administered on 08/03/17 21:23; Start 07/29/17 at 09:00; Stop 08/04/17 at 11:30; Status DC Diltiazem HCl 125 mg/Sodium Chloride 125 ml @ 5 mls/hr TITRATE PRN IV tachycardia; Start 07/29/17 at 10:00; Stop 08/04/17 at 11:30; Status DC Apixaban (Eliquis) 5 mg BID PO Last administered on 08/05/17 08:53; Start at 09:00; Status Future hold Pantoprazole Sodium (Protonix) 40 mg DAILY PO Last administered on 08/05/17 08:53; Start 07/30/17 at 09:00 Ondansetron HCl (Zofran Inj) 4 mg Q4H PRN IV PUSH NAUSEA Last administered on 07/30/17 20:34; Start 07/29/17 at 20:15 Lactated Ringer's 1,000 ml @ 30 mls/hr Q24H PRN IV SEE LABEL COMMENTS; Start 08/01/17 at 02:45; Stop 08/04/17 at 02:44; Status DC Sodium Chloride 500 ml @ 30 mls/hr [id number] PRN IV SEE LABEL COMMENTS; Start at 02:45; Stop 08/04/17 at 02:44; Status DC Metoprolol Tartrate (Lopressor) 25 mg DIRECTOR DATA PROCESSING PRN PO SEE LABEL COMMENTS; Start 08/01/17 at 02:45; Stop 08/01/17 at 08:54; Status DC Povidone Iodine (Betadine 5% Antisepsis Kit) 1 applic DIRECTOR DATA PROCESSING PRN EACH NARE SEE LABEL COMMENTS; Start 08/01/17 at 02:45; Stop 08/04/17 at 02:44; Status DC Chlorhexidine Gluconate (Chlorhexidine 2% Cloth) 3 pack DIRECTOR DATA PROCESSING PRN TOPICAL SEE LABEL COMMENTS; Start 08/01/17 at 02:45; Stop 08/04/17 at 02:44; Status DC Insulin Human Regular (NovoLIN R INJ) See Protocol Table ... DIRECTOR DATA PROCESSING PRN SQ SEE PROTOCOL TABLE; Start 08/01/17 at 02:45; Stop 08/04/17 at 02:44; Status DC Sacubitril/ Valsartan (Entresto 24-26 Mg) 1 tab BID PO Last administered on 21:23; Start 08/01/17 at 21:00; Stop 08/04/17 at 11:30; Status DC Diltiazem HCl (Cardizem) 60 mg Q6HR PO Last administered on 08/04/17 05:23; Start 08/02/17 at 18:00; Stop 08/04/17 at 11:30; Status DC Heparin Sodium/ Dextrose 250 ml @ As Directed STK-MED ONCE .ROUTE ; Start at 09:00; Stop 08/04/17 at 09:01; Status DC Isoproterenol HCl (Isuprel Inj) 1 mg STK-MED ONCE .ROUTE ; Start 08/04/17 at 09 :00; Stop 08/04/17 at 09:01; Status DC Protamine Sulfate (Protamine Sulfate Inj) 50 mg STK-MED ONCE .ROUTE ; Start at 09:01; Stop 08/04/17 at 09:02; Status DC Heparin Sodium (Porcine) (Heparin Inj) 20,000 units STK-MED ONCE .ROUTE ; Start 08/04/17 at 09:01; Stop 08/04/17 at 09:02; Status DC Heparin Sodium/ Sodium Chloride 2,000 ml @ As Directed STK-MED ONCE .ROUTE Last administered on 08/04/17 09:08; Start 08/04/17 at 09:08; Stop 08/04/17 at 09:09; Status DC Levofloxacin/ Dextrose 100 ml @ As Directed STK-MED ONCE IV Last administered on 08/04/17 09:15; Start 08/04/17 at 09:08; Stop 08/04/17 at 09:09; Status DC Oxycodone/ Acetaminophen (Percocet 5-325 Mg) 1 tab Q4H PRN PO PAIN SCALE 1 TO 4; Start 08/04/17 at 11:30 Oxycodone/ Acetaminophen (Percocet 5-325 Mg) 2 tab Q4H PRN PO PAIN SCALE 5 TO 10 Last administered on 08/05/17 08:53; Start 08/04/17 at 11:30 Lorazepam (Ativan Inj) 0.5 mg UNSCH PRN IV PUSH ANXIETY; Start 08/04/17 at 11: 30; Stop 08/05/17 at 11:29 Atropine Sulfate (Atropine Inj) 0.5 mg UNSCH PRN IV PUSH VAGAL REPONSE; Start 08/04/17 at 11:30 Sodium Chloride 250 ml @ 500 mls/hr ONCE PRN IV VAGAL REPONSE; Start at 11:30; Stop 08/05/17 at 11:29 Metoclopramide HCl (Reglan Inj) 10 mg Q4H PRN IV PUSH NAUSEA; Start 08/04/17 at 11:30 Ondansetron HCl (Zofran Inj) 4 mg Q4H PRN IV PUSH NAUSEA; Start 08/04/17 at 11 :30 Lidocaine HCl (Xylocaine 1% Inj (50 ml)) 10 ml UNSCH PRN INFIL SHEATH REMOVAL; Start 08/04/17 at 11:30; Stop 08/05/17 at 11:29 Bacitracin (Bacitracin Oint Packet) 0.9 gm ONCE ONCE TOP ; Start 08/04/17 at 11:30; Stop 08/04/17 at 11:39; Status DC Carvedilol (Coreg) 12.5 mg Q12HR PO Last administered on 08/05/17 08:53; Start 08/04/17 at 21:00 Sacubitril/ Valsartan (Entresto 49-51 Mg) 1 tab BID PO Last administered on 08:53; Start 08/04/17 at 21:00 Povidone Iodine (Betadine 5% Antisepsis Kit) 1 applic DIRECTOR DATA PROCESSING EACH NARE ; Start 08/04/17 at 11:30; Stop 08/08/17 at 11:29 Mupirocin (Bactroban Nasal 2% Oint) 1 applic DIRECTOR DATA PROCESSING NASAL Last administered on 08/05/17 04:45; Start 08/04/17 at 11:30; Stop 08/08/17 at 11:29 Chlorhexidine Gluconate (Chlorhexidine 2% Cloth) 3 pack DIRECTOR DATA PROCESSING TOP Last administered on 08/05/17 04:45; Start 08/04/17 at 11:30; Stop 08/08/17 at 11 :29 Miscellaneous Information ALL NURSING DEPARTME... UNSCH PRN .XX SEE LABEL COMMENTS; Start 08/04/17 at 11:35; Stop 08/05/17 at 11:34 Lactated Ringer's 1,000 ml @ 30 mls/hr Q24H PRN IV SEE LABEL COMMENTS; Start 08/04/17 at 20:45; Stop 08/07/17 at 20:44 Sodium Chloride 500 ml @ 30 mls/hr [id number] PRN IV SEE LABEL COMMENTS; Start at 20:45; Stop 08/07/17 at 20:44 Metoprolol Tartrate (Lopressor) 25 mg DIRECTOR DATA PROCESSING PRN PO SEE LABEL COMMENTS; Start 08/04/17 at 20:45; Stop 08/07/17 at 20:44 Povidone Iodine (Betadine 5% Antisepsis Kit) 1 applic DIRECTOR DATA PROCESSING PRN EACH NARE SEE LABEL COMMENTS; Start 08/04/17 at 20:45; Stop 08/07/17 at 20:44 Chlorhexidine Gluconate (Chlorhexidine 2% Cloth) 3 pack DIRECTOR DATA PROCESSING PRN TOPICAL SEE LABEL COMMENTS; Start 08/04/17 at 20:45; Stop 08/07/17 at 20:44 Insulin Human Regular (NovoLIN R INJ) See Protocol Table ... DIRECTOR DATA PROCESSING PRN SQ SEE PROTOCOL TABLE; Start 08/04/17 at 20:45; Stop 08/07/17 at 20:44 Lidocaine HCl (Xylocaine 2% Inj) 50 ml STK-MED ONCE .ROUTE Last administered on 08/05/17 07:17; Start 08/05/17 at 07:17; Stop 08/05/17 at 07:18; Status DC Vancomycin HCl (Vancomycin Inj) 500 mg STK-MED ONCE .ROUTE Last administered on 08/05/17t 07:17; Start 08/05/17 at 07:17; Stop 08/05/17 at 07:18; Status DC Vancomycin HCl (Vancomycin Inj) 1,000 mg STK-MED ONCE .ROUTE Last administered on 08/05/17 07:35; Start 08/05/17 at 07:17; Stop 08/05/17 at 07:18; Status DC Cefazolin Sodium (Ancef Inj) 2,000 mg STK-MED ONCE .ROUTE Last administered on 08/05/17 07:35; Start 08/05/17 at 07:17; Stop 08/05/17 at 07:18; Status DC Cefazolin Sodium/ Dextrose 50 ml @ 100 mls/hr Q8H IV ; Start 08/05/17 at 15:00 ; Stop 08/06/17 at 07:29 Sodium Chloride (NS Flush) 2 ml BID IV FLUSH ; Start 08/05/17 at 09:00 Sodium Chloride (NS Flush) 2 ml UNSCH PRN IV FLUSH FLUSH AFTER USING IV ACCESS ; Start 08/05/17 at 08:30 Urinary Catheter: No Vascular Central Line Catheter: No A/P Assessment and Plan 1. Atrial Fibrillation with RVR, pharmacy specialist following, with Diagnosis of Atrial fibrillation with RVR, Cardiomyopathy, EF 25-30%, COPD, on Cardizem drip and by mouth, Digoxin, Amiodarone, recommended due to CHADS Vasc score of 2 to resume Eliquis, he is non compliant with his medications, started on Carvedilol 6.25 mg BID and he has been clean from Cocaine for one month, scheduled for Cardiac Ablation for 08/04/17 and AICD placement on 08/05/17 SP ABLATION 08-04 SP AICD 08-05 2. Acute on chronic Systolic heart Failure secondary to Cocaine abuse. STOP COCAINE 3. Atypical Chest pain Improved. 4. Subtherapeutic Digoxin level 5. Hypertension controlled. 6. Cocaine abuse by history strongly recommended to stop behavior. NO MORE COCAINE 7. Acute kidney injury Improved 8. Hyperkalemia Iatrogenic the patient is on Potassium Chloride Potassium level 5.4 will hold his medicine and follow in am tomorrow. -RESOLVED STABLE Discussed with patient, all questions answered to the best of my abilities. DVT prophylaxis with Heparin. SP CARDIAC CATH AND ABLATION 08-04 PACER/AICD ON 17 A.m. labs Discharge Planning After PACER/AICD are complete NEEDS PT AND OT BEFORE DC Kulwant Mckenna DO Aug 05, 2017 11:25
[2017-08-05] MEDS: ceFAZolin 2 GM PREMIX 50 ML IV SCH (15:08)
[2017-08-06] VITALS (10 sets, daily range): BP systolic 113–128; BP diastolic 77–89; PULSE 54–78; RESP 16–18; TEMP 97.4–98.8; O2SAT 96–97
[2017-08-06] MEDS: ceFAZolin 2 GM PREMIX 50 ML IV SCH ×2 (01:32→06:22)
[2017-08-06] MEDS: oxyCODONE/ACETAMINOPHEN 5 MG/325 MG TAB PO PRN ×2 (02:59→06:22)
[2017-08-06] MEDS: RESP: IPRATROPIUM 0.5 MG/2.5 ML NEB NEB SCH ×2 (04:05→08:04)
[2017-08-06 06:29] LABS: AUTOMATED NEUTROPHIL # 7.9 TH/MM3 (1.8-7.7); BASOPHIL % 0.2 % (0.0-2.0); HEMATOCRIT 46.6 % (39.0-51.0); HEMO FLAGS DIFF FINAL; LYMPH % 12.2 % (9.0-44.0); LYMPHOCYTE # 1.3 TH/MM3 (1.0-4.8); MEAN CELL VOLUME 87.9 FL (80.0-100.0); MEAN CORPUSCULAR HEMOGLOBIN 29.2 PG (27.0-34.0); MEAN CORPUSCULAR HGB CONC 33.2 % (32.0-36.0); MONO % 10.9 % (0.0-8.0); NEUT % 76.7 % (16.0-70.0); PLATELET COUNT 286 TH/MM3 (150-450); RED CELL DISTRIBUTION WIDTH 15.6 % (11.6-17.2); WHITE BLOOD COUNT 10.3 TH/MM3 (4.0-11.0)
[2017-08-06 06:59] LABS: ANION GAP 7 MEQ/L (5-15); AST (GOT) 68 U/L (15-37); BICARBONATE 27.9 MEQ/L (21.0-32.0); BLOOD UREA NITROGEN 19 MG/DL (7-18); CHLORIDE 98 MEQ/L (98-107); GLOMERULAR FILTRATION RATE 78 ML/MIN (>89); POTASSIUM 4.2 MEQ/L (3.5-5.1); SODIUM (NA) 133 MEQ/L (136-145)
[2017-08-06 07:04] LABS: ALKALINE PHOSPHATASE 96 U/L (45-117); ALT (GPT) 62 U/L (12-78); TOTAL BILIRUBIN ADULT 0.5 MG/DL (0.2-1.0)
--- NOTE | 2017-08-06 07:20 | EKG ---
Date Performed: 08/05/2017 Time Performed: 05:09:58 PTAGE: 47 years EKG: Sinus rhythm with 1st degree A-V block Left axis deviation Nonspecific T wave change Compared to previous tracing no significant change Abnormal ECG PREVIOUS TRACING : 08/04/2017 11.53 DOCTOR: Everardo Perez Interpretating Date/Time 08/06/2017 07:19:55
--- NOTE | 2017-08-06 07:21 | EKG ---
Date Performed: 08/05/2017 Time Performed: 08:50:40 PTAGE: 47 years EKG: Sinus rhythm with 1st degree A-V block Possible left anterior fascicular block Anterolateral T wave changes are n onspecific Compared to prior tracing no significant change Abnormal ECG PREVIOUS TRACING :08/05/17 DOCTOR: Everardo Perez Interpretating Date/Time 08/06/2017 07:20:18
--- NOTE | 2017-08-06 08:23 | PD.CARD.PN ---
Subjective Subjective Remarks Feeling okay. Objective Medications Current Medications Medications (Trade) Dose Ordered Sig/Jackson Route Start Time Stop Time Status Last Admin (NS Flush) 2 ml UNSCH PRN IV FLUSH 07/28/17 20:15 07/30/17 11:12 (NS Flush) 2 ml BID IV FLUSH 07/28/17 21:00 08/05/17 08:53 (Narcan Inj) 0.4 mg UNSCH PRN IV PUSH 07/28/17 20:15 (Cordarone) 200 mg DAILY PO 07/29/17 09:00 08/05/17 08:53 (Lanoxin) 0.25 mg DAILY PO 07/29/17 09:00 08/05/17 08:53 (Atrovent Neb) 0.5 mg Q6HR NEB NEB 07/29/17 04:00 08/06/17 08:04 (Atrovent Neb) 0.5 mg Q2HR NEB PRN NEB 07/28/17 22:30 (Morphine Inj) 2 mg Q3H PRN IV PUSH 07/28/17 22:30 08/03/17 23:23 (Eliquis) 5 mg BID PO 07/29/17 09:00 Future hold 08/05/17 21:35 (Protonix) 40 mg DAILY PO 07/30/17 09:00 08/05/17 08:53 (Zofran Inj) 4 mg Q4H PRN IV PUSH 07/29/17 20:15 07/30/17 20:34 (Percocet 5-325 Mg) 1 tab Q4H PRN PO 08/04/17 11:30 (Percocet 5-325 Mg) 2 tab Q4H PRN PO 08/04/17 11:30 08/06/17 06:22 (Atropine Inj) 0.5 mg UNSCH PRN IV PUSH 08/04/17 11:30 (Reglan Inj) 10 mg Q4H PRN IV PUSH 08/04/17 11:30 (Zofran Inj) 4 mg Q4H PRN IV PUSH 08/04/17 11:30 (Coreg) 12.5 mg Q12HR PO 08/04/17 21:00 08/05/17 21:35 (Entresto 49-51 Mg) 1 tab BID PO 08/04/17 21:00 08/05/17 21:35 (Betadine 5% Antisepsis Kit) 1 applic CLINIC LPN EACH NARE 08/04/17 11:30 08/08/17 11:29 (Bactroban Nasal 2% Oint) 1 applic CLINIC LPN NASAL 08/04/17 11:30 08/08/17 11:29 08/05/17 04:45 (Chlorhexidine 2% Cloth) 3 pack CLINIC LPN TOP 08/04/17 11:30 08/08/17 11:29 08/05/17 04:45 Lactated Ringer's 1,000 ml @ 30 mls/hr Q24H PRN IV 08/04/17 20:45 08/07/17 20:44 Sodium Chloride 500 ml @ 30 mls/hr [id number] PRN IV 08/04/17 20:45 08/07/17 20:44 (Lopressor) 25 mg CLINIC LPN PRN PO 08/04/17 20:45 08/07/17 20:44 (Betadine 5% Antisepsis Kit) 1 applic CLINIC LPN PRN EACH NARE 08/04/17 20:45 08/07/17 20:44 (Chlorhexidine 2% Cloth) 3 pack CLINIC LPN PRN TOPICAL 08/04/17 20:45 08/07/17 20:44 (NovoLIN R INJ) See Protocol Table ... CLINIC LPN PRN SQ 08/04/17 20:45 08/07/17 20:44 (NS Flush) 2 ml BID IV FLUSH 08/05/17 09:00 08/05/17 21:47 (NS Flush) 2 ml UNSCH PRN IV FLUSH 08/05/17 08:30 Vital Signs / I&O Vital Signs Date Time Temp Pulse Resp B/P (MAP) Pulse Ox O2 Delivery O2 Flow Rate FiO2 08/06/17 08:06 96 08/06/17 07:33 18 08/06/17 04:20 97.7 60 16 113/77 (89) 97 08/06/17 04:00 54 08/06/17 03:00 63 08/06/17 02:00 56 08/06/17 01:12 97.4 66 16 128/89 (102) 97 08/06/17 01:00 58 08/06/17 00:00 58 08/05/17 23:00 63 08/05/17 22:00 62 08/05/17 21:00 97 Room Air 08/05/17 21:00 68 08/05/17 20:30 97.4 65 16 124/78 (93) 97 08/05/17 20:00 68 08/05/17 19:00 59 08/05/17 18:00 62 08/05/17 17:00 66 08/05/17 16:00 98.2 61 16 109/62 (78) 96 08/05/17 16:00 61 08/05/17 15:00 60 08/05/17 14:00 64 08/05/17 13:00 72 08/05/17 12:00 66 08/05/17 12:00 98.2 63 16 109/62 (78) 97 08/05/17 11:00 72 08/05/17 10:00 72 08/05/17 09:00 66 I/O 08/05/17 08/05/17 08/05/17 08/06/17 08/06/17 08/06/17 07:00 15:00 23:00 07:00 15:00 23:00 Intake Total 480 ml 720 ml 620 ml 50 ml Output Total 725 ml 950 ml 2240 ml Balance -245 ml -230 ml -1620 ml 50 ml Intake Oral 480 ml 620 ml 570 ml IV Total 100 ml 50 ml 50 ml Output Urine Total 725 ml 950 ml 2240 ml Stool Total 0 ml 0 ml # Bowel Movements 0 Physical Exam GENERAL: Well-nourished, well-developed patient. SKIN: Warm and dry. Left chest wall incision well approximated without erythema or drainage. Groin sites soft without bruising or bleeding. HEAD: Normocephalic. EYES: No scleral icterus. No injection or drainage. NECK: Supple, trachea midline. No JVD or lymphadenopathy. CARDIOVASCULAR: Regular rhythm, regular rate no rub murmur or gallop. RESPIRATORY: Breath sounds equal bilaterally. No accessory muscle use. GASTROINTESTINAL: Abdomen soft, non-tender, nondistended. EXTREMITIES: No cyanosis, or edema. NEUROLOGICAL: Awake, alert, and oriented x 3. Non-focal. Laboratory Laboratory Tests Test 08/06/17 05:28 White Blood Count 10.3 TH/MM3 Red Blood Count 5.30 MIL/MM3 Hemoglobin 15.5 GM/DL Hematocrit 46.6 % Mean Corpuscular Volume 87.9 FL Mean Corpuscular Hemoglobin 29.2 PG Mean Corpuscular Hemoglobin Concent 33.2 % Red Cell Distribution Width 15.6 % Platelet Count 286 TH/MM3 Mean Platelet Volume 8.3 FL Neutrophils (%) (Auto) 76.7 % Lymphocytes (%) (Auto) 12.2 % Monocytes (%) (Auto) 10.9 % Eosinophils (%) (Auto) 0.0 % Basophils (%) (Auto) 0.2 % Neutrophils # (Auto) 7.9 TH/MM3 Lymphocytes # (Auto) 1.3 TH/MM3 Monocytes # (Auto) 1.1 TH/MM3 Eosinophils # (Auto) 0.0 TH/MM3 Basophils # (Auto) 0.0 TH/MM3 CBC Comment DIFF FINAL Differential Comment Blood Urea Nitrogen 19 MG/DL Creatinine 1.02 MG/DL Random Glucose 85 MG/DL Total Protein 6.9 GM/DL Albumin 3.3 GM/DL Calcium Level 8.7 MG/DL Phosphorus Level 3.2 MG/DL Magnesium Level 2.0 MG/DL Alkaline Phosphatase 96 U/L Aspartate Amino Transf (AST/SGOT) 68 U/L Alanine Aminotransferase (ALT/SGPT) 62 U/L Total Bilirubin 0.5 MG/DL Sodium Level 133 MEQ/L Potassium Level 4.2 MEQ/L Chloride Level 98 MEQ/L Carbon Dioxide Level 27.9 MEQ/L Anion Gap 7 MEQ/L Estimat Glomerular Filtration Rate 78 ML/MIN Imaging Last Impressions Chest X-Ray 08/05/17 0000 Signed Impressions: Service Date/Time: Saturday, August 05, 2017 09:03 - CONCLUSION: 1. Left- sided pacemaker in place. 2. No pneumothorax. Miah Morales MD Assessment and Plan Problem List: (1) Atrial fibrillation with RVR ICD Codes: I48.91 - Unspecified atrial fibrillation Status: Acute Plan: Sinus rhythm on telemetry status post atrial fibrillation and left atrial tachycardia ablation. Groin sites stable. Can be discharged home at the discretion of the managing team. (2) Cardiomyopathy ICD Codes: I42.9 - Cardiomyopathy, unspecified Status: Acute Plan: Status post ICD implantation for sudden cardiac prevention. Can be discharged home when cleared by managing team with a copy of Dr. Benton's permanent pacemaker discharge instructions. Follow-up with Dr. Benton in 2 weeks per my discussion with him. Assessment and Plan Discussed with patient, RN, Dr. Benton. Problem Qualifiers (1) Cardiomyopathy: Qualified Codes: I42.7 - Cardiomyopathy due to drug and external agent Sania Frias Aug 06, 2017 08:22
[2017-08-06] MEDS: CARVEDILOL 12.5 MG TAB PO SCH (08:51)
[2017-08-06] MEDS: APIXABAN 5 MG TABLET PO SCH (08:51)
[2017-08-06] MEDS: AMIODARONE 200 MG TAB PO SCH (08:51)
[2017-08-06] MEDS: SODIUM CHLORIDE 0.9% FLUSH 10 ML FLUSH IV FLUSH SCH ×2 (08:51→09:00)
[2017-08-06] MEDS: PANTOPRAZOLE SOD 40 MG DELAYED RELEASE TAB PO SCH (08:51)
[2017-08-06] MEDS: DIGOXIN 0.25 MG TAB PO SCH (08:51)
[2017-08-06] MEDS: SACUBITRIL/VALSARTAN 49 MG-51 MG TAB PO SCH (08:51)
--- NOTE | 2017-08-06 09:23 | HHI.PR ---
Subjective Remarks This is a pleasant 47 y/o Male who was admitted with Atypical Chest pain, Atrial Fibrillation, given Cardizem bolus and improved, he has Hypertension, CHF EF 25-30%, COPD, not recommended anticoagulation due to Cocaine abuse, continuous, client renewal specialist Seen in his bedroom and discussed with nurse miss Tam, seen by client renewal specialist with Diagnosis of Atrial fibrillation with RVR, Cardiomyopathy, EF 25-30%, COPD , on Cardizem drip and by mouth, Digoxin, Amiodarone, recommended due to CHADS Vasc score of 2 to resume Eliquis, he is non compliant with his medications, started on Carvedilol 6.25 mg BID and he has been clean from Cocaine for one month, consult to Doctor Moulton placed by Doctor Calvo for probable Ablation/AICD 07/30: Stable in his bedroom, resting in bed, no complaint. 07/31: patient scheduled for Cardiac Ablation for tomorrow, no complaint at this time, no chest pain. 08/01: Seen in his bedroom in the presence of Nurse Arlineshoshana, no nausea, vomit or diarrhea the Cardiac Ablation for next Friday08/04/17. 08/02: Stable no complaint, no nausea, vomit or diarrhea. 08-03 to have ablation tomorrow the and AICD placement on the No current complaints Discussed with patient and RN - HAD EPS WITH ABLATION TODAY WITH DR MOULTON SEEN POST PROCEDURE TO HAVE AICD/PACER TOMORROW STILL HAS SHEATHS IN PLACE 08-05 HAD AICD PLACED TODAY BY DR MOULTON MONITOR TODAY AM LABS 08-06 HAS BEEN CLEARED BY CARDIOLOGY DR MOULTON FOR DC DC TO HOME CAN WORK BUT NO LIFTING AT WORK DW RN AND PT Objective Vitals Vital Signs Date Time Temp Pulse Resp B/P (MAP) Pulse Ox O2 Delivery O2 Flow Rate FiO2 08/06/17 08:06 96 08/06/17 07:33 18 08/06/17 04:20 97.7 60 16 113/77 (89) 97 08/06/17 04:00 54 08/06/17 03:00 63 08/06/17 02:00 56 08/06/17 01:12 97.4 66 16 128/89 (102) 97 08/06/17 01:00 58 08/06/17 00:00 58 08/05/17 23:00 63 08/05/17 22:00 62 08/05/17 21:00 97 Room Air 08/05/17 21:00 68 08/05/17 20:30 97.4 65 16 124/78 (93) 97 08/05/17 20:00 68 08/05/17 19:00 59 08/05/17 18:00 62 08/05/17 17:00 66 08/05/17 16:00 98.2 61 16 109/62 (78) 96 08/05/17 16:00 61 08/05/17 15:00 60 08/05/17 14:00 64 08/05/17 13:00 72 08/05/17 12:00 66 08/05/17 12:00 98.2 63 16 109/62 (78) 97 08/05/17 11:00 72 08/05/17 10:00 72 I/O 08/05/17 08/05/17 08/05/17 08/06/17 08/06/17 08/06/17 07:00 15:00 23:00 07:00 15:00 23:00 Intake Total 480 ml 720 ml 620 ml 50 ml Output Total 725 ml 950 ml 2240 ml Balance -245 ml -230 ml -1620 ml 50 ml Intake Oral 480 ml 620 ml 570 ml IV Total 100 ml 50 ml 50 ml Output Urine Total 725 ml 950 ml 2240 ml Stool Total 0 ml 0 ml # Bowel Movements 0 Result Diagram: 08/06/17 0528 08/06/17 0528 Other Results Laboratory Tests Test 08/04/17 05:10 08/05/17 05:27 08/06/17 05:28 White Blood Count 9.7 TH/MM3 10.6 TH/MM3 10.3 TH/MM3 Red Blood Count 5.82 MIL/MM3 5.30 MIL/MM3 5.30 MIL/MM3 Hemoglobin 17.4 GM/DL 16.0 GM/DL 15.5 GM/DL Hematocrit 51.0 % 46.5 % 46.6 % Mean Corpuscular Volume 87.7 FL 87.7 FL 87.9 FL Mean Corpuscular Hemoglobin 29.9 PG 30.2 PG 29.2 PG Mean Corpuscular Hemoglobin Concent 34.1 % 34.4 % 33.2 % Red Cell Distribution Width 15.6 % 15.6 % 15.6 % Platelet Count 338 TH/MM3 308 TH/MM3 286 TH/MM3 Mean Platelet Volume 8.3 FL 8.4 FL 8.3 FL Neutrophils (%) (Auto) 73.8 % 87.4 % 76.7 % Lymphocytes (%) (Auto) 13.2 % 7.7 % 12.2 % Monocytes (%) (Auto) 11.0 % 4.7 % 10.9 % Eosinophils (%) (Auto) 1.1 % 0.0 % 0.0 % Basophils (%) (Auto) 0.9 % 0.2 % 0.2 % Neutrophils # (Auto) 7.1 TH/MM3 9.3 TH/MM3 7.9 TH/MM3 Lymphocytes # (Auto) 1.3 TH/MM3 0.8 TH/MM3 1.3 TH/MM3 Monocytes # (Auto) 1.1 TH/MM3 0.5 TH/MM3 1.1 TH/MM3 Eosinophils # (Auto) 0.1 TH/MM3 0.0 TH/MM3 0.0 TH/MM3 Basophils # (Auto) 0.1 TH/MM3 0.0 TH/MM3 0.0 TH/MM3 CBC Comment DIFF FINAL DIFF FINAL DIFF FINAL Differential Comment Prothrombin Time 12.6 SEC 12.3 SEC Prothromb Time International Ratio 1.1 RATIO 1.1 RATIO Blood Urea Nitrogen 13 MG/DL 17 MG/DL 19 MG/DL Creatinine 1.07 MG/DL 1.02 MG/DL 1.02 MG/DL Random Glucose 99 MG/DL 113 MG/DL 85 MG/DL Total Protein 7.4 GM/DL 7.0 GM/DL 6.9 GM/DL Albumin 3.2 GM/DL 3.2 GM/DL 3.3 GM/DL Calcium Level 8.6 MG/DL 8.9 MG/DL 8.7 MG/DL Phosphorus Level 3.7 MG/DL 3.2 MG/DL 3.2 MG/DL Magnesium Level 2.1 MG/DL 1.9 MG/DL 2.0 MG/DL Alkaline Phosphatase 89 U/L 95 U/L 96 U/L Aspartate Amino Transf (AST/SGOT) 13 U/L 79 U/L 68 U/L Alanine Aminotransferase (ALT/SGPT) 21 U/L 63 U/L 62 U/L Total Bilirubin 0.6 MG/DL 0.6 MG/DL 0.5 MG/DL Sodium Level 134 MEQ/L 131 MEQ/L 133 MEQ/L Potassium Level 4.0 MEQ/L 4.5 MEQ/L 4.2 MEQ/L Chloride Level 101 MEQ/L 97 MEQ/L 98 MEQ/L Carbon Dioxide Level 25.9 MEQ/L 24.9 MEQ/L 27.9 MEQ/L Anion Gap 7 MEQ/L 9 MEQ/L 7 MEQ/L Estimat Glomerular Filtration Rate 73 ML/MIN 78 ML/MIN 78 ML/MIN Hemoglobin A1c 5.4 % Free Thyroxine 1.47 NG/DL Thyroid Stimulating Hormone 3rd Gen 3.940 uIU/ML Activated Partial Thromboplast Time 29.9 SEC Imaging Last Impressions Chest X-Ray 08/05/17 0000 Signed Impressions: Service Date/Time: Saturday, August 05, 2017 09:03 - CONCLUSION: 1. Left- sided pacemaker in place. 2. No pneumothorax. Miah Morales MD Objective Remarks GENERAL: Awake alert and oriented talkative and cooperative SKIN: Warm and dry. HEAD: Atraumatic. Normocephalic. EYES: Pupils equal and round. No scleral icterus. No injection or drainage. Extraocular muscles intact ENT: No nasal bleeding or discharge. Mucous membranes pink and moist. Tongue is midline NECK: Trachea midline. No JVD. Supple CARDIOVASCULAR: IRRegular rate and rhythm. S1 and S2 no S3 or S4 RESPIRATORY: No accessory muscle use. Clear to auscultation. Breath sounds equal bilaterally. GASTROINTESTINAL: Abdomen soft, non-tender, nondistended. Hepatic and splenic margins not palpable. MUSCULOSKELETAL: Extremities without clubbing, cyanosis, or edema. No obvious deformities. NEUROLOGICAL: Awake and alert. No obvious cranial nerve deficits. Motor grossly within normal limits. Five out of 5 muscle strength in the arms and legs. Normal speech. PSYCHIATRIC: Appropriate mood and affect; insight and judgment normal. Procedures Atrial Fibrillation Ablation PROCEDURE DATE: Aug 04, 2017 PROCEDURES PERFORMED: 1. Electrophysiology study on Isuprel infusion 2. CS cannulation 3. 3-D mapping 4. Transseptal approach 5. Right and left heart catheterization 6. Intracardiac echo 7. Radiofrequency ablation of atrial fibrillation 8. Pulmonary vein isolation 9. Posterior wall ablation 10. Mitral valve isolation 11. Mitral line creation 12. Left atrial tachycardia ablation 13. Roof line creation 14. Floor line creation 15. Anterior wall ablation 16. Cardioversion INDICATIONS FOR THE PROCEDURE Mr. Pendleton is a 47-year-old male with atrial fibrillation , congestive heart failure, multiple hospitalization, referred for electrophysiology study and ablation. The risks, the nature and the benefits of the procedure were clearly stated to him. The risks include pneumothorax, cardiac perforation, stroke, need for open heart surgery and even . The patient understood and agreed to proceed. DESCRIPTION OF THE PROCEDURE IN DETAIL After written informed consent was obtained prior to esophageal echocardiogram, the patient was kept on the table where he was prepped and draped in the usual sterile fashion. Conscious sedation was initiated and maintained throughout the procedure by the anesthesiologist. Once sedation was verified, the right and left inguinal areas were anesthetized with 2% Xylocaine. Using modified Seldinger technique, the left femoral vein was cannulated on three occasions, three guidewires were advanced. Over the wire a 6, 7 and a 10-Angolan Hemaquet were advanced. Then the left femoral artery was cannulated on one occasion, one guidewire was advanced. Over the wire a 4-Angolan Hemaquet was advanced. Then the right femoral vein was cannulated on one occasion, one guidewire was advanced. Over the wire a 8-Angolan Hemaquet was advanced. Then under fluoroscopic guidance through the 6 and 7-Angolan Hemaquet, two 5-Angolan Enma curved quadripolar electrophysiology catheters were advanced and placed around the His as well as coronary sinus. Basic interval was measured. The patient was in atrial fibrillation. Through the 10-Angolan Hemaquet, a Cordis Talley AcuNav intracardiac echo catheter was advanced and placed at the right atrium. Multiple view was obtained. There was no pericardial effusion, pulmonary vein was seen, atrial septal was visualized. Then the 8-Angolan Hemaquet in the right femoral vein was exchanged for Agilis transseptal sheath that was placed all the way to the superior vena cava. Through the sheath a Neela needle was advanced, then the sheath, the dilator and the needle were progressed until foci engaged. Once engaged, the needle was advanced. RF was delivered for 2 seconds. I was able to cross into the left atrium. Once the needle crossed, the dilator was advanced. Once the dilator crossed, the sheath was advanced. Once the sheath crossed, the dilator and the needle were removed. At this point I did flood the system and fluid movement was seen in the left atrium the indicates the sheath is in good position. The patient already received 10,000 units of heparin. The goal is to keep an ACT around 350 during ablation. Then through the sheath a St. Edi 20 pulse circumferential catheter was advanced. Using [employer] endocardial solution mapping system, a two-dimensional configuration of the left atrium was obtained. Points were taken at the left superior and inferior veins, right superior and inferior veins, mitral valve, and appendages. Then through the sheath a St. Edi TactiCath 65cm 3.5mm irrigated tipped mapping and radiofrequency ablation catheter was advanced. Esophageal probe was placed temperature monitoring during ablation. When it increased to 0.5 degrees Celsius above baseline, I moved to a different area of the atrium. First I did isolate the left superior and inferior vein. I did make a kake around the veins. Posterior was ablated. Then a roof line was created, a floor line was created, a mitral line was isolated, then the mitral valve was isolated. At that point the patient was in left atrial tachycardia. I did create a line from the floor to the roof area, passing by the left atrial appendage. Then the right superior and inferior veins were isolated. I did remap the atrium. There is no significant signal in the atrium. At this point I decided to proceed with cardioversion. A 200 sync biphasic joule was delivered that converted the patient into sinus rhythm. At that point I did advance the circumferential catheter again into the vein. There was no signal into the vein, pacing from the vein showed no conduction to the atrium. Isuprel infusion was initiated at 10 mcg for over 10 minutes. No tachyarrhythmia was induced, post Isuprel no tachyarrhythmia was induced. At that point the procedure was complete. All catheters were removed, atrial septal sheath was exchanged for 9-Angolan Hemaquet, intracardiac echo showed no pericardial effusion. There is still good flow in the pulmonary vein. The patient is going to be transferred to the recovery room. No incident report. The patient tolerated the procedure. Blood loss was minimal. FINDINGS 1. Electrocardiogram: At baseline the patient was in atrial fibrillation, post procedure the patient was in sinus rhythm. 2. Basic interval: Base cycle length was around 620. Post ablation she was around 960 milliseconds. AH at 130 and HV at 60 milliseconds. 3. Tachyarrhythmia: Atrial fibrillation was mapped and ablated. Atrial tachycardia was ablated. The ablation was successful. CONCLUSION Successful electrophysiology study, mapping, radiofrequency ablation of atrial fibrillation, left atrial tachycardia, pulmonary vein isolation, posterior ablation, mitral valve isolation, mitral line creation, roof line creation, floor line creation, left atrial tachycardia, and cardioversion. COMMENTS AND RECOMMENDATIONS The patient is going to be transferred to the telemetry unit. Will be observed. Defibrillator will be implanted tomorrow morning. Shiva Moulton MD Aug 04, 2017 11:25 SINGLE CHAMBER DEFIB IMPLANT PROCEDURE DATE: Aug 05, 2017 NYHA Classification: Class III (Moderate) Prevention: Primary Single Chamber Defib Implant PROCEDURE: Single chamber defibrillator implantation and device testing. INDICATIONS: Mr. Pendleton is a 47 -year-old male with hx of congestive heart failure , ejection fraction 20%, non ischemic cardiomyopathy who undergo defibrillator implantation for sudden prevention. The risks, the nature and the benefit of the procedure are clearly stated to him . Risks include pneumothorax , cardiac perforation, stroke and even . He understood and agreed to proceed. PROCEDURE: After written, informed consent was obtained, the patient was brought to the EP Lab where he was prepped and draped in the sterile fashion. Conscious sedation was initiated and maintained throughout the procedure by anesthesiologist. Once sedation was verified, the left infraclavicular area was anesthetized with 2% Xylocaine. Using modified Seldinger technique, the left subclavian vein was cannulated on one occasion and one guide wire was advanced. Then, using #11 blade scalpel, a 3-cm incision was made two fingerbreadths below left clavicle. This incision was then taken down to the deep fascial layer using Bovie cautery and blunt dissection. Into the inferomedial direction, a device pocket was dissected, then the wire was dissected into the pocket. A 2-0 Vicryl suture was placed around the wires to prevent bleeding. At this point, over the wire, the 8- Angolan dilator and introducer was advanced. As dilator and wire were removed, an active fixation right ventricular pacing, sensing and defibrillatory lead was advanced. After adequate pacing and sensing thresholds were obtained, the lead was secured in the pocket with #2 Ethibond suture. At that point, the pocket was copiously irrigated with antibiotic solution. The leads were connected to the generator and placed into the pocket. I did proceed with wound closure. The deep fascial layer was approximated with 2-0 Vicryl suture in a continuous fashion. The subcutaneous layer was approximated with 2-0 Vicryl suture in a continuous fashion. The subcuticular layer was approximated with 2-0 Vicryl suture in a continuous fashion. Dermabond adhesive was applied to the wound, followed by a sterile pressure dressing. There was no complication. The patient tolerated procedure. Blood loss minimal. 1. Implanted Hardware: The implanted defibrillator generator is a [employer] [id number] [employer], model number 526077, serial number [id number]. The right ventricular pacing, sensing and defibrillatory lead is a [employer] model number 134096, serial number [id number]. 2. Thresholds: The right ventricular pacing threshold in the bipolar mode was 1.0volts at 0.4 milliseconds, lead impedance 580 ohms and R-wave at 15.4 mV. Sensing P wave @ 8.2mv. The right ventricular defibrillatory threshold was not measured due to patient general condition. 3. Settings: The device set in VVI 40 defibrillatory portion for two zones, one zone for ventricular tachycardia between 180 and 250 beats per minute. Initial therapy consists of one burst of ATP, one ramp, 81%, 10 pulse, 10 millisecond decremental, followed by 20, then 30 and all subsequent shocks at 40 joules defibrillatory shock, the second zone for ventricular fibrillation above 250 beats per minute, first therapy at 30 and all subsequent shocks at 40 joules defibrillatory shock. CONCLUSIONS: Successful defibrillator implantation. COMMENT AND RECOMMENDATIONS: The patient will be transferred to the telemetry unit, will be observed. Further decision by the managing team. Medications and IVs Current Medications Diltiazem HCl (Cardizem Inj) 25 mg BOLUS ONCE IV PUSH Last administered on t 18:30; Start 07/28/17 at 18:30; Stop 07/28/17 at 18:31; Status DC IV Flush (NS Flush) 2 ml UNSCH PRN IV FLUSH FLUSH AFTER USING IV ACCESS; Start 07/28/17 at 18:30; Stop 07/28/17 at 20:11; Status DC Diltiazem HCl 125 mg/Sodium Chloride 125 ml @ 5 mls/hr TITRATE PRN IV tachycardia Last administered on 07/29/17 03:45; Start 07/28/17 at 18:45; Stop 07/29/17 at 08:37; Status DC Ondansetron HCl (Zofran Inj) 4 mg ONCE ONCE IV PUSH Last administered on 19:49; Start 07/28/17 at 19:45; Stop 07/28/17 at 19:46; Status DC Sodium Chloride (NS Flush) 2 ml UNSCH PRN IV FLUSH FLUSH AFTER USING IV ACCESS Last administered on 07/30/17 11:12; Start 07/28/17 at 20:15 Sodium Chloride (NS Flush) 2 ml BID IV FLUSH Last administered on 08/06/17 08 :51; Start 07/28/17 at 21:00 Naloxone HCl (Narcan Inj) 0.4 mg UNSCH PRN IV PUSH SEE LABEL COMMENTS; Start 07/28/17 at 20:15 Furosemide (Lasix Inj) 40 mg BID@,18 IV PUSH Last administered on 07/29/17 09:19; Start 07/29/17 at 09:00; Stop 07/29/17 at 11:13; Status DC Furosemide (Lasix Inj) 40 mg ONCE ONCE IV PUSH Last administered on 07/28/17 20:35; Start 07/28/17 at 20:15; Stop 07/28/17 at 20:16; Status DC Potassium Chloride (KCl) 40 meq ONCE ONCE PO Last administered on 07/28/17 20 :35; Start 07/28/17 at 20:15; Stop 07/28/17 at 20:16; Status DC Amiodarone HCl (Cordarone) 200 mg DAILY PO Last administered on 08/06/17 08: 51; Start 07/29/17 at 09:00 Aspirin (Aspirin) 325 mg DAILY PO Last administered on 08/01/17 09:29; Start 07/29/17 at 09:00; Stop 08/01/17 at 14:51; Status DC Digoxin (Lanoxin) 0.25 mg DAILY PO Last administered on 08/06/17 08:51; Start 07/29/17 at 09:00 Diltiazem HCl (Cardizem) 90 mg Q6HR PO Last administered on 08/02/17 11:20; Start 07/29/17 at 00:00; Stop 08/02/17 at 17:46; Status DC Lisinopril (Prinivil) 5 mg DAILY PO Last administered on 07/30/17 08:48; Start 07/29/17 at 09:00; Stop 07/30/17 at 11:29; Status DC Potassium Chloride (KCl) 20 meq BID PO Last administered on 08/01/17 09:29; Start 07/29/17 at 09:00; Stop 08/01/17 at 14:11; Status DC Ipratropium Sopchoppy (Atrovent Neb) 0.5 mg Q6HR NEB NEB Last administered on 08:04; Start 07/29/17 at 04:00 Ipratropium S[place]choppy (Atrovent Neb) 0.5 mg Q2HR NEB PRN NEB wheezing; Start 07/28/17 at 22:30 Morphine Sulfate (Morphine Inj) 2 mg Q3H PRN IV PUSH pain >5, chest pain as well Last administered on 08/03/17 23:23; Start 07/28/17 at 22:30 Carvedilol (Coreg) 6.25 mg Q12HR PO Last administered on 08/03/17 21:23; Start 07/29/17 at 09:00; Stop 08/04/17 at 11:30; Status DC Diltiazem HCl 125 mg/Sodium Chloride 125 ml @ 5 mls/hr TITRATE PRN IV tachycardia; Start 07/29/17 at 10:00; Stop 08/04/17 at 11:30; Status DC Apixaban (Eliquis) 5 mg BID PO Last administered on 08/06/17 08:51; Start at 09:00; Status Future hold Pantoprazole Sodium (Protonix) 40 mg DAILY PO Last administered on 08/06/17 08:51; Start 07/30/17 at 09:00 Ondansetron HCl (Zofran Inj) 4 mg Q4H PRN IV PUSH NAUSEA Last administered on 07/30/17 20:34; Start 07/29/17 at 20:15 Lactated Ringer's 1,000 ml @ 30 mls/hr Q24H PRN IV SEE LABEL COMMENTS; Start 08/01/17 at 02:45; Stop 08/04/17 at 02:44; Status DC Sodium Chloride 500 ml @ 30 mls/hr [id number] PRN IV SEE LABEL COMMENTS; Start at 02:45; Stop 08/04/17 at 02:44; Status DC Metoprolol Tartrate (Lopressor) 25 mg COLLEGE ADMINISTRATOR PRN PO SEE LABEL COMMENTS; Start 08/01/17 at 02:45; Stop 08/01/17 at 08:54; Status DC Povidone Iodine (Betadine 5% Antisepsis Kit) 1 applic COLLEGE ADMINISTRATOR PRN EACH NARE SEE LABEL COMMENTS; Start 08/01/17 at 02:45; Stop 08/04/17 at 02:44; Status DC Chlorhexidine Gluconate (Chlorhexidine 2% Cloth) 3 pack COLLEGE ADMINISTRATOR PRN TOPICAL SEE LABEL COMMENTS; Start 08/01/17 at 02:45; Stop 08/04/17 at 02:44; Status DC Insulin Human Regular (NovoLIN R INJ) See Protocol Table ... COLLEGE ADMINISTRATOR PRN SQ SEE PROTOCOL TABLE; Start 08/01/17 at 02:45; Stop 08/04/17 at 02:44; Status DC Sacubitril/ Valsartan (Entresto 24-26 Mg) 1 tab BID PO Last administered on 21:23; Start 08/01/17 at 21:00; Stop 08/04/17 at 11:30; Status DC Diltiazem HCl (Cardizem) 60 mg Q6HR PO Last administered on 08/04/17 05:23; Start 08/02/17 at 18:00; Stop 08/04/17 at 11:30; Status DC Heparin Sodium/ Dextrose 250 ml @ As Directed STK-MED ONCE .ROUTE ; Start at 09:00; Stop 08/04/17 at 09:01; Status DC Isoproterenol HCl (Isuprel Inj) 1 mg STK-MED ONCE .ROUTE ; Start 08/04/17 at 09 :00; Stop 08/04/17 at 09:01; Status DC Protamine Sulfate (Protamine Sulfate Inj) 50 mg STK-MED ONCE .ROUTE ; Start at 09:01; Stop 08/04/17 at 09:02; Status DC Heparin Sodium (Porcine) (Heparin Inj) 20,000 units STK-MED ONCE .ROUTE ; Start 08/04/17 at 09:01; Stop 08/04/17 at 09:02; Status DC Heparin Sodium/ Sodium Chloride 2,000 ml @ As Directed STK-MED ONCE .ROUTE Last administered on 08/04/17 09:08; Start 08/04/17 at 09:08; Stop 08/04/17 at 09:09; Status DC Levofloxacin/ Dextrose 100 ml @ As Directed STK-MED ONCE IV Last administered on 08/04/17 09:15; Start 08/04/17 at 09:08; Stop 08/04/17 at 09:09; Status DC Oxycodone/ Acetaminophen (Percocet 5-325 Mg) 1 tab Q4H PRN PO PAIN SCALE 1 TO 4; Start 08/04/17 at 11:30 Oxycodone/ Acetaminophen (Percocet 5-325 Mg) 2 tab Q4H PRN PO PAIN SCALE 5 TO 10 Last administered on 08/06/17 06:22; Start 08/04/17 at 11:30 Lorazepam (Ativan Inj) 0.5 mg UNSCH PRN IV PUSH ANXIETY; Start 08/04/17 at 11: 30; Stop 08/05/17 at 11:29; Status DC Atropine Sulfate (Atropine Inj) 0.5 mg UNSCH PRN IV PUSH VAGAL REPONSE; Start 08/04/17 at 11:30 Sodium Chloride 250 ml @ 500 mls/hr ONCE PRN IV VAGAL REPONSE; Start at 11:30; Stop 08/05/17 at 11:29; Status DC Metoclopramide HCl (Reglan Inj) 10 mg Q4H PRN IV PUSH NAUSEA; Start 08/04/17 at 11:30 Ondansetron HCl (Zofran Inj) 4 mg Q4H PRN IV PUSH NAUSEA; Start 08/04/17 at 11 :30 Lidocaine HCl (Xylocaine 1% Inj (50 ml)) 10 ml UNSCH PRN INFIL SHEATH REMOVAL; Start 08/04/17 at 11:30; Stop 08/05/17 at 11:29; Status DC Bacitracin (Bacitracin Oint Packet) 0.9 gm ONCE ONCE TOP ; Start 08/04/17 at 11:30; Stop 08/04/17 at 11:39; Status DC Carvedilol (Coreg) 12.5 mg Q12HR PO Last administered on 08/06/17 08:51; Start 08/04/17 at 21:00 Sacubitril/ Valsartan (Entresto 49-51 Mg) 1 tab BID PO Last administered on 08:51; Start 08/04/17 at 21:00 Povidone Iodine (Betadine 5% Antisepsis Kit) 1 applic COLLEGE ADMINISTRATOR EACH NARE ; Start 08/04/17 at 11:30; Stop 08/08/17 at 11:29 Mupirocin (Bactroban Nasal 2% Oint) 1 applic COLLEGE ADMINISTRATOR NASAL Last administered on 08/05/17 04:45; Start 08/04/17 at 11:30; Stop 08/08/17 at 11:29 Chlorhexidine Gluconate (Chlorhexidine 2% Cloth) 3 pack COLLEGE ADMINISTRATOR TOP Last administered on 08/05/17 04:45; Start 08/04/17 at 11:30; Stop 08/08/17 at 11 :29 Miscellaneous Information ALL NURSING DEPARTME... UNSCH PRN .XX SEE LABEL COMMENTS; Start 08/04/17 at 11:35; Stop 08/05/17 at 11:34; Status DC Lactated Ringer's 1,000 ml @ 30 mls/hr Q24H PRN IV SEE LABEL COMMENTS; Start 08/04/17 at 20:45; Stop 08/07/17 at 20:44 Sodium Chloride 500 ml @ 30 mls/hr [id number] PRN IV SEE LABEL COMMENTS; Start at 20:45; Stop 08/07/17 at 20:44 Metoprolol Tartrate (Lopressor) 25 mg COLLEGE ADMINISTRATOR PRN PO SEE LABEL COMMENTS; Start 08/04/17 at 20:45; Stop 08/07/17 at 20:44 Povidone Iodine (Betadine 5% Antisepsis Kit) 1 applic COLLEGE ADMINISTRATOR PRN EACH NARE SEE LABEL COMMENTS; Start 08/04/17 at 20:45; Stop 08/07/17 at 20:44 Chlorhexidine Gluconate (Chlorhexidine 2% Cloth) 3 pack COLLEGE ADMINISTRATOR PRN TOPICAL SEE LABEL COMMENTS; Start 08/04/17 at 20:45; Stop 08/07/17 at 20:44 Insulin Human Regular (NovoLIN R INJ) See Protocol Table ... COLLEGE ADMINISTRATOR PRN SQ SEE PROTOCOL TABLE; Start 08/04/17 at 20:45; Stop 08/07/17 at 20:44 Lidocaine HCl (Xylocaine 2% Inj) 50 ml STK-MED ONCE .ROUTE Last administered on 08/05/17 07:17; Start 08/05/17 at 07:17; Stop 08/05/17 at 07:18; Status DC Vancomycin HCl (Vancomycin Inj) 500 mg STK-MED ONCE .ROUTE Last administered on 08/05/17 07:17; Start 08/05/17 at 07:17; Stop 08/05/17 at 07:18; Status DC Vancomycin HCl (Vancomycin Inj) 1,000 mg STK-MED ONCE .ROUTE Last administered on 08/05/17 07:35; Start 08/05/17 at 07:17; Stop 08/05/17 at 07:18; Status DC Cefazolin Sodium (Ancef Inj) 2,000 mg STK-MED ONCE .ROUTE Last administered on 08/05/17 07:35; Start 08/05/17 at 07:17; Stop 08/05/17 at 07:18; Status DC Cefazolin Sodium/ Dextrose 50 ml @ 100 mls/hr Q8H IV Last administered on 06:22; Start 08/05/17 at 15:00; Stop 08/06/17 at 07:29; Status DC Sodium Chloride (NS Flush) 2 ml BID IV FLUSH Last administered on 08/06/17 09 :00; Start 08/05/17 at 09:00 Sodium Chloride (NS Flush) 2 ml UNSCH PRN IV FLUSH FLUSH AFTER USING IV ACCESS ; Start 08/05/17 at 08:30 Urinary Catheter: No Vascular Central Line Catheter: No A/P Assessment and Plan 1. Atrial Fibrillation with RVR, client renewal specialist following, with Diagnosis of Atrial fibrillation with RVR, Cardiomyopathy, EF 25-30%, COPD, on Cardizem drip and by mouth, Digoxin, Amiodarone, recommended due to CHADS Vasc score of 2 to resume Eliquis, he is non compliant with his medications, started on Carvedilol 6.25 mg BID and he has been clean from Cocaine for one month, scheduled for Cardiac Ablation for 08/04/17 and AICD placement on 08/05/17 SP ABLATION 08-04 SP AICD 08-05 2. Acute on chronic Systolic heart Failure secondary to Cocaine abuse. STOP COCAINE 3. Atypical Chest pain Improved. 4. Subtherapeutic Digoxin level 5. Hypertension controlled. 6. Cocaine abuse by history strongly recommended to stop behavior. NO MORE COCAINE 7. Acute kidney injury Improved 8. Hyperkalemia Iatrogenic the patient is on Potassium Chloride Potassium level 5.4 will hold his medicine and follow in am tomorrow. -RESOLVED STABLE Discussed with patient, all questions answered to the best of my abilities. DVT prophylaxis with Heparin. SP CARDIAC CATH AND ABLATION 08-04 PACER/AICD ON 08-05 CLEARED BY CARDIOLOGY DC TO HOME TODAY Discharge Planning After PACER/AICD are complete NEEDS PT AND OT BEFORE DC Kulwant Mckenna DO Aug 06, 2017 09:23
[2017-08-06] MEDS ORDERED: AMIO200T PO (09:28)
[2017-08-06] MEDS ORDERED: CARV12.5 PO (09:28)
[2017-08-06] MEDS ORDERED: SACU1TAB7 PO (09:28)
[2017-08-06] MEDS ORDERED: ASPI325T PO (09:28)
[2017-08-06] MEDS ORDERED: PANT40TA3 PO (09:28)
[2017-08-06] MEDS ORDERED: POTA-163 PO (09:28)
[2017-08-06] MEDS ORDERED: APIX5TAB PO (09:28)
[2017-08-06] MEDS ORDERED: DIGO0.25 PO (09:28)
[2017-08-06] MEDS ORDERED: OXYC1TAB63 PO (09:28)
[2017-08-06] MEDS ORDERED: FURO20TA PO (09:28)
--- NOTE | 2017-08-06 09:33 | HHI.DS ---
Discharge Summary Admission Date Jul 28, 2017 at 20:05 Discharge Date: Aug 06, 2017 Admitting Diagnosis atrial fibrillation with RVR, chest pain, dyspnea (1) Hypertension ICD Code: I10 - Essential (primary) hypertension Diagnosis: Secondary Status: Acute (2) A-fib ICD Code: I48.91 - Unspecified atrial fibrillation Diagnosis: Principal Status: Acute (3) CHF (congestive heart failure) ICD Code: I50.9 - Congestive heart failure Diagnosis: Principal Status: Acute (4) Cardiomyopathy ICD Code: I42.9 - Cardiomyopathy, unspecified Diagnosis: Principal Status: Acute (5) CHF (congestive heart failure) ICD Code: I50.9 - Heart failure, unspecified Diagnosis: Principal Procedures Atrial Fibrillation Ablation PROCEDURE DATE: Aug 04, 2017 PROCEDURES PERFORMED: 1. Electrophysiology study on Isuprel infusion 2. CS cannulation 3. 3-D mapping 4. Transseptal approach 5. Right and left heart catheterization 6. Intracardiac echo 7. Radiofrequency ablation of atrial fibrillation 8. Pulmonary vein isolation 9. Posterior wall ablation 10. Mitral valve isolation 11. Mitral line creation 12. Left atrial tachycardia ablation 13. Roof line creation 14. Floor line creation 15. Anterior wall ablation 16. Cardioversion INDICATIONS FOR THE PROCEDURE Mr. Pendleton is a 47-year-old male with atrial fibrillation , congestive heart failure, multiple hospitalization, referred for electrophysiology study and ablation. The risks, the nature and the benefits of the procedure were clearly stated to him. The risks include pneumothorax, cardiac perforation, stroke, need for open heart surgery and even . The patient understood and agreed to proceed. DESCRIPTION OF THE PROCEDURE IN DETAIL After written informed consent was obtained prior to esophageal echocardiogram, the patient was kept on the table where he was prepped and draped in the usual sterile fashion. Conscious sedation was initiated and maintained throughout the procedure by the anesthesiologist. Once sedation was verified, the right and left inguinal areas were anesthetized with 2% Xylocaine. Using modified Seldinger technique, the left femoral vein was cannulated on three occasions, three guidewires were advanced. Over the wire a 6, 7 and a 10-Faroese Hemaquet were advanced. Then the left femoral artery was cannulated on one occasion, one guidewire was advanced. Over the wire a 4-Faroese Hemaquet was advanced. Then the right femoral vein was cannulated on one occasion, one guidewire was advanced. Over the wire a 8-Faroese Hemaquet was advanced. Then under fluoroscopic guidance through the 6 and 7-Faroese Hemaquet, two 5-Faroese Enma curved quadripolar electrophysiology catheters were advanced and placed around the His as well as coronary sinus. Basic interval was measured. The patient was in atrial fibrillation. Through the 10-Faroese Hemaquet, a Thinknum AcuNav intracardiac echo catheter was advanced and placed at the right atrium. Multiple view was obtained. There was no pericardial effusion, pulmonary vein was seen, atrial septal was visualized. Then the 8-Faroese Hemaquet in the right femoral vein was exchanged for Agilis transseptal sheath that was placed all the way to the superior vena cava. Through the sheath a Neela needle was advanced, then the sheath, the dilator and the needle were progressed until foci engaged. Once engaged, the needle was advanced. RF was delivered for 2 seconds. I was able to cross into the left atrium. Once the needle crossed, the dilator was advanced. Once the dilator crossed, the sheath was advanced. Once the sheath crossed, the dilator and the needle were removed. At this point I did flood the system and fluid movement was seen in the left atrium the indicates the sheath is in good position. The patient already received 10,000 units of heparin. The goal is to keep an ACT around 350 during ablation. Then through the sheath a St. Edi 20 pulse circumferential catheter was advanced. Using [employer] endocardial solution mapping system, a two-dimensional configuration of the left atrium was obtained. Points were taken at the left superior and inferior veins, right superior and inferior veins, mitral valve, and appendages. Then through the sheath a St. Edi TactiCath 65cm 3.5mm irrigated tipped mapping and radiofrequency ablation catheter was advanced. Esophageal probe was placed temperature monitoring during ablation. When it increased to 0.5 degrees Celsius above baseline, I moved to a different area of the atrium. First I did isolate the left superior and inferior vein. I did make a wrangell around the veins. Posterior was ablated. Then a roof line was created, a floor line was created, a mitral line was isolated, then the mitral valve was isolated. At that point the patient was in left atrial tachycardia. I did create a line from the floor to the roof area, passing by the left atrial appendage. Then the right superior and inferior veins were isolated. I did remap the atrium. There is no significant signal in the atrium. At this point I decided to proceed with cardioversion. A 200 sync biphasic joule was delivered that converted the patient into sinus rhythm. At that point I did advance the circumferential catheter again into the vein. There was no signal into the vein, pacing from the vein showed no conduction to the atrium. Isuprel infusion was initiated at 10 mcg for over 10 minutes. No tachyarrhythmia was induced, post Isuprel no tachyarrhythmia was induced. At that point the procedure was complete. All catheters were removed, atrial septal sheath was exchanged for 9-Faroese Hemaquet, intracardiac echo showed no pericardial effusion. There is still good flow in the pulmonary vein. The patient is going to be transferred to the recovery room. No incident report. The patient tolerated the procedure. Blood loss was minimal. FINDINGS 1. Electrocardiogram: At baseline the patient was in atrial fibrillation, post procedure the patient was in sinus rhythm. 2. Basic interval: Base cycle length was around 620. Post ablation she was around 960 milliseconds. AH at 130 and HV at 60 milliseconds. 3. Tachyarrhythmia: Atrial fibrillation was mapped and ablated. Atrial tachycardia was ablated. The ablation was successful. CONCLUSION Successful electrophysiology study, mapping, radiofrequency ablation of atrial fibrillation, left atrial tachycardia, pulmonary vein isolation, posterior ablation, mitral valve isolation, mitral line creation, roof line creation, floor line creation, left atrial tachycardia, and cardioversion. COMMENTS AND RECOMMENDATIONS The patient is going to be transferred to the telemetry unit. Will be observed. Defibrillator will be implanted tomorrow morning. Shiva Moulton MD Aug 04, 2017 11:25 SINGLE CHAMBER DEFIB IMPLANT PROCEDURE DATE: Aug 05, 2017 NYHA Classification: Class III (Moderate) Prevention: Primary Single Chamber Defib Implant PROCEDURE: Single chamber defibrillator implantation and device testing. INDICATIONS: Mr. Pendleton is a 47 -year-old male with hx of congestive heart failure , ejection fraction 20%, non ischemic cardiomyopathy who undergo defibrillator implantation for sudden prevention. The risks, the nature and the benefit of the procedure are clearly stated to him . Risks include pneumothorax , cardiac perforation, stroke and even . He understood and agreed to proceed. PROCEDURE: After written, informed consent was obtained, the patient was brought to the EP Lab where he was prepped and draped in the sterile fashion. Conscious sedation was initiated and maintained throughout the procedure by anesthesiologist. Once sedation was verified, the left infraclavicular area was anesthetized with 2% Xylocaine. Using modified Seldinger technique, the left subclavian vein was cannulated on one occasion and one guide wire was advanced. Then, using #11 blade scalpel, a 3-cm incision was made two fingerbreadths below left clavicle. This incision was then taken down to the deep fascial layer using Bovie cautery and blunt dissection. Into the inferomedial direction, a device pocket was dissected, then the wire was dissected into the pocket. A 2-0 Vicryl suture was placed around the wires to prevent bleeding. At this point, over the wire, the 8- Faroese dilator and introducer was advanced. As dilator and wire were removed, an active fixation right ventricular pacing, sensing and defibrillatory lead was advanced. After adequate pacing and sensing thresholds were obtained, the lead was secured in the pocket with #2 Ethibond suture. At that point, the pocket was copiously irrigated with antibiotic solution. The leads were connected to the generator and placed into the pocket. I did proceed with wound closure. The deep fascial layer was approximated with 2-0 Vicryl suture in a continuous fashion. The subcutaneous layer was approximated with 2-0 Vicryl suture in a continuous fashion. The subcuticular layer was approximated with 2-0 Vicryl suture in a continuous fashion. Dermabond adhesive was applied to the wound, followed by a sterile pressure dressing. There was no complication. The patient tolerated procedure. Blood loss minimal. 1. Implanted Hardware: The implanted defibrillator generator is a [employer]ter[employer]ik, model number 429321, serial number [id number]. The right ventricular pacing, sensing and defibrillatory lead is a [employer]otronik model number 882101, serial number [id number]. 2. Thresholds: The right ventricular pacing threshold in the bipolar mode was 1.0volts at 0.4 milliseconds, lead impedance 580 ohms and R-wave at 15.4 mV. Sensing P wave @ 8.2mv. The right ventricular defibrillatory threshold was not measured due to patient general condition. 3. Settings: The device set in VVI 40 defibrillatory portion for two zones, one zone for ventricular tachycardia between 180 and 250 beats per minute. Initial therapy consists of one burst of ATP, one ramp, 81%, 10 pulse, 10 millisecond decremental, followed by 20, then 30 and all subsequent shocks at 40 joules defibrillatory shock, the second zone for ventricular fibrillation above 250 beats per minute, first therapy at 30 and all subsequent shocks at 40 joules defibrillatory shock. CONCLUSIONS: Successful defibrillator implantation. COMMENT AND RECOMMENDATIONS: The patient will be transferred to the telemetry unit, will be observed. Further decision by the managing team. Brief History - From Admission was at work, chest pain, tightness, left arm numb, felt palpitations called a friend and brought him here states was given cardizem bolus and that went away he knows the routine and asked for bolus and drip and symptoms went was given lasix and still urinating past one or 2 days, short of breath at friend's house in garage now, and think there is black mold smell didnt particularly notice worsening peripheral edema not on oxygen at home no fever no blood in urine or stool no vomiting, no diarrhea does have a cough, woke up in middle of night past 2 nights, coughing, yellow phlegm was also short of breath past 2 nights no urinary symptoms CBC/BMP: 08/06/17 0528 08/06/17 0528 Significant Findings Laboratory Tests Test 08/04/17 05:10 08/05/17 05:27 08/06/17 05:28 Hemoglobin 17.4 GM/DL (13.0-17.0) Neutrophils (%) (Auto) 73.8 % (16.0-70.0) 87.4 % (16.0-70.0) 76.7 % (16.0-70.0) Monocytes (%) (Auto) 11.0 % (0.0-8.0) 10.9 % (0.0-8.0) Monocytes # (Auto) 1.1 TH/MM3 (0-0.9) 1.1 TH/MM3 (0-0.9) Prothrombin Time 12.6 SEC (9.8-11.6) 12.3 SEC (9.8-11.6) Albumin 3.2 GM/DL (3.4-5.0) 3.2 GM/DL (3.4-5.0) 3.3 GM/DL (3.4-5.0) Aspartate Amino Transf (AST/SGOT) 13 U/L (15-37) 79 U/L (15-37) 68 U/L (15-37) Sodium Level 134 MEQ/L (136-145) 131 MEQ/L (136-145) 133 MEQ/L (136-145) Estimat Glomerular Filtration Rate 73 ML/MIN (>89) 78 ML/MIN (>89) 78 ML/MIN (>89) Free Thyroxine 1.47 NG/DL (0.76-1.46) Thyroid Stimulating Hormone 3rd Gen 3.940 uIU/ML (0.358-3.740) Lymphocytes (%) (Auto) 7.7 % (9.0-44.0) Neutrophils # (Auto) 9.3 TH/MM3 (1.8-7.7) 7.9 TH/MM3 (1.8-7.7) Lymphocytes # (Auto) 0.8 TH/MM3 (1.0-4.8) Random Glucose 113 MG/DL (74-106) Chloride Level 97 MEQ/L (98-107) Blood Urea Nitrogen 19 MG/DL (7-18) Imaging Last Impressions Chest X-Ray 08/05/17 0000 Signed Impressions: Service Date/Time: Saturday, August 05, 2017 09:03 - CONCLUSION: 1. Left- sided pacemaker in place. 2. No pneumothorax. Miah Morales MD PE at Discharge GENERAL: Awake alert and oriented talkative and cooperative SKIN: Warm and dry. HEAD: Atraumatic. Normocephalic. EYES: Pupils equal and round. No scleral icterus. No injection or drainage. Extraocular muscles intact ENT: No nasal bleeding or discharge. Mucous membranes pink and moist. Tongue is midline NECK: Trachea midline. No JVD. Supple CARDIOVASCULAR: IRRegular rate and rhythm. S1 and S2 no S3 or S4 RESPIRATORY: No accessory muscle use. Clear to auscultation. Breath sounds equal bilaterally. GASTROINTESTINAL: Abdomen soft, non-tender, nondistended. Hepatic and splenic margins not palpable. MUSCULOSKELETAL: Extremities without clubbing, cyanosis, or edema. No obvious deformities. NEUROLOGICAL: Awake and alert. No obvious cranial nerve deficits. Motor grossly within normal limits. Five out of 5 muscle strength in the arms and legs. Normal speech. PSYCHIATRIC: Appropriate mood and affect; insight and judgment normal. 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 07/31: patient scheduled for Cardiac Ablation for tomorrow, no complaint at this time, no chest pain. 08/01: Seen in his bedroom in the presence of Nurse Arlineshoshana, no nausea, vomit or diarrhea the Cardiac Ablation for next Friday08/04/17. 08/02: Stable no complaint, no nausea, vomit or diarrhea. 08-03 to have ablation tomorrow the and AICD placement on the No current complaints Discussed with patient and RN 08-04 HAD EPS WITH ABLATION TODAY WITH DR MOULTON SEEN POST PROCEDURE TO HAVE AICD/PACER TOMORROW STILL HAS SHEATHS IN PLACE 08-05 HAD AICD PLACED TODAY BY DR MOULTON MONITOR TODAY AM LABS 08-06 HAS BEEN CLEARED BY CARDIOLOGY DR MOULTON FOR DC DC TO HOME CAN WORK BUT NO LIFTING AT WORK DW RN AND PT Pt Condition on Discharge: Good Discharge Disposition: Discharge Home Discharge Time: > 30 minutes Discharge Instructions DIET: Follow Instructions for: Heart Healthy Diet, Diabetic Diet Activities you can perform: Regular-No Restrictions Other Activity Instructions: PACEMAKER RESTRICTIONS NO TUB BATHS OR SWIMING Follow up Referrals: Cardiology - 2 Weeks with Shiva Moulton MD PCP Follow-up - 1 Week New Medications: Apixaban (Eliquis) 5 Mg Tab 5 MG PO BID for Blood Clot Prevention, #60 TAB Carvedilol (Coreg) 12.5 Mg Tab 12.5 MG PO Q12HR for Regulate Heart Beat, #60 TAB Oxycodone-Acetaminophen (Oxycodone-Acetaminophen) 5-325 mg Tab 2 TAB PO Q4H PRN for PAIN SCALE 5 TO 10, #30 TAB Pantoprazole (Pantoprazole) 40 Mg Tab 40 MG PO DAILY for Heartburn Management, #30 TAB Sacubitril-Valsartan (Entresto) 49-51 Mg Tab 1 TAB PO BID for Blood Pressure Management, #60 TAB Continued Medications: Amiodarone (Amiodarone) 200 Mg Tab 200 MG PO DAILY for Regulate Heart Beat, #30 TAB (This prescription has been renewed) Aspirin (Aspirin) 325 Mg Tab 325 MG PO DAILY for Blood Clot Prevention, #30 TAB 0 Refills (This prescription has been renewed) Digoxin (Digoxin) 0.25 Mg Tab 0.25 MG PO DAILY for Regulate Heart Beat, #30 TAB 0 Refills (This prescription has been renewed) Furosemide (Furosemide) 20 Mg Tab 20 MG PO BID for Prevent Heart Failure, #30 TAB 0 Refills (This prescription has been renewed) Potassium Chloride ER (Potassium Chloride ER) 20 Meq Tab 20 MEQ PO BID for Electrolyte Replacement, #60 TAB 0 Refills (This prescription has been renewed) Discontinued Medications: Diltiazem (Diltiazem) 90 Mg Tab 90 MG PO Q6HR for atrial fibrillation for 30 Days, TAB 0 Refills Lisinopril (Lisinopril) 5 Mg Tab 5 MG PO DAILY for CMP, #30 TAB 0 Refills Kulwant Mckenna DO Aug 06, 2017 09:33
--- NOTE | 2017-08-06 13:50 | EKG ---
Date Performed: 08/06/2017 Time Performed: 04:51:44 PTAGE: 47 years EKG: Sinus rhythm with borderline 1st degree A-V block Possible left anterior fascicular block Possible anterior infar ct - age undetermined Lateral T wave changes may be due to myocardial ischemia Abnormal ECG PREVIOUS TRACING : 08/05/2017 08.50 DOCTOR: Justin Hernandez Interpretating Date/Time 08/06/2017 13:44:03
== END 2017-08-06 11:28 | disposition home or self-care (01) | DRG 226 ==
LOC: NEPE 18:03 → NEDA 20:05 → HCIS 21:20 → HCIN 08-01 19:50
PROVIDERS: ADMIT Hospitalist; ATTEND Hospitalist
PROC: 02583ZZ Destruction of Conduction Mechanism, Percutaneous Approach (ICD-10-PCS; 2017-08-04)
PROC: 4A023FZ Measurement of Cardiac Rhythm, Percutaneous Approach (ICD-10-PCS; 2017-08-04)
PROC: 4A0234Z Measurement of Cardiac Electrical Activity, Percutaneous Approach (ICD-10-PCS; 2017-08-04)
PROC: B246YZZ Ultrasonography of Right and Left Heart using Other Contrast (ICD-10-PCS; 2017-08-04)
PROC: 5A2204Z Restoration of Cardiac Rhythm, Single (ICD-10-PCS; 2017-08-04)
PROC: 0JH608Z Insertion of Defibrillator Generator into Chest Subcutaneous Tissue and Fascia, Open Approach (ICD-10-PCS; 2017-08-05)
PROC: 02HK3KZ Insertion of Defibrillator Lead into Right Ventricle, Percutaneous Approach (ICD-10-PCS; principal; 2017-08-05 15:30)
DX: I48.2 Chronic atrial fibrillation (principal); I50.23 Acute on chronic systolic (congestive) heart failure; N17.9 Acute kidney failure, unspecified; I42.0 Dilated cardiomyopathy; I11.0 Hypertensive heart disease with heart failure; F21 Schizotypal disorder; I25.10 Atherosclerotic heart disease of native coronary artery without angina pectoris; Z79.01 Long term (current) use of anticoagulants; F31.9 Bipolar disorder, unspecified; F41.9 Anxiety disorder, unspecified; E78.00 Pure hypercholesterolemia, unspecified; F17.210 Nicotine dependence, cigarettes, uncomplicated; J44.9 Chronic obstructive pulmonary disease, unspecified; Z91.14 Patient's other noncompliance with medication regimen; E87.5 Hyperkalemia
CPT/HCPCS: 33249; 71010; 80048; 80053; 80162; 80307; 82550; 83036; 83735; 83880; 84100; 84132; 84439; 84443; 84484; 85002; 85025; 85610; 85730; 92960; 93005; 93312; 93320; 93325; 93613; 93623; 93656; 93662; 94640; 94664; 96374; 96375; C1722; C1730; C1731; C1732; C1759; C1766; C1777; C2630; J0690; J1644; J1940; J1956; J2270; J2405; J2720; J3370; J7644

== ENCOUNTER 2017-10-12 21:24 | Observation (INO) | payer OTHER ==
[~2017-10-12] VITALS: Ht 167.6 cm; Wt 93.6 kg
[2017-10-12] VITALS (7 sets, daily range): BP systolic 117–150; BP diastolic 57–84; PULSE 69–70; RESP 20; TEMP 98.5; O2SAT 98–99
[~2017-10-12 21:24] MED LIST changes: +APIX5TAB PO; +ASPI-183 PO; -ASPI325T PO; +CARV12.5 PO; -DILT90TA PO; -LISI-519 PO; +OXYC1TAB63 PO; +PANT40TA3 PO; -PRED20 PO; +SACU1TAB7 PO
[2017-10-12] MEDS ORDERED: DILT60TA33 PO (21:39)
[2017-10-12] MEDS ORDERED: POTA10CA PO (21:39)
[2017-10-12] MEDS ORDERED: SODIUM CHLORIDE 0.9% FLUSH 10 ML FLUSH IVF PRN (21:45)
--- NOTE | 2017-10-12 21:49 | PD ---
HPI Chief Complaint: Chest Pain Time Seen by Provider: 21:33 Travel History International Travel<30 days: No Contact w/Intl Traveler<30days: No Traveled to known affect area: No History of Present Illness HPI 47-year-old male with history of A. fib status post ablation, on Eliquis, nonischemic cardiomyopathy with EF 15-20% with recent single chamber defibrillator implanted by joint cutter Dr. Benton in July this year, here for evaluation of chest pain and shortness of breath. The patient reports that his chest pain started about 45 minutes prior to arrival in the emergency department. He describes a rash or/stabbing pain over his left chest, rated 8 out of 10, constant, nonradiating, no modifying factors. He has been having cough productive of yellowish sputum over the last 2 days. No hemoptysis. He denies fevers or chills. He feels short of breath. No history of DVT or PE. No paresthesias or motor deficits. He takes 2 full aspirin daily as well as Eliquis. PFSH Past Medical History Hx Anticoagulant Therapy: Yes (ELIQUIS) Atrial Fibrillation: Yes Blood Disorders: No Bipolar Disorder: Yes Anxiety: Yes Depression: Yes Heart Rhythm Problems: Yes Cancer: No Cardiac Catheterization: No Cardiovascular Problems: Yes High Cholesterol: Yes Chest Pain: Yes Congestive Heart Failure: Yes COPD: Yes Diabetes: No Diminished Hearing: No Endocrine: No Gastrointestinal Disorders: No Genitourinary: No Heparin Induced Thrombocytopen: No Hypertension: Yes Implanted Vascular Access Dvce: No Musculoskeletal: No Neurologic: No Psychiatric: Yes (PT STATES BORDERLINE SCHIZOPHRENIC) Reproductive: No Respiratory: Yes Immunizations Current: Yes Past Surgical History Abdominal Surgery: Yes (GALL BLADDER 2000) Body Medical Devices: DEFIBRILLATOR Cardiac Surgery: Yes (heart cath in October 2016, ABLATION JULY 2017, DEFIBRILLATOR AUGUST 08) Cholecystectomy: Yes (2000) Coronary Artery Bypass Graft: No Ear Surgery: No Endocrine Surgery: No Eye Surgery: No Genitourinary Surgery: Yes Gynecologic Surgery: No Neurologic Surgery: No Oral Surgery: No Thoracic Surgery: No Other Surgery: Yes Social History Alcohol Use: No (PT DENIES) Tobacco Use: Yes (2 CIGARETTES/DAY) Substance Use: Yes (coccaine use in may 2017, trying to quit) Allergies-Medications (Allergen,Severity, Reaction): Coded Allergies: Sulfa (Sulfonamide Antibiotics) (Unverified Allergy, Severe, HIVES, ) Reported Meds & Prescriptions Reported Meds & Active Scripts Active Entresto (Sacubitril-Valsartan) 49-51 Mg Tab 1 Tab PO BID Coreg (Carvedilol) 12.5 Mg Tab 12.5 Mg PO Q12HR Eliquis (Apixaban) 5 Mg Tab 5 Mg PO BID Amiodarone (Amiodarone HCl) 200 Mg Tab 200 Mg PO DAILY Furosemide 20 Mg Tab 20 Mg PO BID Digoxin 0.25 Mg Tab 0.25 Mg PO DAILY Aspirin 325 Mg Tab 325 Mg PO DAILY Reported Potassium Chloride ER (Potassium Chloride) 10 Meq Cap 10 Meq PO BID Cardizem (Diltiazem HCl) 60 Mg Tab 90 Mg PO QID Review of Systems Except as stated in HPI: all other systems reviewed are Neg Physical Exam Narrative GENERAL: Well-developed, well-nourished, comfortable, no apparent distress. SKIN: Focused skin assessment warm/dry. HEAD: Atraumatic. Normocephalic. EYES: Pupils equal and round. No scleral icterus. No injection or drainage. ENT: Mucous membranes pink and moist. NECK: Trachea midline. No JVD. CARDIOVASCULAR: Regular rate and rhythm. Distal pulses brisk and equal bilaterally. RESPIRATORY: No accessory muscle use. Clear to auscultation. Breath sounds equal bilaterally. GASTROINTESTINAL: Abdomen soft, non-tender, nondistended. MUSCULOSKELETAL: No obvious deformities. No clubbing. No cyanosis. No edema. NEUROLOGICAL: Awake and alert. No obvious cranial nerve deficits. Motor grossly within normal limits. Normal speech. PSYCHIATRIC: Appropriate mood and affect; insight and judgment normal. Data Data Last Documented VS Vital Signs Date Time Temp Pulse Resp B/P (MAP) Pulse Ox O2 Delivery O2 Flow Rate FiO2 10/12/17 23:00 69 20 117/68 (84) 99 Nasal Cannula 2.00 10/12/17 21:35 98.5 Orders Orders Basic Metabolic Panel (Bmp) (10/12/17 21:38) B-Type Natriuretic Peptide (10/12/17 21:38) Ckmb (Isoenzyme) Profile (10/12/17 21:38) Complete Blood Count With Diff (10/12/17 21:38) Comprehensive Metabolic Panel (10/12/17 21:38) Magnesium (Mg) (10/12/17 21:38) Prothrombin Time / Inr (Pt) (10/12/17 21:38) Act Partial Throm Time (Ptt) (10/12/17 21:38) Troponin I (10/12/17 21:38) Chest, Single Ap (10/12/17 21:38) Ecg Monitoring (10/12/17 21:38) Bilateral Bp Monitoring (10/12/17 21:38) Iv Access Insert/Monitor (10/12/17 21:38) Oximetry (10/12/17 21:38) Sodium Chloride 0.9% Flush (Ns Flush) (10/12/17 21:45) Nitroglycerin Sl (Nitrostat Sl) (10/12/17 21:45) Acetaminophen (Tylenol) (10/12/17 22:45) Labs Laboratory Tests Test 10/12/17 21:30 White Blood Count 8.6 TH/MM3 Red Blood Count 5.92 MIL/MM3 Hemoglobin 17.3 GM/DL Hematocrit 51.0 % Mean Corpuscular Volume 86.2 FL Mean Corpuscular Hemoglobin 29.3 PG Mean Corpuscular Hemoglobin Concent 34.0 % Red Cell Distribution Width 14.1 % Platelet Count 226 TH/MM3 Mean Platelet Volume 8.1 FL Neutrophils (%) (Auto) 70.7 % Lymphocytes (%) (Auto) 17.9 % Monocytes (%) (Auto) 9.6 % Eosinophils (%) (Auto) 0.9 % Basophils (%) (Auto) 0.9 % Neutrophils # (Auto) 6.1 TH/MM3 Lymphocytes # (Auto) 1.5 TH/MM3 Monocytes # (Auto) 0.8 TH/MM3 Eosinophils # (Auto) 0.1 TH/MM3 Basophils # (Auto) 0.1 TH/MM3 CBC Comment DIFF FINAL Differential Comment MDM Medical Decision Making Medical Screen Exam Complete: Yes Emergency Medical Condition: Yes Medical Record Reviewed: Yes Interpretation(s) EKG: Sinus, non-specifit T wave changes, no ST segment changes. Differential Diagnosis ACS, pneumothorax compared today's, PE, pneumonia, CHF/pulmonary edema Narrative Course Chest xray shows no acute disease. CBC remarkable for hgb 17, the patient is a smoker. The patient takes 2 full aspirin daily as well as eliquis. He was given 3 SL nitro which caused slight KAUR, so he was provided tylenol. Pain improved from 8/ 10-01/27 At 11PM the patient was signed out to Dr Garcia to follow up with chemistry, cardiac enzymes, and dispo. Adolfo Jackson MD Oct 12, 2017 21:49
[2017-10-12] MEDS: NITROGLYCERIN 0.4 MG SL 25 TABS/BTL SL SCH ×3 (22:05→22:32)
[2017-10-12 22:12] LABS: AUTOMATED NEUTROPHIL # 6.1 TH/MM3 (1.8-7.7); BASOPHIL # 0.1 TH/MM3 (0-0.2); BASOPHIL % 0.9 % (0.0-2.0); EOSINOPHIL # 0.1 TH/MM3 (0-0.4); EOSINOPHIL % 0.9 % (0.0-4.0); HEMOGLOBIN 17.3 GM/DL (13.0-17.0); LYMPH % 17.9 % (9.0-44.0); LYMPHOCYTE # 1.5 TH/MM3 (1.0-4.8); MEAN CELL VOLUME 86.2 FL (80.0-100.0); MEAN CORPUSCULAR HEMOGLOBIN 29.3 PG (27.0-34.0); MEAN PLATELET VOLUME 8.1 FL (7.0-11.0); MONO % 9.6 % (0.0-8.0); MONOCYTE # 0.8 TH/MM3 (0-0.9); NEUT % 70.7 % (16.0-70.0); PLATELET COUNT 226 TH/MM3 (150-450); RED BLOOD COUNT 5.92 MIL/MM3 (4.50-5.90); RED CELL DISTRIBUTION WIDTH 14.1 % (11.6-17.2); WHITE BLOOD COUNT 8.6 TH/MM3 (4.0-11.0)
--- NOTE | 2017-10-12 22:29 | RADRPT ---
EXAM DATE/TIME: 10/12/2017 21:42 [facility] COMPARISON: CHEST SINGLE AP, August 19, 2017, 23:40. INDICATIONS : Chest pain. MEDICAL HISTORY : Hypertension. Atrial fibrillation. Congestive heart failure. Kidney stones. SURGICAL HISTORY : Pacemaker. Cholecystectomy. Cardiac catheterization. ENCOUNTER: Initial ACUITY: 1 day PAIN SCORE: 4/10 LOCATION: Bilateral chest FINDINGS: Single AP view of the chest. AICD in place. The lungs are clear. Cardiomediastinal silhouette within normal limits. No evidence of pleural effusion or pneumothorax. CONCLUSION: No acute cardiopulmonary disease identified. Jonathan Ye MD on October 12, 2017 at 22:27 Board Certified Radiologist. This report was verified electronically.
[2017-10-12] MEDS ORDERED: ACETAMINOPHEN 325 MG TAB PO ONE (22:45)
--- NOTE | 2017-10-12 23:05 | PD ---
Physical Exam Date Seen by Provider: Oct 12, 2017 Time Seen by Provider: 23:03 Narrative Accepted in transfer of care from Dr. Durán Data Data Last Documented VS Vital Signs Date Time Temp Pulse Resp B/P (MAP) Pulse Ox O2 Delivery O2 Flow Rate FiO2 10/12/17 23:00 69 20 117/68 (84) 99 Nasal Cannula 2.00 10/12/17 21:35 98.5 Orders Orders Basic Metabolic Panel (Bmp) (10/12/17 21:38) B-Type Natriuretic Peptide (10/12/17 21:38) Ckmb (Isoenzyme) Profile (10/12/17 21:38) Complete Blood Count With Diff (10/12/17 21:38) Comprehensive Metabolic Panel (10/12/17 21:38) Magnesium (Mg) (10/12/17 21:38) Prothrombin Time / Inr (Pt) (10/12/17 21:38) Act Partial Throm Time (Ptt) (10/12/17 21:38) Troponin I (10/12/17 21:38) Chest, Single Ap (10/12/17 21:38) Ecg Monitoring (10/12/17 21:38) Bilateral Bp Monitoring (10/12/17 21:38) Iv Access Insert/Monitor (10/12/17 21:38) Oximetry (10/12/17 21:38) Sodium Chloride 0.9% Flush (Ns Flush) (10/12/17 21:45) Nitroglycerin Sl (Nitrostat Sl) (10/12/17 21:45) Acetaminophen (Tylenol) (10/12/17 22:45) Labs Laboratory Tests Test 10/12/17 21:30 10/12/17 22:50 White Blood Count 8.6 TH/MM3 Red Blood Count 5.92 MIL/MM3 Hemoglobin 17.3 GM/DL Hematocrit 51.0 % Mean Corpuscular Volume 86.2 FL Mean Corpuscular Hemoglobin 29.3 PG Mean Corpuscular Hemoglobin Concent 34.0 % Red Cell Distribution Width 14.1 % Platelet Count 226 TH/MM3 Mean Platelet Volume 8.1 FL Neutrophils (%) (Auto) 70.7 % Lymphocytes (%) (Auto) 17.9 % Monocytes (%) (Auto) 9.6 % Eosinophils (%) (Auto) 0.9 % Basophils (%) (Auto) 0.9 % Neutrophils # (Auto) 6.1 TH/MM3 Lymphocytes # (Auto) 1.5 TH/MM3 Monocytes # (Auto) 0.8 TH/MM3 Eosinophils # (Auto) 0.1 TH/MM3 Basophils # (Auto) 0.1 TH/MM3 CBC Comment DIFF FINAL Differential Comment MDM Medical Record Reviewed: Yes Supervised Visit with DIGNA: No Interpretation(s) EKG: Normal sinus rhythm rate [address] elevation injury pattern or ectopy noted Last Impressions Chest X-Ray 10/12/172137 Signed Impressions: Service Date/Time: Thursday, October 12, 2017 21:42 - CONCLUSION: No acute cardiopulmonary disease identified. Jonathan Ye MD Vital Signs Date Time Temp Pulse Resp B/P (MAP) Pulse Ox O2 Delivery O2 Flow Rate FiO2 10/12/17 23:00 69 20 117/68 (84) 99 Nasal Cannula 2.00 10/12/17 22:32 70 20 132/57 (82) 98 Nasal Cannula 2.00 10/12/17 22:24 70 20 125/66 (85) 98 Nasal Cannula 2.00 10/12/17 21:59 (94) 10/12/17 21:48 20 99 Nasal Cannula 2.00 10/12/17 21:45 134/74 (94) 10/12/17 21:44 150/84 (106) 10/12/17 21:41 99 2.00 10/12/17 21:35 98.5 70 20 150/84 (106) 99 Nasal Cannula 2.00 Differential Diagnosis Please refer to Dr. Jackson's dictation Narrative Course Accepted in transfer of care from Dr. Jackson for follow-up of pending labs and patient disposition with plan to admit to chest pain center Physician Communication Physician Communication call placed to [facility] service for security expert protocol obs Diagnosis Primary Impression: Chest pain Admitting Information Admitting Physician Requests: Observation Rosanne Garcia MD Oct 12, 2017 23:05
[2017-10-12 23:28] LABS: CHLORIDE 103 MEQ/L (98-107); SODIUM (NA) 140 MEQ/L (136-145)
[2017-10-12 23:31] LABS: CALCIUM 8.2 MG/DL (8.5-10.1)
[2017-10-12 23:32] LABS: ALBUMIN 3.7 GM/DL (3.4-5.0); BICARBONATE 29.2 MEQ/L (21.0-32.0); BLOOD UREA NITROGEN 16 MG/DL (7-18); GLUCOSE,RANDOM 109 MG/DL (74-106)
[2017-10-12 23:33] LABS: INTERNATIONAL NORMALIZED RATIO 1.1 RATIO; PROTHROMBIN TIME - PATIENT 10.9 SEC (9.8-11.6)
[2017-10-12 23:35] LABS: ALT (GPT) 19 U/L (12-78); AST (GOT) 18 U/L (15-37); GLOMERULAR FILTRATION RATE 71 ML/MIN (>89)
[2017-10-12 23:36] LABS: TOTAL BILIRUBIN ADULT 0.3 MG/DL (0.2-1.0); TOTAL PROTEIN 7.2 GM/DL (6.4-8.2)
[2017-10-12 23:38] LABS: ALKALINE PHOSPHATASE 68 U/L (45-117)
[2017-10-12 23:40] LABS: TROPONIN I LESS THAN 0.02 NG/ML (0.02-0.05)
[2017-10-13] VITALS (9 sets, daily range): BP systolic 110–138; BP diastolic 61–96; PULSE 58–68; RESP 18–20; TEMP 97.4–98.1; O2SAT 96–100
[2017-10-13] MEDS ORDERED: REGADENOSON INJ 0.4 MG/5 ML SYR IV ONE (00:07)
[2017-10-13] MEDS ORDERED: SODIUM CHLORIDE 0.9% FLUSH 10 ML FLUSH IV FLUSH PRN ×2 (00:15)
[2017-10-13] MEDS ORDERED: NITROGLYCERIN 0.4 MG SL 25 TABS/BTL SL PRN (00:15)
[2017-10-13] MEDS ORDERED: HEPARIN SODIUM - SQ 10,000 UNITS/ML VIAL SQ SCH (00:15)
[2017-10-13] MEDS ORDERED: MORPHINE SULFATE 2 MG/ML INJ IV PUSH PRN (00:15)
[2017-10-13 06:57] LABS: AUTOMATED NEUTROPHIL # 4.6 TH/MM3 (1.8-7.7); BASOPHIL # 0.1 TH/MM3 (0-0.2); EOSINOPHIL # 0.1 TH/MM3 (0-0.4); EOSINOPHIL % 1.9 % (0.0-4.0); HEMATOCRIT 47.9 % (39.0-51.0); HEMOGLOBIN 16.1 GM/DL (13.0-17.0); LYMPH % 23.7 % (9.0-44.0); LYMPHOCYTE # 1.8 TH/MM3 (1.0-4.8); MEAN CELL VOLUME 87.6 FL (80.0-100.0); MEAN CORPUSCULAR HEMOGLOBIN 29.5 PG (27.0-34.0); MEAN CORPUSCULAR HGB CONC 33.6 % (32.0-36.0); MEAN PLATELET VOLUME 8.2 FL (7.0-11.0); MONO % 10.8 % (0.0-8.0); MONOCYTE # 0.8 TH/MM3 (0-0.9); NEUT % 62.6 % (16.0-70.0); PLATELET COUNT 194 TH/MM3 (150-450); RED BLOOD COUNT 5.47 MIL/MM3 (4.50-5.90); RED CELL DISTRIBUTION WIDTH 14.3 % (11.6-17.2); WHITE BLOOD COUNT 7.4 TH/MM3 (4.0-11.0)
[2017-10-13 07:07] LABS: CALCIUM 8.1 MG/DL (8.5-10.1)
[2017-10-13 07:08] LABS: BICARBONATE 28.4 MEQ/L (21.0-32.0)
[2017-10-13 07:11] LABS: CREATININE 0.89 MG/DL (0.60-1.30)
[2017-10-13 07:16] LABS: TROPONIN I LESS THAN 0.02 NG/ML (0.02-0.05)
--- NOTE | 2017-10-13 08:12 | HHI.HP ---
HPI Service [facility] Primary Care Physician No Primary Care Physician Admission Diagnosis chest pain Diagnoses: (1) Chest pain Diagnosis: Principal Chief Complaint: Chest pain Travel History International Travel<30 Days: No Contact w/Intl Traveler <30 Da: No Traveled to Known Affected Are: No History of Present Illness 47 year-old male with known history of atrial fibrillation status post ablation, severe cardiomyopathy status post AICD placement, hypertension, chronic obstructive pulmonary disease, chronic systolic congestive heart failure , chronic tobacco use who presented to hospital because of acute on chronic chest discomfort. Patient states that he does have chronic chest pain over the last 2 days he is had intermittent chest discomfort located on the left side of his chest radiating into the left back. There is no radiation to the neck, shoulder, arm. There was associated nausea without vomiting. He has had dyspnea. Denies any lightheadedness, dizziness, diaphoresis. Patient states that her last for a couple hours at a time and then resolves on his own. The pain is usually 7/10 on a pain scale. The patient did not try to take any medication at home. When he came to emergency department he was given nitroglycerin which did relieve the pain. He has not had any recurrent pain overnight. He denies any active defibrillation during any of his chest discomforts. He is following his anesthesiologists' assistant on a regular basis and does have an appointment with him in the next couple weeks. Patient did have evaluation done emergency department it was recommended that the patient be observed and chest pain center for further recommendations. Review of Systems Respiratory: COMPLAINS OF: Shortness of breath Cardiovascular: COMPLAINS OF: Chest pain Gastrointestinal: COMPLAINS OF: Nausea Except as stated in HPI: all other systems reviewed are Neg Past Family Social History Past Medical History Hypertension Cardiomyopathy, status post AICD placement Chronic systolic congestive heart failure History of atrial fibrillation status post ablation Chronic obstructive pulmonary disease Chronic tobacco use Past Surgical History Cardiac ablation for atrial fibrillation AICD placement for prevention of sudden cardiac Cholecystectomy Cardiac catheterization Reported Medications Reported Meds & Active Scripts Active Entresto (Sacubitril-Valsartan) 49-51 Mg Tab 1 Tab PO BID Coreg (Carvedilol) 12.5 Mg Tab 12.5 Mg PO Q12HR Eliquis (Apixaban) 5 Mg Tab 5 Mg PO BID Amiodarone (Amiodarone HCl) 200 Mg Tab 200 Mg PO DAILY Furosemide 20 Mg Tab 20 Mg PO BID Digoxin 0.25 Mg Tab 0.25 Mg PO DAILY Aspirin 325 Mg Tab 325 Mg PO DAILY Reported Potassium Chloride ER (Potassium Chloride) 10 Meq Cap 10 Meq PO BID Cardizem (Diltiazem HCl) 60 Mg Tab 90 Mg PO QID Allergies: Coded Allergies: Sulfa (Sulfonamide Antibiotics) (Unverified Allergy, Severe, HIVES, ) Family History Reviewed is significant for mother having diabetes, father with hemophilia Social History Patient continues smoke one pack a cigarettes a day since he was 11 years old. He denies any alcohol or illicit drugs. However records indicate that he has history of cocaine use Physical Exam Vital Signs Vital Signs Date Time Temp Pulse Resp B/P (MAP) Pulse Ox O2 Delivery O2 Flow Rate FiO2 10/13/17 04:00 97.4 65 18 121/73 (89) 99 10/13/17 02:19 62 10/13/17 02:00 97.4 65 20 138/96 (110) 96 10/13/17 00:42 97.9 63 20 110/66 (81) 100 Nasal Cannula 2.00 10/13/17 00:30 100 Nasal Cannula 2.00 10/13/17 00:15 10/12/17 23:00 69 20 117/68 (84) 99 Nasal Cannula 2.00 10/12/17 22:32 70 20 132/57 (82) 98 Nasal Cannula 2.00 10/12/17 22:24 70 20 125/66 (85) 98 Nasal Cannula 2.00 10/12/17 21:59 (94) 10/12/17 21:48 20 99 Nasal Cannula 2.00 10/12/17 21:45 134/74 (94) 10/12/17 21:44 150/84 (106) 10/12/17 21:41 99 2.00 10/12/17 21:35 98.5 70 20 150/84 (106) 99 Nasal Cannula 2.00 Physical Exam GENERAL: Well-developed, well-nourished, in no acute distress. alert and orientated HEENT: Head is normocephalic without any lesions or masses noted. Facial features are symmetric. Eyes: Pupils equal round reactive to light. Extraocular muscles are intact. Conjunctivae were clear. Oropharyngeal: Pharynx without any erythema edema. Tongue is midline without deviation. Buccal mucosa is moist without any masses or lesions NECK: Supple without any masses. Trachea midline no deviation. No JVD, no bruits are appreciated CARDIAC: Regular rhythm, regular rate. S1/S2 are heard. No murmurs gallops or rubs. LUNGS: Clear to auscultation bilaterally. No wheeze, rhonchi or rales. No use of accessory muscles on inspiration or expiration. ABDOMEN: Soft, nontender. Nondistended. Bowel sounds heard in all 4 quadrants. No organomegaly or masses. Negative rebound, negative guarding EXTREMITIES: No edema, pulses are equal bilaterally. No cyanosis or clubbing NEUROLOGY: Mood and affect appear appropriate. Cranial nerves II through XII grossly intact. Muscle strength 5/5 in upper and lower extremities bilaterally. Deep tendon reflexes are 2+ in upper and lower extremities bilaterally. Laboratory Laboratory Tests Test 10/12/17 21:30 10/12/17 22:50 10/13/17 05:45 White Blood Count 8.6 7.4 Red Blood Count 5.92 5.47 Hemoglobin 17.3 16.1 Hematocrit 51.0 47.9 Mean Corpuscular Volume 86.2 87.6 Mean Corpuscular Hemoglobin 29.3 29.5 Mean Corpuscular Hemoglobin Concent 34.0 33.6 Red Cell Distribution Width 14.1 14.3 Platelet Count 226 194 Mean Platelet Volume 8.1 8.2 Neutrophils (%) (Auto) 70.7 62.6 Lymphocytes (%) (Auto) 17.9 23.7 Monocytes (%) (Auto) 9.6 10.8 Eosinophils (%) (Auto) 0.9 1.9 Basophils (%) (Auto) 0.9 1.0 Neutrophils # (Auto) 6.1 4.6 Lymphocytes # (Auto) 1.5 1.8 Monocytes # (Auto) 0.8 0.8 Eosinophils # (Auto) 0.1 0.1 Basophils # (Auto) 0.1 0.1 CBC Comment DIFF FINAL DIFF FINAL Differential Comment B-Type Natriuretic Peptide 16 Prothrombin Time 10.9 Prothromb Time International Ratio 1.1 Activated Partial Thromboplast Time 28.3 Blood Urea Nitrogen 16 19 Creatinine 1.10 0.89 Random Glucose 109 87 Total Protein 7.2 Albumin 3.7 Calcium Level 8.2 8.1 Magnesium Level 2.0 Alkaline Phosphatase 68 Aspartate Amino Transf (AST/SGOT) 18 Alanine Aminotransferase (ALT/SGPT) 19 Total Bilirubin 0.3 Sodium Level 140 139 Potassium Level 4.0 3.8 Chloride Level 103 102 Carbon Dioxide Level 29.2 28.4 Anion Gap 8 9 Estimat Glomerular Filtration Rate 71 91 Total Creatine Kinase 50 45 Troponin I LESS THAN 0.02 LESS THAN 0.02 Result Diagram: 10/13/17 0545 10/13/1745 Imaging Last Impressions Chest X-Ray 10/12/172137 Signed Impressions: Service Date/Time: Thursday, October 12, 2017 21:42 - CONCLUSION: No acute cardiopulmonary disease identified. MD Flaco Prather VTE Risk Assessment Flaco VTE Risk Assessment: Mod/High Risk (score >= 2) Caprini Risk Assessment Model Point Value = 1 Point Value = 2 Point Value = 3 Point Value = 5 Age 41-60 Minor surgery BMI > 25 kg/m2 Swollen legs Varicose veins or History of unexplained or recurrent spontaneous Oral contraceptives or hormone replacement Sepsis (< 1 month) Serious lung disease, including pneumonia (< 1 month) Abnormal pulmonary function Acute myocardial infarction Congestive heart failure (< 1 month) History of inflammatory bowel disease Medical patient at bed rest Age 61-74 Arthroscopic surgery Major open surgery (> 45 min) Laparoscopic surgery (> 45 min) Malignancy Confined to bed (> 72 hours) Immobilizing plaster cast Central venous access Age >= 75 History of VTE Family history of VTE Factor V Leiden Prothrombin [id number] Lupus anticoagulant Anticardiolipin antibodies Elevated serum homocysteine Heparin-induced thrombocytopenia Other congenital or acquired thrombophilia Stroke (< 1 month) Elective arthroplasty Hip, pelvis, or leg fracture Acute spinal cord injury (< 1 month) Prophylaxis Regimen Total Risk Factor Score Risk Level Prophylaxis Regimen 0-1 Low Early ambulation 2 Moderate Order ONE of the following: *Sequential Compression Device (SCD) *Heparin 5000 units SQ BID 3-4 Higher Order ONE of the following medications: *Heparin 5000 units SQ TID *Enoxaparin/Lovenox 40 mg SQ daily (WT < 150 kg, CrCl > 30 mL/min) *Enoxaparin/Lovenox 30 mg SQ daily (WT < 150 kg, CrCl > 10-29 mL/min) *Enoxaparin/Lovenox 30 mg SQ BID (WT < 150 kg, CrCl > 30 mL/min) AND/OR *Sequential Compression Device (SCD) 5 or more Highest Order ONE of the following medications: *Heparin 5000 units SQ TID (Preferred with Epidurals) *Enoxaparin/Lovenox 40 mg SQ daily (WT < 150 kg, CrCl > 30 mL/min) *Enoxaparin/Lovenox 30 mg SQ daily (WT < 150 kg, CrCl > 10-29 mL/min) *Enoxaparin/Lovenox 30 mg SQ BID (WT < 150 kg, CrCl > 30 mL/min) AND *Sequential Compression Device (SCD) Assessment and Plan Assessment and Plan Chest pain atypical Patient has have increased risk factors due to cardiomyopathy, tobacco use, hypertension Patient has been ruled out for acute coronary event with serial cardiac enzymes remain negative, Serial EKGs have been performed which that show first-degree AV block with nonspecific T-wave abnormality Nuclear stress test was performed which did show a stress-induced ischemia small segment septum towards the base with global hypokinesis. Continue aspirin, nitroglycerin as needed Patient has had cardiac catheterization within the last year with clean coronary arteries by Dr. Todd Patient with cardiac catheterization 2 months ago for placement of AICD by Dr. Benton Discussed with anesthesiologists' assistant on-call Dr. Haley, he indicated that if patient is stable patient can be discharged home with conservative treatment and close outpatient follow-up with Dr. Benton/ Dr Todd. Animation Artist Agreed with low-dose Imdur for stable angina management. Hypertension, cardiomyopathy, chronic systolic congestive heart failure Continue home medications Chronic obstructive pulmonary disease in a chronic smoking patient continue O2 supplementation maintain O2 sats greater 92% Continue nebulizer treatments Patient counseled on smoking cessation DVT prevention Patient is on Eliquis Discharge disposition Discharge home in stable condition if stress test is negative Activity: Ad mai. Diet: Healthy heart diet Medications per medication reconciliation Follow-up primary medical doctor in one week Chance Bob Oct 13, 2017 08:12
--- NOTE | 2017-10-13 08:41 | EKG ---
Date Performed: 10/13/2017 Time Performed: 04:34:24 PTAGE: 47 years EKG: Sinus rhythm WITH FIRST DEGREE AV BLOCK NONSPECIFIC T-WAVE ABNORMALITY ABNORMAL ECG PREVIOUS TRACING : 08/19/2017 23.18 No significant change from previous tracing noted. DOCTOR: Sadiq Haley Interpretating Date/Time 10/13/2017 08:40:55
[2017-10-13] MEDS ORDERED: ASPIRIN 325 MG TAB PO SCH (09:00)
[2017-10-13] MEDS ORDERED: FUROSEMIDE 20 MG TAB PO SCH (09:00)
[2017-10-13] MEDS ORDERED: CARVEDILOL 12.5 MG TAB PO SCH (09:00)
[2017-10-13] MEDS ORDERED: APIXABAN 5 MG TABLET PO SCH (09:00)
[2017-10-13] MEDS ORDERED: SODIUM CHLORIDE 0.9% FLUSH 10 ML FLUSH IV FLUSH SCH ×2 (09:00)
[2017-10-13] MEDS ORDERED: AMIODARONE 200 MG TAB PO SCH (09:00)
[2017-10-13] MEDS ORDERED: POTASSIUM CHLORIDE 10 MEQ CAP PO SCH (09:00)
[2017-10-13] MEDS ORDERED: SACUBITRIL/VALSARTAN 49 MG-51 MG TAB PO SCH (09:00)
[2017-10-13] MEDS ORDERED: DIGOXIN 0.25 MG TAB PO SCH (09:00)
[2017-10-13] MEDS: DILTIAZEM HCL 60 MG TAB PO SCH ×2 (09:16→12:28)
--- NOTE | 2017-10-13 10:55 | RADRPT ---
EXAM DATE/TIME: 10/13/2017 09:24 [facility] COMPARISON: MYOCARDIAL PERF PHARM SPECT, GATED W/EF, September 23, 2014, 9:05. INDICATIONS : Chest pain with dyspnea. Angina. Atrial fibrillation. DOSE: 27.4 mCi Tc99m Myoview at stress. 8.7 mCi Tc99m Myoview at rest. 0.4 mg Lexiscan STRESS SYMPTOMS: Chest and throat tightness. EJECTION FRACTION: 44% MEDICAL HISTORY : Congestive hearrt failure. Chronic obstructive pulmonary disease. Hypertension. SURGICAL HISTORY : Cholecystectomy. Defibrillator. ENCOUNTER: Initial ACUITY: 1 day PAIN SCALE: 8/10 LOCATION: chest TECHNIQUE: The patient underwent pharmacologic stress with infusion of prescribed dose. Continuous ECG tracing was monitored during stress. Gated SPECT imaging was performed after stress and conventional SPECT i maging was performed at rest. The examination was performed on a SPECT/CT scanner, both attenuation and non-corrected datasets were reviewed. FINDINGS: Dilated ventricular cavity with minimal redistribution high septal wall towards the base. Global hyp okinesis. CONCLUSION: Stress-induced ischemia small segment septum towards the base. Global hypokinesis RISK CATEGORY: High (>3% Annual Mortality Rate) Kulwant Ferreira MD FACR on October 13, 2017 at 10:52 Board Certified Radiologist. This report was verified electronically.
[2017-10-13] MEDS ORDERED: ISOS30TA3 PO (11:13)
--- NOTE | 2017-10-13 11:14 | HHI.DCPOC ---
Discharge Care Plan Diagnosis: (1) Chest pain Goals to Promote Your Health * To prevent worsening of your condition and complications * To maintain your health at the optimal level Directions to Meet Your Goals Take your medications as prescribed Follow your dietary instruction Follow activity as directed Keep your appointments as scheduled Take your immunizations and boosters as scheduled If your symptoms worsen call your PCP, if no PCP go to Urgent Care Center or Emergency Room Smoking is Dangerous to Your Health. Avoid second hand smoke Call the 24-hour hour crisis hotline for domestic abuse at [facility] Bob Oct 13, 2017 11:14
[2017-10-13] MEDS ORDERED: ISOSORBIDE MONONITRATE 30 MG TAB PO ONE (11:15)
[2017-10-13 11:46] LABS: TROPONIN I LESS THAN 0.02 NG/ML (0.02-0.05)
[2017-10-13] MEDS ORDERED: NITROGLYCERIN 2% OINT 1 GM PACKET TOPICAL SCH (12:00)
[2017-10-13] MEDS ORDERED: NITR0.4S SL (12:41)
--- NOTE | 2017-10-13 13:57 | EKG ---
Date Performed: 10/13/2017 Time Performed: 11:07:22 PTAGE: 47 years EKG: SINUS BRADYCARDIA WITH FIRST DEGREE AV BLOCK LEFT AXIS DEVIATION NONSPECIFIC T-WAVE ABNORMA LITY ABNORMAL ECG PREVIOUS TRACING : 10/13/2017 04.34 No change from previous tracing noted. DOCTOR: Sadiq Haley Interpretating Date/Time 10/13/2017 13:56:06
[2017-10-13 15:07] LABS: CHOLESTEROL/ HDL RATIO 4.24 RATIO; HDL CHOLESTEROL 38.6 MG/DL (40.0-60.0)
--- NOTE | 2017-10-14 07:52 | TR ---
Date Performed: 10/13/2017 Time Performed: 09:51:44 DOCTOR: Lena Herzog DRUG LIST: CLINICAL HISTORY: REASON FOR TEST: Chest pain REASON FOR ENDING: OBSERVATION: CONCLUSION: Lexiscan stress test was performed under standard four minute protocol. Radionuclid e was injected one minute prior to ending the test. No electrocardiographic abormalities were present to suggest ischemia. Nuclear imaging and interpretation are pending. COMMENTS:
--- NOTE | 2017-10-14 17:40 | EKG ---
Date Performed: 10/12/2017 Time Performed: 21:30:00 PTAGE: 47 years EKG: Sinus rhythm NONSPECIFIC T-WAVE ABNORMALITY Since previous tracing, no significant change noted BORDERLINE ECG PREVIOUS TRACING : 08/19/2017 23.18.57 DOCTOR: Lena Herzog Interpretating Date/Time 10/14/2017 17:38:48
== END 2017-10-13 14:01 | disposition home or self-care (01) ==
LOC: PHED 21:24 → PHEDA 10-13 00:06 → PH3A 10-13 01:22
PROVIDERS: ADMIT Hospitalist; ATTEND Hospitalist
DX: R07.9 Chest pain, unspecified (principal); I11.0 Hypertensive heart disease with heart failure; I50.22 Chronic systolic (congestive) heart failure; I42.9 Cardiomyopathy, unspecified; I48.91 Unspecified atrial fibrillation; J44.9 Chronic obstructive pulmonary disease, unspecified; E78.00 Pure hypercholesterolemia, unspecified; F17.210 Nicotine dependence, cigarettes, uncomplicated; F31.9 Bipolar disorder, unspecified; Z79.01 Long term (current) use of anticoagulants; Z79.82 Long term (current) use of aspirin; Z95.810 Presence of automatic (implantable) cardiac defibrillator
CPT/HCPCS: 71010; 78452; 80048; 80053; 80061; 82550; 83735; 83880; 84484; 85025; 85610; 85730; 93005; 93017; 99285; A9502; G0378; J2785

== ENCOUNTER 2017-10-19 18:56 | Emergency (ER) | payer OTHER ==
[~2017-10-19] VITALS: Ht 167.6 cm; Wt 93.7 kg
[~2017-10-19 18:56] MED LIST changes: +DILT60TA33 PO; +ISOS30TA3 PO; +NITR0.4S SL; -OXYC1TAB63 PO; -PANT40TA3 PO; -POTA-163 PO; +POTA10CA PO
[2017-10-19 19:01] VITALS: BP 156/74; PULSE 76; RESP 18; TEMP 98.4; O2SAT 97
--- NOTE | 2017-10-19 19:20 | PD ---
HPI Chief Complaint: Headache Time Seen by Provider: 19:09 Travel History International Travel<30 days: No Contact w/Intl Traveler<30days: No Traveled to known affect area: No History of Present Illness HPI This patient complains of headache. Duration is 2 days. Started in his right occipital area and radiates around to the right frontal area. No injury no thunderclap onset. No fever. He does take Eliquis for cardiac reasons. No alleviating factors. No exacerbating factors. Severity is moderate PFSH Past Medical History Hx Anticoagulant Therapy: Yes (ELIQUIS) Asthma: No Atrial Fibrillation: Yes Blood Disorders: No Bipolar Disorder: Yes Anxiety: Yes Depression: Yes Heart Rhythm Problems: Yes Cancer: No Cardiac Catheterization: No Cardiovascular Problems: Yes High Cholesterol: No Chest Pain: Yes Congestive Heart Failure: Yes COPD: Yes Diabetes: No Diminished Hearing: No Endocrine: No Gastrointestinal Disorders: Yes GERD: No Genitourinary: No Hiatal Hernia: No Heparin Induced Thrombocytopen: No Hypertension: Yes Immune Disorder: No Implanted Vascular Access Dvce: Yes Musculoskeletal: No Neurologic: No Psychiatric: Yes (dx bipolar, schizophrenic) Reproductive: No Respiratory: Yes Immunizations Current: Yes Sleep Apnea: No Ulcer: No Tetanus Vaccination: < 5 Years Influenza Vaccination: Yes Past Surgical History Abdominal Surgery: Yes (cholecystectomy 2010) AICD: No Arteriovenous Shunt: No Body Medical Devices: defibrilator Cardiac Surgery: Yes (ablation 07/30/17, defib, heart cath 10/05) Cholecystectomy: Yes (2000) Coronary Artery Bypass Graft: No Ear Surgery: No Endocrine Surgery: No Eye Surgery: No Genitourinary Surgery: No Gynecologic Surgery: No Insulin Pump: No Joint Replacement: No Neurologic Surgery: No Oral Surgery: No Pacemaker: No Thoracic Surgery: No Other Surgery: Yes Family History Family Myocardial Infarction: No Social History Alcohol Use: No (PT DENIES) Tobacco Use: Yes (2 CIGARETTES/DAY) Substance Use: Yes (coccaine use in may 2017, trying to quit) Allergies-Medications (Allergen,Severity, Reaction): Coded Allergies: Sulfa (Sulfonamide Antibiotics) (Unverified Allergy, Severe, HIVES, ) Reported Meds & Prescriptions Reported Meds & Active Scripts Active Nitrostat SL (Nitroglycerin) 0.4 Mg Subl 0.4 Mg SL Q5M PRN Isosorbide Mononitrate ER (Isosorbide Mononitrate) 30 Mg Maria Luisa 30 Mg PO DAILY Entresto (Sacubitril-Valsartan) 49-51 Mg Tab 1 Tab PO BID Coreg (Carvedilol) 12.5 Mg Tab 12.5 Mg PO Q12HR Eliquis (Apixaban) 5 Mg Tab 5 Mg PO BID Amiodarone (Amiodarone HCl) 200 Mg Tab 200 Mg PO DAILY Furosemide 20 Mg Tab 20 Mg PO BID Digoxin 0.25 Mg Tab 0.25 Mg PO DAILY Aspirin 325 Mg Tab 325 Mg PO DAILY Reported Potassium Chloride ER (Potassium Chloride) 10 Meq Cap 10 Meq PO BID Cardizem (Diltiazem HCl) 60 Mg Tab 90 Mg PO QID Review of Systems General / Constitutional: No: Fever Eyes: No: Visual changes HENT: Positive: Headaches Cardiovascular: No: Chest Pain or Discomfort Respiratory: No: Shortness of Breath Gastrointestinal: No: Abdominal Pain Genitourinary: No: Dysuria Musculoskeletal: No: Pain Skin: No Rash Neurologic: Positive: Headache, No: Weakness Psychiatric: No: Depression Endocrine: No: Polydipsia Hematologic/Lymphatic: No: Easy Bruising Physical Exam Narrative GENERAL: Well-nourished, well-developed patient in no apparent distress. SKIN: Focused skin assessment reveals no rash and nodules. Skin is Warm and dry. HEAD: Atraumatic. Normocephalic. EYES: Pupils equal and round. No scleral icterus. No injection or drainage. ENT: No nasal bleeding or discharge. Mucous membranes pink and moist. NECK: Trachea midline. No JVD. No meningeal signs CARDIOVASCULAR: Regular rate and rhythm. No murmur appreciated. RESPIRATORY: No accessory muscle use. Clear to auscultation. Breath sounds equal bilaterally. GASTROINTESTINAL: Abdomen soft, non-tender, nondistended. Hepatic and splenic margins not palpable. MUSCULOSKELETAL: No obvious deformities. No clubbing. No cyanosis. No edema. NEUROLOGICAL: Awake and alert. No obvious cranial nerve deficits. Motor grossly within normal limits. Normal speech. PSYCHIATRIC: Appropriate mood and affect; insight and judgment normal. Data Data Last Documented VS Vital Signs Date Time Temp Pulse Resp B/P (MAP) Pulse Ox O2 Delivery O2 Flow Rate FiO2 10/19/17 19:11 18 98 Room Air 10/19/17 19:01 98.4 76 156/74 (101) Orders Orders Ct Brain W/O Iv Contrast(Rout) (10/19/17 ) MDM Medical Decision Making Medical Screen Exam Complete: Yes Emergency Medical Condition: Yes Medical Record Reviewed: Yes Differential Diagnosis Differential diagnosis includes migraine, tension headache, cluster headache, meningitis. Narrative Course I have reviewed the patient's electronic medical record. Patient was hospitalized 6 days ago in the chest pain center Patient is neurologically intact. Presentation not consistent with subarachnoid hemorrhage or meningitis or stroke He does take a blood thinner and has a headache so I have ordered brain CT Brain CT shows no hemorrhage. 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 Med/Other Pt SpecificInfo: Other Disposition: 01 DISCHARGE HOME Condition: Stable Chance Baldwin MD Oct 19, 2017 19:20
--- NOTE | 2017-10-19 19:55 | RADRPT ---
EXAM DATE/TIME: 10/19/2017 19:34 [facility] COMPARISON: No previous studies available for comparison. INDICATIONS : Headache for two days. RADIATION DOSE: 60.98 CTDIvol (mGy) MEDICAL HISTORY : Hypertension. Chronic obstructive pulmonary disease. Congestive heart failure.Anticoagulant therapy. SURGICAL HISTORY : Cholecystectomy. Cardiac ablation. ENCOUNTER: Initial ACUITY: 2 days PAIN SCALE: 8/10 LOCATION: cranial TECHNIQUE: Multiple contiguous axial images were obtained of the head. Using automated exposure control and adj ustment of the mA and/or kV according to patient size, radiation dose was kept as low as reasonably a chievable to obtain optimal diagnostic quality images. DICOM format image data is available electro nically for review and comparison. FINDINGS: There is no evidence for intracranial hemorrhage, mass effect, mass lesions, edema, or extra-axial fl uid collections. The visualized bony structures appear intact. The ventricles are normal size for t he patient's age. There are no signs of acute infarction for technique. There is subcutaneous scalp mass like density left frontal area measures almost 2.4 cm in size benign in appearance, however shou ld be correlated clinically. CONCLUSION: Left frontal scalp subcutaneous mass and otherwise unremarkable K. Tom Stone MD on October 19, 2017 at 19:51 Board Certified Radiologist. This report was verified electronically.
[2017-10-19 20:22] VITALS: BP 148/76; PULSE 74; RESP 18; O2SAT 97
== END 2017-10-19 20:31 | disposition home or self-care (01) ==
LOC: PHED 18:56
DX: R51 Headache (principal); I48.91 Unspecified atrial fibrillation; F31.9 Bipolar disorder, unspecified; I11.0 Hypertensive heart disease with heart failure; I50.9 Heart failure, unspecified; J44.9 Chronic obstructive pulmonary disease, unspecified; Z79.01 Long term (current) use of anticoagulants; Z72.0 Tobacco use
CPT/HCPCS: 70450; 99284

== ENCOUNTER 2017-11-20 06:07 | Day surgery (SDC) | payer OTHER ==
[~2017-11-20] VITALS: Ht 167.6 cm; Wt 95.2 kg
[2017-11-20] MEDS ORDERED: IOHEXOL 350 MG/ML 50 ML BTL (for Cath Lab) OTHER ONE (06:08)
[2017-11-20 06:30] VITALS: BP 106/58; PULSE 100; RESP 18; TEMP 98.8; O2SAT 93
[2017-11-20 07:06] LABS: AUTOMATED NEUTROPHIL # 5.2 TH/MM3 (1.8-7.7); BASOPHIL # 0.1 TH/MM3 (0-0.2); BASOPHIL % 1.1 % (0.0-2.0); EOSINOPHIL % 0.4 % (0.0-4.0); HEMATOCRIT 47.4 % (39.0-51.0); HEMOGLOBIN 16.8 GM/DL (13.0-17.0); LYMPH % 12.1 % (9.0-44.0); LYMPHOCYTE # 0.9 TH/MM3 (1.0-4.8); MEAN CELL VOLUME 83.9 FL (80.0-100.0); MEAN CORPUSCULAR HEMOGLOBIN 29.8 PG (27.0-34.0); MEAN CORPUSCULAR HGB CONC 35.5 % (32.0-36.0); MONO % 17.9 % (0.0-8.0); MONOCYTE # 1.4 TH/MM3 (0-0.9); NEUT % 68.5 % (16.0-70.0); PLATELET COUNT 159 TH/MM3 (150-450); RED BLOOD COUNT 5.65 MIL/MM3 (4.50-5.90); RED CELL DISTRIBUTION WIDTH 14.9 % (11.6-17.2); WHITE BLOOD COUNT 7.7 TH/MM3 (4.0-11.0)
[2017-11-20 07:25] LABS: INTERNATIONAL NORMALIZED RATIO 1.1 RATIO; PROTHROMBIN TIME - PATIENT 11.4 SEC (9.8-11.6)
[2017-11-20 07:30] LABS: BICARBONATE 26.3 MEQ/L (21.0-32.0); CALCIUM 8.2 MG/DL (8.5-10.1); CREATININE 1.06 MG/DL (0.60-1.30)
[2017-11-20] MEDS ORDERED: HEPARIN-NS/PF INJ 1,500 ML ONE (08:20)
[2017-11-20] MEDS ORDERED: MIDAZOLAM HCL 2 MG/2 ML VIAL ONE (08:20)
[2017-11-20] MEDS ORDERED: NITROGLYCERIN INJ 5 ML ONE (08:21)
[2017-11-20] MEDS ORDERED: VERAPAMIL HCL 5 MG/2 ML VIAL ONE (08:21)
[2017-11-20] MEDS ORDERED: HEPARIN SODIUM - IV 10,000 UNITS/10 ML VIAL ONE (08:21)
--- NOTE | 2017-11-20 08:30 | EKG ---
Date Performed: 11/20/2017 Time Performed: 07:02:08 PTAGE: 47 years EKG: Sinus rhythm . Possible left anterior fascicular block Borderline ECG Compared to prior electrocardiogram, Nonspec ific T wave changes no longer present. PREVIOUS TRACING : 10/13/2017 11.07 DOCTOR: Anton Blanton Interpretating Date/Time 11/20/2017 08:29:59
[2017-11-20] MEDS ORDERED: SACU1TAB7 PO (09:10)
[2017-11-20] MEDS ORDERED: APIX5TAB PO (09:10)
--- NOTE | 2017-11-20 09:14 | CATHPROC ---
[employer] HIS Report Study Information Study Number Admission Scheduled Start Study Start [id number] Nov 20 2017 6:07AM 11/20/2017 Nov 20 2017 8:11AM [facility] Cardiac Catheterization Admit Source Facility Department Other [facility]airer Physician and Clinical Staff Initial Dale Lanier Animal Pathologist Sarah Naqvi,PRISCILA Recorder Renate Rodriguez ,RT(R) Scrub Asmita Gallardo,RT(R) Procedures Performed Procedure Location (Site) Vessel Name Coronary Angiograms LCA Left Coronary Coronary Angiograms RCA Right Coronary L Heart Cath Equipment Time Qa Consultant Description Size Mfg Part Number Used/Scraped TRANSDUCER, TRUWAVE [id number] 08:24 STEPHENS SALAZAR * Used W/STOCKCOCK *[id number] 08:24 Webstep PACK, CCL CUSTOM * Used *[id number] 08:24 [employer] SUPPORT, ARTERIAL ADULT 97160 *[id number] Used [id number] 08:48 MEDTR[employer] JL 3.5 DXTERITY CATHETER FR 5 Used *[id number] 08:42 [employer] JR 4.0 DXTERITY CATHETER FR 5 Used *[id number] BAND, RADIAL COMPRESSION TR [id number] 08:53 [employer] MEDICAL 29CM Used LARGE 29 *[id number] 08:24 [employer] MEDICAL WIRE, EXCHANGE 260CM 3MMJ 260CM Used *[id number] 08:24 NAMIC MANIFOLD, 4 PORT * Used *[id number] 08:24 [employer] OMNIPAQUE, 350 MG, 150ML 150ML [id number] Used [id number] 08:24 [employer] BLANKET,WARM AIR CCL * Used *[id number] SHEATH, FR6 TRANSRADIAL RM*[id number] 08:24 [employer] MEDICAL FR 6 Used SLENDER 10CM *[id number] Equipment Model, Serial, Lot Number and Expiration Data Description Model Number Serial Number Lot Number Expiration Date JR 4.0 DXTERITY CATHETER [id number] 07-24-2020 History: Current Medications Medication Dosage/Unit Route Frequency Last Date/Time Taken Beta Wagner NTG SL ASA ELIQUIS History: Allergies Allergy Reaction Sulfa HIVES Sulfa (Sulfonamide Antibiotics) HIVES History: Risk Factors Family History of Hypertension Dyslipidemia Previous IA Previous Heart Failure Premature CAD Yes No No No Yes Prior Valve Prior PCI Prior CABG Surgery No No No Cerebrovascular Peripheral Artery Chronic Lung On Dialysis Diabetes Disease Disease Disease No No No Yes No History: Symptoms/Diagnosis Selection Items Chest pain History: Stress Tests Stress or Imaging Studies Performed Yes Standard Exercise Stress Test No Stress Echo No Stress Test SPECT Stress Test SPECT Result Stress Test SPECT Ischemia Risk/Extent Yes Positive High Stress Test CMR No Cardiac CTA Coronary Calcium Score No No History: Other Current Smoker Method Packs a Day Years Used Pack Years Yes Cigarettes 1 36 36 Labs Hgb (g/dl) Hct (%) RBC (MIL/MM3) WBC (l/cumm) Platelets (thousands) 11.60-17.00 35.00-51.00 4.00-5.90 4.00-11.00 150.00-450.00 16.8 47.4 5.6 7.7 159 Glucose (mg/dl) BUN (mg/dl) Creatinine (mg/dl) BUN:Creatinine (1:x) 74.00-106.00 7.00-18.00 0.50-1.30 10.00-20.00 74 14 1.0 14 Na (meq/l) K (meq/l) Cl (meq/l) CO2 (mmol/L) Ca (mg/dl) 136.00-145.00 3.50-5.10 98.00-107.00 21.00-32.00 8.50-10.10 136 4.1 100 26.3 8.2 PT (sec) PTT (sec) INR (PTT:PT) 9.80-11.60 24.30-30.10 0.90-1.10 11.4 33.5 1.1 Medication Medication Total Dose (Bolus/Oral) Medication Total Dosage/Unit 1% XYLOCAINE 20 mL FENTANYL 25 mcg RADIAL COCKTAIL 5 mL (Bolus) VERSED 0.5 mg Medications (Bolus/Oral) Medication Time Given Dosage/Unit Administered By Reason VERSED 11/20/2017 8:31:00 AM 0.5 mg Sarah Naqvi 0.5 mg VERSED given in lab by Sarah Naqvi RN in Left Antecubital via Peripheral IV. Ordered by Dale Gomes FENTANYL 11/20/2017 8:40:55 AM 25 mcg Sarah Naqvi 25 mcg FENTANYL given in lab by Sarah Naqvi RN in Left Antecubital via Peripheral IV. Ordered by Dale San 1% XYLOCAINE 11/20/2017 8:41:11 AM 20 mL Dale San 20 mL 1% XYLOCAINE given in lab by Dale San in Right Radial via Subcutaneous. Ordered by Dale Gomes Ntg 200mcg Verapamil 2.5mg Heparin RADIAL COCKTAIL 11/20/2017 8:42:41 AM 5 mL (Bolus) Dale San 3000U 5 mL (Bolus) RADIAL COCKTAIL given in lab by Dale San in Right Radial via Radial. Using [S olution Name]. Ordered by Dale San Reason: Ntg 200mcg Verapamil 2.5mg Heparin 3800U. Medication (Drip) Medication Time Given Dosage/Unit Concentration/Unit Diluent (ml) Solution IV Solutions 11/20/2017 8:20:13 AM 0 mL (IV) 250 NaCl .9 IV Solutions given in lab by Sarah Naqvi RN in Right Antecubital via Peripheral IV. Pump/Drip Fl ow = 20 ml/hr using NaCl .9. Ordered by Dale San Initial Case Assessment Cardiovascular HR NIBP Chest Pain 74 125/67 0 Edema Present Skin color Skin None Normal Warm Circulatory - Right Pulses Dorsalis Pedis Femoral Radial 3 3 3 Scale (0,1,2,3,4,d) Circulatory - Left Pulses Dorsalis Pedis Femoral Radial 3 3 Scale (0,1,2,3,4,d) Neurological State Oriented to time-place- Alert Moves all extremities person Respiration - General Respiration Rate SpO2 (%) (B/min) 15 96 Final Case Assessment Cardiovascular HR NIBP Chest Pain 73 124/69 0 Edema Present Skin color Skin None Normal Warm Dry Circulatory - Right Pulses Dorsalis Pedis Femoral Radial 3 3 3 Scale (0,1,2,3,4,d) Circulatory - Left Pulses Dorsalis Pedis Femoral Radial 3 3 Scale (0,1,2,3,4,d) Neurological State Oriented to time-place- Alert Moves all extremities person Respiration - General Respiration Rate SpO2 (%) (B/min) 13 93 Chronological Log Time Study Chronological Log 8:10:58 Patient arrived via Bed. 8:10:59 Patient Name, D.O.B, / Armband Verified By R.N. Vitals capture started with the following parameters, Patient=Adult, Interval=5 min, Initial Pr kilhfm=180 mmHg, 8:16:20 Deflation Rate=5 mmHg, Cuff placed on Left Arm 8:16:53 HR=74 bpm, THJC=538/67 mmhg, SpO2=96 %, Resp=15 B/min, Pain=0, Stephani=10, Stoner=2 8:17:58 Consent signed by the physician and the patient and verified by the [facility] staff. 8:17:59 Verbal Stimulation=2 Physical Stimulation=2 Airway=2 Respiration=2 TOTAL=8. (0=absent, 1=li mited, 2=present) Assessment: Initial Case, HR=74 BPM, IDLB=466/67 mmhg, Chest Pain=0, Edema=None, Color=Normal, Skin = Warm Right Pulses: Richard Ped=3, Femoral=3, Radial=3 8:18:52 Left Pulses: Richard Ped=3, Femoral=3 Neurological: State=Alert, Ox3, LAWSON Respiration: Resp=15 B/min, SpO2=96 % 8:19:52 Reference ECG taken 8:20:05 Allens test performed on the right radial and ulnar artery. 8:20:06 Patient has been NPO for More than 6Hrs. 8:20:07 NO Skin Breakdown- 8:20:09 Patient Warmer Placed on the Table. 8:20:12 A # 20 IV was noted in the Antecubital (left). Grade = 0 IV Solutions given in lab by Sarah Naqvi, RN in Right Antecubital via Peripheral IV. Pump/D rip Flow = 20 ml/hr 8:20:13 using NaCl .9. Ordered by Dale San 8:20:17 History and physical on the chart or being dictated. 8:21:56 HR=73 bpm, XJYT=962/59 mmhg, SpO2=96 %, Resp=15 B/min, Pain=0, Stephani=10, Stoner=2 8:26:51 HR=74 bpm, WITB=240/63 mmhg, SpO2=92.0 %, Resp=13 B/min, Pain=0, Stpehani=10, Stoner=2 8:29:22 Right Radial and groin(s) prepped with 2% chlorhexidine, and draped after a 3 min. waiting t murphy. 0.5 mg VERSED given in lab by Sarah Naqvi, RN in Left Antecubital via Peripheral IV. Ordered by Dale San 8:31:00 G. 8:31:52 HR=73 bpm, ZDOY=042/79 mmhg, SpO2=93.0 %, Resp=11 B/min, Pain=0, Stephani=10, Stoner=2 8:32:00 MD arrived. 8:36:58 HR=72 bpm, ZHXM=446/66 mmhg, SpO2=91.0 %, Resp=22 B/min, Pain=0, Stephani=10, Stoner=2 Time Out. Correct patient, correct procedure, correct physician, power injector loaded with cont rast with surgical team 8:39:48 present. Time Out Concurred by MD and individual staff in procedure. 8:40:33 Pressure channel 1 zeroed. 8:40:45 Case Start 25 mcg FENTANYL given in lab by Sarah Naqvi, RN in Left Antecubital via Peripheral IV. Order ed by Jaswinder 8:40:55 Dale Quintanilla. 20 mL 1% XYLOCAINE given in lab by Dale San in Right Radial via Subcutaneous. Ordered by Jaswinder 8:41:11 Dale Quintanilla. 8:42:31 HR=71 bpm, OMYB=018/68 mmhg, SpO2=91.0 %, Resp=24 B/min, Pain=0, Stephani=10, Stoner=2 8:42:31 Access site was Radial Artery. A SHEATH, FR6 TRANSRADIAL SLENDER 10CM FR 6 was advanced into the Radial (right) using the Mattie rivero 8:42:35 technique. 5 mL (Bolus) RADIAL COCKTAIL given in lab by Dale San in Right Radial via Radial. i ng [Solution Name]. 8:42:41 Ordered by Dale San. Reason: Ntg 200mcg Verapamil 2.5mg Heparin 3800U. A JR 4.0 DXTERITY CATHETER FR 5 was advanced over a wire. OMNIPAQUE, 350 MG, 150ML 150ML was use d for 8:43:34 injections. Recorded Pressure: LV, HR=81, Condition=Condition 1 8:45:23 (Left Ventricle) LV 108/3/9 Recorded Pressure: LV, Ao, HR=78, Condition=Condition 1 8:45:48 (Left Ventricle) LV 112/2/10, (Aorta) Ao 90/64/73 8:46:11 The RCA was injected and visualized at various angles. OMNIPAQUE, 350 MG, 150ML 150ML used. 8:46:54 HR=80 bpm, HTBS=446/65 mmhg, SpO2=89.0 %, Resp=23 B/min, Pain=0, Stephani=10, Stoner=2 8:47:35 Catheter was removed A JL 3.5 DXTERITY CATHETER FR 5 was advanced over a wire. OMNIPAQUE, 350 MG, 150ML 150ML was use d for 8:48:25 injections. 8:49:19 The LCA was injected and visualized at various angles. OMNIPAQUE, 350 MG, 150ML 150ML used. 8:51:55 HR=76 bpm, LIYW=839/69 mmhg, SpO2=91.0 %, Resp=22 B/min, Pain=0, Stephani=10, Stoner=2 8:52:03 Catheter was removed 8:52:51 Case End Assessment: Final Case, HR=73 BPM, HRIW=612/69 mmhg, Chest Pain=0, Edema=None, Color=Normal, Ski n = Warm, Dry Right Pulses: Richard Ped=3, Femoral=3, Radial=3 8:53:09 Left Pulses: Richard Ped=3, Femoral=3 Neurological: State=Alert, Ox3, LAWSON Respiration: Resp=13 B/min, SpO2=93 % 8:54:12 Catheter(s) removed without difficulty Radial Compression Device Used. 12 mLs of air placed in BAND, RADIAL COMPRESSION TR LARGE 29 29C M. Affected 8:54:22 hand 96 % O2 saturation. 8:54:34 Sterile dressing applied to site 8:54:35 No case complications noted. 8:54:37 Cine recording checked. 8:54:38 Bedside Report will be given. 8:54:45 Contrast Scanned 8:54:55 A Left Heart Cath was performed. 8:56:52 HR=69 bpm, UJPE=543/87 mmhg, SpO2=93.0 %, Resp=13 B/min, Pain=0, Stephani=10, Stoner=2 9:01:55 HR=69 bpm, YZOF=644/65 mmhg, SpO2=95.0 %, Resp=9 B/min, Pain=0, Stephani=10, Stoner=2 9:04:42 Vitals capture stopped. 9:05:49 Patient moved to stretcher End Study - Contrast Media Used In Study Contrast Total Opened (mL) Total Used (mL) Total Wasted (mL) Omnipaque 30 30 0 End Study - Maximum Contrast Load Max Contrast Load (mL) 475.9 End Study - Radiation Exposure Fluoro Time (minutes) 1.5 End Study - Patient Disposition Complications Transferred To Interventional Outcome No Telemetry Bed No attempt made
[2017-11-20] MEDS ORDERED: MISC INFORMATION XX ONE (09:15)
--- NOTE | 2017-11-25 09:35 | MA ---
cc: DALE LANTIGUA DO DATE OF PROCEDURE November 20, 2017 PROCEDURE Left heart catheterization, coronary angiogram, moderate sedation 15 minutes. PREPROCEDURE DIAGNOSES Chest pain. Abnormal stress test. POSTPROCEDURE DIAGNOSIS Mild coronary artery disease. MEDICATIONS 1. Versed 0.5 mg. 2. Fentanyl 25 mcg. 3. Heparin 3800 units. 4. Verapamil 2.5 mg. 5. Nitro 200 mcg. CONTRAST USED 30 cc. FLUOROSCOPY 1.5 minutes MODERATE SEDATION 15 minutes. ESTIMATED BLOOD LOSS 10 cc. PROCEDURAL SUMMARY Singh Pendleton is a pleasant 47-year-old male who sees my partner Dr. Benton in the office and was evaluated for chest pain. He previously had a stress test which showed mild ischemia and so he was recommended cardiac catheterization. The risks, benefits and alternatives were explained to him and he consented as such. He was brought to the lab and prepped in the usual sterile fashion. The right radial artery was accessed using a modified Seldinger technique and placement of a 5/6-[place] sheath. This was easily aspirated and flushed. A JR-4 was advanced over a J-wire to the ascending aorta and across the aortic valve for measurement of left ventricular pressure. This was pulled back across the aortic valve showing no significant gradient of aortic stenosis. The JR-4 was used for selective angiography of the right coronary artery system. This was exchanged out for a JL-3.5 which was used for selective angiography of the left coronary artery system. The JL-3.5 was removed over a J-wire. A radial band was placed over the arteriotomy site for hemostasis. The patient left the biology laboratory assistant cardiovascularly stable. FINDINGS LEFT MAIN: Normal-sized vessel with no significant disease. It trifurcates into an LAD, ramus and circumflex. LAD: Normal-sized vessel with mild luminal irregularities in the midportion but no significant disease. He gives off one major diagonal with no significant disease. RAMUS: Normal-sized vessel with no significant disease. LEFT CIRCUMFLEX: Normal-sized vessel with mild luminal irregularities throughout. It gives off two obtuse marginals with no significant disease. RCA: Normal-sized vessel with no significant disease. It is a dominant vessel and gives off a PDA as well as a PLV with no significant disease. LVEDP: 10. IMPRESSIONS 1. Nonischemic cardiomyopathy. 2. Mild coronary artery disease. RECOMMENDATIONS 1. Mr. Pendleton appears to have mild coronary artery disease and will be continued on medical therapy. 2. He will be discharged home to follow up with Dr. Benton as previously scheduled. Thank you for allowing me to see Singh Pendleton. If you have any questions, please do not hesitate to call. Dale Lantigua DO VGP/SSB /11:09 PM /9:24 AM
== END 2017-11-20 14:26 | disposition home or self-care (01) ==
LOC: HDOC 06:07 → HDIC 06:08 → HDOC 14:26
PROVIDERS: ATTEND Nuclear Medicine Nuclear Cardiology
DX: I25.10 Atherosclerotic heart disease of native coronary artery without angina pectoris (principal); I42.9 Cardiomyopathy, unspecified; I48.91 Unspecified atrial fibrillation; I50.9 Heart failure, unspecified; I10 Essential (primary) hypertension; Z79.01 Long term (current) use of anticoagulants; Z79.82 Long term (current) use of aspirin
CPT/HCPCS: 80048; 85025; 85610; 85730; 93005; 93458; 99152; C1769; C1893; J1644; J2250; J3010; Q9967

== ENCOUNTER 2017-11-23 20:16 | Emergency (ER) | payer OTHER ==
[~2017-11-23 20:16] MED LIST changes: -DILT60TA33 PO
[2017-11-23 20:23] VITALS: BP 151/67; PULSE 93; RESP 18; TEMP 98.5; O2SAT 95
[2017-11-23] MEDS ORDERED: TRAM50TA PO (20:39)
--- NOTE | 2017-11-23 20:43 | PD ---
HPI Chief Complaint: Chest Pain Time Seen by Provider: 20:23 Travel History International Travel<30 days: No Contact w/Intl Traveler<30days: No Traveled to known affect area: No History of Present Illness HPI This patient complains of chest pain. Location is left upper chest at the site of his defibrillator insertion. This was inserted in July and that's exactly when his pain started. He's discussed this with his hitcher multiple times and causes unknown. He had heart catheterization 3 days ago he reports was normal. He has history of nonischemic cardiomyopathy and A. fib. He is currently in sinus rhythm. Not having chest pain right now symptoms are intermittent. Severity at this time is mild PFSH Past Medical History Hx Anticoagulant Therapy: Yes (ELIQUIS) Asthma: No Atrial Fibrillation: Yes Blood Disorders: No Bipolar Disorder: Yes Anxiety: Yes Depression: Yes Heart Rhythm Problems: Yes Cancer: No Cardiac Catheterization: Yes (2017) Cardiovascular Problems: Yes High Cholesterol: No Chest Pain: Yes Congestive Heart Failure: Yes COPD: Yes Diabetes: No Diminished Hearing: No Endocrine: No Gastrointestinal Disorders: Yes GERD: No Genitourinary: No Hiatal Hernia: No Heparin Induced Thrombocytopen: No Hypertension: Yes Immune Disorder: No Implanted Vascular Access Dvce: Yes Musculoskeletal: No Neurologic: No Psychiatric: Yes (dx bipolar, schizophrenic) Reproductive: No Respiratory: Yes (DYSPNEA, COPD) Immunizations Current: Yes Sleep Apnea: No Ulcer: No Influenza Vaccination: Yes Past Surgical History Abdominal Surgery: Yes (cholecystectomy 2010) AICD: No Arteriovenous Shunt: No Body Medical Devices: defibrilator Cardiac Surgery: Yes (ablation 07/30/17, defib, heart cath 10/05) Cholecystectomy: Yes (2000) Coronary Artery Bypass Graft: No Ear Surgery: No Endocrine Surgery: No Eye Surgery: No Genitourinary Surgery: No Gynecologic Surgery: No Insulin Pump: No Joint Replacement: No Neurologic Surgery: No Oral Surgery: No Pacemaker: No Thoracic Surgery: No Other Surgery: Yes Social History Alcohol Use: No (PT DENIES) Tobacco Use: Yes (PATIENT STATES THAT HE QUIT ON 11/18/17) Substance Use: Yes (coccaine use in may 2017, trying to quit) Allergies-Medications (Allergen,Severity, Reaction): Coded Allergies: Sulfa (Sulfonamide Antibiotics) (Unverified Allergy, Severe, HIVES, ) Reported Meds & Prescriptions Reported Meds & Active Scripts Active Tramadol (Tramadol HCl) 50 Mg Tab 50 Mg PO Q6H PRN Entresto (Sacubitril-Valsartan) 49-51 Mg Tab 1 Tab PO BID Restart on 11/21/17 Eliquis (Apixaban) 5 Mg Tab 5 Mg PO BID Restart on 11/21/17 Nitrostat SL (Nitroglycerin) 0.4 Mg Subl 0.4 Mg SL Q5M PRN Isosorbide Mononitrate ER (Isosorbide Mononitrate) 30 Mg Maria Luisa 30 Mg PO DAILY Coreg (Carvedilol) 12.5 Mg Tab 12.5 Mg PO Q12HR Amiodarone (Amiodarone HCl) 200 Mg Tab 200 Mg PO DAILY Furosemide 20 Mg Tab 20 Mg PO BID Digoxin 0.25 Mg Tab 0.25 Mg PO DAILY Aspirin 325 Mg Tab 325 Mg PO DAILY Reported Potassium Chloride ER (Potassium Chloride) 10 Meq Cap 10 Meq PO BID Review of Systems General / Constitutional: No: Fever Eyes: No: Visual changes HENT: No: Headaches Cardiovascular: Positive: Chest Pain or Discomfort Respiratory: No: Shortness of Breath Gastrointestinal: No: Abdominal Pain Genitourinary: No: Dysuria Musculoskeletal: No: Pain Skin: No Rash Neurologic: No: Weakness Psychiatric: No: Depression Endocrine: No: Polydipsia Hematologic/Lymphatic: No: Easy Bruising Physical Exam Narrative GENERAL: Well-nourished, well-developed patient in no apparent distress. SKIN: Focused skin assessment reveals no rash and nodules. Skin is Warm and dry. HEAD: Atraumatic. Normocephalic. EYES: Pupils equal and round. No scleral icterus. No injection or drainage. ENT: No nasal bleeding or discharge. Mucous membranes pink and moist. NECK: Trachea midline. No JVD. CARDIOVASCULAR: Regular rate and rhythm. No murmur appreciated. RESPIRATORY: No accessory muscle use. Clear to auscultation. Breath sounds equal bilaterally. GASTROINTESTINAL: Abdomen soft, non-tender, nondistended. Hepatic and splenic margins not palpable. MUSCULOSKELETAL: No obvious deformities. No clubbing. No cyanosis. No edema. Some chest tenderness at the defibrillator insertion site but no sign of infection or dehiscence NEUROLOGICAL: Awake and alert. No obvious cranial nerve deficits. Motor grossly within normal limits. Normal speech. PSYCHIATRIC: Appropriate mood and affect; insight and judgment normal. Data Data Last Documented VS Vital Signs Date Time Temp Pulse Resp B/P (MAP) Pulse Ox O2 Delivery O2 Flow Rate FiO2 11/23/17 20:28 95 Room Air 11/23/17 20:23 98.5 18 151/67 (95) 95 MDM Medical Decision Making Medical Screen Exam Complete: Yes Emergency Medical Condition: Yes Medical Record Reviewed: Yes Differential Diagnosis Nerve injury, chest wall pain, chronic pain syndrome Narrative Course I have reviewed the patient's electronic medical record. I reviewed his most recent chest pain center admission Patient has chronic chest pain for 3 months at the defibrillator insertion site. This is nonischemic disease I wrote him some tramadol to try for symptom relief Should follow-up with his outpatient physicians Diagnosis Primary Impression: Chronic chest pain Additional Instructions: The patient was advised to follow up with their physician and return if they worsen. The patient was warned about potential sedation for the medications they will receive on prescription. Med/Other Pt SpecificInfo: Other Scripts Tramadol (Tramadol) 50 Mg Tab 50 MG PO Q6H Y for PAIN, #20 TAB 0 Refills Prov: Chance Baldwin MD 11/23/17 Disposition: 01 DISCHARGE HOME Condition: Stable Chance Baldwin MD Nov 23, 2017 20:43
[2017-11-23 20:55] VITALS: BP 144/67
--- NOTE | 2017-11-24 22:09 | EKG ---
Date Performed: 11/23/2017 Time Performed: 20:23:25 PTAGE: 47 years EKG: Sinus rhythm SEPTAL MYOCARDIAL INFARCTION ABNORMAL ECG NO PREVIOUS TRACING DOCTOR: Shiva Benton Interpretating Date/Time 11/24/2017 22:02:35
== END 2017-11-23 20:55 | disposition home or self-care (01) ==
LOC: PHED 20:16
DX: R07.9 Chest pain, unspecified (principal); G89.29 Other chronic pain; I42.9 Cardiomyopathy, unspecified; I48.91 Unspecified atrial fibrillation; R94.31 Abnormal electrocardiogram [ECG] [EKG]; I11.0 Hypertensive heart disease with heart failure; I50.9 Heart failure, unspecified; J44.9 Chronic obstructive pulmonary disease, unspecified; F31.9 Bipolar disorder, unspecified
CPT/HCPCS: 93005

== ENCOUNTER 2018-02-19 21:53 | Observation (INO) | payer SELFPAY ==
[~2018-02-19] VITALS: Ht 167.6 cm; Wt 95.0 kg
[~2018-02-19 21:53] MED LIST changes: +TRAM50TA PO
[2018-02-19 21:57] VITALS: BP 130/72; PULSE 99; RESP 20; TEMP 98.7; O2SAT 96
[2018-02-19] MEDS ORDERED: POTA-163 PO (22:07)
[2018-02-19] MEDS ORDERED: AMIO200T PO (22:07)
--- NOTE | 2018-02-19 22:18 | PD ---
HPI Chief Complaint: Cardiac Complaint Time Seen by Provider: 21:59 Travel History International Travel<30 days: No Contact w/Intl Traveler<30days: No Traveled to known affect area: No History of Present Illness HPI Is a 47-year-old male who was riding his bike today when he felt his defibrillator go off he said felt entire joint of his bike he flash of blue is what he felt and saw and managed to not fall off his bike. Went home and then came to the ER he reports that earlier this week he was shocked as well and is the first time since it was put in July that he was shocked in the ER he has no pain his EKG is normal sinus rhythm at a rate of [address] elevations or depressions and no ectopy patient says it was put in for A. fib however I reviewed the past medical history to find out that it is a Biotronik AICD and that it is for A. fib and for a poor ejection fraction of less than 30 % Dr. Benton note on the [employer] machine is how I discovered what type of AICD he has and who to call for interrogation I call [employer] to their coming to investigate at bedside at this time he is no complaint he reports 2 hours prior to arrival he was shocked with a severe burning jolting feeling in his chest and he said he saw everything turned blue now symptoms have resolved he has no chest pain at this time he has not called his washer assembler since it happened a couple days ago he said he just laid on his couch and he has not taken any medications to alleviate alleviate his symptoms PFSH Past Medical History Hx Anticoagulant Therapy: Yes (ELIQUIS) Asthma: No Atrial Fibrillation: Yes Blood Disorders: No Bipolar Disorder: Yes Anxiety: Yes Depression: Yes Heart Rhythm Problems: Yes Cancer: No Cardiac Catheterization: Yes (2018) Cardiovascular Problems: Yes High Cholesterol: No Chest Pain: Yes Congestive Heart Failure: Yes COPD: Yes Diabetes: No Diminished Hearing: No Endocrine: No Gastrointestinal Disorders: Yes GERD: No Genitourinary: No Hiatal Hernia: No Heparin Induced Thrombocytopen: No Hypertension: Yes Immune Disorder: No Musculoskeletal: No Neurologic: No Psychiatric: Yes (dx bipolar, schizophrenic) Reproductive: No Respiratory: Yes (DYSPNEA, COPD) Immunizations Current: Yes Sleep Apnea: No Ulcer: No Past Surgical History Abdominal Surgery: Yes (cholecystectomy 2010) AICD: No Arteriovenous Shunt: No Body Medical Devices: defibrilator Cardiac Surgery: Yes (ablation 07/30/17, defib, heart cath 10/05) Cholecystectomy: Yes (2000) Coronary Artery Bypass Graft: No Ear Surgery: No Endocrine Surgery: No Eye Surgery: No Genitourinary Surgery: No Gynecologic Surgery: No Insulin Pump: No Joint Replacement: No Neurologic Surgery: No Oral Surgery: No Pacemaker: No Thoracic Surgery: No Other Surgery: Yes Social History Alcohol Use: No (PT DENIES) Tobacco Use: Yes (PATIENT STATES THAT HE QUIT ON 11/18/17) Substance Use: Yes (coccaine use in may 2017, trying to quit) Allergies-Medications (Allergen,Severity, Reaction): Coded Allergies: Sulfa (Sulfonamide Antibiotics) (Unverified Allergy, Severe, HIVES, ) Reported Meds & Prescriptions Reported Meds & Active Scripts Active Carvedilol 25 Mg Tab 25 Mg PO BID Amiodarone (Amiodarone HCl) 200 Mg Tab 200 Mg PO DAILY Entresto (Sacubitril-Valsartan) 49-51 Mg Tab 1 Tab PO BID Restart on 11/21/17 Eliquis (Apixaban) 5 Mg Tab 5 Mg PO BID Restart on 11/21/17 Nitrostat SL (Nitroglycerin) 0.4 Mg Subl 0.4 Mg SL Q5M PRN Isosorbide Mononitrate ER (Isosorbide Mononitrate) 30 Mg Maria Luisa 30 Mg PO DAILY Furosemide 20 Mg Tab 20 Mg PO BID Digoxin 0.25 Mg Tab 0.25 Mg PO DAILY Aspirin 325 Mg Tab 325 Mg PO DAILY Reported Potassium Chloride ER (Potassium Chloride) 20 Meq Tab 20 Meq PO BID Review of Systems Except as stated in HPI: all other systems reviewed are Neg Physical Exam Narrative GENERAL: awake alert SKIN: Warm and dry. HEAD: Atraumatic. Normocephalic. EYES: Pupils equal and round. No scleral icterus. No injection or drainage. ENT: No nasal bleeding or discharge. Mucous membranes pink and moist. NECK: Trachea midline. No JVD. CARDIOVASCULAR: Regular rate and rhythm. PPM battery felt in left chest , denies current CP ( shock was flash lightning like feeling) RESPIRATORY: No accessory muscle use. Clear to auscultation. Breath sounds equal bilaterally. GASTROINTESTINAL: Abdomen soft, non-tender, nondistended. Hepatic and splenic margins not palpable. MUSCULOSKELETAL: Extremities without clubbing, cyanosis, or edema. No obvious deformities. NEUROLOGICAL: Awake and alert. No obvious cranial nerve deficits. Motor grossly within normal limits. Five out of 5 muscle strength in the arms and legs. Normal speech. PSYCHIATRIC: Appropriate mood and affect; insight and judgment normal. Data Data Last Documented VS Vital Signs Date Time Temp Pulse Resp B/P (MAP) Pulse Ox O2 Delivery O2 Flow Rate FiO2 02/19/18 23:38 81 18 130/72 (91) 98 Room Air 02/19/18 21:57 98.7 Orders Orders Electrocardiogram (02/19/18 22:23) Complete Blood Count With Diff (02/19/18 22:23) Comprehensive Metabolic Panel (02/19/18 22:23) Ckmb (Isoenzyme) Profile (02/19/18 22:23) Troponin I (02/19/18 22:23) Ua Includes Microscopic (02/19/18 22:23) Magnesium (Mg) (02/19/18 22:23) Chest, Pa & Lat (02/19/18 22:23) Ketorolac Inj (Toradol Inj) (02/19/18 23:15) Digoxin (02/19/18 23:38) Admit Order (Ed Use Only) (02/20/18 00:50) Labs Laboratory Tests Test 02/19/18 22:36 02/19/18 22:56 02/19/18 23:03 White Blood Count 10.3 TH/MM3 Red Blood Count 6.01 MIL/MM3 Hemoglobin 18.1 GM/DL Hematocrit 51.2 % Mean Corpuscular Volume 85.3 FL Mean Corpuscular Hemoglobin 30.0 PG Mean Corpuscular Hemoglobin Concent 35.2 % Red Cell Distribution Width 13.7 % Platelet Count 230 TH/MM3 Mean Platelet Volume 8.5 FL Neutrophils (%) (Auto) 73.5 % Lymphocytes (%) (Auto) 14.7 % Monocytes (%) (Auto) 10.3 % Eosinophils (%) (Auto) 0.4 % Basophils (%) (Auto) 1.1 % Neutrophils # (Auto) 7.6 TH/MM3 Lymphocytes # (Auto) 1.5 TH/MM3 Monocytes # (Auto) 1.1 TH/MM3 Eosinophils # (Auto) 0.0 TH/MM3 Basophils # (Auto) 0.1 TH/MM3 CBC Comment DIFF FINAL Differential Comment Blood Urea Nitrogen 16 MG/DL Creatinine 1.41 MG/DL Random Glucose 106 MG/DL Total Protein 7.0 GM/DL Albumin 3.8 GM/DL Calcium Level 8.7 MG/DL Magnesium Level 1.9 MG/DL Alkaline Phosphatase 61 U/L Aspartate Amino Transf (AST/SGOT) 18 U/L Alanine Aminotransferase (ALT/SGPT) 18 U/L Total Bilirubin 0.6 MG/DL Sodium Level 143 MEQ/L Potassium Level 3.7 MEQ/L Chloride Level 109 MEQ/L Carbon Dioxide Level 24.9 MEQ/L Anion Gap 9 MEQ/L Estimat Glomerular Filtration Rate 53 ML/MIN Total Creatine Kinase 100 U/L Troponin I 0.03 NG/ML Digoxin Level 0.1 NG/ML Urine Color YELLOW Urine Turbidity CLEAR Urine pH 5.5 Urine Specific [place] 1.026 Urine Protein 30 mg/dL Urine Glucose (UA) NEG mg/dL Urine Ketones NEG mg/dL Urine Occult Blood NEG Urine Nitrite NEG Urine Bilirubin NEG Urine Urobilinogen 2.0 MG/DL Urine Leukocyte Esterase NEG Urine RBC LESS THAN 1 /hpf Urine WBC 1 /hpf Urine Hyaline Casts 5 /lpf Urine Mucus FEW /lpf MDM Medical Decision Making Medical Screen Exam Complete: Yes Emergency Medical Condition: Yes Medical Record Reviewed: Yes Differential Diagnosis AICD malfunction wire fracture vs VTACH vs SVT leading to AICD dischrge Narrative Course I reveiwed his medical Hx and see Dr Benton note reporting BIOTRONIK AICD placed in Jul and I call in the [employer] to investigate the device,, He reports pt was shockes for SVT 180 BPM or retrograde VTACH , but mostlike SVT , pt given digoxin 250 mcg dose after I check his digoxin level . it was sub-therapeutic and admit to tele Diagnosis Primary Impression: AICD Firing Additional Impressions: Chest pain SVT (supraventricular tachycardia) Scripts Carvedilol (Carvedilol) 25 Mg Tab 25 MG PO BID, #60 TAB 0 Refills Prov: Meagan Jose PA-C 02/20/18 Amiodarone (Amiodarone) 200 Mg Tab 200 MG PO DAILY for Regulate Heart Beat, #30 TAB 0 Refills Prov: Meagan Jose PA-C 02/20/18 Doug Killian MD February 19, 2018 22:18
--- NOTE | 2018-02-19 22:50 | RADRPT ---
EXAM DATE/TIME: 02/19/2018 22:36 [facility] COMPARISON: CHEST PA & LAT, July 09, 2017, 10:42. INDICATIONS : Chest pain. MEDICAL HISTORY : Chronic obstructive pulmonary disease. Congestive heart failure. A-fib. SURGICAL HISTORY : Cholecystectomy. Defribillator. Heart cath. ENCOUNTER: Initial ACUITY: 1 day PAIN SCORE: 7/10 LOCATION: Left chest FINDINGS: PA and lateral views of the chest demonstrate pacer lead tip overlying right ventricle. No consolidat ion or effusion. No pneumothorax. CONCLUSION: 1. Pacer lead tip overlies right ventricle. No consolidation or effusion. Sajan Todd MD on February 19, 2018 at 22:45 Board Certified Radiologist. This report was verified electronically.
[2018-02-19 22:58] LABS: AUTOMATED NEUTROPHIL # 7.6 TH/MM3 (1.8-7.7); BASOPHIL # 0.1 TH/MM3 (0-0.2); BASOPHIL % 1.1 % (0.0-2.0); EOSINOPHIL % 0.4 % (0.0-4.0); HEMATOCRIT 51.2 % (39.0-51.0); HEMOGLOBIN 18.1 GM/DL (13.0-17.0); LYMPH % 14.7 % (9.0-44.0); LYMPHOCYTE # 1.5 TH/MM3 (1.0-4.8); MEAN CELL VOLUME 85.3 FL (80.0-100.0); MEAN CORPUSCULAR HGB CONC 35.2 % (32.0-36.0); MEAN PLATELET VOLUME 8.5 FL (7.0-11.0); MONO % 10.3 % (0.0-8.0); MONOCYTE # 1.1 TH/MM3 (0-0.9); NEUT % 73.5 % (16.0-70.0); PLATELET COUNT 230 TH/MM3 (150-450); RED BLOOD COUNT 6.01 MIL/MM3 (4.50-5.90); RED CELL DISTRIBUTION WIDTH 13.7 % (11.6-17.2); WHITE BLOOD COUNT 10.3 TH/MM3 (4.0-11.0)
[2018-02-19 23:09] LABS: ALBUMIN 3.8 GM/DL (3.4-5.0); AST (GOT) 18 U/L (15-37); BICARBONATE 24.9 MEQ/L (21.0-32.0); BLOOD UREA NITROGEN 16 MG/DL (7-18); CALCIUM 8.7 MG/DL (8.5-10.1); CHLORIDE 109 MEQ/L (98-107); CREATININE 1.41 MG/DL (0.60-1.30); GLOMERULAR FILTRATION RATE 53 ML/MIN (>89); GLUCOSE,RANDOM 106 MG/DL (74-106); MAGNESIUM 1.9 MG/DL (1.5-2.5); SODIUM (NA) 143 MEQ/L (136-145)
[2018-02-19 23:10] LABS: ALT (GPT) 18 U/L (12-78)
[2018-02-19 23:13] LABS: ALKALINE PHOSPHATASE 61 U/L (45-117); TOTAL BILIRUBIN ADULT 0.6 MG/DL (0.2-1.0); TROPONIN I 0.03 NG/ML (0.02-0.05)
[2018-02-19] MEDS ORDERED: KETOROLAC TROMETHAMINE 30 MG/ML (IVP) VIAL IV PUSH ONE (23:15)
[2018-02-19 23:30] LABS: BILIRUBIN, URINE NEG (NEG); BLOOD, URINE NEG (NEG); GLUCOSE,URINE NEG (NEG); HYALINE CAST, URINE 5 /lpf (RARE); KETONE, URINE NEG (NEG); MUCUS URINE FEW /lpf (OCC); NITRITE,URINE NEG (NEG); PH, URINE 5.5 (5.0-8.5); URINE COLOR YELLOW (YELLW/STRAW); URINE LEUKOCYTE ESTERASE NEG (NEG)
[2018-02-19 23:38] VITALS: BP 130/72; PULSE 81; RESP 18; O2SAT 98
[2018-02-20 01:13] VITALS: BP 129/88; PULSE 74; RESP 16; O2SAT 97
[2018-02-20] MEDS ORDERED: DIGOXIN 0.25 MG TAB PO ONE (01:15)
[2018-02-20 02:04] VITALS: BP 122/79; PULSE 70; RESP 18; O2SAT 100
[2018-02-20] MEDS ORDERED: MAGNESIUM HYDROXIDE SUSP 30 ML CUP PO PRN (02:15)
[2018-02-20] MEDS ORDERED: SODIUM CHLORIDE 0.9% FLUSH 10 ML FLUSH IV FLUSH PRN (02:15)
[2018-02-20] MEDS ORDERED: SENNOSIDES 8.6 MG TAB PO PRN (02:15)
[2018-02-20] MEDS ORDERED: ONDANSETRON HCL 4 MG/2 ML VIAL IVP PRN (02:15)
[2018-02-20] MEDS ORDERED: BISACODYL 10 MG SUPP RECTAL PRN (02:15)
[2018-02-20] MEDS ORDERED: LACTULOSE SYRUP 20 GM/30 ML CUP PO PRN (02:15)
[2018-02-20] MEDS ORDERED: NALOXONE HCL 0.4 MG/ML AMP IV PUSH PRN (02:15)
[2018-02-20] MEDS ORDERED: ACETAMINOPHEN 325 MG TAB PO PRN (02:15)
--- NOTE | 2018-02-20 02:20 | HHI.HP ---
[facility] Unknown Admission Diagnosis AICD firing malfunction Diagnoses: Travel History International Travel<30 Days: No Contact w/Intl Traveler <30 Da: No Traveled to Known Affected Are: No History of Present Illness 47-year-old male with a past medical history significant for atrial fibrillation anticoagulated on Eliquis, CHF (last echo done on 11/05/16 showed an EF of 25-30%) and hypertension presents to the emergency department for the evaluation of AICD firing. The patient reports he was riding his bike home when he was shocked at approximately 8:30 PM. He reports this is the second time over the course of several weeks that his AICD has fired. A previously fired at the end of January when he was standing in the kitchen talking to his sister. He denies any preceding chest pain or palpitations. He did not seek medical treatment following the previous AICD firing. The patient denies any chest pain or shortness of breath. No abdominal pain. No nausea/vomiting/ diarrhea. No muscle pain/weakness. No lateralizing signs/symptoms. Review of Systems Except as stated in HPI: all other systems reviewed are Neg Past Family Social History Past Medical History Atrial fibrillation anticoagulated on Eliquis CHF (EF of 25-30%) Hypertension Past Surgical History AICD placement Cardiac catheterization 2 Ablation Cholecystectomy Reported Medications Reported Meds & Active Scripts Active Entresto (Sacubitril-Valsartan) 49-51 Mg Tab 1 Tab PO BID Restart on 11/21/17 Eliquis (Apixaban) 5 Mg Tab 5 Mg PO BID Restart on 11/21/17 Nitrostat SL (Nitroglycerin) 0.4 Mg Subl 0.4 Mg SL Q5M PRN Isosorbide Mononitrate ER (Isosorbide Mononitrate) 30 Mg Maria Luisa 30 Mg PO DAILY Coreg (Carvedilol) 12.5 Mg Tab 12.5 Mg PO Q12HR Furosemide 20 Mg Tab 20 Mg PO BID Digoxin 0.25 Mg Tab 0.25 Mg PO DAILY Aspirin 325 Mg Tab 325 Mg PO DAILY Reported Potassium Chloride ER (Potassium Chloride) 20 Meq Tab 20 Meq PO BID Amiodarone (Amiodarone HCl) 200 Mg Tab 200 Mg PO BID Allergies: Coded Allergies: Sulfa (Sulfonamide Antibiotics) (Unverified Allergy, Severe, HIVES, ) Family History Mother with diabetes mellitus Social History Smokes approximately half a pack per day. Denies alcohol and illicit drugs. Physical Exam Vital Signs Vital Signs Date Time Temp Pulse Resp B/P (MAP) Pulse Ox O2 Delivery O2 Flow Rate FiO2 02/20/18 02:04 70 18 122/79 (93) 100 Room Air 02/20/18 01:13 74 16 129/88 (102) 97 Room Air 02/19/18 23:38 81 18 130/72 (91) 98 Room Air 02/19/18 21:57 98.7 99 20 130/72 (91) 96 Physical Exam GENERAL: male lying in bed SKIN: No rashes, ecchymoses or lesions. Cool and dry. HEAD: Atraumatic. Normocephalic. No temporal or scalp tenderness. EYES: Pupils equal round and reactive. Extraocular motions intact. No scleral icterus. No injection or drainage. ENT: Nose without bleeding, purulent drainage or septal hematoma. Throat without erythema, tonsillar hypertrophy or exudate. Uvula midline. Airway patent. NECK: Trachea midline. No JVD or lymphadenopathy. Supple, nontender, no meningeal signs. CARDIOVASCULAR: Regular rate and rhythm without murmurs, gallops, or rubs. RESPIRATORY: Clear to auscultation. Breath sounds equal bilaterally. No wheezes , rales, or rhonchi. GASTROINTESTINAL: Abdomen soft, non-tender, nondistended. No hepato-splenomegaly , or palpable masses. No guarding. MUSCULOSKELETAL: Extremities without clubbing, cyanosis, or edema. No joint tenderness, effusion, or edema noted. No calf tenderness. NEUROLOGICAL: Awake and alert. Cranial nerves II through XII intact. Motor and sensory grossly within normal limits. Normal speech. Laboratory Laboratory Tests Test 02/19/18 22:36 02/19/18 22:56 02/19/18 23:03 White Blood Count 10.3 Red Blood Count 6.01 Hemoglobin 18.1 Hematocrit 51.2 Mean Corpuscular Volume 85.3 Mean Corpuscular Hemoglobin 30.0 Mean Corpuscular Hemoglobin Concent 35.2 Red Cell Distribution Width 13.7 Platelet Count 230 Mean Platelet Volume 8.5 Neutrophils (%) (Auto) 73.5 Lymphocytes (%) (Auto) 14.7 Monocytes (%) (Auto) 10.3 Eosinophils (%) (Auto) 0.4 Basophils (%) (Auto) 1.1 Neutrophils # (Auto) 7.6 Lymphocytes # (Auto) 1.5 Monocytes # (Auto) 1.1 Eosinophils # (Auto) 0.0 Basophils # (Auto) 0.1 CBC Comment DIFF FINAL Differential Comment Blood Urea Nitrogen 16 Creatinine 1.41 Random Glucose 106 Total Protein 7.0 Albumin 3.8 Calcium Level 8.7 Magnesium Level 1.9 Alkaline Phosphatase 61 Aspartate Amino Transf (AST/SGOT) 18 Alanine Aminotransferase (ALT/SGPT) 18 Total Bilirubin 0.6 Sodium Level 143 Potassium Level 3.7 Chloride Level 109 Carbon Dioxide Level 24.9 Anion Gap 9 Estimat Glomerular Filtration Rate 53 Total Creatine Kinase 100 Troponin I 0.03 Digoxin Level 0.1 Urine Color YELLOW Urine Turbidity CLEAR Urine pH 5.5 Urine Specific [place] 1.026 Urine Protein 30 Urine Glucose (UA) NEG Urine Ketones NEG Urine Occult Blood NEG Urine Nitrite NEG Urine Bilirubin NEG Urine Urobilinogen 2.0 Urine Leukocyte Esterase NEG Urine RBC LESS THAN 1 Urine WBC 1 Urine Hyaline Casts 5 Urine Mucus FEW Result Diagram: 02/19/18223502/19/182235 Caprini VTE Risk Assessment Caprini VTE Risk Assessment: Mod/High Risk (score >= 2) Caprini Risk Assessment Model Point Value = 1 Point Value = 2 Point Value = 3 Point Value = 5 Age 41-60 Minor surgery BMI > 25 kg/m2 Swollen legs Varicose veins or History of unexplained or recurrent spontaneous Oral contraceptives or hormone replacement Sepsis (< 1 month) Serious lung disease, including pneumonia (< 1 month) Abnormal pulmonary function Acute myocardial infarction Congestive heart failure (< 1 month) History of inflammatory bowel disease Medical patient at bed rest Age 61-74 Arthroscopic surgery Major open surgery (> 45 min) Laparoscopic surgery (> 45 min) Malignancy Confined to bed (> 72 hours) Immobilizing plaster cast Central venous access Age >= 75 History of VTE Family history of VTE Factor V Leiden Prothrombin [id number] Lupus anticoagulant Anticardiolipin antibodies Elevated serum homocysteine Heparin-induced thrombocytopenia Other congenital or acquired thrombophilia Stroke (< 1 month) Elective arthroplasty Hip, pelvis, or leg fracture Acute spinal cord injury (< 1 month) Prophylaxis Regimen Total Risk Factor Score Risk Level Prophylaxis Regimen 0-1 Low Early ambulation 2 Moderate Order ONE of the following: *Sequential Compression Device (SCD) *Heparin 5000 units SQ BID 3-4 Higher Order ONE of the following medications: *Heparin 5000 units SQ TID *Enoxaparin/Lovenox 40 mg SQ daily (WT < 150 kg, CrCl > 30 mL/min) *Enoxaparin/Lovenox 30 mg SQ daily (WT < 150 kg, CrCl > 10-29 mL/min) *Enoxaparin/Lovenox 30 mg SQ BID (WT < 150 kg, CrCl > 30 mL/min) AND/OR *Sequential Compression Device (SCD) 5 or more Highest Order ONE of the following medications: *Heparin 5000 units SQ TID (Preferred with Epidurals) *Enoxaparin/Lovenox 40 mg SQ daily (WT < 150 kg, CrCl > 30 mL/min) *Enoxaparin/Lovenox 30 mg SQ daily (WT < 150 kg, CrCl > 10-29 mL/min) *Enoxaparin/Lovenox 30 mg SQ BID (WT < 150 kg, CrCl > 30 mL/min) AND *Sequential Compression Device (SCD) Assessment and Plan Assessment and Plan Assessment/plan: 1. AICD discharge Pacemaker interrogated in the emergency department. Report shows V. tach versus SVT at 180 bpm. Delivered 20 J shock. Patient's corporate staff accountant, Dr. Benton consulted, appreciate recommendations 2. AK I Patient's creatinine 1.41, baseline 0.9-1 Holding home Lasix Monitor renal function 3. Atrial fibrillation Continue home Eliquis Continue amiodarone and digoxin 4. Hypertension/CHF Continue home medications FEN Heart healthy diet Electrolytes: Monitor and replete as needed Jacey Martínez MD February 20, 2018 02:20
[2018-02-20 04:03] VITALS: BP 125/64; PULSE 59; RESP 16; TEMP 98.1; O2SAT 99
[2018-02-20] MEDS ORDERED: traMADol HCL 50 MG TAB PO ONE (04:15)
[2018-02-20 08:11] VITALS: BP 130/74; PULSE 65; RESP 18; TEMP 97.7; O2SAT 96
[2018-02-20] MEDS ORDERED: ISOSORBIDE MONONITRATE 30 MG CR TAB (IMDUR) PO SCH (09:00)
[2018-02-20] MEDS ORDERED: SACUBITRIL/VALSARTAN 49 MG-51 MG TAB PO SCH (09:00)
[2018-02-20] MEDS ORDERED: ASPIRIN 325 MG TAB PO SCH (09:00)
[2018-02-20] MEDS ORDERED: DIGOXIN 0.25 MG TAB PO SCH (09:00)
[2018-02-20] MEDS ORDERED: SODIUM CHLORIDE 0.9% FLUSH 10 ML FLUSH IV FLUSH SCH (09:00)
[2018-02-20] MEDS ORDERED: DOCUSATE SODIUM 50 MG/SENNA 8.6 MG TAB PO SCH (09:00)
[2018-02-20] MEDS ORDERED: APIXABAN 5 MG TABLET PO SCH (09:00)
[2018-02-20] MEDS ORDERED: AMIODARONE 200 MG TAB PO SCH (09:00)
[2018-02-20] MEDS ORDERED: CARVEDILOL 12.5 MG TAB PO SCH ×2 (09:00→21:00)
--- NOTE | 2018-02-20 09:26 | HHI.PR ---
Subjective Remarks Follow up for AICD firing. The patient reports no complaints of chest pain, palpitations, or shortness of breath. No AICD firings while in hospital overnight. Vital signs stable. He reports compliance with his medications. Denies any recent dehydration, vomiting, or diarrhea. Denies any caffeine use. Denies any other medical complaints at this time. Objective Vitals Vital Signs Date Time Temp Pulse Resp B/P (MAP) Pulse Ox O2 Delivery O2 Flow Rate FiO2 02/20/18 08:11 97.7 65 18 130/74 (92) 96 02/20/18 04:03 98.1 59 16 125/64 (84) 99 02/20/18 03:34 02/20/18 02:04 70 18 122/79 (93) 100 Room Air 02/20/18 01:13 74 16 129/88 (102) 97 Room Air 02/19/18 23:38 81 18 130/72 (91) 98 Room Air 02/19/18 21:57 98.7 99 20 130/72 (91) 96 Result Diagram: 02/19/18223502/19/182235 Imaging Last Impressions Chest X-Ray 02/19/182222 Signed Impressions: Service Date/Time: February 22:36 - CONCLUSION: 1. Pacer lead tip overlies right ventricle. No consolidation or effusion. Sajan Todd MD Objective Remarks GENERAL: Well-nourished, well-developed pleasant middle aged male patient in [facility]. SKIN: Warm and dry. No rash. HEENT: Normocephalic. Atraumatic. Pupils equal and round. Mucous membranes pink and moist. NECK: Supple. Trachea midline. CARDIOVASCULAR: Regular rate and rhythm. No murmur appreciated. RESPIRATORY: No accessory muscle use. Clear to auscultation. Breath sounds equal bilaterally. GASTROINTESTINAL: Abdomen soft, non-tender, nondistended. Normoactive bowel sounds x4. MUSCULOSKELETAL: No obvious deformities. Extremities without clubbing, cyanosis , or edema. NEUROLOGICAL: Awake and alert. No obvious cranial nerve deficits. Motor grossly within normal limits. Normal speech. PSYCHIATRIC: Appropriate mood and affect; insight and judgment normal. Medications and IVs Current Medications Medications (Trade) Dose Ordered Sig/Jackson Route Start Time Stop Time Status Last Admin (NS Flush) 2 ml UNSCH PRN IV FLUSH 02/20/18 02:15 (NS Flush) 2 ml BID IV FLUSH 02/20/18 09:00 02/20/18 08:22 (Tylenol) 650 mg Q4H PRN PO 02/20/18 02:15 02/20/18 11:25 (Zofran Inj) 4 mg Q6H PRN IVP 02/20/18 02:15 (Narcan Inj) 0.4 mg UNSCH PRN IV PUSH 02/20/18 02:15 (Janell-Colace) 1 tab BID PO 02/20/18 09:00 (Milk Of Magnesia Liq) 30 ml Q12H PRN PO 02/20/18 02:15 (Senokot) 17.2 mg Q12H PRN PO 02/20/18 02:15 (Dulcolax Supp) 10 mg DAILY PRN RECTAL 02/20/18 02:15 (Lactulose Liq) 30 ml DAILY PRN PO 02/20/18 02:15 (Cordarone) 200 mg BID PO 02/20/18 09:00 02/20/18 08:21 (Eliquis) 5 mg BID PO 02/20/18 09:00 02/20/18 08:22 (Aspirin) 325 mg DAILY PO 02/20/18 09:00 02/20/18 08:22 (Coreg) 12.5 mg Q12HR PO 02/20/18 09:00 02/20/18 08:22 (Lanoxin) 0.25 mg DAILY PO 02/20/18 09:00 02/20/18 08:22 (Imdur) 30 mg DAILY PO 02/20/18 09:00 02/20/18 08:22 (Entresto 49-51 Mg) 1 tab BID PO 02/20/18 09:00 02/20/18 08:21 (Pneumovax-23 Inj) 25 mcg ONCE ONCE IM 02/21/18 10:00 02/21/18 10:01 (Flu (Quadrivalent) Vaccine Inj) 0.5 ml ONCE ONCE IM 02/21/18 10:00 02/21/18 10:01 A/P Assessment and Plan 47-year-old male with a past medical history significant for atrial fibrillation anticoagulated on Eliquis, CHF (last echo done on 11/05/16 showed an EF of 25-30%) and hypertension presents to the emergency department for the evaluation of AICD firing. AICD discharge: Pacemaker interrogated in the ED, shows likely V. tach at 180 bpm. Delivered 20 J shock. 2nd episode of firing. -Monitor on telemetry -Continue home rate controlling medications including digoxin, amiodarone, coreg -Patient's review appraiser, Dr. Benton consulted, discussed with Dr. Benton, cleared for discharge, recommends decreasing amiodarone to 200mg once daily, and increasing coreg to 25mg bid, and plans for outpatient ablation in 2weeks RESHMA: Patient's creatinine 1.41, baseline 0.9-1 -Holding home Lasix, avoid nephrotoxins -Avoid IVF with CHF -Monitor renal function -repeat BMP as outpatient on Friday 02/23 Atrial fibrillation: chronic -Continue home Eliquis -Continue amiodarone and digoxin -digoxin level 0.1, question compliance with meds although patient denies any noncompliance Hypertension/CHF: chronic, BP fairly stable. No signs of fluid overload. -Continue home medications including amiodarone, digoxin, imdur, coreg, entresto, aspirin -holding patient's lasix with RESHMA as above -monitor BP, adjust antihypertensives as needed DVT Prophylaxis: on eliquis Discharge Planning Discussed with Dr. Benton, cleared for discharge. Discharge patient to home Condition on discharge: Stable Heart Healthy Diet as tolerated Ad [place] activity Rx written: changed amiodarone to 200mg once daily and coreg 25mg bid, new prescriptions provided Follow-up with primary care physician and review appraiser Dr. Benton. BMP on Friday 02/23 Meagan Jose PA-C February 20, 2018 9:26 am
[2018-02-20 11:27] VITALS: BP 108/52; PULSE 65; RESP 18; TEMP 98; O2SAT 95
[2018-02-20 15:06] VITALS: BP 113/59; PULSE 62; RESP 20; TEMP 98.2; O2SAT 96
[2018-02-20] MEDS ORDERED: AMIO200T PO (15:24)
[2018-02-20] MEDS ORDERED: CARV25TA PO (15:26)
--- NOTE | 2018-02-20 15:28 | HHI.DCPOC ---
Discharge Care Plan Diagnosis: (1) AICD Firing (2) V-tach (3) REHSMA (acute kidney injury) (4) CHF (congestive heart failure) (5) Cardiomyopathy (6) Hypertension (7) A-fib Goals to Promote Your Health * To prevent worsening of your condition and complications * To maintain your health at the optimal level Directions to Meet Your Goals Take your medications as prescribed Follow your dietary instruction Follow activity as directed Keep your appointments as scheduled Take your immunizations and boosters as scheduled If your symptoms worsen call your PCP, if no PCP go to Urgent Care Center or Emergency Room Smoking is Dangerous to Your Health. Avoid second hand smoke Call the 24-hour hour crisis hotline for domestic abuse at Meagan Jose PA-C February 20, 2018 3:27 pm
--- NOTE | 2018-02-20 15:56 | MB ---
cc: Shiva Benton MD DATE: 02/20/2018 REASON FOR CONSULTATION: Defibrillatory shock. HISTORY OF PRESENT ILLNESS: Mr. Pendleton is a 47-year-old gentleman with history of congestive heart failure, cardiomyopathy. He has a previous defibrillator, implanted last July. This gentleman was admitted through the emergency room due to defibrillatory shock. He said he was at home and had initial defibrillatory shock, and subsequently was riding bicycle yesterday and got shocked again and came to the emergency room. The patient received ATP that was successful on one occasion. The chart was reviewed. The patient was evaluated. ALLERGIES: SULFA. SOCIAL HISTORY: This temperature currently denies smoking and drinking. FAMILY HISTORY: Noncontributory to his current medical condition. MEDICATIONS: 1. The gentleman is on amiodarone that was 200 mg twice a day; I am going to cut that to 200 mg a day. 2. He is on Eliquis 5 mg twice a day. 3. Aspirin. 4. He is on Coreg 12.5 mg twice a day. 5. He is on digoxin. 6. He is on Imdur. 7. Entresto. REVIEW OF SYSTEMS: He refers no chest pain, no chest discomfort, no palpitation, no fever. PHYSICAL EXAMINATION: GENERAL: Alert, fully oriented. VITAL SIGNS: His blood pressure is 113/59, pulse 62, respiratory rate 18. LUNGS: Ventilated. CARDIOVASCULAR: S1, S2. Regular. ABDOMEN: Soft. No mass. EXTREMITIES: No edema. LABORATORY DATA: Electrocardiogram shows sinus rhythm, minimal ST and T-wave changes. LABS: Hemoglobin 18.1, white blood cell 10.0. Potassium 3.7, creatinine 1.41. Toxicology negative. Digoxin 0.1. ASSESSMENT AND RECOMMENDATIONS: Mr. Pendleton apparently has possible atrial tachyarrhythmia at that degenerated into a possible ventricular tachyarrhythmia. I am not sure this gentleman is compliant with his medication. The shock was appropriate. I did review the device interrogations. I had a long conversation with him. I am going to do some modification. I am going to decrease amiodarone to 200 mg a day. The Coreg is going to be increased to 25 mg twice a day. I will see this gentleman in my office. If there is new episode, then I would consider ablation, but first to make sure the gentleman is compliant with medical management. MD CHLOE Quinonez/PUMA , 03:24 PM , 03:55 PM
--- NOTE | 2018-02-20 19:03 | EKG ---
Date Performed: 02/19/2018 Time Performed: 22:00:42 PTAGE: 47 years EKG: ATRIAL FLUTTER/TACHYCARDIA POSSIBLE RIGHT VENTRICULAR CONDUCTION DELAY SEPTAL MYOCARDIAL IN FARCTION ABNORMAL ECG Since the previous tracing, no significant change noted NO PREVIOUS TRACING DOCTOR: Rahul Scanlon Interpretating Date/Time 02/20/2018 16:40:31
[2018-02-21] MEDS ORDERED: AMIODARONE 200 MG TAB PO SCH (09:00)
[2018-02-21] MEDS ORDERED: PNEUMOCOCCAL POLYVALENT INJ 25 MCG/0.5 ML SYR IM ONE (10:00)
[2018-02-21] MEDS ORDERED: INFLUENZA VIRUS VACCINE (QUADRIVALENT) 0.5 ML SYR IM ONE (10:00)
== END 2018-02-20 16:19 | disposition home or self-care (01) ==
LOC: NEPE 21:53 → EEVIPCON 02-20 00:54 → NEDA 02-20 00:54 → NEPGCP 02-20 03:35
PROVIDERS: ADMIT Hospitalist; ATTEND Hospitalist
DX: I47.2 Ventricular tachycardia (principal); N17.9 Acute kidney failure, unspecified; I50.9 Heart failure, unspecified; I47.1 Supraventricular tachycardia; I11.0 Hypertensive heart disease with heart failure; I42.9 Cardiomyopathy, unspecified; R07.9 Chest pain, unspecified; I48.2 Chronic atrial fibrillation; Z79.01 Long term (current) use of anticoagulants
CPT/HCPCS: 71046; 80053; 80162; 81001; 82550; 83735; 84484; 85025; 93005; 96374; 99285; G0378; J1885

== ENCOUNTER 2018-03-31 21:20 | Inpatient (IN) | payer SELFPAY ==
[~2018-03-31] VITALS: Ht 172.7 cm; Wt 98.8 kg
[~2018-03-31 21:20] MED LIST changes: -CARV12.5 PO; +CARV25TA PO; +POTA-163 PO; -POTA10CA PO; -TRAM50TA PO
[2018-03-31 21:25] VITALS: BP 143/90; PULSE 77; RESP 18; O2SAT 99
[2018-03-31] MEDS ORDERED: SODIUM CHLORIDE 0.9% FLUSH 10 ML FLUSH IVF PRN (21:45)
[2018-03-31 22:02] LABS: AUTOMATED NEUTROPHIL # 5.2 TH/MM3 (1.8-7.7); BASOPHIL # 0.1 TH/MM3 (0-0.2); BASOPHIL % 1.2 % (0.0-2.0); EOSINOPHIL # 0.1 TH/MM3 (0-0.4); HEMATOCRIT 48.1 % (39.0-51.0); HEMOGLOBIN 16.9 GM/DL (13.0-17.0); LYMPH % 26.4 % (9.0-44.0); LYMPHOCYTE # 2.2 TH/MM3 (1.0-4.8); MEAN CELL VOLUME 85.3 FL (80.0-100.0); MEAN CORPUSCULAR HEMOGLOBIN 29.9 PG (27.0-34.0); MEAN CORPUSCULAR HGB CONC 35.1 % (32.0-36.0); MEAN PLATELET VOLUME 8.8 FL (7.0-11.0); MONO % 9.8 % (0.0-8.0); MONOCYTE # 0.8 TH/MM3 (0-0.9); NEUT % 61.6 % (16.0-70.0); PLATELET COUNT 226 TH/MM3 (150-450); RED BLOOD COUNT 5.63 MIL/MM3 (4.50-5.90); RED CELL DISTRIBUTION WIDTH 13.9 % (11.6-17.2); WHITE BLOOD COUNT 8.5 TH/MM3 (4.0-11.0)
--- NOTE | 2018-03-31 22:06 | RADRPT ---
EXAM DATE: 03/31/2018 9:56 PM EDT AGE/SEX: 47 years / Male INDICATIONS: Chest pain. CLINICAL DATA: This is the patient's initial encounter. Patient reports that signs and symptoms have been present for 1 day and indicates a pain score of 7/10. MEDICAL/SURGICAL HISTORY: Chronic obstructive pulmonary disease. Congestive heart failure. A-f ib. Pacemaker. COMPARISON: [facility] [place]. . FINDINGS: PA and lateral views of the chest demonstrate the lungs to be symmetrically aerated without evidence of mass, infiltrate or effusion. Patient pacemaker on the left. The cardiomediastinal contours are un remarkable. Osseous structures are intact. CONCLUSION: Negative for acute process. Electronically signed by: Kulwant Ferreira MD 03/31/2018 10:04 PM EDT
--- NOTE | 2018-03-31 22:11 | PD ---
HPI Chief Complaint: Chest Pain Time Seen by Provider: 21:28 Travel History International Travel<30 days: No Contact w/Intl Traveler<30days: No Traveled to known affect area: No History of Present Illness HPI 47-year-old man with CHF and cardiomyopathy, EF about 2025%, as well as A. fib on blood thinners, presents to the emergency department with 2 defibrillator fires while he was at work. They are about 30 minutes apart. Is a history of previous similar episodes. He has had atrial tachyarrhythmias versus ventricular arrhythmias and was admitted in February for the same. Dr. Benton, the patient's EP doc, adjusted some of his medications. He denies any episodes since then. Otherwise has been feeling a little bit unwell, sort of run down specific somatic symptoms. Is been ongoing for couple days. No chest pain. He is open to headaches and since they fired. No syncope. He states he has been able to take his medications except for his digoxin which was too expensive. He does state he has been taking his amiodarone, his beta-abby, his blood thinner, and his diuretic. History Past Medical History Narrative Medical A. fib, on Eliquis CHF/cardiomyopathy EF 20-25%, AICD placed Hypertension Social History Alcohol Use: No (PT DENIES) Tobacco Use: Yes (PATIENT STATES THAT HE QUIT ON 11/18/17) Allergies-Medications (Allergen,Severity, Reaction): Coded Allergies: Sulfa (Sulfonamide Antibiotics) (Unverified Allergy, Severe, HIVES, ) Reported Meds & Prescriptions Reported Meds & Active Scripts Active Carvedilol 25 Mg Tab 25 Mg PO BID Amiodarone (Amiodarone HCl) 200 Mg Tab 200 Mg PO DAILY Entresto (Sacubitril-Valsartan) 49-51 Mg Tab 1 Tab PO BID Restart on 11/21/17 Eliquis (Apixaban) 5 Mg Tab 5 Mg PO BID Restart on 11/21/17 Nitrostat SL (Nitroglycerin) 0.4 Mg Subl 0.4 Mg SL Q5M PRN Isosorbide Mononitrate ER (Isosorbide Mononitrate) 30 Mg Maria Luisa 30 Mg PO DAILY Furosemide 20 Mg Tab 20 Mg PO BID Digoxin 0.25 Mg Tab 0.25 Mg PO DAILY Aspirin 325 Mg Tab 325 Mg PO DAILY Reported Potassium Chloride ER (Potassium Chloride) 20 Meq Tab 20 Meq PO BID Review of Systems Except as stated in HPI: all other systems reviewed are Neg Physical Exam Narrative GENERAL: 47-year-old man, chronically ill appearing, nontoxic. SKIN: Focused skin assessment warm/dry. HEAD: Atraumatic. Normocephalic. EYES: Pupils equal and round. No scleral icterus. No injection or drainage. ENT: No nasal bleeding or discharge. Mucous membranes pink and moist. NECK: Trachea midline. No JVD. CARDIOVASCULAR: Regular rate and rhythm. No murmur appreciated. RESPIRATORY: No accessory muscle use. Clear to auscultation. Breath sounds equal bilaterally. GASTROINTESTINAL: Abdomen soft, non-tender, nondistended. Hepatic and splenic margins not palpable. MUSCULOSKELETAL: No obvious deformities. Limited chronic edema, 1+. NEUROLOGICAL: Awake and alert. No obvious cranial nerve deficits. Motor grossly within normal limits. Normal speech. PSYCHIATRIC: Appropriate mood and affect; insight and judgment normal. Data Data Last Documented VS Vital Signs Date Time Temp Pulse Resp B/P (MAP) Pulse Ox O2 Delivery O2 Flow Rate FiO2 03/31/18 22:30 70 16 130/78 (95) 99 Room Air Orders Orders Electrocardiogram (03/31/18 21:38) Complete Blood Count With Diff (03/31/18 21:38) Comprehensive Metabolic Panel (03/31/18 21:38) Magnesium (Mg) (03/31/18 21:38) Troponin I (03/31/18 21:38) Ecg Monitoring (03/31/18 21:38) Iv Access Insert/Monitor (03/31/18 21:38) Oximetry (03/31/18 21:38) Oxygen Administration (03/31/18 21:38) Sodium Chloride 0.9% Flush (Ns Flush) (03/31/18 21:45) Chest, Pa & Lat (03/31/18 21:38) Admit Order (Ed Use Only) (03/31/18 ) Labs Laboratory Tests Test 03/31/18 21:40 White Blood Count 8.5 TH/MM3 Red Blood Count 5.63 MIL/MM3 Hemoglobin 16.9 GM/DL Hematocrit 48.1 % Mean Corpuscular Volume 85.3 FL Mean Corpuscular Hemoglobin 29.9 PG Mean Corpuscular Hemoglobin Concent 35.1 % Red Cell Distribution Width 13.9 % Platelet Count 226 TH/MM3 Mean Platelet Volume 8.8 FL Neutrophils (%) (Auto) 61.6 % Lymphocytes (%) (Auto) 26.4 % Monocytes (%) (Auto) 9.8 % Eosinophils (%) (Auto) 1.0 % Basophils (%) (Auto) 1.2 % Neutrophils # (Auto) 5.2 TH/MM3 Lymphocytes # (Auto) 2.2 TH/MM3 Monocytes # (Auto) 0.8 TH/MM3 Eosinophils # (Auto) 0.1 TH/MM3 Basophils # (Auto) 0.1 TH/MM3 CBC Comment DIFF FINAL Differential Comment Blood Urea Nitrogen 15 MG/DL Creatinine 1.54 MG/DL Random Glucose 90 MG/DL Total Protein 7.1 GM/DL Albumin 4.1 GM/DL Calcium Level 8.4 MG/DL Magnesium Level 1.9 MG/DL Alkaline Phosphatase 63 U/L Aspartate Amino Transf (AST/SGOT) 14 U/L Alanine Aminotransferase (ALT/SGPT) 23 U/L Total Bilirubin 0.8 MG/DL Sodium Level 141 MEQ/L Potassium Level 3.5 MEQ/L Chloride Level 104 MEQ/L Carbon Dioxide Level 26.3 MEQ/L Anion Gap 11 MEQ/L Estimat Glomerular Filtration Rate 48 ML/MIN Troponin I LESS THAN 0.02 NG/ML MDM Medical Decision Making Medical Screen Exam Complete: Yes Emergency Medical Condition: Yes Interpretation(s) My review of EKG: Sinus rhythm, lateral T-wave inversions, P pulmonology inferior leads, compared to previous EKG from February 19, 2018, lateral T-wave changes are new. LABS: CBC is unremarkable. CMP demonstrates creatinine 1.54 Electrolytes are unremarkable Chest x-ray is negative Differential Diagnosis Ischemia, arrhythmia, AICD malfunction, other Narrative Course Medical decision making Is a 47-year-old man presents to the emergency department complaining of AICD firing. We will [employer] interrogate the pacemaker. If it indeed prior to placement sounds like it did, will admit patient for further evaluation. Review previous notes of Dr. Benton would consider ablating in for tachyarrhythmias if needed. I spoke with Dr. San, cardiology regarding this patient. Recommend routine consult in a.m. unless there is any changes. N.p.o. after midnight. Will check labs, electrolytes, x-ray, reassess. Patient does appear to have new lateral T-wave inversions in the precordial leads. No chest pain or other ischemic symptoms now. Will check troponin. Interpretation from interrogation shows multiple, 150, tachyarrhythmia events, reportedly atrial, with successful treatment for 149, and cardioversion for 1 of the events. We will plan on admission for evaluation by cardiology, Dr. stated mention the past ablation. Possibly related to digoxin being out for a week. Spoke with Dr. Carpenter, who will admit patient. Diagnosis Primary Impression: SVT (supraventricular tachycardia) Additional Impression: AICD discharge Admitting Information Admitting Physician Requests: Justin Ace MD Mar 31, 2018 22:11
[2018-03-31 22:12] LABS: ALBUMIN 4.1 GM/DL (3.4-5.0); AST (GOT) 14 U/L (15-37); BICARBONATE 26.3 MEQ/L (21.0-32.0); BLOOD UREA NITROGEN 15 MG/DL (7-18); CALCIUM 8.4 MG/DL (8.5-10.1); CHLORIDE 104 MEQ/L (98-107); CREATININE 1.54 MG/DL (0.60-1.30); GLOMERULAR FILTRATION RATE 48 ML/MIN (>89); GLUCOSE,RANDOM 90 MG/DL (74-106); MAGNESIUM 1.9 MG/DL (1.5-2.5); SODIUM (NA) 141 MEQ/L (136-145)
[2018-03-31 22:13] LABS: ALT (GPT) 23 U/L (12-78)
[2018-03-31 22:17] LABS: ALKALINE PHOSPHATASE 63 U/L (45-117); TOTAL BILIRUBIN ADULT 0.8 MG/DL (0.2-1.0); TOTAL PROTEIN 7.1 GM/DL (6.4-8.2); TROPONIN I LESS THAN 0.02 NG/ML (0.02-0.05)
[2018-03-31 22:30] VITALS: BP 130/78; PULSE 70; RESP 16; O2SAT 99
[2018-04-01] VITALS (21 sets, daily range): BP systolic 92–155; BP diastolic 54–91; PULSE 54–74; RESP 16–20; TEMP 97.9–98.6; O2SAT 96–100
[2018-04-01] MEDS ORDERED: SODIUM CHLOR 0.9% 1000 ML INJ 1,000 ML IV SCH (00:43)
[2018-04-01] MEDS ORDERED: BISACODYL 10 MG SUPP RECTAL PRN (00:45)
[2018-04-01] MEDS ORDERED: MORPHINE SULFATE 4 MG/ML INJ IV PUSH ONE (00:45)
[2018-04-01] MEDS ORDERED: SENNOSIDES 8.6 MG TAB PO PRN (00:45)
[2018-04-01] MEDS ORDERED: LACTULOSE SYRUP 20 GM/30 ML CUP PO PRN (00:45)
[2018-04-01] MEDS ORDERED: MAGNESIUM HYDROXIDE SUSP 30 ML CUP PO PRN (00:45)
[2018-04-01] MEDS ORDERED: NALOXONE HCL 0.4 MG/ML AMP IV PUSH PRN (00:45)
[2018-04-01] MEDS ORDERED: ONDANSETRON HCL 4 MG/2 ML VIAL IVP PRN (00:45)
[2018-04-01] MEDS ORDERED: ACETAMINOPHEN 325 MG TAB PO PRN (00:45)
[2018-04-01] MEDS ORDERED: SODIUM CHLORIDE 0.9% FLUSH 10 ML FLUSH IV FLUSH PRN (00:45)
--- NOTE | 2018-04-01 01:11 | HHI.HP ---
HPI Service [facility] Primary Care Physician No Primary Care Physician Admission Diagnosis AICD firing, tachydysrhythmia Diagnoses: Travel History International Travel<30 Days: No Contact w/Intl Traveler <30 Da: No Traveled to Known Affected Are: No History of Present Illness 47-year-old male with a past medical history significant for atrial fibrillation anticoagulated on Eliquis, CHF (last echo done on 11/05/16 showed an EF of 25-30%) and hypertension presents the emergency department after his defibrillator fired twice while he was at work. 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 The patient was previously seen in the hospital on 02/20/18 for similar events. He denies any preceding chest pain or palpitations. No shortness of breath. No fever/chills. No nausea/vomiting/ diarrhea/abdominal pain. No lateralizing signs/symptoms. Review of Systems Except as stated in HPI: all other systems reviewed are Neg Past Family Social History Past Medical History Atrial fibrillation anticoagulated on Eliquis CHF (EF of 25-30%) Hypertension Past Surgical History AICD placement Cardiac catheterization 2 Ablation Cholecystectomy Reported Medications Reported Meds & Active Scripts Active Carvedilol 25 Mg Tab 25 Mg PO BID Amiodarone (Amiodarone HCl) 200 Mg Tab 200 Mg PO DAILY Entresto (Sacubitril-Valsartan) 49-51 Mg Tab 1 Tab PO BID Restart on 11/21/17 Eliquis (Apixaban) 5 Mg Tab 5 Mg PO BID Restart on 11/21/17 Nitrostat SL (Nitroglycerin) 0.4 Mg Subl 0.4 Mg SL Q5M PRN Isosorbide Mononitrate ER (Isosorbide Mononitrate) 30 Mg Maria Luisa 30 Mg PO DAILY Furosemide 20 Mg Tab 20 Mg PO BID Digoxin 0.25 Mg Tab 0.25 Mg PO DAILY Aspirin 325 Mg Tab 325 Mg PO DAILY Reported Potassium Chloride ER (Potassium Chloride) 20 Meq Tab 20 Meq PO BID Allergies: Coded Allergies: Sulfa (Sulfonamide Antibiotics) (Unverified Allergy, Severe, HIVES, ) Family History Mother with diabetes mellitus Social History Smokes approximately half a pack per day. Denies alcohol and illicit drugs. Physical Exam Vital Signs Vital Signs Date Time Temp Pulse Resp B/P (MAP) Pulse Ox O2 Delivery O2 Flow Rate FiO2 03/31/18 22:30 70 16 130/78 (95) 99 Room Air 03/31/18 21:27 76 18 99 Room Air 03/31/18 21:25 77 18 143/90 (107) 99 Physical Exam GENERAL: male lying in bed SKIN: No rashes, ecchymoses or lesions. Cool and dry. HEAD: Atraumatic. Normocephalic. No temporal or scalp tenderness. EYES: Pupils equal round and reactive. Extraocular motions intact. No scleral icterus. No injection or drainage. ENT: Nose without bleeding, purulent drainage or septal hematoma. Throat without erythema, tonsillar hypertrophy or exudate. Uvula midline. Airway patent. NECK: Trachea midline. No JVD or lymphadenopathy. Supple, nontender, no meningeal signs. CARDIOVASCULAR: Regular rate and rhythm without murmurs, gallops, or rubs. RESPIRATORY: Clear to auscultation. Breath sounds equal bilaterally. No wheezes , rales, or rhonchi. GASTROINTESTINAL: Abdomen soft, non-tender, nondistended. No hepato-splenomegaly , or palpable masses. No guarding. MUSCULOSKELETAL: Extremities without clubbing, cyanosis, or edema. No joint tenderness, effusion, or edema noted. No calf tenderness. NEUROLOGICAL: Awake and alert. Cranial nerves II through XII intact. Motor and sensory grossly within normal limits. Normal speech. Laboratory Laboratory Tests Test 03/31/18 21:40 White Blood Count 8.5 Red Blood Count 5.63 Hemoglobin 16.9 Hematocrit 48.1 Mean Corpuscular Volume 85.3 Mean Corpuscular Hemoglobin 29.9 Mean Corpuscular Hemoglobin Concent 35.1 Red Cell Distribution Width 13.9 Platelet Count 226 Mean Platelet Volume 8.8 Neutrophils (%) (Auto) 61.6 Lymphocytes (%) (Auto) 26.4 Monocytes (%) (Auto) 9.8 Eosinophils (%) (Auto) 1.0 Basophils (%) (Auto) 1.2 Neutrophils # (Auto) 5.2 Lymphocytes # (Auto) 2.2 Monocytes # (Auto) 0.8 Eosinophils # (Auto) 0.1 Basophils # (Auto) 0.1 CBC Comment DIFF FINAL Differential Comment Blood Urea Nitrogen 15 Creatinine 1.54 Random Glucose 90 Total Protein 7.1 Albumin 4.1 Calcium Level 8.4 Magnesium Level 1.9 Alkaline Phosphatase 63 Aspartate Amino Transf (AST/SGOT) 14 Alanine Aminotransferase (ALT/SGPT) 23 Total Bilirubin 0.8 Sodium Level 141 Potassium Level 3.5 Chloride Level 104 Carbon Dioxide Level 26.3 Anion Gap 11 Estimat Glomerular Filtration Rate 48 Troponin I LESS THAN 0.02 Result Diagram: 03/31/18213903/31/182139 Caprini VTE Risk Assessment Caprini VTE Risk Assessment: Mod/High Risk (score >= 2) Caprini Risk Assessment Model Point Value = 1 Point Value = 2 Point Value = 3 Point Value = 5 Age 41-60 Minor surgery BMI > 25 kg/m2 Swollen legs Varicose veins or History of unexplained or recurrent spontaneous Oral contraceptives or hormone replacement Sepsis (< 1 month) Serious lung disease, including pneumonia (< 1 month) Abnormal pulmonary function Acute myocardial infarction Congestive heart failure (< 1 month) History of inflammatory bowel disease Medical patient at bed rest Age 61-74 Arthroscopic surgery Major open surgery (> 45 min) Laparoscopic surgery (> 45 min) Malignancy Confined to bed (> 72 hours) Immobilizing plaster cast Central venous access Age >= 75 History of VTE Family history of VTE Factor V Leiden Prothrombin [id number] Lupus anticoagulant Anticardiolipin antibodies Elevated serum homocysteine Heparin-induced thrombocytopenia Other congenital or acquired thrombophilia Stroke (< 1 month) Elective arthroplasty Hip, pelvis, or leg fracture Acute spinal cord injury (< 1 month) Prophylaxis Regimen Total Risk Factor Score Risk Level Prophylaxis Regimen 0-1 Low Early ambulation 2 Moderate Order ONE of the following: *Sequential Compression Device (SCD) *Heparin 5000 units SQ BID 3-4 Higher Order ONE of the following medications: *Heparin 5000 units SQ TID *Enoxaparin/Lovenox 40 mg SQ daily (WT < 150 kg, CrCl > 30 mL/min) *Enoxaparin/Lovenox 30 mg SQ daily (WT < 150 kg, CrCl > 10-29 mL/min) *Enoxaparin/Lovenox 30 mg SQ BID (WT < 150 kg, CrCl > 30 mL/min) AND/OR *Sequential Compression Device (SCD) 5 or more Highest Order ONE of the following medications: *Heparin 5000 units SQ TID (Preferred with Epidurals) *Enoxaparin/Lovenox 40 mg SQ daily (WT < 150 kg, CrCl > 30 mL/min) *Enoxaparin/Lovenox 30 mg SQ daily (WT < 150 kg, CrCl > 10-29 mL/min) *Enoxaparin/Lovenox 30 mg SQ BID (WT < 150 kg, CrCl > 30 mL/min) AND *Sequential Compression Device (SCD) Assessment and Plan Assessment and Plan Assessment/plan: 1. AICD discharge Pacemaker interrogated in the emergency department. Significant for shocks for SVT and 150 episode of SVT with heart rate 150-180s. No V. tach or A. fib. Patient's sharepoint solutions developer, Dr. Benton consulted, appreciate recommendations Per Dr. Benton's last note, patient may be a candidate for ablation 2. AK I Patient's creatinine 1.54, baseline 0.9-1 Holding home Lasix Monitor renal function 3. Atrial fibrillation Continue home Eliquis Continue amiodarone and digoxin 4. Hypertension/CHF Continue home medications FEN N.p.o. Electrolytes: Monitor and replete as needed Eliquis Physician Certification 2 Midnight Certification Type: Admission for Inpatient Services Order for Inpatient Services The services are ordered in accordance with Medicare regulations or non- Medicare payer requirements, as applicable. In the case of services not specified as inpatient-only, they are appropriately provided as inpatient services in accordance with the 2-midnight benchmark. Estimated LOS (days): 2 2 days is the estimated time the patient will need to remain in the hospital, assuming treatment plan goals are met and no additional complications. Post-Hospital Plan: Not yet determined Jacey Carpenter MD Apr 01, 2018 01:11
[2018-04-01] MEDS ORDERED: ONDANSETRON ODT 4 MG TAB PO ONE (01:15)
[2018-04-01] MEDS ORDERED: ONDANSETRON ODT 4 MG TAB PO PRN (01:30)
[2018-04-01] MEDS: NITROGLYCERIN 0.4 MG SL 25 TABS/BTL SL PRN ×5 (05:35→15:35)
[2018-04-01] MEDS: ISOSORBIDE MONONITRATE 30 MG CR TAB (IMDUR) PO SCH (06:35)
[2018-04-01] MEDS: SODIUM CHLORIDE 0.9% FLUSH 10 ML FLUSH IV FLUSH SCH ×2 (08:09→22:14)
[2018-04-01] MEDS: SACUBITRIL/VALSARTAN 49 MG-51 MG TAB PO SCH ×2 (08:09→22:14)
[2018-04-01] MEDS: DIGOXIN 0.25 MG TAB PO SCH (08:09)
[2018-04-01] MEDS: AMIODARONE 200 MG TAB PO SCH (08:10)
[2018-04-01] MEDS: DOCUSATE SODIUM 50 MG/SENNA 8.6 MG TAB PO SCH ×2 (08:10→22:13)
[2018-04-01] MEDS: ASPIRIN 325 MG TAB PO SCH (08:10)
[2018-04-01] MEDS: POTASSIUM CHLORIDE 20 MEQ CONTROLLED RELEASE TAB PO SCH ×2 (08:10→22:14)
[2018-04-01] MEDS: CARVEDILOL 12.5 MG TAB PO SCH ×2 (08:10→22:13)
[2018-04-01] MEDS: APIXABAN 5 MG TABLET PO SCH ×2 (08:11→22:14)
--- NOTE | 2018-04-01 08:53 | HHI.PR ---
Subjective Remarks F/U AICD firing. Patient denies chest pain shortness of breath. Discussed with cardiology, may feed patient today Objective Vitals Vital Signs Date Time Temp Pulse Resp B/P (MAP) Pulse Ox O2 Delivery O2 Flow Rate FiO2 04/01/18 07:15 67 04/01/18 07:15 98.2 67 20 126/79 (95) 98 04/01/18 05:43 18 04/01/18 04:49 98.1 67 144/84 (104) 98 04/01/18 01:27 04/01/18 01:00 70 16 155/91 (112) 100 Room Air 03/31/18 22:30 70 16 130/78 (95) 99 Room Air 03/31/18 21:27 76 18 99 Room Air 03/31/18 21:25 77 18 143/90 (107) 99 I/O 03/31/18 03/31/18 03/31/18 04/01/18 04/01/18 04/01/18 07:00 15:00 23:00 07:00 15:00 23:00 Intake Total 0 ml Output Total 100 ml Balance -100 ml Intake Oral 0 ml Output Urine Total 100 ml Result Diagram: 03/31/18213903/31/182139 Imaging Last Impressions Chest X-Ray 03/31/182137 Signed Impressions: CONCLUSION: Negative for acute process. Objective Remarks GENERAL: male lying in bed SKIN: No rashes, ecchymoses or lesions. Cool and dry. CARDIOVASCULAR: Regular rate and rhythm without murmurs, gallops, or rubs. RESPIRATORY: Clear to auscultation. Breath sounds equal bilaterally. No wheezes , rales, or rhonchi. GASTROINTESTINAL: Abdomen soft, non-tender, nondistended. No guarding. MUSCULOSKELETAL: Extremities without clubbing, cyanosis, or edema. No joint tenderness, effusion, or edema noted. No calf tenderness. NEUROLOGICAL: Awake and alert. Cranial nerves II through XII intact. Motor and sensory grossly within normal limits. Normal speech. A/P Problem List: (1) AICD Firing Assessment and Plan 1. AICD discharge Pacemaker interrogated in the emergency department. Significant for shocks for SVT and 150 episode of SVT with heart rate 150-180s. No V. tach or A. fib. 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 Benton consulted, appreciate recommendations Per Dr. Benton's last note, patient may be a candidate for ablation 2. AK I. Nonoliguric Patient's creatinine 1.54, baseline 0.9-1 Holding home Lasix Monitor renal function 3. Atrial fibrillation Continue home Eliquis and Coreg Continue amiodarone and digoxin 4. Hypertension/CHF Continue home medications, Coreg and Crestor. CHF education FEN Heart healthy Electrolytes: Monitor and replete as needed Munir Miller MD Apr 01, 2018 08:53
[2018-04-01] MEDS ORDERED: FUROSEMIDE 20 MG TAB PO SCH (09:00)
--- NOTE | 2018-04-01 09:08 | EKG ---
Date Performed: 03/31/2018 Time Performed: 21:39:02 PTAGE: 47 years EKG: Sinus rhythm MODERATE T-WAVE ABNORMALITY, CONSIDER LATERAL ISCHEMIA ABNORMAL ECG NO PREVIOUS TRACING DOCTOR: Justin Hernandez Interpretating Date/Time 04/01/2018 09:07:40
[2018-04-02] VITALS (30 sets, daily range): BP systolic 119–129; BP diastolic 68–77; PULSE 48–97; RESP 16–52; TEMP 97.5–97.9; O2SAT 97–99
[2018-04-02 07:04] LABS: AUTOMATED NEUTROPHIL # 4.3 TH/MM3 (1.8-7.7); BASOPHIL # 0.1 TH/MM3 (0-0.2); BASOPHIL % 0.9 % (0.0-2.0); EOSINOPHIL # 0.1 TH/MM3 (0-0.4); EOSINOPHIL % 1.7 % (0.0-4.0); HEMOGLOBIN 15.1 GM/DL (13.0-17.0); LYMPH % 23.6 % (9.0-44.0); LYMPHOCYTE # 1.6 TH/MM3 (1.0-4.8); MEAN CELL VOLUME 85.6 FL (80.0-100.0); MEAN CORPUSCULAR HGB CONC 35.1 % (32.0-36.0); MEAN PLATELET VOLUME 8.5 FL (7.0-11.0); MONO % 9.9 % (0.0-8.0); MONOCYTE # 0.7 TH/MM3 (0-0.9); NEUT % 63.9 % (16.0-70.0); PLATELET COUNT 188 TH/MM3 (150-450); RED BLOOD COUNT 5.02 MIL/MM3 (4.50-5.90); RED CELL DISTRIBUTION WIDTH 14.1 % (11.6-17.2); WHITE BLOOD COUNT 6.7 TH/MM3 (4.0-11.0)
[2018-04-02 07:14] LABS: BICARBONATE 26.2 MEQ/L (21.0-32.0); CALCIUM 8.4 MG/DL (8.5-10.1); CREATININE 1.07 MG/DL (0.60-1.30)
[2018-04-02] MEDS: CARVEDILOL 12.5 MG TAB PO SCH ×2 (09:50→22:45)
[2018-04-02] MEDS: SACUBITRIL/VALSARTAN 49 MG-51 MG TAB PO SCH ×2 (09:50→22:45)
[2018-04-02] MEDS: ISOSORBIDE MONONITRATE 30 MG CR TAB (IMDUR) PO SCH (09:50)
[2018-04-02] MEDS: AMIODARONE 200 MG TAB PO SCH (09:50)
[2018-04-02] MEDS: DOCUSATE SODIUM 50 MG/SENNA 8.6 MG TAB PO SCH ×2 (09:51→22:46)
[2018-04-02] MEDS: DIGOXIN 0.25 MG TAB PO SCH (09:51)
[2018-04-02] MEDS: APIXABAN 5 MG TABLET PO SCH ×2 (09:51→22:46)
[2018-04-02] MEDS: ASPIRIN 325 MG TAB PO SCH (09:51)
[2018-04-02] MEDS: POTASSIUM CHLORIDE 20 MEQ CONTROLLED RELEASE TAB PO SCH ×2 (09:51→21:00)
[2018-04-02] MEDS: SODIUM CHLORIDE 0.9% FLUSH 10 ML FLUSH IV FLUSH SCH ×2 (09:52→21:00)
--- NOTE | 2018-04-02 15:15 | HHI.PR ---
Subjective Remarks 47-year-old male admitted secondary to AICD firing. Plan for ablation. Patient has no complaints today. No AICD firing today. Objective Vital Signs Date Time Temp Pulse Resp B/P (MAP) Pulse Ox O2 Delivery O2 Flow Rate FiO2 04/02/18 14:00 58 04/02/18 13:00 55 04/02/18 12:00 52 04/02/18 11:00 58 04/02/18 11:00 97.9 68 18 129/77 (94) 97 04/02/18 10:00 58 04/02/18 09:00 54 04/02/18 08:00 52 04/02/18 08:00 97.8 52 20 121/77 (92) 97 04/02/18 07:00 52 04/02/18 06:00 52 04/02/18 05:00 52 04/02/18 04:00 54 04/02/18 03:00 52 04/02/18 02:00 54 04/02/18 01:00 56 04/02/18 00:45 48 18 119/73 (88) 97 04/02/18 00:13 56 04/02/18 00:00 54 04/01/18 23:00 66 04/01/18 22:00 54 04/01/18 20:30 56 16 114/76 (89) 98 04/01/18 20:30 59 04/01/18 20:00 60 04/01/18 19:00 62 04/01/18 18:00 60 04/01/18 17:00 59 04/01/18 16:38 98.6 67 18 110/62 (78) 96 04/01/18 16:00 55 I/O 04/01/18 04/01/18 04/01/18 04/02/18 04/02/18 04/02/18 07:00 15:00 23:00 07:00 15:00 23:00 Intake Total 0 ml 960 ml 480 ml Output Total 100 ml 840 ml 925 ml Balance -100 ml 120 ml -445 ml Intake Oral 0 ml 960 ml 480 ml Output Urine Total 100 ml 840 ml 925 ml # Voids 1 # Bowel Movements 0 Result Diagram: 04/02/1851904/02/18519 Objective Remarks GENERAL: NAD, A&Ox3 HEAD: Normocephalic. NECK: Supple, trachea midline. No lymphadenopathy. EYES: No scleral icterus. No injection or drainage. CARDIOVASCULAR: Regular rate and rhythm without murmurs, gallops, or rubs. RESPIRATORY: Breath sounds equal bilaterally. No accessory muscle use. GASTROINTESTINAL: Abdomen soft, non-tender, nondistended. MUSCULOSKELETAL: No cyanosis, or edema. SKIN: Warm and dry. NEURO: No focal neurological deficitis. A/P Problem List: (1) Atrial fibrillation with rapid ventricular response ICD Code: I48.91 - Atrial fibrillation with rapid ventricular response Status: Acute (2) CHF (congestive heart failure) ICD Code: I50.9 - Heart failure, unspecified (3) Atrial fibrillation with RVR ICD Code: I48.91 - Unspecified atrial fibrillation Status: Acute (4) V-tach ICD Code: I47.2 - Ventricular tachycardia Assessment and Plan 47-year-old male admitted secondary to AICD firing AICD firing Atrial fibrillation history SVT with heart rates 150-180. Cardiology following Plan for ablation Continue Eliquis Continue amiodarone Continue digoxin Acute kidney injury Likely related to heart rate Monitor renal function for now Avoid nephrotoxins Congestive heart failure Follow clinically No evidence of exacerbation Hypertension Continue baseline treatment Follow blood pressures Adjust treatments as needed DVT prophylaxis Fahad Ulrich MD Apr 02, 2018 15:14
--- NOTE | 2018-04-02 15:17 | MB ---
cc: Shiva Benton MD,Fahad Yanez MD DATE: 04/02/2018 REASON FOR CONSULTATION: Supraventricular defibrillatory tachyarrhythmia. HISTORY OF PRESENT ILLNESS: Mr. Pendleton is a 47-year-old gentleman with history of congestive heart failure and cardiomyopathy. He had a previous defibrillator implanted. He was admitted a 2 month or two ago due to defibrillatory shock due to supraventricular tachyarrhythmia that degenerated into ventricular fibrillation. He is on anticoagulation for atrial fibrillation. He was admitted on the 03/31/2018 due to defibrillatory shock. The interrogation of the device showed 1:1 tachyarrhythmia. I was consulted for further evaluation and management. The chart was reviewed. The patient was evaluated. ALLERGIES: SULFA. SOCIAL HISTORY: This gentleman is still smoking. FAMILY HISTORY: Noncontributory to his current medical condition. MEDICATIONS: Mr. Pendleton is currently on - 1. Amiodarone 200 mg a day, decreased to 5 mg twice a day. 2. Aspirin. 3. Coreg 25 mg twice a day. 4. Digoxin 0.25 mg a day. 5. Lasix 20 mg a day. 6. Imdur 30 mg a day. 7. Nitro p.r.n. 8. Entresto 49-51 twice a day. REVIEW OF SYSTEMS: He refers no chest pain. Noted for episode of palpitation, but no fever. PHYSICAL EXAMINATION: GENERAL: Alert, fully oriented. VITAL SIGNS: Blood pressure is 129/77, pulse 58, respiratory rate 18. LUNGS: Ventilated. CARDIOVASCULAR: S1, S2. No gallop. No murmur. ABDOMEN: Soft, obese. No mass or bruit. EXTREMITIES: No edema. LABORATORY DATA: Electrocardiogram indicates sinus rhythm with diffuse ST changes. LABORATORY DATA: Hemoglobin is 15.1, white blood cells 6.7. Potassium 3.8, creatinine 1.07. ASSESSMENT AND RECOMMENDATIONS: Mr. Pendleton is currently stable. He is in sinus rhythm. The gentleman now with possible left atrial tachycardia versus atrial fibrillation. This gentleman is not taking his medication as indicated. There is poor compliance. I am not sure he is even taking his anticoagulation. At this point my recommendation is observation. This gentleman is stable, will be discharged home. I will see him in my office in 2-3 weeks. At that point we will discuss about possible atrial fibrillation ablation if necessary. Case extensively discussed with him. MD CHLOE Quinonez/PUMA , 02:38 PM , 03:15 PM
[2018-04-03] VITALS (13 sets, daily range): BP systolic 117; BP diastolic 67; PULSE 48–62; RESP 16–20; TEMP 97.9; O2SAT 98
[2018-04-03 06:58] LABS: AUTOMATED NEUTROPHIL # 4.6 TH/MM3 (1.8-7.7); BASOPHIL # 0.1 TH/MM3 (0-0.2); BASOPHIL % 1.2 % (0.0-2.0); EOSINOPHIL # 0.1 TH/MM3 (0-0.4); EOSINOPHIL % 1.6 % (0.0-4.0); HEMATOCRIT 43.9 % (39.0-51.0); HEMOGLOBIN 15.5 GM/DL (13.0-17.0); LYMPHOCYTE # 1.4 TH/MM3 (1.0-4.8); MEAN CELL VOLUME 85.8 FL (80.0-100.0); MEAN CORPUSCULAR HEMOGLOBIN 30.2 PG (27.0-34.0); MEAN CORPUSCULAR HGB CONC 35.2 % (32.0-36.0); MEAN PLATELET VOLUME 8.4 FL (7.0-11.0); MONOCYTE # 0.6 TH/MM3 (0-0.9); NEUT % 67.2 % (16.0-70.0); PLATELET COUNT 185 TH/MM3 (150-450); RED BLOOD COUNT 5.11 MIL/MM3 (4.50-5.90); RED CELL DISTRIBUTION WIDTH 14.1 % (11.6-17.2); WHITE BLOOD COUNT 6.8 TH/MM3 (4.0-11.0)
[2018-04-03 07:17] LABS: ALBUMIN 3.6 GM/DL (3.4-5.0); AST (GOT) 18 U/L (15-37); BICARBONATE 26.1 MEQ/L (21.0-32.0); BLOOD UREA NITROGEN 14 MG/DL (7-18); CALCIUM 8.6 MG/DL (8.5-10.1); CHLORIDE 102 MEQ/L (98-107); CREATININE 1.06 MG/DL (0.60-1.30); GLOMERULAR FILTRATION RATE 74 ML/MIN (>89); GLUCOSE,RANDOM 81 MG/DL (74-106); SODIUM (NA) 138 MEQ/L (136-145)
[2018-04-03 07:18] LABS: ALT (GPT) 20 U/L (12-78)
[2018-04-03 07:19] LABS: ALKALINE PHOSPHATASE 62 U/L (45-117); TOTAL BILIRUBIN ADULT 0.5 MG/DL (0.2-1.0); TOTAL PROTEIN 6.8 GM/DL (6.4-8.2)
[2018-04-03] MEDS: DOCUSATE SODIUM 50 MG/SENNA 8.6 MG TAB PO SCH (10:00)
[2018-04-03] MEDS: ASPIRIN 325 MG TAB PO SCH (10:00)
[2018-04-03] MEDS: AMIODARONE 200 MG TAB PO SCH (10:00)
[2018-04-03] MEDS: SACUBITRIL/VALSARTAN 49 MG-51 MG TAB PO SCH (10:00)
[2018-04-03] MEDS: CARVEDILOL 12.5 MG TAB PO SCH (10:01)
[2018-04-03] MEDS: POTASSIUM CHLORIDE 20 MEQ CONTROLLED RELEASE TAB PO SCH (10:01)
[2018-04-03] MEDS: SODIUM CHLORIDE 0.9% FLUSH 10 ML FLUSH IV FLUSH SCH (10:01)
[2018-04-03] MEDS: DIGOXIN 0.25 MG TAB PO SCH (10:01)
[2018-04-03] MEDS: APIXABAN 5 MG TABLET PO SCH (10:01)
[2018-04-03] MEDS: ISOSORBIDE MONONITRATE 30 MG CR TAB (IMDUR) PO SCH (10:04)
[2018-04-03] MEDS ORDERED: DIGO0.25 PO (11:33)
[2018-04-03] MEDS ORDERED: APIX5TAB PO (11:33)
--- NOTE | 2018-04-03 11:35 | HHI.DS ---
Discharge Summary Admission Date Mar 31, 2018 at 22:49 Discharge Date: Apr 03, 2018 Admitting Diagnosis AICD firing, tachydysrhythmia (1) AICD Firing Procedures None Brief History - From Admission 47-year-old male with a past medical history significant for atrial fibrillation anticoagulated on Eliquis, CHF (last echo done on 11/05/16 showed an EF of 25-30%) and hypertension presents the emergency department after his defibrillator fired twice while he was at work. 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 The patient was previously seen in the hospital on 02/20/18 for similar events. He denies any preceding chest pain or palpitations. No shortness of breath. No fever/chills. No nausea/vomiting/ diarrhea/abdominal pain. No lateralizing signs/symptoms. CBC/BMP: 04/03/18 0519 04/03/18 0519 Significant Findings Laboratory Tests Test 03/31/18 21:40 04/02/18 05:20 04/03/18 05:19 Monocytes (%) (Auto) 9.8 % (0.0-8.0) 9.9 % (0.0-8.0) 9.0 % (0.0-8.0) Creatinine 1.54 MG/DL (0.60-1.30) Calcium Level 8.4 MG/DL (8.5-10.1) 8.4 MG/DL (8.5-10.1) Aspartate Amino Transf (AST/SGOT) 14 U/L (15-37) Estimat Glomerular Filtration Rate 48 ML/MIN (>89) 73 ML/MIN (>89) 74 ML/MIN (>89) Troponin I LESS THAN 0.02 NG/ML PE at Discharge GENERAL: male lying in bed SKIN: No rashes, ecchymoses or lesions. Cool and dry. CARDIOVASCULAR: Regular rate and rhythm without murmurs, gallops, or rubs. RESPIRATORY: Clear to auscultation. Breath sounds equal bilaterally. No wheezes , rales, or rhonchi. GASTROINTESTINAL: Abdomen soft, non-tender, nondistended. No guarding. MUSCULOSKELETAL: Extremities without clubbing, cyanosis, or edema. No joint tenderness, effusion, or edema noted. No calf tenderness. NEUROLOGICAL: Awake and alert. Cranial nerves II through XII intact. Motor and sensory grossly within normal limits. Normal speech. Hospital Course Mr. Pendleton is a 47-year-old male. He is admitted secondary to AICD firing. He is monitored in here and given baseline treatments. No recurrence of tachycardic event. Patient admits to not being able to afford digoxin and Eliquis. He is taking his other treatments. Cardiology has recommended more compliance and cleared this patient for discharge. Patient medically stable for discharge. Case management consulted for assistance and requiring digoxin and Eliquis. Pt Condition on Discharge: Stable Discharge Disposition: Discharge Home Discharge Time: <= 30 minutes Discharge Instructions DIET: Follow Instructions for: Heart Healthy Diet Activities you can perform: Regular-No Restrictions Follow up Referrals: PCP Follow-up - 2 Weeks New Medications: Apixaban (Eliquis) 5 Mg Tab 5 MG PO BID for Blood Clot Prevention, #60 TAB 0 Refills Digoxin (Digoxin) 0.25 Mg Tab 0.25 MG PO DAILY for Regulate Heart Beat, #30 TAB 0 Refills Continued Medications: Amiodarone (Amiodarone) 200 Mg Tab 200 MG PO DAILY for Regulate Heart Beat, #30 TAB 0 Refills Apixaban (Eliquis) 5 Mg Tab 5 MG PO BID for Blood Clot Prevention, #60 TAB Restart on 11/21/17 Aspirin (Aspirin) 325 Mg Tab 325 MG PO DAILY for Blood Clot Prevention, #30 TAB 0 Refills Carvedilol (Carvedilol) 25 Mg Tab 25 MG PO BID, #60 TAB 0 Refills Digoxin (Digoxin) 0.25 Mg Tab 0.25 MG PO DAILY for Regulate Heart Beat, #30 TAB 0 Refills Furosemide (Furosemide) 20 Mg Tab 20 MG PO BID for Prevent Heart Failure, #30 TAB 0 Refills Isosorbide Mononitrate ER (Isosorbide Mononitrate ER) 30 Mg Maria Luisa 30 MG PO DAILY for Prevent Chest Pain, #30 TAB 0 Refills Nitroglycerin SL (Nitrostat SL) 0.4 Mg Subl 0.4 MG SL Q5M PRN for CHEST PAIN, #30 TAB Potassium Chloride ER (Potassium Chloride ER) 20 Meq Tab 20 MEQ PO BID for Electrolyte Replacement, #60 TAB 0 Refills Sacubitril-Valsartan (Entresto) 49-51 Mg Tab 1 TAB PO BID for Blood Pressure Management, #60 TAB Restart on 11/21/17 Fahad Rangel MD Apr 03, 2018 11:35
== END 2018-04-03 16:30 | disposition home or self-care (01) | DRG 309 ==
LOC: NEPC 21:20 → NEDA 22:49 → HCPC 04-01 01:31 → HCIS 04-01 15:46
PROVIDERS: ADMIT Hospitalist; ATTEND Hospitalist
DX: I47.1 Supraventricular tachycardia (principal); N17.9 Acute kidney failure, unspecified; I11.0 Hypertensive heart disease with heart failure; I50.9 Heart failure, unspecified; F17.200 Nicotine dependence, unspecified, uncomplicated; I48.91 Unspecified atrial fibrillation; Z79.01 Long term (current) use of anticoagulants; Z79.82 Long term (current) use of aspirin; Z79.899 Other long term (current) drug therapy; Z95.810 Presence of automatic (implantable) cardiac defibrillator
CPT/HCPCS: 71046; 80048; 80053; 83735; 84484; 85025; 93005; 99285; J2270

== ENCOUNTER 2018-05-09 22:35 | Observation (INO) ==
--- NOTE | 2018-05-09 23:32 | XR ---
EXAM DATE: 05/09/2018 11:27 PM EDT AGE/SEX: 47 years / Male INDICATIONS: Chest pain. CLINICAL DATA: This is the patient's initial encounter. Patient reports that signs and symptoms have been present for 1 day and indicates a pain score of 8/10. MEDICAL/SURGICAL HISTORY: . Chronic obstructive pulmonary disease. Congestive heart failure. A- fib. Pacemaker. COMPARISON: No prior exams available for comparison. FINDINGS: Single AP view of the chest. AICD in place. The lungs are clear. Cardiomediastinal silhou ette within normal limits. No evidence of pleural effusion or pneumothorax. CONCLUSION: No acute cardiopulmonary disease identified. Electronically signed by: Jonathan Ye MD 05/09/2018 11:31 PM EDT
[2018-05-10 00:05] LABS: Baso # (Auto) 0.1 th/mm3 (0.0-0.2); Baso % (Auto) 1.3 % (0.0-2.0); Eos # (Auto) 0.1 th/mm3 (0.0-0.4); Eos % (Auto) 1.4 % (0.0-4.0); Hematocrit 45.5 % (39.0-51.0); Lymph # (Auto) 1.7 th/mm3 (1.0-4.8); Lymph % (Auto) 18.2 % (9.0-44.0); Mean Corpuscular HGB Conc 35.1 % (32.0-36.0); Mean Corpuscular Volume 85.3 fL (80.0-100.0); Mean Platelet Volume 8.1 fL (7.0-11.0); Neut # (Auto) 6.3 th/mm3 (1.8-7.7); Neut % (Auto) 68.1 % (16.0-70.0); Platelet Count 211 th/mm3 (150-450); Red Blood Count 5.33 mil/mm3 (4.50-5.90); Red Cell Distribution Width 14.7 % (11.6-17.2); White Blood Count 9.2 th/mm3 (4.0-11.0)
[2018-05-10 00:10] LABS: Anion Gap 10 meq/L (5-15); Blood Urea Nitrogen 17 mg/dL (7-18); Calcium 8.7 mg/dL (8.5-10.1); Carbon Dioxide 25.4 meq/L (21.0-32.0); Chloride 105 meq/L (98-107); Glomerular Filtration Rate 72 mL/min (>89); Glucose,Random 93 mg/dL (74-106); Potassium 4.1 meq/L (3.5-5.1); Sodium 140 meq/L (136-145)
[2018-05-10 00:13] LABS: Activated Partial Thrombo Time 27.1 sec (24.3-30.1); INR 1.1 Ratio; Prothrombin Time 10.9 sec (9.8-11.6)
[2018-05-10] MEDS ORDERED: Famotidine PF Inj 20 MG/2 ML Vial IV.PUSH ONE (00:46)
--- NOTE | 2018-05-10 00:54 | ED ---
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 Denies diarrhea denies vomiting denies nausea denies fever he did not take any medication for this apparently patient' s past medical history includes A. fib he is on amiodarone tonight he is in normal sinus rhythm was EKG is at a rate of 63. Patient was here in our ER and admitted to the ICU for RVR A. fib with deep fibrillation of his AICD due to a rapid heart rate over 180. He did not have any shock or defibrillation tonight and his heart rate is normal and he is not in rapid A. fib he is in normal sinus main complaint is right lower quadrant pain as well as intermittent left chest pain Complete Quality Measures for STEMI Alert Patients STEMI Alert: No Onset (ago): hour(s) Duration: intermittent Onset: during rest Related Data Home Medications Medication Instructions Recorded Confirmed amiodarone 200 mg PO DAILY 05/09/18 05/09/18 apixaban [Eliquis] 5 mg PO BID 05/09/18 05/09/18 aspirin 325 mg PO DAILY 05/09/18 05/09/18 carvedilol 25 mg PO BID 05/09/18 05/09/18 digoxin 0.25 mg PO BID 05/09/18 05/09/18 furosemide [Lasix] 20 mg PO BID 05/09/18 05/09/18 isosorbide mononitrate 20 mg PO BID 05/09/18 05/09/18 potassium chloride 20 meq PO BID 05/09/18 05/09/18 sacubitril-valsartan [Entresto] 1 tab PO BID 05/09/18 05/09/18 Allergies Allergy/AdvReac Type Severity Reaction Status Date / Time Sulfa (Sulfonamide Allergy Severe HIVES Verified 05/09/18 23:10 Antibiotics) Review of Systems Except as stated in HPI: all other systems reviewed are negative PMFSH Medical History Medical History Afib (Acute) CHF (congestive heart failure) (Acute) Hypertension (Acute) Surgical History Surgical History AICD (automatic cardioverter/defibrillator) present (Acute) H/O cardiac radiofrequency ablation (Acute) Hx of cholecystectomy (Acute) Social History Social History Substance History: No History of Abuse Second Hand Smoke Exposure: No Smoking Status: Current every day smoker Tobacco Type: Cigarettes How Often Do You Have a Drink Containing Alcohol: Never Recent Travel in [facility] within the Last 8 Weeks: No Recent Out of Country Travel within the Last 8 Weeks: No Immunization History Tetanus Immunization: Unsure Hx Influenza Vaccine This Season: No Exam Narrative Exam Narrative: GENERAL: Patient is nontoxic-appearing nondiaphoretic not vomiting he seems to be without distress when I initially examined him SKIN: Warm and dry. HEAD: Atraumatic. Normocephalic. EYES: Pupils equal and round. No scleral icterus. No injection or drainage. ENT: No nasal bleeding or discharge. Mucous membranes pink and moist. NECK: Trachea midline. No JVD. CARDIOVASCULAR: Regular rate and rhythm EKG normal sinus rhythm at a rate of 63 RESPIRATORY: No accessory muscle use. Clear to auscultation. Breath sounds equal bilaterally. GASTROINTESTINAL: Abdomen positive tenderness in the right lower quadrant all other kohler are negative to percussion and palpation palpable. MUSCULOSKELETAL: Extremities without clubbing, cyanosis, or edema. No obvious deformities. NEUROLOGICAL: Awake and alert. No obvious cranial nerve deficits. Motor grossly within normal limits. Five out of 5 muscle strength in the arms and legs. Normal speech. PSYCHIATRIC: Appropriate mood and affect; insight and judgment normal. Course Initial Documented Vital Signs Temperature 99.1 F 05/09/18 23:02 Pulse Rate 63 05/09/18 23:02 Respiratory Rate 18 05/09/18 23:02 Blood Pressure 160/97 H 05/09/18 23:02 Pulse Oximetry 98 05/09/18 23:02 Last Documented Vital Signs Temperature 99.1 F 05/09/18 23:02 Pulse Rate 67 05/10/18 02:24 Respiratory Rate 17 05/10/18 02:24 Blood Pressure 133/79 05/10/18 02:24 Pulse Oximetry 98 05/10/18 02:24 Medical Decision Making [facility] Narrative Medical decision making narrative: pt patient patient is complaining of right lower quadrant pain that is very much over McBurney's point I feel it is necessary to do a CAT scan based on my clinical exam and his complaint patient' s EKG is normal sinus patient has no elevation of his troponin and he is if the CAT scan is negative moment of the chest pain center to rule out since he has severe cardiac history including A. fib with an internal defibrillator that shocked him only [address] Differential Diagnosis Differential Diagnosis: Differential diagnosis includes appendicitis versus mesenteric adenitis versus gastritis versus cholecystitis pancratitis for the abdominal pain. Chest pain differential includes AICD defibrillating versus cardiac ischemia versus palpitations due to rapid A. fib versus other Lab Data Result diagrams: 05/09/18 23:15 05/09/18 23:15 Lab Results 05/09/18 05/09/18 05/09/18 Range/Units 23:15 23:15 23:15 WBC 9.2 (4.0-11.0) th/mm3 RBC 5.33 (4.50-5.90) mil/mm3 Hgb 16.0 (13.0-17.0) gm/dL Hct 45.5 (39.0-51.0) % MCV 85.3 (80.0-100.0) fL MCH 30.0 (27.0-34.0) pg MCHC 35.1 (32.0-36.0) % RDW 14.7 (11.6-17.2) % Plt Count 211 (150-450) th/mm3 MPV 8.1 (7.0-11.0) fL Neut % (Auto) 68.1 (16.0-70.0) % Lymph % (Auto) 18.2 (9.0-44.0) % [place] % (Auto) 11.0 H (0.0-8.0) % Eos % (Auto) 1.4 (0.0-4.0) % Baso % (Auto) 1.3 (0.0-2.0) % Neut # (Auto) 6.3 (1.8-7.7) th/mm3 Lymph # (Auto) 1.7 (1.0-4.8) th/mm3 [place] # (Auto) 1.0 H (0.0-0.9) th/mm3 Eos # (Auto) 0.1 (0.0-0.4) th/mm3 Baso # (Auto) 0.1 (0.0-0.2) th/mm3 WBC Differential . Differential Comment Auto diff final PT 10.9 (9.8-11.6) sec INR 1.1 Ratio APTT 27.1 (24.3-30.1) sec Sodium 140 (136-145) meq/L Potassium 4.1 (3.5-5.1) meq/L Chloride 105 (98-107) meq/L Carbon Dioxide 25.4 (21.0-32.0) meq/L Anion Gap 10 (5-15) meq/L BUN 17 (7-18) mg/dL Creatinine 1.09 (0.60-1.30) mg/dL Estimated GFR 72 L (>89) mL/min Random Glucose 93 (74-106) mg/dL Calcium 8.7 (8.5-10.1) mg/dL Troponin I Less than 0.02 L (0.02-0.05) ng/mL Imaging Data Radiologist's impression: Chest X-Ray 05/09/18 23:10 CONCLUSION: No acute cardiopulmonary disease identified. Abdomen/Pelvis CT 05/10/18 00:47 CONCLUSION: 1. Nonspecific diffuse urinary bladder wall thickening. 2. Previously identified right ureteral calculus is no longer seen. 3. Status post cholecystectomy. 4. Borderline splenomegaly. Discharge Plan Discharge Disposition Patient Disposition: 30 Still Patient Physicians Team ED Provider: Doug Killian Primary Care Provider: Primary Care Kristie Damon Attending Provider: Everardo Perez Status ED Status: Admitted Observation Patient
[2018-05-10] MEDS ORDERED: Diatrizoate Meglum/Diatrizoate Sod Liq 9 ML UDC PO ONE (02:15)
--- NOTE | 2018-05-10 03:36 | CT ---
EXAM DATE: 05/10/2018 3:20 AM EDT AGE/SEX: 47 years / Male INDICATIONS: Abdominal pain. CLINICAL DATA: This is the patient's initial encounter. Patient reports that signs and symptoms have been present for 1 day and indicates a pain score of 6/10. MEDICAL/SURGICAL HISTORY: Hypertension. Cardiovascular disease. Cholecystectomy. Defibrillato r. Cardiac ablation ORAL CONTRAST: Prescribed oral contrast ingested. RADIATION DOSE: 15.54 CTDI (mGy) COMPARISON: [facility], CT ABDOMEN & PELVIS W/O CONTRAST, 05/14/2013. . TECHNIQUE: Multiple contiguous axial images were obtained through the abdomen and pelvis following b olus infusion of 96 ml Omnipaque 350 (iohexol) nonionic water-soluble contrast as a single exam dos e. Prescribed oral contrast ingested. Using automated exposure control and adjustment of the mA and/ or kV according to patient size, radiation dose was kept as low as reasonably achievable to obtain op timal diagnostic quality images. DICOM format image data is available electronically for review and comparison. FINDINGS: Lower Lungs: The visualized lower lungs are clear. Liver: Cholecystectomy clips in the gallbladder fossa. Liver is homogeneous and within normal limits. Spleen: Borderline splenomegaly with the spleen measuring 12.7 cm in craniocaudal dimension. Pancreas: Unremarkable without mass or calcification. Kidneys: 1 cm cyst in the midpole of the right kidney. No calculi identified. No evidence hydronephr osis. Adrenal Glands: Unremarkable. Aorta: The aorta and proximal iliac vessels are grossly unremarkable without aneurysmal dilation. Bowel/Mesentery: Scattered colonic diverticula. No evidence of acute diverticulitis. No evidence of bowel dilatation. Appendix within normal limits. No free air or free fluid identified. Abdominal Wall: Intact. Retroperitoneum: No evidence of adenopathy in the retrocrural, para-aortic, or deep pelvic regions. Bladder: Diffuse urinary bladder wall thickening is again seen. Reproductive Organs: No abnormal masses or calcifications seen. Inguinal: The inguinal region is unremarkable without evidence of adenopathy. Bony Structures: Unremarkable. CONCLUSION: 1. Nonspecific diffuse urinary bladder wall thickening. 2. Previously identified right ureteral calculus is no longer seen. 3. Status post cholecystectomy. 4. Borderline splenomegaly. Electronically signed by: Jonathan Ye MD 05/10/2018 3:34 AM EDT
[2018-05-10 06:15] LABS: Creatine Kinase 60 U/L (39-308)
[2018-05-10 07:52] VITALS: BP 138/90; PULSE 62; RESP 18; TEMP 97.9; O2SAT 96
[2018-05-10] MEDS ORDERED: Aspirin 325 MG Tablet PO SCH (09:00)
[2018-05-10] MEDS ORDERED: Furosemide 20 MG Tablet PO SCH (09:00)
[2018-05-10] MEDS ORDERED: Isosorbide Mononitrate 20 MG Tablet PO SCH (09:00)
[2018-05-10] MEDS ORDERED: Digoxin 250 MCG Tablet PO SCH (09:00)
[2018-05-10] MEDS ORDERED: Amiodarone 200 MG Tablet PO SCH (09:00)
[2018-05-10] MEDS ORDERED: Carvedilol 12.5 MG Tablet PO SCH (09:00)
[2018-05-10 09:12] LABS: Creatine Kinase 62 U/L (39-308)
--- NOTE | 2018-05-10 10:02 | P.HPCA ---
History of Present Illness Primary Care Physician: No Primary Care Physician Chief Complaint: Chest pain History of Present Illness: This is a 47-year-old male with history of nonischemic cardiomyopathy with a defibrillator placed the presents to ED with complaint of developing a chest discomfort yesterday. He was standing at home when it occurred. Describes as a stabbing discomfort and lasted 15 minutes with shortness of breath and nausea. That began while he was in the parking lot this hospital as he is already coming in to be evaluated for right lower quadrant abdominal pain. He states he woke up with a right lower quadrant abdominal pain. Denies diarrhea constipation. Denies blood in stool. Currently denies abdominal discomfort. Patient continues to follow his assembly associate which is Dr. Benton. - Diagnosis (1) Chest pain (2) Nonischemic cardiomyopathy (3) Paroxysmal atrial fibrillation (4) AICD (automatic cardioverter/defibrillator) present (5) Tobacco abuse Review of Systems General: Patient denies fevers, chills, and recent travel. HEENT: Patient denies headache, sore throat, difficulty swallowing. Cardiovascular: Has the chest discomfort as mentioned above. Denies sensation of heart beating rapidly or irregularly. No syncope. Denies diaphoresis. Respiratory: He was short of breath. Denies inspirational chest discomfort. Denies coughing wheezing or hemoptysis. GI: He had abdominal pain and points right lower quadrant area, he was nauseous. Patient denies vomiting, diarrhea, constipation bloody stools. States he had a normal bowel movement yesterday. Musculoskeletal: Patient denies joint pain or edema. Denies calf pain or edema. Neurovascular: Patient denies numbness, tingling, weakness in extremities. Denies headache. Endocrine: Denies polyuria and polydipsia. Hematologic: Denies easy bruising. Skin: Denies rash or itching. PMFSH - History History Provided By: Patient - Medical History Medical History: Medical History (Last Updated 05/09/18 @ 23:07 by Vanessa Avendaño) Afib CHF (congestive heart failure) Hypertension - Surgical History Surgical History: Surgical History (Last Updated 05/09/18 @ 23:07 by Vanessa Avendaño) AICD (automatic cardioverter/defibrillator) present H/O cardiac radiofrequency ablation Hx of cholecystectomy - Tobacco History Second Hand Smoke Exposure: Yes Tobacco Use In Past 30 Days: Yes Smoking Status: Current every day smoker Tobacco Type: Cigarettes - Alcohol History How Often Do You Have a Drink Containing Alcohol: Never - Substance Use History Substance History: No History of Abuse - Travel History Recent Travel in the [place] Within the Last 8 Weeks: No Recent Travel Out of the Country Within the Last 8 Weeks: No - Immunization History Tetanus Immunization: Unsure Hx Influenza Vaccine This Season: No Medications and Allergies Active Medications: Active Medications Amiodarone HCl (Cordarone) 200 mg PO DAILY CHER Apixaban (Eliquis) 5 mg PO BID CHER Aspirin (Aspirin) 325 mg PO DAILY CHER Carvedilol (Coreg) 25 mg PO BID CHER Digoxin (Lanoxin) 250 mcg PO BID CHER Furosemide (Lasix) 20 mg PO BID CHER Isosorbide Mononitrate (Ismo) 20 mg PO BID CHER Potassium Chloride (K-Dur) 20 meq PO BID CHER Sacubitril/Valsartan (Entresto 49 Mg/51 Mg) 1 tab PO BID CHER Sodium Chloride (Ns Flush) 2 ml IV.FLUSH UNSCH PRN PRN Reason: FLUSH AFTER USING IV ACCESS Sodium Chloride (Ns Flush) 2 ml IV.FLUSH BID CHER Sodium Chloride (Ns Flush) 2 ml IV.FLUSH PRN PRN PRN Reason: FLUSH AFTER USING IV ACCESS Allergies Allergy/AdvReac Type Severity Reaction Status Date / Time Sulfa (Sulfonamide Allergy Severe HIVES Verified 05/09/18 23:10 Antibiotics) Home Medications Medication Instructions Recorded Confirmed Type amiodarone 200 mg PO DAILY 05/09/18 05/09/18 History apixaban [Eliquis] 5 mg PO BID 05/09/18 05/09/18 History aspirin 325 mg PO DAILY 05/09/18 05/09/18 History carvedilol 25 mg PO BID 05/09/18 05/09/18 History digoxin 0.25 mg PO BID 05/09/18 05/09/18 History furosemide [Lasix] 20 mg PO BID 05/09/18 05/09/18 History isosorbide mononitrate 20 mg PO BID 05/09/18 05/09/18 History potassium chloride 20 meq PO BID 05/09/18 05/09/18 History sacubitril-valsartan [Entresto] 1 tab PO BID 05/09/18 05/09/18 History Exam Vital signs: Vital Signs 05/09/18 23:02 05/09/18 23:15 05/09/18 23:32 Temperature 99.1 F Pulse Rate 63 Respiratory Rate 18 Blood Pressure 160/97 H Pulse Oximetry 98 98 98 05/10/18 00:54 05/10/18 02:24 05/10/18 07:51 Temperature 97.9 F Pulse Rate 62 67 62 Respiratory Rate 20 17 18 Blood Pressure 164/90 H 133/79 138/90 Pulse Oximetry 99 98 96 Intake & Output 05/09/18 05/10/18 05/10/18 18:59 06:59 18:59 Weight 95.254 kg Narrative: GENERAL: This is a well-nourished, well-developed patient, in no apparent distress. Patient speaks in clear complete sentences. Patient is pleasant. HEENT: Head is atraumatic and normocephalic. Neck is supple without lymphadenopathy and trachea is midline. No JVD or carotid bruits. CARDIOVASCULAR: Regular rate and rhythm without murmurs, gallops, or rubs. RESPIRATORY: Clear to auscultation. Breath sounds equal bilaterally. No wheezes , rales, or rhonchi. Chest wall is nontender. No use of accessory muscles. GASTROINTESTINAL: Abdomen is nontender, nondistended. Abdomen soft. No obvious pulsatile mass or bruit. No CVA tenderness. Strong femoral pulses bilaterally. Normal bowel sounds in all quadrants. MUSCULOSKELETAL: Patient is moving upper and lower extremities freely. No calf tenderness or edema, no Homans sign. Strong pulses in upper and lower extremities. NEUROLOGICAL: Patient is alert and oriented. Cranial nerves 2-12 are grossly intact. No focal deficits and speech is clear. SKIN: No rash and turgor is normal. Results 05/09/18 23:15 05/09/18 23:15 Cardiac Enzymes 05/09/18 05/10/18 05/10/18 Range/Units 23:15 05:25 08:25 Troponin I Less than 0.02 L Less than 0.02 L Less than 0.02 L (0.02-0.05) ng/mL Coagulation 05/09/18 Range/Units 23:15 PT 10.9 (9.8-11.6) sec APTT 27.1 (24.3-30.1) sec CBC 05/09/18 Range/Units 23:15 WBC 9.2 (4.0-11.0) th/mm3 RBC 5.33 (4.50-5.90) mil/mm3 Hgb 16.0 (13.0-17.0) gm/dL Hct 45.5 (39.0-51.0) % Plt Count 211 (150-450) th/mm3 Neut # (Auto) 6.3 (1.8-7.7) th/mm3 Lymph # (Auto) 1.7 (1.0-4.8) th/mm3 Fleming # (Auto) 1.0 H (0.0-0.9) th/mm3 Eos # (Auto) 0.1 (0.0-0.4) th/mm3 Baso # (Auto) 0.1 (0.0-0.2) th/mm3 Comprehensive Metabolic Panel 05/09/18 Range/Units 23:15 Sodium 140 (136-145) meq/L Potassium 4.1 (3.5-5.1) meq/L Chloride 105 (98-107) meq/L Carbon Dioxide 25.4 (21.0-32.0) meq/L BUN 17 (7-18) mg/dL Creatinine 1.09 (0.60-1.30) mg/dL Calcium 8.7 (8.5-10.1) mg/dL Intake and Output 05/09/18 05/10/18 05/10/18 22:59 06:59 14:59 Other: Weight 95.254 kg EKG interpretations - EKG EKG shows: sinus rhythm (EKGs are sinus rhythm without significant ST segment depressions or elevations.) Caprini VTE Risk Assessment Caprini VTE Risk Assessment: No/Low Risk (score <= 1) Caprini Risk Assessment Model: Point Value = 1 Point Value = 2 Point Value = 3 Point Value = 5 Age 41-60 Minor surgery BMI > 25 kg/m2 Swollen legs Varicose veins or History of unexplained or recurrent spontaneous Oral contraceptives or hormone replacement Sepsis (< 1 month) Serious lung disease, including pneumonia (< 1 month) Abnormal pulmonary function Acute myocardial infarction Congestive heart failure (< 1 month) History of inflammatory bowel disease Medical patient at bed rest Age 61-74 Arthroscopic surgery Major open surgery (> 45 min) Laparoscopic surgery (> 45 min) Malignancy Confined to bed (> 72 hours) Immobilizing plaster cast Central venous access Age >= 75 History of VTE Family history of VTE Factor V Leiden Prothrombin [id number] Lupus anticoagulant Anticardiolipin antibodies Elevated serum homocysteine Heparin-induced thrombocytopenia Other congenital or acquired thrombophilia Stroke (< 1 month) Elective arthroplasty Hip, pelvis, or leg fracture Acute spinal cord injury (< 1 month) Prophylaxis Regimen: Total Risk Factor Score Risk Level Prophylaxis Regimen 0-1 Low Early ambulation 2 Moderate Order ONE of the following: *Sequential Compression Device (SCD) *Heparin 5000 units SQ BID 3-4 Higher Order ONE of the following medications: *Heparin 5000 units SQ TID *Enoxaparin/Lovenox 40 mg SQ daily (WT < 150 kg, CrCl > 30 mL/min) *Enoxaparin/Lovenox 30 mg SQ daily (WT < 150 kg, CrCl > 10-29 mL/min) *Enoxaparin/Lovenox 30 mg SQ BID (WT < 150 kg, CrCl > 30 mL/min) AND/OR *Sequential Compression Device (SCD) 5 or more Highest Order ONE of the following medications: *Heparin 5000 units SQ TID (Preferred with Epidurals) *Enoxaparin/Lovenox 40 mg SQ daily (WT < 150 kg, CrCl > 30 mL/min) *Enoxaparin/Lovenox 30 mg SQ daily (WT < 150 kg, CrCl > 10-29 mL/min) *Enoxaparin/Lovenox 30 mg SQ BID (WT < 150 kg, CrCl > 30 mL/min) AND *Sequential Compression Device (SCD) Assessment and Plan - Assessment (1) Chest pain Code(s): R07.9 - Chest pain, unspecified Status: Acute (2) Nonischemic cardiomyopathy Code(s): I42.8 - Other cardiomyopathies Status: Acute (3) Paroxysmal atrial fibrillation Code(s): I48.0 - Paroxysmal atrial fibrillation Status: Acute (4) AICD (automatic cardioverter/defibrillator) present Code(s): Z95.810 - Presence of automatic (implantable) cardiac defibrillator Status: Acute (5) Tobacco abuse Code(s): Z72.0 - Tobacco use Status: Acute - Plan * Chest pain: Patient has had serial cardiac enzymes and EKGs for ruling out purposes. His symptoms seem atypical, patient also has history of a nonischemic cardiomyopathy. Cardiac catheterization July 2018 did not reveal significant coronary artery disease. He will be seen by Dr. Chris mcgrath in the chest pain center and likely be discharged after his evaluation with instructions to follow-up with his assembly associate. Return to ED for interval issues. * Nonischemic cardiomyopathy: Continue follow-up with his assembly associate. Resume his medications. * Tobacco abuse: Patient has been counseled on importance of smoking cessation. Patient is stable at this time. He is agreeable to this plan. H&P: Quality - VTE Deep Vein Thrombosis/Pulmonary Embolism Present on Admission: No
--- NOTE | 2018-05-10 15:52 | ECG ---
Date Performed: 05/09/2018 Time Performed: 23:05:03 PTAGE: 47 years EKG: Sinus rhythm BORDERLINE LEFT AXIS DEVIATION BORDERLINE ECG Compared to PREVIOUS TRACING , the T-wave changes have improved. PREVIOUS TRACIN03/31/2018 21.39 DOCTOR: Everardo Perez Interpretating Date/Time 05/10/2018 15:51:27
--- NOTE | 2018-05-10 15:53 | ECG ---
Date Performed: 05/10/2018 Time Performed: 05:21:38 PTAGE: 47 years EKG: Sinus rhythm BORDERLINE LEFT AXIS DEVIATION OTHERWISE WITHIN NORMAL LIMITS NORMAL ECG Since PREVIOUS TRACING , no significant change noted PREVIOUS TRACIN05/09/2018 23.05.03 DOCTOR: Everardo Perez Interpretating Date/Time 05/10/2018 15:52:08
== END 2018-05-10 13:09 | disposition home or self-care (01) ==
LOC: NEDA 22:35 → NEPC 22:35 → NEPFCDU 22:35

== ENCOUNTER 2018-08-08 00:08 | Observation (INO) ==
--- NOTE | 2018-08-08 00:49 | ED ---
HPI General Chief Complaint: Chest Pain Stated Complaint: Chest pains Time Seen by Provider: 08/08/18 00:44 Source: patient Mode of arrival: EMS Limitations: no limitations History of Present Illness HPI narrative: 48-year-old male came to the emergency room with history of on and off chest pain since yesterday. She was brought in by EMS. Patient points the chest pain on the left side of his chest radiating to his left axilla. Patient says the pain has become more continuous since the evening. He took 1 regular strength aspirin. No aggravating or relieving symptoms identified. Patient sees a speech language pathologist assistant for his A. fib. Patient denies doing any illicit drugs including cocaine. No history of fever or chills. No history of shortness of breath. Patient is supposed to be on digoxin and Eliquis but has not taken these medications in past 1 month. No history of stents placed. Last stress test was about a year ago. MD complaint: Reports chest pain STEMI Alert: No Onset (ago): day(s) Duration: constant Onset: during rest Related Data Home Medications Medication Instructions Recorded Confirmed aspirin 325 mg PO DAILY 05/09/18 08/08/18 digoxin 0.25 mg PO BID 05/09/18 08/08/18 furosemide [Lasix] 20 mg PO BID 05/09/18 08/08/18 isosorbide mononitrate 20 mg PO BID 05/09/18 08/08/18 potassium chloride 20 meq PO BID 05/09/18 08/08/18 sacubitril-valsartan [Entresto] 1 tab PO BID 05/09/18 08/08/18 Previous Rx's Medication Instructions Recorded amiodarone 200 mg PO DAILY #30 mg 08/08/18 apixaban [Eliquis] 5 mg PO BID #60 mg 08/08/18 carvedilol 25 mg PO BID #30 mg 08/08/18 Allergies Allergy/AdvReac Type Severity Reaction Status Date / Time Sulfa (Sulfonamide Allergy Severe HIVES Verified 05/09/18 23:10 Antibiotics) Review of Systems ROS: all other systems reviewed are negative Cardiovascular Reports chest pain PMFSH Medical History Medical History Afib (Acute) Hypertension (Acute) CHF (congestive heart failure) (Acute) Nonischemic cardiomyopathy (Acute) Surgical History Surgical History AICD (automatic cardioverter/defibrillator) present (Acute) H/O cardiac radiofrequency ablation (Acute) Hx of cholecystectomy (Acute) Social History Social History Substance History: No History of Abuse Second Hand Smoke Exposure: Yes Smoking Status: Heavy tobacco smoker (Smokes cigarettes, cigars, and "vapes") Tobacco Type: Cigarettes Packs Per Day: 1 Cigarettes Per Day: 20.0 Years Smoked: 30 Pack-Years: 30.00 How Often Do You Have a Drink Containing Alcohol: Never Recent Travel in [facility] within the Last 8 Weeks: No Recent Out of Country Travel within the Last 8 Weeks: No Immunization History Tetanus Immunization: >5 Years Exam Narrative Exam Narrative: GENERAL: Awake, alert, no obvious distress SKIN: Focused skin assessment warm/dry. HEAD: Atraumatic. Normocephalic. EYES: Pupils equal and round. No scleral icterus. No injection or drainage. ENT: No nasal bleeding or discharge. Mucous membranes pink and moist. NECK: Trachea midline. No JVD. CARDIOVASCULAR: Regular rate and rhythm. No murmur appreciated. RESPIRATORY: No accessory muscle use. Clear to auscultation. Breath sounds equal bilaterally. GASTROINTESTINAL: Abdomen soft, non-tender, nondistended. Hepatic and splenic margins not palpable. MUSCULOSKELETAL: No obvious deformities. No clubbing. No cyanosis. No edema. NEUROLOGICAL: Awake and alert. No obvious cranial nerve deficits. Motor grossly within normal limits. Normal speech. PSYCHIATRIC: Appropriate mood and affect; insight and judgment normal. Course Initial Documented Vital Signs Temperature 98.4 F 08/08/18 00:15 Pulse Rate 75 08/08/18 00:15 Respiratory Rate 21 08/08/18 00:15 Blood Pressure 135/81 08/08/18 00:15 Pulse Oximetry 97 08/08/18 00:15 Last Documented Vital Signs Temperature 97.8 F 08/08/18 03:29 Pulse Rate 63 08/08/18 08:00 Respiratory Rate 18 08/08/18 08:00 Blood Pressure 144/78 H 08/08/18 08:00 Pulse Oximetry 98 08/08/18 08:21 Medical Decision Making MDM Narrative Medical decision making narrative: 1:40 AM blood test results are back and within acceptable limits. Chest x-ray is negative. Patient will be admitted to the chest pain center to be ruled out. Medical Screen Exam Complete: Yes Emergency Medical Condition: Yes Differential Diagnosis Differential Diagnosis: ACS, nonspecific chest pain Lab Data Result diagrams: 08/08/18 00:56 08/08/18 00:56 Lab Results 08/08/18 08/08/18 08/08/18 Range/Units 00:56 00:56 01:05 WBC 10.1 (4.0-11.0) th/mm3 RBC 5.51 (4.50-5.90) mil/mm3 Hgb 16.9 (13.0-17.0) gm/dL Hct 46.7 (39.0-51.0) % MCV 84.6 (80.0-100.0) fL MCH 30.6 (27.0-34.0) pg MCHC 36.1 H (32.0-36.0) % RDW 13.5 (11.6-17.2) % Plt Count 229 (150-450) th/mm3 MPV 8.4 (7.0-11.0) fL Prelim Diff (Auto) Slide review pending Neut % (Auto) 70.1 H (16.0-70.0) % Lymph % (Auto) 17.8 (9.0-44.0) % Brewster % (Auto) 9.8 H (0.0-8.0) % Eos % (Auto) 1.2 (0.0-4.0) % Baso % (Auto) 1.1 (0.0-2.0) % Neut # (Auto) 7.1 (1.8-7.7) th/mm3 Lymph # (Auto) 1.8 (1.0-4.8) th/mm3 Brewster # (Auto) 1.0 H (0.0-0.9) th/mm3 Eos # (Auto) 0.1 (0.0-0.4) th/mm3 Baso # (Auto) 0.1 (0.0-0.2) th/mm3 WBC Differential . Diff Scan Auto diff confirmed Differential Comment . Platelet Estimate Normal (Normal) Platelet Morphology Normal (Normal) RBC Morphology Normal (Normal) Sodium 140 (136-145) meq/L Potassium 3.8 (3.5-5.1) meq/L Chloride 106 (98-107) meq/L Carbon Dioxide 27.8 (21.0-32.0) meq/L Anion Gap 6 (5-15) meq/L BUN 17 (7-18) mg/dL Creatinine 1.07 (0.60-1.30) mg/dL Estimated GFR 73 L (>89) mL/min Random Glucose 90 (74-106) mg/dL Calcium 8.1 L (8.5-10.1) mg/dL Total Bilirubin 0.5 (0.2-1.0) mg/dL AST 20 (15-37) U/L ALT 30 (12-78) U/L Alkaline Phosphatase 69 (45-117) U/L Troponin I Less than 0.02 L (0.02-0.05) ng/mL Total Protein 7.2 (6.4-8.2) g/dL Albumin 3.9 (3.4-5.0) g/dL Urine Opiates Screen Neg (Neg) Ur Barbiturates Screen Neg (Neg) Ur Amphetamines Screen Neg (Neg) U Benzodiazepines Scrn Neg (Neg) Urine Cocaine Screen Neg (Neg) U Cannabinoids Screen Neg (Neg) 08/08/18 08/08/18 Range/Units 04:00 07:40 WBC (4.0-11.0) th/mm3 RBC (4.50-5.90) mil/mm3 Hgb (13.0-17.0) gm/dL Hct (39.0-51.0) % MCV (80.0-100.0) fL MCH (27.0-34.0) pg MCHC (32.0-36.0) % RDW (11.6-17.2) % Plt Count (150-450) th/mm3 MPV (7.0-11.0) fL Prelim Diff (Auto) Neut % (Auto) (16.0-70.0) % Lymph % (Auto) (9.0-44.0) % Brewster % (Auto) (0.0-8.0) % Eos % (Auto) (0.0-4.0) % Baso % (Auto) (0.0-2.0) % Neut # (Auto) (1.8-7.7) th/mm3 Lymph # (Auto) (1.0-4.8) th/mm3 Brewster # (Auto) (0.0-0.9) th/mm3 Eos # (Auto) (0.0-0.4) th/mm3 Baso # (Auto) (0.0-0.2) th/mm3 WBC Differential Diff Scan Differential Comment Platelet Estimate (Normal) Platelet Morphology (Normal) RBC Morphology (Normal) Sodium (136-145) meq/L Potassium (3.5-5.1) meq/L Chloride (98-107) meq/L Carbon Dioxide (21.0-32.0) meq/L Anion Gap (5-15) meq/L BUN (7-18) mg/dL Creatinine (0.60-1.30) mg/dL Estimated GFR (>89) mL/min Random Glucose (74-106) mg/dL Calcium (8.5-10.1) mg/dL Total Bilirubin (0.2-1.0) mg/dL AST (15-37) U/L ALT (12-78) U/L Alkaline Phosphatase (45-117) U/L Troponin I Less than 0.02 L Less than 0.02 L (0.02-0.05) ng/mL Total Protein (6.4-8.2) g/dL Albumin (3.4-5.0) g/dL Urine Opiates Screen (Neg) Ur Barbiturates Screen (Neg) Ur Amphetamines Screen (Neg) U Benzodiazepines Scrn (Neg) Urine Cocaine Screen (Neg) U Cannabinoids Screen (Neg) Imaging Data Radiologist's impression: Chest X-Ray 08/08/18 00:50 CONCLUSION: No acute cardiopulmonary disease. ECG Data Attestation: I personally reviewed and interpreted this ECG as follows: Interpretation: Twelve-lead EKG was reviewed by me. Normal sinus rhythm, left axis deviation, nonspecific ST-T wave changes. Heart rate of 71 bpm per Discharge Plan Discharge Disposition Patient Disposition: 01 Discharge Home Discharge Condition Condition: Good Discharge Order Discharge Orders: Discharge Order (Routine); Ordered 08/08/18 Ordered By: Hollie Barahona Discharge Details Anticipated Discharge Date: 08/08/18 Physicians Team ED Provider: Grant Corbett Primary Care Provider: Primary Care Kristie Damon Attending Provider: Everardo Perez ED Status: Left Department Discharge Information Discharge Date/Time: 08/08/18 03:51
[2018-08-08] MEDS ORDERED: Ketorolac Inj 30 MG/ML (IVP) Vial IV.PUSH ONE (00:52)
--- NOTE | 2018-08-08 01:08 | XR ---
EXAM DATE: 08/08/2018 12:50 AM EDT AGE/SEX: 48 years / Male INDICATIONS: Chest pain. CLINICAL DATA: This is the patient's initial encounter. Patient reports that signs and symptoms have been present for 2 days and indicates a pain score of 8/10. MEDICAL/SURGICAL HISTORY: Congestive heart failure. Chronic obstructive pulmonary disease. Hy pertension. A-fib. Cardiovascular disease. . Cholecystectomy. Defibrillator. Cardiac ablation COMPARISON: [facility] [place], CHEST 1V SINGLE AP, 05/09/2018. . FINDINGS: A single AP view of the chest demonstrates the lungs to be symmetrically aerated without evidence of mass, infiltrate or effusion. The cardiomediastinal contours are unremarkable. Left-sided pacemaker with single intact. Osseous structures are intact. CONCLUSION: No acute cardiopulmonary disease. Electronically signed by: Charan Coley MD 08/08/2018 1:06 AM EDT
[2018-08-08 01:19] LABS: Amphetamine Screen,Urine Neg (Neg); Barbiturate Screen,Urine Neg (Neg); Cannabinoid Screen,Urine Neg (Neg); Cocaine Screen,Urine Neg (Neg)
[2018-08-08 01:22] LABS: Alkaline Phosphatase 69 U/L (45-117); Total Protein 7.2 g/dL (6.4-8.2)
[2018-08-08 01:23] LABS: Opiate Screen,Urine Neg (Neg)
[2018-08-08 01:24] LABS: Alanine Aminotransferase 30 U/L (12-78); Albumin 3.9 g/dL (3.4-5.0); Anion Gap 6 meq/L (5-15); Aspartate Aminotransferase 20 U/L (15-37); Blood Urea Nitrogen 17 mg/dL (7-18); Calcium 8.1 mg/dL (8.5-10.1); Carbon Dioxide 27.8 meq/L (21.0-32.0); Chloride 106 meq/L (98-107); Glomerular Filtration Rate 73 mL/min (>89); Glucose,Random 90 mg/dL (74-106); Potassium 3.8 meq/L (3.5-5.1); Sodium 140 meq/L (136-145)
[2018-08-08 01:27] LABS: Baso # (Auto) 0.1 th/mm3 (0.0-0.2); Baso % (Auto) 1.1 % (0.0-2.0); Eos # (Auto) 0.1 th/mm3 (0.0-0.4); Eos % (Auto) 1.2 % (0.0-4.0); Hematocrit 46.7 % (39.0-51.0); Hemoglobin 16.9 gm/dL (13.0-17.0); Lymph # (Auto) 1.8 th/mm3 (1.0-4.8); Lymph % (Auto) 17.8 % (9.0-44.0); Mean Corpuscular Hemoglobin 30.6 pg (27.0-34.0); Mean Corpuscular Volume 84.6 fL (80.0-100.0); Mean Platelet Volume 8.4 fL (7.0-11.0); Mono % (Auto) 9.8 % (0.0-8.0); Neut # (Auto) 7.1 th/mm3 (1.8-7.7); Neut % (Auto) 70.1 % (16.0-70.0); Platelet Count 229 th/mm3 (150-450); Red Blood Count 5.51 mil/mm3 (4.50-5.90); Red Cell Distribution Width 13.5 % (11.6-17.2); White Blood Count 10.1 th/mm3 (4.0-11.0)
[2018-08-08 01:29] LABS: Mean Corpuscular HGB Conc 36.1 % (32.0-36.0)
[2018-08-08 01:39] LABS: Platelet Estimate Normal (Normal); Platelet Morphology Normal (Normal); RBC Morphology Normal (Normal)
[2018-08-08 03:30] VITALS: TEMP 97.8
[2018-08-08 08:22] VITALS: O2SAT 98
[2018-08-08 08:51] VITALS: BP 144/78; PULSE 63; RESP 18
--- NOTE | 2018-08-08 08:51 | P.HPCA ---
History of Present Illness Primary Care Physician: No Primary Care Physician Chief Complaint: Chest pain History of Present Illness: 48-year-old male with history of nonischemic cardiomyopathy, congestive heart failure, and atrial fibrillation resents the emergency room for further evaluation of intermittent, nonexertional chest pain. Onset 2-3 days. Location left anterior chest with radiation to left arm. Characterizes intermittent sharp stabbing discomfort. Also reports nausea, fever, and loose stools for 2 days. No sick contacts. No precipitating or relieving factors. No dyspnea or diaphoresis. Follows with Dr. Benton. Ran out of Eliquis x1 month ago and Entresto approx 1 week ago. Took last tablet of amiodarone yesterday. Unclear how long he has been out of digoxin or if he ever started digoxin. Currently taking Lasix, isosorbide, carvedilol, potassium, and aspirin. No history of CAD or NM. Reports remote history of cocaine use for 20 years. Past cardiac testing 11/20/2017 cardiac catheterization (Dr. Rodriguez) Conclusions: Mild coronary artery disease. Nonischemic cardiomyopathy. 08/16/2017 Echocardiogram-EF 20-25% 10/13/2017 [id number]-gqkkkl-widqsaf ischemia small segment septum towards the base. Global hypokinesis. (Discharged home after consult placed with Dr. Haley) 08/05/2017 Defibrillator implanted (Dr. Benton) 08/04/2017 Cardiac catheterization (Dr. Benton) Conclusions: Successful electrophysiology study, mapping, radiofrequency, ablation of atrial fibrillation, left atrial tachycardia, pulmonary vein isolation, posterior ablation, mitral valve isolation, mitral line creation, roofline creation, pleural line creation, left atrial tachycardia, and cardioversion. 11/06/2016 Cardiac catheterization (Dr. Montenegro) Conclusions: Nonischemic cardiomyopathy. Left ventricular systolic dysfunction. Atrial fibrillation. 09/23/2014 Lexiscan-severe global hypokinesis with a 14% ejection fraction. No evidence of stress-induced reversible perfusion abnormality. Social history Known nonischemic cardiomyopathy. No known coronary artery disease, hypertension, hyperlipidemia, or diabetes. Current 1 pack cigarettes daily, also smokes "little cigars" and "vapes" daily. No alcohol or recreational drug use. Currently on workman's comp due to right knee injury. Single, has a roommate. - Diagnosis (1) Atypical chest pain (2) Tobacco abuse Review of Systems All other systems reviewed negative except as stated in HPI PMFSH - History History Provided By: Automotive Glass Technician / EMT - Medical History Medical History: Medical History (Last Updated 08/08/18 @ 10:05 by NABILA Swift) Afib (Acute) Hypertension (Acute) CHF (congestive heart failure) (Acute) Nonischemic cardiomyopathy - Surgical History Surgical History: Surgical History (Last Reviewed 08/08/18 @ 10:06 by NABILA Swift) AICD (automatic cardioverter/defibrillator) present (Acute) H/O cardiac radiofrequency ablation (Acute) Hx of cholecystectomy (Acute) - Tobacco History Second Hand Smoke Exposure: Yes Tobacco Use In Past 30 Days: Yes Smoking Status: Heavy tobacco smoker (Smokes cigarettes, cigars, and "vapes") Tobacco Type: Cigarettes Packs Per Day: 1 Years Smoked: 30 - Alcohol History How Often Do You Have a Drink Containing Alcohol: Never - Substance Use History Substance History: No History of Abuse - Travel History Recent Travel in the [place] Within the Last 8 Weeks: No Recent Travel Out of the Country Within the Last 8 Weeks: No - Immunization History Tetanus Immunization: >5 Years Medications and Allergies Active Medications: Active Medications Sodium Chloride (Ns Flush) 2 ml IV.FLUSH UNSCH PRN PRN Reason: FLUSH AFTER USING IV ACCESS Sodium Chloride (Ns Flush) 2 ml IV.FLUSH BID [facility] Allergies Allergy/AdvReac Type Severity Reaction Status Date / Time Sulfa (Sulfonamide Allergy Severe HIVES Verified 05/09/18 23:10 Antibiotics) Home Medications Medication Instructions Recorded Confirmed Type aspirin 325 mg PO DAILY 05/09/18 08/08/18 History digoxin 0.25 mg PO BID 05/09/18 08/08/18 History furosemide [Lasix] 20 mg PO BID 05/09/18 08/08/18 History isosorbide mononitrate 20 mg PO BID 05/09/18 08/08/18 History potassium chloride 20 meq PO BID 05/09/18 08/08/18 History sacubitril-valsartan [Entresto] 1 tab PO BID 05/09/18 08/08/18 History Exam Vital signs: Vital Signs 08/08/18 00:15 08/08/18 00:50 08/08/18 03:29 Temperature 98.4 F 97.8 F Pulse Rate 75 62 Respiratory Rate 21 20 Blood Pressure 135/81 138/82 Pulse Oximetry 97 97 95 08/08/18 04:00 08/08/18 08:21 Temperature Pulse Rate 60 Respiratory Rate Blood Pressure Pulse Oximetry 98 Intake & Output 08/07/18 08/08/18 08/08/18 18:59 06:59 18:59 Weight 91.172 kg Narrative: GENERAL: Alert WN, WD, NAD, obese, male who appears older than stated age HEAD: NC, AT CV: RRR, without murmur, rub, gallop, no JVD, S1-S2. RESP: Diminished lungs throughout bilateral, no crackles, wheeze, rhonchi, symmetrical chest rise, nonlabored, able to speak in full sentences ABD: Soft, NT, ND, no masses, positive bowel tones EXT: Pulses +2x4, trace dependent edema MS: Normal tone x4 extremities, nontender, no obvious deformities, full range of motion NEURO: motor strength 5/5, gait WNL PSYCH: A+O x3, pleasant affect, appropriate speech, mood, insight and judgment SKIN: Normal turgor, normal texture, no lesions, no rashes, brisk cap refill, even hair distribution, multiple tattoos Results 08/08/18 00:56 08/08/18 00:56 Cardiac Enzymes 08/08/18 08/08/18 08/08/18 Range/Units 00:56 04:00 07:40 AST 20 (15-37) U/L Troponin I Less than 0.02 L Less than 0.02 L Less than 0.02 L (0.02-0.05) ng/mL CBC 08/08/18 Range/Units 00:56 WBC 10.1 (4.0-11.0) th/mm3 RBC 5.51 (4.50-5.90) mil/mm3 Hgb 16.9 (13.0-17.0) gm/dL Hct 46.7 (39.0-51.0) % Plt Count 229 (150-450) th/mm3 Neut # (Auto) 7.1 (1.8-7.7) th/mm3 Lymph # (Auto) 1.8 (1.0-4.8) th/mm3 [place] # (Auto) 1.0 H (0.0-0.9) th/mm3 Eos # (Auto) 0.1 (0.0-0.4) th/mm3 Baso # (Auto) 0.1 (0.0-0.2) th/mm3 Comprehensive Metabolic Panel 08/08/18 Range/Units 00:56 Sodium 140 (136-145) meq/L Potassium 3.8 (3.5-5.1) meq/L Chloride 106 (98-107) meq/L Carbon Dioxide 27.8 (21.0-32.0) meq/L BUN 17 (7-18) mg/dL Creatinine 1.07 (0.60-1.30) mg/dL Calcium 8.1 L (8.5-10.1) mg/dL AST 20 (15-37) U/L ALT 30 (12-78) U/L Alkaline Phosphatase 69 (45-117) U/L Total Protein 7.2 (6.4-8.2) g/dL Albumin 3.9 (3.4-5.0) g/dL Intake and Output 08/07/18 08/08/18 08/08/18 22:59 06:59 14:59 Other: Weight 91.172 kg - Imaging and Cardiology Imaging: Impressions Chest X-Ray 08/08/18 00:50 CONCLUSION: No acute cardiopulmonary disease. EKG interpretations - EKG EKG results cardiology: sinus rhythm, normal QRS (Nonspecific T wave change) Caprini VTE Risk Assessment Caprini VTE Risk Assessment: No/Low Risk (score <= 1) Caprini Risk Assessment Model: Point Value = 1 Point Value = 2 Point Value = 3 Point Value = 5 Age 41-60 Minor surgery BMI > 25 kg/m2 Swollen legs Varicose veins or History of unexplained or recurrent spontaneous Oral contraceptives or hormone replacement Sepsis (< 1 month) Serious lung disease, including pneumonia (< 1 month) Abnormal pulmonary function Acute myocardial infarction Congestive heart failure (< 1 month) History of inflammatory bowel disease Medical patient at bed rest Age 61-74 Arthroscopic surgery Major open surgery (> 45 min) Laparoscopic surgery (> 45 min) Malignancy Confined to bed (> 72 hours) Immobilizing plaster cast Central venous access Age >= 75 History of VTE Family history of VTE Factor V Leiden Prothrombin [id number] Lupus anticoagulant Anticardiolipin antibodies Elevated serum homocysteine Heparin-induced thrombocytopenia Other congenital or acquired thrombophilia Stroke (< 1 month) Elective arthroplasty Hip, pelvis, or leg fracture Acute spinal cord injury (< 1 month) Prophylaxis Regimen: Total Risk Factor Score Risk Level Prophylaxis Regimen 0-1 Low Early ambulation 2 Moderate Order ONE of the following: *Sequential Compression Device (SCD) *Heparin 5000 units SQ BID 3-4 Higher Order ONE of the following medications: *Heparin 5000 units SQ TID *Enoxaparin/Lovenox 40 mg SQ daily (WT < 150 kg, CrCl > 30 mL/min) *Enoxaparin/Lovenox 30 mg SQ daily (WT < 150 kg, CrCl > 10-29 mL/min) *Enoxaparin/Lovenox 30 mg SQ BID (WT < 150 kg, CrCl > 30 mL/min) AND/OR *Sequential Compression Device (SCD) 5 or more Highest Order ONE of the following medications: *Heparin 5000 units SQ TID (Preferred with Epidurals) *Enoxaparin/Lovenox 40 mg SQ daily (WT < 150 kg, CrCl > 30 mL/min) *Enoxaparin/Lovenox 30 mg SQ daily (WT < 150 kg, CrCl > 10-29 mL/min) *Enoxaparin/Lovenox 30 mg SQ BID (WT < 150 kg, CrCl > 30 mL/min) AND *Sequential Compression Device (SCD) Assessment and Plan - Assessment (1) Atypical chest pain Code(s): R07.89 - Other chest pain Status: Acute Plan: Admitted chest pain center. ACS ruled out with 2 sets of EKGs and cardiac enzymes. Monitor on telemetry overnight. Seen evaluated by Dr. Rush Heath. No further cardiac testing required. Discomfort likely related to recent GI illness. Strongly encouraged him to establish with a primary care provider. Discussed local free or [id number] clinics. Information will be provided upon discharge. Refills on medications will also be provided as needed. Strongly encouraged [facility] for further samples of Entresto and Eliquis. (2) Tobacco abuse Code(s): Z72.0 - Tobacco use Status: Chronic Plan: Encouraged stress importance of tobacco cessation. Instructed to quit smoking. Made aware of tobacco Free [place] program available.
[2018-08-08] MEDS ORDERED: Furosemide 20 MG Tablet PO SCH (10:00)
[2018-08-08] MEDS ORDERED: Carvedilol 12.5 MG Tablet PO SCH (10:00)
--- NOTE | 2018-08-08 10:52 | P.PNCA ---
Subjective Interval history: 48-year-old patient with multiple problems followed by Dr. Sharma for severe cardiomyopathy with AICD in place. The history is is documented with the following addition the patient indicates to me that he was doing about as well as usual until he had an episode of fairly severe watery diarrhea lasting over a day. Subsequent day he developed nausea with recurrent vomiting and then stabbing pain over his left chest area near the insertion of the pacer is diarrhea and vomiting of subsequently resolved although he is still slightly nauseous he also is feeling less chest discomfort currently. The only other addition is that he is apparently pending some surgery on his right knee. His GI symptoms have resolved and he will be given additional Zofran prior to discharge. He is ruled out for ACS and has had catheterizations both in 2016 and November 2017. Both of these showed only mild disease with no acute progression. He is already ruled out for ACS his symptoms are improving and appeared to be predominantly GI his remaining issues appear to be largely unchanged. He will therefore be discharged to further follow-up on an outpatient basis. It is again noted that he is relatively noncompliant with his medication. Medications and Allergies Active Medications: Active Medications Apixaban (Eliquis) 5 mg PO BID [facility] Carvedilol (Coreg) 25 mg PO BID [facility] Last Admin: 08/08/18 10:34 Dose: 12.5 mg Furosemide (Lasix) 20 mg PO BID [facility] Last Admin: 08/08/18 10:35 Dose: 20 mg Isosorbide Mononitrate (Ismo) 20 mg PO BID [facility] Potassium Chloride (K-Dur) 20 meq PO BID [facility] Last Admin: 08/08/18 10:35 Dose: 20 meq Sodium Chloride (Ns Flush) 2 ml IV.FLUSH UNSCH PRN PRN Reason: FLUSH AFTER USING IV ACCESS Sodium Chloride (Ns Flush) 2 ml IV.FLUSH BID [facility] Last Admin: 08/08/18 10:36 Dose: 2 ml Allergies Allergy/AdvReac Type Severity Reaction Status Date / Time Sulfa (Sulfonamide Allergy Severe HIVES Verified 05/09/18 23:10 Antibiotics) Home Medications Medication Instructions Recorded Confirmed Type aspirin 325 mg PO DAILY 05/09/18 08/08/18 History digoxin 0.25 mg PO BID 05/09/18 08/08/18 History furosemide [Lasix] 20 mg PO BID 05/09/18 08/08/18 History isosorbide mononitrate 20 mg PO BID 05/09/18 08/08/18 History potassium chloride 20 meq PO BID 05/09/18 08/08/18 History sacubitril-valsartan [Entresto] 1 tab PO BID 05/09/18 08/08/18 History Physical Exam Vital signs: Vital Signs 08/08/18 00:15 08/08/18 00:50 08/08/18 03:29 Temperature 98.4 F 97.8 F Pulse Rate 75 62 Respiratory Rate 21 20 Blood Pressure 135/81 138/82 Pulse Oximetry 97 97 95 08/08/18 04:00 08/08/18 08:00 08/08/18 08:21 Temperature Pulse Rate 60 63 Respiratory Rate 18 Blood Pressure 144/78 H Pulse Oximetry 96 98 Intake & Output 08/07/18 08/08/18 08/08/18 18:59 06:59 18:59 Weight 91.172 kg Narrative: Patient sitting up resting comfortably in bed 1 head normocephalic atraumatic bilaterally arranged Eyes PERRLA EOMI sclera slightly injected Mouth mucous membranes moist and well papillated no lesions Neck supple no JVD masses nodes or bruits Chest slightly diminished breath sounds but clear with no rales wheezes or rhonchi Cardiovascular pacer is in place in the left upper chest the rhythm appears to be regular there are no gallops rubs or murmurs Abdomen slightly distended distended and tender there appears to be an enlarged liver no guarding or rebound no other masses are noted Extremities no clubbing cyanosis or edema Results 08/08/18 00:56 08/08/18 00:56 Cardiac Enzymes 08/08/18 08/08/18 08/08/18 Range/Units 00:56 04:00 07:40 AST 20 (15-37) U/L Troponin I Less than 0.02 L Less than 0.02 L Less than 0.02 L (0.02-0.05) ng/mL CBC 08/08/18 Range/Units 00:56 WBC 10.1 (4.0-11.0) th/mm3 RBC 5.51 (4.50-5.90) mil/mm3 Hgb 16.9 (13.0-17.0) gm/dL Hct 46.7 (39.0-51.0) % Plt Count 229 (150-450) th/mm3 Neut # (Auto) 7.1 (1.8-7.7) th/mm3 Lymph # (Auto) 1.8 (1.0-4.8) th/mm3 [place] # (Auto) 1.0 H (0.0-0.9) th/mm3 Eos # (Auto) 0.1 (0.0-0.4) th/mm3 Baso # (Auto) 0.1 (0.0-0.2) th/mm3 Comprehensive Metabolic Panel 08/08/18 Range/Units 00:56 Sodium 140 (136-145) meq/L Potassium 3.8 (3.5-5.1) meq/L Chloride 106 (98-107) meq/L Carbon Dioxide 27.8 (21.0-32.0) meq/L BUN 17 (7-18) mg/dL Creatinine 1.07 (0.60-1.30) mg/dL Calcium 8.1 L (8.5-10.1) mg/dL AST 20 (15-37) U/L ALT 30 (12-78) U/L Alkaline Phosphatase 69 (45-117) U/L Total Protein 7.2 (6.4-8.2) g/dL Albumin 3.9 (3.4-5.0) g/dL Intake and Output 08/07/18 08/08/18 08/08/18 22:59 06:59 14:59 Other: Weight 91.172 kg - Imaging and Cardiology Imaging: Impressions Chest X-Ray 08/08/18 00:50 CONCLUSION: No acute cardiopulmonary disease. Assessment and Plan - Assessment (1) Atypical chest pain Code(s): R07.89 - Other chest pain Status: Acute Plan: Admitted chest pain center. ACS ruled out with 2 sets of EKGs and cardiac enzymes. Monitor on telemetry overnight. Seen evaluated by Dr. Rush Heath. No further cardiac testing required. Discomfort likely related to recent GI illness. Strongly encouraged him to establish with a primary care provider. Discussed local free or [facility]niz[facility] clinics. Information will be provided upon discharge. Refills on medications will also be provided as needed. Strongly encouraged contacted [facility] for further samples of Entresto and Eliquis. (2) Tobacco abuse Code(s): Z72.0 - Tobacco use Status: Chronic Plan: Encouraged stress importance of tobacco cessation. Instructed to quit smoking. Made aware of tobacco Free [place] program available.
[2018-08-08] MEDS ORDERED: Isosorbide Mononitrate 20 MG Tablet PO SCH (11:00)
--- NOTE | 2018-08-09 11:34 | ECG ---
Date Performed: 08/08/2018 Time Performed: 04:01:34 PTAGE: 48 years EKG: SINUS BRADYCARDIA BORDERLINE LEFT AXIS DEVIATION NONSPECIFIC T-WAVE ABNORMALITY BORDERLINE ECG No significant change PREVIOUS TRACING : 08/08/2018 00.43 DOCTOR: Rush Heath Interpretating Date/Time 08/09/2018 11:33:04
--- NOTE | 2018-08-09 11:34 | ECG ---
Date Performed: 08/08/2018 Time Performed: 06:41:18 PTAGE: 48 years EKG: SINUS BRADYCARDIA BORDERLINE LEFT AXIS DEVIATION NONSPECIFIC T-WAVE ABNORMALITY BORDERLINE ECG No significant change PREVIOUS TRACING : 08/08/2018 04.01 DOCTOR: Rush Heath Interpretating Date/Time 08/09/2018 11:32:50
--- NOTE | 2018-08-09 11:35 | ECG ---
Date Performed: 08/08/2018 Time Performed: 00:43:19 PTAGE: 48 years EKG: Sinus rhythm BORDERLINE LEFT AXIS DEVIATION NONSPECIFIC T-WAVE ABNORMALITY BORDERLINE ECG No significant change PREVIOUS TRACING : 05/10/2018 05.21 DOCTOR: Rush Heath Interpretating Date/Time 08/09/2018 11:34:03
== END 2018-08-08 14:04 | disposition home or self-care (01) ==
LOC: NEDA 00:08 → NEPC 00:08 → NEPGCP 03:28
DX: R07.89 Other chest pain; I11.0 Hypertensive heart disease with heart failure; Z91.14 Patient's other noncompliance with medication regimen; Z90.49 Acquired absence of other specified parts of digestive tract; Z79.01 Long term (current) use of anticoagulants; F17.210 Nicotine dependence, cigarettes, uncomplicated; I42.9 Cardiomyopathy, unspecified; I48.91 Unspecified atrial fibrillation; Z88.2 Allergy status to sulfonamides; I50.9 Heart failure, unspecified; Z79.82 Long term (current) use of aspirin; Z95.810 Presence of automatic (implantable) cardiac defibrillator